=== PATIENT | male | born 1945 | race Caucasian/White ===

== ENCOUNTER 2017-08-13 16:16 | Inpatient (IN) | payer MEDICARE, OTHER ==
[2017-08-13] MEDS ORDERED: FEVERALL 650 MG ONE (16:24)
[2017-08-13] MEDS ORDERED: Sodium Chloride 0.9% 1000 ML 1,000 ML IV STA (16:24)
[2017-08-13] MEDS ORDERED: FEVERALL 650 MG PR STA (16:24)
[2017-08-13] MEDS ORDERED: ROCEPHIN 1 Gm-D5w 50 ml Bag** 1 G/50 ML IVPB IV STA (16:25)
[2017-08-13] MEDS ORDERED: Sodium Chloride 0.9% 1000 ML 1,000 ML ONE (16:31)
--- NOTE | 2017-08-13 16:33 | ERPHSYRPT ---
- History of Present Illness Time Seen by Provider: 08/13/17 16:23 Source: patient, EMS Physician History: CC: confusion Hx: 72 y/o patient of Dr Murillo with hx of frequent falls, parkinsons. Confusion today. Shaking chills. Sent to ER from home per EMS. Denies pain. Some cough. Not known to have fever. He has chronic incontinence. No headache or head injury. No neck or back pain. He has general weakness and fatigue. Fever Severity: moderate Allergies/Adverse Reactions: No Known Drug Allergies Allergy (Verified 12/28/14 18:08) Home Medications: Carbidopa/Levodopa [Sinemet 25-250 mg Tablet] 1 each PO QID 08/13/17 [History] Ergocalciferol (Vitamin D2) [Vitamin D2] 50,000 unit PO UD 08/13/17 [History] Furosemide 40 mg [Lasix 40 MG] 40 mg PO BID 08/13/17 [History] Nebivolol HCl [Bystolic] 10 mg PO DAILY 08/13/17 [History] Ramipril [Altace] 10 mg PO DAILY 08/13/17 [History] Ropinirole HCl [Ropinirole ER] 6 mg PO QID 08/13/17 [History] Solifenacin Succinate [Vesicare] 5 mg PO DAILY 08/13/17 [History] Hx Tetanus, Diphtheria Vaccination/Date Given: Yes Hx Influenza Vaccination/Date Given: Yes Hx Pneumococcal Vaccination/Date Given: Yes - Review of Systems Constitutional: Chills, Fatigue, Malaise, Weakness, No Fever Eyes: No Symptoms Respiratory: Cough Cardiac: No Chest Pain Abdominal/Gastrointestinal: No Abdominal Pain, No Nausea, No Vomiting, No Diarrhea Genitourinary Symptoms: No Dysuria Musculoskeletal: No Back Pain, No Neck Pain, No Injury Neurological: No Focal Weakness, No Headache All Other Systems: Reviewed and Negative - Past Medical History Pertinent Past Medical History: Yes Neurological History: Peripheral Neuropathy, Other (Parkinson's) ENT History: No Pertinent History Cardiac History: Hypertension Respiratory History: Sleep Apnea Endocrine Medical History: Diabetes Type II Musculoskeletal History: Rheumatoid Arthritis, Other GI Medical History: No Pertinent History History: No Pertinent History Psycho-Social History: Depression Male Reproductive Disorders: Prostate Problems Other Medical History: PARKINSONS - Past Surgical History Past Surgical History: Yes Neuro Surgical History: No Pertinent History Cardiac: No Pertinent History, Cardiac Catheterization Respiratory: No Pertinent History Gastrointestinal: Cholecystectomy, Hernia Repair Musculoskeletal: Joint Replacement, Orthopedic Surgery Other Surgical History: ABDON KNEE REPLACEMENT - Social History Smoking Status: Never smoker Exposure to second hand smoke: No Drug Use: none Patient Lives Alone: No Significant Family History: no pertinent family hx - Nursing Vital Signs Nursing Vital Signs: Initial Vital Signs Temperature 103.4 F 08/13/17 16:17 Pulse Rate 90 08/13/17 16:17 Respiratory Rate 18 08/13/17 16:17 Blood Pressure 136/69 08/13/17 16:17 O2 Sat by Pulse Oximetry 92 L 08/13/17 16:17 Pain Scale Pain Intensity 0 - Physical Exam General Appearance: alert Eye Exam: PERRL/EOMI ENT Exam: normal ENT inspection (but dry mucous membranes) Neck Exam: supple Respiratory Exam: no respiratory distress, decreased breath sounds Cardiovascular/Chest Exam: regular rate/rhythm Gastrointestinal/Abdominal Exam: soft, non tender, no distention Male Genitalia: other (some redness to scrotum from diaper), No testicular tenderness Neurologic Exam: alert, cooperative, No motor deficits Skin Exam: dry, other (hot skin) - Course Nursing assessment & vital signs reviewed: Yes EKG Interpreted by Me: RATE (88), Sinus Rhythm, LAFB, Right Bundle Branch Block , Non-specific ST Changes - Radiology Exams cxr X-ray Interpretation: Reviewed by me (bibasilar infiltrates, CM) Ordered Tests: Active Orders 24 hr Category Date Time Status Data Center Technician STAT Care 08/13/17 16:24 Active Clean Catch Urine Specimen STAT Care 08/13/17 16:24 Active EKG-ER Only STAT Care 08/13/17 16:24 Active Pulse Oximetry (ED) STAT Care 08/13/17 16:24 Active Saline Lock STAT Care 08/13/17 16:24 Active CHEST 1 VIEW (PORTABLE) Stat Exams 08/13/17 16:24 Taken BLOOD CULTURE Stat Lab 08/13/17 17:25 Received CBC W DIFF Stat Lab 08/13/17 16:30 Completed CMP Stat Lab 08/13/17 16:30 Completed CULTURE,URINE Stat Lab 08/13/17 16:24 Ordered Lactic Acid Stat Lab 08/13/17 16:30 Results Manual Differential NC Stat Lab 08/13/17 16:30 Completed PROTIME WITH INR Stat Lab 08/13/17 16:30 Completed PTT Stat Lab 08/13/17 16:30 Completed UA W/ MICROSCOPIC Stat Lab 08/13/17 16:24 Completed Medication Summary Generic Name Dose Route Start Last Admin Trade Name Frida PRN Reason Stop Dose Admin Azithromycin 500 mg in 250 mls @ 250 mls/hr 08/13/17 17:08 Zithromax 500 Mg/ 250 Ml Nacl Premix IV 08/13/17 18:07 STAT STA Discontinued Medications Generic Name Dose Route Start Last Admin Trade Name Frida PRN Reason Stop Dose Admin Acetaminophen 975 mg 08/13/17 16:24 08/13/17 16:30 Feverall 650 Mg WV 08/13/17 16:25 975 mg STAT STA Administration Acetaminophen Confirm 08/13/17 16:24 Feverall 650 Mg Administered 08/13/17 16:25 Dose 1,300 mg .ROUTE .STK-MED ONE Sodium Chloride 1,000 mls @ 999 mls/hr 08/13/17 16:24 08/13/17 16:30 Sodium Chloride 0.9% 1000 Ml IV 08/13/17 17:24 999 mls/hr .Q1H1M STA Administration Ceftriaxone Sodium/Dextrose 1 g in 50 mls @ 100 mls/hr 08/13/17 16:25 16:48 Rocephin 1 Gm-D5w 50 Ml Bag IV 08/13/17 16:54 100 mls/hr STAT STA Administration Sodium Chloride Confirm 08/13/17 16:31 Sodium Chloride 0.9% 1000 Ml Administered 08/13/17 16:32 Dose 1,000 mls @ ud .ROUTE .STK-MED ONE Ceftriaxone Sodium/Dextrose Confirm 08/13/17 16:46 Rocephin 1 Gm-D5w 50 Ml Bag Administered 08/13/17 16:47 Dose 1 g in 50 mls @ ud IV .STK-MED ONE Lab/Rad Data: Laboratory Result Diagrams 08/13/17 16:30 08/13/17 16:30 Laboratory Results 08/13/17 08/13/17 08/13/17 Range/Units 16:30 16:30 16:30 WBC 17.5 H (4.0-10.5) K/mm3 RBC 5.07 (4.1-5.6) M/mm3 Hgb 15.3 (12.5-18.0) gm/dl Hct 46.2 (42-50) % MCV 91.1 (78-100) fl MCH 30.2 (26-32) pg MCHC 33.1 (32-36) g/dl RDW 14.5 H (11.5-14.0) % Plt Count 168 (150-450) K/mm3 MPV 11.4 H (6-9.5) fl INR 1.18 (0.8-3.0) APTT 33.2 (24.1-36.1) SECONDS Sodium 138 (136-145) mEq/L Potassium 4.0 (3.5-5.1) mEq/L Chloride 100 (98-107) mEq/L Carbon Dioxide 27.4 (21-32) mEq/L Anion Gap 14.5 (5-15) MEQ/L BUN 19 (9-20) mg/dL Creatinine 1.31 H (0.55-1.30) mg/dl Estimated GFR 57 ML/MIN Glucose 215 H (70-110) MG/DL Lactic Acid (0.4-2.0) Calcium 9.2 (8.5-10.1) mg/dL Total Bilirubin 0.80 (0.2-1.0) mg/dL AST 17 (15-37) U/L ALT 10 L (12-78) U/L Alkaline Phosphatase 132 H (46-116) U/L Serum Total Protein 7.5 (6.4-8.2) gm/dL Albumin 3.6 (3.4-5.0) g/dL Ur Collection Type Urine Color (YELLOW) Urine Appearance (CLEAR) Urine pH (5-6) Ur Specific [place] (1.005-1.025) Urine Protein (Negative) Urine Ketones (NEGATIVE) Urine Blood (0-5) Haseeb/ul Urine Nitrite (NEGATIVE) Urine Bilirubin (NEGATIVE) Urine Urobilinogen (0-1) mg/dL Ur Leukocyte Esterase (NEGATIVE) Urine Microscopic RBC (0-2) /HPF Urine Microscopic WBC (0-5) /HPF Ur Epithelial Cells (FEW) /HPF Urine Bacteria (NEGATIVE) /HPF Hyaline Casts (0-2) /LPF Urine Glucose (NEGATIVE) mg/dL Specimen Received 08/13/17 08/13/17 Range/Units 16:30 16:24 WBC (4.0-10.5) K/mm3 RBC (4.1-5.6) M/mm3 Hgb (12.5-18.0) gm/dl Hct (42-50) % MCV (78-100) fl MCH (26-32) pg MCHC (32-36) g/dl RDW (11.5-14.0) % Plt Count (150-450) K/mm3 MPV (6-9.5) fl INR (0.8-3.0) APTT (24.1-36.1) SECONDS Sodium (136-145) mEq/L Potassium (3.5-5.1) mEq/L Chloride (98-107) mEq/L Carbon Dioxide (21-32) mEq/L Anion Gap (5-15) MEQ/L BUN (9-20) mg/dL Creatinine (0.55-1.30) mg/dl Estimated GFR ML/MIN Glucose (70-110) MG/DL Lactic Acid 2.9 H (0.4-2.0) Calcium (8.5-10.1) mg/dL Total Bilirubin (0.2-1.0) mg/dL AST (15-37) U/L ALT (12-78) U/L Alkaline Phosphatase (46-116) U/L Serum Total Protein (6.4-8.2) gm/dL Albumin (3.4-5.0) g/dL Ur Collection Type CLEAN CATCH Urine Color YELLOW (YELLOW) Urine Appearance CLEAR (CLEAR) Urine pH 5.0 (5-6) Ur Specific [place] 1.015 (1.005-1.025) Urine Protein TRACE (Negative) Urine Ketones NEGATIVE (NEGATIVE) Urine Blood 50 (0-5) Haseeb/ul Urine Nitrite NEGATIVE (NEGATIVE) Urine Bilirubin NEGATIVE (NEGATIVE) Urine Urobilinogen NORMAL (0-1) mg/dL Ur Leukocyte Esterase TRACE (NEGATIVE) Urine Microscopic RBC 0-2 (0-2) /HPF Urine Microscopic WBC 2-5 (0-5) /HPF Ur Epithelial Cells RARE (FEW) /HPF Urine Bacteria RARE (NEGATIVE) /HPF Hyaline Casts 0-2 (0-2) /LPF Urine Glucose 250 (NEGATIVE) mg/dL Specimen Received 08/13/17 1624 - Progress Progress Note: 08/13/17 16:32 103 fever. Sepsis workup in progress. 08/13/17 17:33 The patient is stable. He appears to have pneumonia/sepsis aggravating his parkinsons. Flu pending. Called Dr Reagan Murillo and will admit to [facility]. Counseled pt/family regarding: lab results, diagnosis, need for follow-up, rad results - Departure Time of Disposition: 17:34 Departure Disposition: In-patient Admission Clinical Impression: Parkinsons, Sepsis, Pneumonia Condition: Fair Critical Care Time: No Referrals: TIMUR MURILLO [Primary Care Provider] -
[2017-08-13 16:35] LABS: Lactic Acid 2.9 (0.4-2.0)
[2017-08-13 16:44] LABS: Mean Cell Volume 91.1 fl (78-100); Mean Corpuscular Hemoglobin 30.2 pg (26-32); Mean Platelet Volume 11.4 fl (6-9.5); Platelet Count 168 K/mm3 (150-450); Red Blood Count 5.07 M/mm3 (4.1-5.6); Red Cell Distribution Width 14.5 % (11.5-14.0); White Blood Count 17.5 K/mm3 (4.0-10.5)
[2017-08-13] MEDS ORDERED: ROCEPHIN 1 Gm-D5w 50 ml Bag** 1 G/50 ML IVPB IV ONE (16:46)
[2017-08-13 16:50] LABS: Bilirubin NEGATIVE (NEGATIVE); Blood 50 Ery/ul (0-5); Collection Type CLEAN CATCH; Glucose 250 mg/dL (NEGATIVE); Leukocyte Esterase TRACE (NEGATIVE)
[2017-08-13 16:51] LABS: COMPLETE URINE MICROSCOPIC? YES
[2017-08-13 16:52] LABS: Bacteria RARE /HPF (NEGATIVE); Epithelial Cells RARE /HPF (FEW); Hyaline Casts 0-2 /LPF (0-2)
[2017-08-13 16:57] LABS: INR 1.18 (0.8-3.0); PROTIME 13.1 SECONDS (8.83-12.87)
[2017-08-13 16:59] LABS: PTT 33.2 SECONDS (24.1-36.1)
[2017-08-13] MEDS ORDERED: Zithromax 500 MG/ 250 ML NaCl Premix 500 MG/250 ML IVPB IV STA (17:08)
[2017-08-13 17:09] LABS: ALBUMIN 3.6 g/dL (3.4-5.0); ANION GAP 14.5 MEQ/L (5-15); BILIRUBIN,TOTAL 0.8 mg/dL (0.2-1.0); Carbon Dioxide 27.4 mEq/L (21-32); Total Protein 7.5 gm/dL (6.4-8.2)
[2017-08-13] MEDS ORDERED: Zithromax 500 MG/ 250 ML NaCl Premix 500 MG/250 ML IVPB IV ONE (17:33)
[2017-08-13] MEDS ORDERED: TYLENOL 325 MG PO PRN (17:58)
--- NOTE | 2017-08-13 19:25 | XRAY ---
Indication: Possible sepsis. Comparison: December 28, 2014. Portable chest now demonstrates subtle bibasilar haziness, infiltrates versus atelectasis. Remaining heart and lungs unremarkable. Bony thorax intact.
[2017-08-13] MEDS: Sodium Chloride 0.9% 1000 ML 1,000 ML IV SCH (19:50)
[2017-08-13 21:46] LABS: Platelet Estimate NORMAL (NORMAL); Total Cells Counted 100
[2017-08-13] MEDS ORDERED: REQUIP 2MG TAB ONE (23:17)
[2017-08-13] MEDS ORDERED: Sinemet 25/100 MG ONE (23:17)
[2017-08-13] MEDS: REQUIP 2MG TAB PO SCH (23:41)
[2017-08-13] MEDS: Sinemet 25/250 MG PO SCH (23:42)
[2017-08-14 05:47] LABS: BASOPHIL % 0.2 % (0.0-0.4); Eosinophil % 1.2 % (0.00-5.0); Lymphocytes % 10.1 % (24.0-44.0); Mean Cell Volume 93.2 fl (78-100); Mean Platelet Volume 11.5 fl (6-9.5); Monocytes % 4.5 % (0.0-12.0); Platelet Count 155 K/mm3 (150-450); Red Cell Distribution Width 14.7 % (11.5-14.0); White Blood Count 10.2 K/mm3 (4.0-10.5)
[2017-08-14] MEDS: Sodium Chloride 0.9% 1000 ML 1,000 ML IV SCH ×2 (05:53→15:26)
[2017-08-14 06:06] LABS: ANION GAP 9.2 MEQ/L (5-15); BLOOD UREA NITROGEN 17 mg/dL (9-20); CHLORIDE 107 mEq/L (98-107); Carbon Dioxide 28.8 mEq/L (21-32); Glucose 110 MG/DL (70-110); Potassium 3.5 mEq/L (3.5-5.1); SODIUM 142 mEq/L (136-145)
[2017-08-14] MEDS ORDERED: Requip 0.5 MG PO SCH (10:00)
[2017-08-14] MEDS: REQUIP 2MG TAB PO SCH ×4 (10:18→22:24)
[2017-08-14] MEDS: Zithromax 500 MG/ 250 ML NaCl Premix 500 MG/250 ML IVPB IV SCH (10:18)
[2017-08-14] MEDS: ROCEPHIN 1 Gm-D5w 50 ml Bag** 1 G/50 ML IVPB IV SCH (10:19)
[2017-08-14] MEDS: Sinemet 25/250 MG PO SCH ×4 (10:19→22:24)
[2017-08-14] MEDS ORDERED: MEDICATION INTERVENTION MC PRN (15:14)
[2017-08-14] MEDS ORDERED: VITAMIN D2 PO SCH (15:15)
[2017-08-14] MEDS: Altace 5 MG PO SCH (15:45)
[2017-08-14] MEDS: Bystolic 5 MG PO SCH (15:45)
--- NOTE | 2017-08-14 17:20 | XRAY ---
Indication: Weakness. Multiple contiguous axial images obtained through the head without contrast. Comparison: December 16, 2014. Again normal appearing brain parenchyma, ventricles, and bony calvarium. Visualized paranasal sinuses and mastoid air cells are clear. Impression: Stable normal CT head without contrast exam. Comment: Preliminary interpretation was made by [facility]. No discrepancy. CTDI 57.98
--- NOTE | 2017-08-14 17:22 | XRAY ---
Indication: Left shoulder pain. Comparison: None 3 views of the left shoulder demonstrates mild AC degenerative arthropathy and tiny medial humeral head spurring. No other bony, articular, or soft tissue abnormalities.
[2017-08-14] MEDS: Lasix 40 MG PO SCH (17:40)
[2017-08-14] MEDS: NovoLOG Insulin SQ PRN ×2 (17:41→22:25)
[2017-08-14] MEDS: Ditropan 5 MG PO SCH (22:24)
[2017-08-15] MEDS: Sodium Chloride 0.9% 1000 ML 1,000 ML IV SCH ×3 (01:16→23:29)
[2017-08-15] MEDS ORDERED: DUONEB 0.5-3 MG/3 ml Neb IH ONE (02:40)
[2017-08-15 06:03] LABS: BASOPHIL % 0.1 % (0.0-0.4); Eosinophil % 1.9 % (0.00-5.0); Granulocytes % 73.3 % (36.0-66.0); Lymphocytes % 16.4 % (24.0-44.0); Mean Cell Volume 94.3 fl (78-100); Mean Corpuscular Hemoglobin 30.1 pg (26-32); Mean Platelet Volume 11.4 fl (6-9.5); Monocytes % 8.3 % (0.0-12.0); Platelet Count 158 K/mm3 (150-450); Red Blood Count 4.22 M/mm3 (4.1-5.6); Red Cell Distribution Width 14.5 % (11.5-14.0); White Blood Count 7.4 K/mm3 (4.0-10.5)
[2017-08-15 06:58] LABS: ANION GAP 11.2 MEQ/L (5-15); BLOOD UREA NITROGEN 11 mg/dL (9-20); CHLORIDE 104 mEq/L (98-107); Carbon Dioxide 28.4 mEq/L (21-32); Glucose 192 MG/DL (70-110); Potassium 4.1 mEq/L (3.5-5.1); SODIUM 140 mEq/L (136-145)
--- NOTE | 2017-08-15 09:57 | HP ---
HISTORY OF PRESENT ILLNESS: Melvin Carrillo is a 72 year old male with past medical history of hypertension, congestive heart failure, Parkinson's disease, rheumatoid arthritis, chronic incontinence, depression, peripheral neuropathy and sleep apnea. He presented to the emergency room yesterday with symptoms of increasing generalized weakness, frequent falls. The patient was reportedly confused yesterday and was having shaking chills. There was no reported history of fever. No reported history of head, neck or back injury. As per patient he had not been eating well. Upon initial evaluation in the emergency room he was noted to be alert with blood pressure of 136/69, heart rate 90, respiratory rate 18, temperature 103.4F. Oxygen saturation 92%. Work up was notable for white blood cell count 17.5. Creatinine 1.31. Lactic acid was 2.9. Urinary tract infection. Bibasilar infiltrate on chest x-ray. He was treated with Zithromax 500 mg IV x1, Tylenol 975 mg x1, normal saline 1 liter x1, Rocephin 1 gm IV x1. Subsequently he was admitted to the medical floor for further monitoring and management. Since admission he has been continued on IV fluids, broad spectrum IV antibiotics. At the time of this evaluation he is alert, awake, complains of fatigue, generalized weakness. Complains of left shoulder pain from fall. PAST MEDICAL HISTORY: As noted above. PAST SURGICAL HISTORY: Cardiac catheterization, cholecystectomy, hernia repair, bilateral knee replacement, orthopedic surgery. ALLERGIES: NKDA. MEDICATIONS: Reviewed. FAMILY HISTORY: Noncontributory. SOCIAL HISTORY: The patient has no history of smoking. REVIEW OF SYSTEMS: Denies headache or dizziness. Complains of generalized weakness. Denies fever. Complaints of fatigue. Prior history of recurrent falls. Denies loss of consciousness. Denies chest pain. Complains of occasional shortness of breath, complains of dry cough. Denies abdominal pain, nausea or vomiting. Denies constipation or diarrhea. History of chronic incontinence. PHYSICAL EXAMINATION: An elderly male lying comfortably in bed, not in acute distress. VITAL SIGNS: Blood pressure 97/53, heart rate 56, respiratory rate 15, temperature 97.7F. Oxygen saturation 97% on 3 liters. HEENT: Pallor is present. No icterus is noted. NECK: No JVD is present. CVS: S1, S2 present. RESPIRATORY: Breath sounds are bilaterally diminished and clear to auscultation. ABDOMEN: Obese, soft, nontender. NEURO: He is alert, oriented x3. Evaluation of motor strength in bilateral upper and lower extremities reveals grossly intact motor strength. EXTREMITIES: Revealed edema on right ankle, right foot area (chronic per patient). Left lower extremity revealed no edema. LABORATORY DATA AND TESTS: Labs from 08/13/2017 were noted. Today's labs show remarkable CBC. BMP is unremarkable. Hemoglobin A1C 9.5. Repeat lactic acid 1.5. Yesterday's labs were also notable for alkaline phosphatase 132. Flu A/B and respiratory syncytial virus were negative. Chest x-ray as noted. EKG showed sinus rhythm, right bundle branch block, nonspecific ST-T changes. ASSESSMENT: A 72 year old male with impression: 1) Generalized weakness. 2) Pneumonia. 3) Recurrent falls. 4) Urinary tract infection. 5) History of Parkinson's disease. 6) Hypertension/congestive heart failure. 7) Respiratory distress, clinically resolved. PLAN: Continue broad spectrum IV antibiotics. Continue IV fluids. Continue to follow CBC and electrolytes. Continue to follow chest x-ray. Will obtain BMP. PT and OT evaluation. The plan was discussed with the patient. He seems to be in understanding and agreement. Discussed with the patient's nurse.
[2017-08-15] MEDS ORDERED: NON-FORMULARY ITEM (Nebivolol Hcl [Bystolic] 10 MG) PO SCH (10:00)
[2017-08-15] MEDS ORDERED: NON-FORMULARY ITEM (Ramipril [Altace] 10 MG) PO SCH (10:00)
[2017-08-15] MEDS ORDERED: NON-FORMULARY ITEM (Solifenacin Succinate [Vesicare] 5 MG) PO SCH (10:00)
[2017-08-15] MEDS: REQUIP 2MG TAB PO SCH ×4 (10:15→22:23)
[2017-08-15] MEDS: Altace 5 MG PO SCH (10:15)
[2017-08-15] MEDS: Zithromax 500 MG/ 250 ML NaCl Premix 500 MG/250 ML IVPB IV SCH (10:15)
[2017-08-15] MEDS: Sinemet 25/250 MG PO SCH ×4 (10:15→22:24)
[2017-08-15] MEDS: ROCEPHIN 1 Gm-D5w 50 ml Bag** 1 G/50 ML IVPB IV SCH (10:15)
[2017-08-15] MEDS: Bystolic 5 MG PO SCH (10:16)
[2017-08-15] MEDS: Lasix 40 MG PO SCH ×2 (10:16→16:47)
[2017-08-15] MEDS: Ditropan 5 MG PO SCH ×2 (10:16→22:23)
[2017-08-15] MEDS: Robitussin 100 MG/5 ML PO PRN (10:19)
[2017-08-15] MEDS: NovoLOG Insulin SQ PRN ×3 (12:17→22:25)
--- NOTE | 2017-08-15 15:53 | PROG NOTE ---
DATE: 08/15/2017 Chart is reviewed and events noted. The patient has been more confused at the time of this evaluation. He is alert, awake, complains of feeling fatigued. Denies increased shortness of breath, denies pain. He appears comfortable. PHYSICAL EXAMINATION: VITAL SIGNS: Blood pressure 115/78, heart rate 57, respiratory rate 20, temperature 98.4F. Oxygen saturation 99% on room air. HEENT: No pallor or icterus is present. NECK: No JVD is present. CVS: S1, S2 present. RESPIRATORY: Breath sounds are bilaterally diminished, bilateral rhonchi present. ABDOMEN: Obese, soft, nontender. NEURO: He is alert, answers simple questions, oriented to self, place and year. He follows simple commands. EXTREMITIES: Trace edema right ankle/right foot. LABORATORY DATA AND TESTS: Labs from today show unremarkable CBC. BMP notable for glucose of 192. Head CT from yesterday had shown no acute changes. Left shoulder x-ray showed no acute degenerative changes. No acute abnormalities. Blood cultures from 08/13/2017 had revealed negative x2. Urine culture showed less than 10,000 normal elliot. Medications were reviewed. ASSESSMENT: A 72 year old man with impression: 1) Generalized weakness. 2) Confusion, mild. 3) Urinary tract infection, mild. 4) History of recurrent fall. 5) Pneumonia. 6) Parkinson's disease. 7) History of hypertension/congestive heart failure. PLAN: Continue to monitor neurological status, continue broad spectrum IV antibiotics and continue to follow CBC and electrolytes. Fall precautions. The plan was discussed with the patient who seems to be in understanding and agreement. Discussed with the patient's nurse, Emily.
[2017-08-15] MEDS: ENOXAPARIN SODIUM SQ SCH (16:47)
[2017-08-16] MEDS: REQUIP 2MG TAB PO SCH ×2 (07:43→12:31)
[2017-08-16] MEDS: Bystolic 5 MG PO SCH (07:44)
[2017-08-16] MEDS: Lasix 40 MG PO SCH (07:44)
[2017-08-16] MEDS: Ditropan 5 MG PO SCH (07:44)
[2017-08-16] MEDS: Altace 5 MG PO SCH (07:44)
[2017-08-16] MEDS: ENOXAPARIN SODIUM SQ SCH (07:44)
[2017-08-16] MEDS: ROCEPHIN 1 Gm-D5w 50 ml Bag** 1 G/50 ML IVPB IV SCH (07:45)
[2017-08-16] MEDS: Sinemet 25/250 MG PO SCH ×2 (07:45→12:31)
[2017-08-16] MEDS: Robitussin 100 MG/5 ML PO PRN (07:46)
[2017-08-16] MEDS: Zithromax 500 MG/ 250 ML NaCl Premix 500 MG/250 ML IVPB IV SCH (09:04)
[2017-08-16] MEDS ORDERED: Lasix 20 MG/2 ML IV ONE (10:00)
--- NOTE | 2017-08-16 10:17 | XRAY ---
Indication: Follow-up pneumonia. Comparison: August 13, 2017. PA/lateral chest demonstrates worsening bilateral lower lobe infiltrates/atelectasis again without consolidation or large effusion. Heart is not enlarged.
[2017-08-16] MEDS: NovoLOG Insulin SQ PRN (11:32)
[2017-08-16] MEDS ORDERED: NON-FORMULARY ITEM SQ SCH ×2 (12:00→22:00)
[2017-08-16] MEDS: xanAX 0.5 MG PO SCH ×2 (14:54→15:07)
[2017-08-16 15:42] VITALS: BP 143/81; PULSE 80; O2SAT 90
[2017-08-16] MEDS ORDERED: NEURONTIN 300 MG PO SCH (22:00)
[2017-08-16] MEDS ORDERED: Vitamin B-6 (Pyridoxine) 100 MG PO SCH (22:00)
[2017-08-17] MEDS ORDERED: NON-FORMULARY ITEM SQ SCH (08:00)
--- NOTE | 2017-08-17 09:38 | DS ---
DISCHARGE DIAGNOSES: 1) GENERALIZED WEAKNESS, CLINICALLY IMPROVED. 2) URINARY TRACT INFECTION. 3) PNEUMONIA. 4) CONFUSION, RESOLVED. 5) PARKINSON'S DISEASE. 6) HYPERTENSION/CONGESTIVE HEART FAILURE. 7) DIABETES MELLITUS, SUBOPTIMALLY CONTROLLED. HOSPITAL COURSE: Melvin Carrillo is a 72 year-old male with past medical history of hypertension, congestive heart failure, Parkinson's disease, diabetes mellitus and obesity. He was admitted through the emergency room on 08/13/2017 with generalized weakness and recurrent falls. Please refer to my history and physical for details. Initial work up was notable for urinary tract infection and pneumonia. The patient was placed on cautious IV hydration, broad spectrum IV antibiotics. During his further course he did have mild confusion. CT scan of the head had revealed no acute changes. Also he had complained of some left shoulder pain from recent fall and left shoulder showed no acute changes. He was placed on neural checks. Eventually his confusion had resolved. Subsequent course was notable for elevated Accu-Chek reading for which he was treated with sliding scale insulin. His hemoglobin A1C was 9.8. Also the patient's routine insulin had not been resumed at the time of initial admission but was restarted after verifying the dose. The rest of his course was essentially more or less unremarkable. He improved clinically. At the time of evaluation this afternoon, he was alert, awake and comfortable. He stated overall he felt well. He had been ambulating to the bathroom without difficulty. Appears comfortable and was wishing to go home. PHYSICAL EXAMINATION: VITAL SIGNS: Blood pressure 120/58, heart rate 88, respiratory rate 18, temperature 97.4F. HEENT: No pallor or icterus is noted. NECK: No JVD is present. CVS: S1, S2 present. RESPIRATORY: Breath sounds are bilaterally diminished but clear to auscultation. ABDOMEN: Obese, soft, nontender. NEURO: He is alert, oriented x3. EXTREMITIES: Trace edema on right ankle/right foot chronic. Left lower extremity revealed no edema. LABORATORY DATA AND TESTS: Labs from today were noted. Chest x-ray noted. Medications were reviewed. ASSESSMENT: As outlined in discharge diagnoses. PLAN: A patient with multiple medical problems was admitted with generalized weakness due to pneumonia. He underwent work up and treatment as noted. He improved clinically. He remained hemodynamically stable. Additional work up for confusion was essentially unremarkable and his confusion had resolved. His chest x-ray from today did show mild worsening of congestive changes possible pneumonia/infiltrates. However, he remained afebrile with normal white blood cell count and remained hemodynamically stable. Also his BNP was somewhat mildly elevated. He was treated with additional dose of Lasix. As noted earlier after verifying dose the patient was resumed on his routine dosing of insulin and hypoglycemic agents were continued. His Accu-Chek's will continue to be monitored closely. He was also evaluated by PT. Please refer to their notes for details. The rest of his course was essentially more or less unremarkable. He otherwise improved clinically. He overall felt better and was wishing to go home. He ambulated with stable oxygen saturation. He was discharged home in stable condition. Please refer to discharge medication list from 08/16/2017 for details of medications on discharge. The patient was placed on a seven day course of Levaquin at the time of discharge. He was advised to continue to monitor his Accu-Chek's and blood pressure closely and call if any abnormal readings were noted. He was advised to start discharge medications as directed. I have advised the patient to obtain CMP, CBC and chest x-ray after completion of his antibiotics. I have advised the patient to follow up with me in the office in one week. I have advised him to return to the emergency room [facility] if any new signs and symptoms or reappearance of previous signs and symptoms are noted. Please refer to patient's chart, labs, diagnostic work up results and consult notes for details. Please refer to discharge medication list from 08/16/2017 for details of medications on discharge. The patient's clinical condition, work-up results and plan of management including plan after discharge were discussed at length with patient. He seems to be in understanding and agreement. Discussed with lining caser, Stephanie Singh.
== END 2017-08-16 16:00 | disposition home or self-care (01) | DRG 947 ==
LOC: ED 16:16 → MED SURG 17:50
PROVIDERS: ADMIT General Practice; ATTEND General Practice
DX: R53.1 Weakness (principal); J18.9 Pneumonia, unspecified organism; N39.0 Urinary tract infection, site not specified; R41.0 Disorientation, unspecified; G20 Parkinson's disease; I11.0 Hypertensive heart disease with heart failure; I50.9 Heart failure, unspecified; E11.9 Type 2 diabetes mellitus without complications; E66.9 Obesity, unspecified; M06.9 Rheumatoid arthritis, unspecified; F32.9 Major depressive disorder, single episode, unspecified; G62.9 Polyneuropathy, unspecified; G47.30 Sleep apnea, unspecified; R29.6 Repeated falls; M25.512 Pain in left shoulder
CPT/HCPCS: 36415; 70450; 71010; 71020; 73030; 80048; 80053; 81000; 82962; 83036; 83605; 83880; 85025; 85610; 85730; 87040; 87086; 87631; 93005; 93041; 94640; 94660; 94760; 96360; 96365; 96367; 99285; J0456; J0696; J1650; J1940; A9270-GY

== ENCOUNTER 2017-08-23 19:16 | Inpatient (IN) | payer MEDICARE, OTHER ==
[2017-08-23] MEDS ORDERED: Zosyn 3.375GM/100 Ml D5W 3.375 GM/100 ML IVPB IV STA (19:35)
[2017-08-23] MEDS ORDERED: FEVERALL 650 MG PR ONE (19:35)
--- NOTE | 2017-08-23 19:39 | ERPHSYRPT ---
- History of Present Illness Time Seen by Provider: 08/23/17 19:29 Source: patient, EMS Patient Subjective Stated Complaint: per ems, pt has had fever, lsthargy, and confusion at home. Triage Nursing Assessment: pt alert and oriented, brendas betina approp. pt arrive per ambulance and transfer to [facility] with assist of 3. respirations tachy, nonlabored. pt's extremities shaking. occasional cough noted, nonproductive. yellowing bruise noted to lt upper arm. scab to forehead pt states from biopsy done. 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 Admitted for UTI and pneumonia 3 weeks ago and took last dose of levaquin today. He has fever, chills, general weakness. No cough. Polyuria. No abd pain. No V/D. Fell 3 weeks ago with bruise to left arm. Sugars have been well. Symptoms moderately severe. Timing/Duration: today Severity: moderate, severe Allergies/Adverse Reactions: No Known Drug Allergies Allergy (Verified 08/23/17 19:35) Home Medications: Carbidopa/Levodopa [Sinemet 25-250 mg Tablet] 1 each PO QID 08/13/17 [History] Furosemide 40 mg [Lasix 40 MG] 40 mg PO BID 08/13/17 [History] Nebivolol HCl [Bystolic] 10 mg PO DAILY 08/13/17 [History] Ramipril [Altace] 10 mg PO DAILY 08/13/17 [History] Ropinirole HCl [Ropinirole ER] 6 mg PO QID 08/13/17 [History] Insulin Lispro Protamin/Lispro [Humalog Mix 50-50 Kwikpen] 22 unit SQ BREAKFAST 08/16/17 [History] Insulin Lispro Protamin/Lispro [Humalog Mix 50-50 Kwikpen] 27 unit SQ HS [History] Insulin Lispro Protamin/Lispro [Humalog Mix 50-50 Kwikpen] 27 unit SQ LUNCH [History] Vit B6/Me-Thfolate/Me-B12/Ala [Podiapn Capsule] 1 each PO BID 08/16/17 [History] Hx Tetanus, Diphtheria Vaccination/Date Given: Yes Hx Influenza Vaccination/Date Given: Yes Hx Pneumococcal Vaccination/Date Given: Yes Immunizations Up to Date: Yes - Review of Systems Constitutional: Fever, Chills, Fatigue, Malaise, Weakness Eyes: No Symptoms Ears, Nose, & Throat: No Symptoms Respiratory: No Cough, No Dyspnea Cardiac: No Chest Pain Abdominal/Gastrointestinal: No Abdominal Pain, No Nausea, No Vomiting, No Diarrhea Genitourinary Symptoms: Frequency, No Dysuria, No Hematuria, No Flank Pain Musculoskeletal: No Back Pain Skin: No Rash Neurological: No Headache All Other Systems: Reviewed and Negative - Past Medical History Pertinent Past Medical History: Yes Neurological History: Peripheral Neuropathy, Other ENT History: No Pertinent History Cardiac History: Hypertension Respiratory History: Pneumonia, Sleep Apnea Endocrine Medical History: Diabetes Type II Musculoskeletal History: Rheumatoid Arthritis, Other GI Medical History: No Pertinent History History: No Pertinent History Psycho-Social History: Depression Male Reproductive Disorders: Prostate Problems Other Medical History: PARKINSONS - Past Surgical History Past Surgical History: Yes Neuro Surgical History: No Pertinent History Cardiac: No Pertinent History, Cardiac Catheterization Respiratory: No Pertinent History Gastrointestinal: Cholecystectomy, Hernia Repair Musculoskeletal: Joint Replacement, Orthopedic Surgery Other Surgical History: ABDON KNEE REPLACEMENT - Social History Smoking Status: Never smoker Exposure to second hand smoke: No Drug Use: none Patient Lives Alone: No (lives at home with ) Significant Family History: no pertinent family hx - Nursing Vital Signs Nursing Vital Signs: Initial Vital Signs Temperature 101.4 F 08/23/17 19:19 Pulse Rate 104 H 08/23/17 19:19 Respiratory Rate 42 H 08/23/17 19:19 Blood Pressure 149/86 08/23/17 19:19 O2 Sat by Pulse Oximetry 94 L 08/23/17 19:19 Pain Scale Pain Intensity 4 - Physical Exam General Appearance: alert Eye Exam: PERRL/EOMI Ears, Nose, Throat Exam: normal ENT inspection, moist mucous membranes Neck Exam: normal inspection, non-tender, supple Respiratory Exam: normal breath sounds, lungs clear Cardiovascular Exam: regular rate/rhythm Gastrointestinal/Abdomen Exam: soft, No tenderness, No distention Male Genitalia Exam: normal genitalia Extremity Exam: normal inspection, normal range of motion Neurologic Exam: alert, oriented x 3, cooperative, sensation nml, No motor deficits Skin Exam: warm, dry, No rash SpO2 Interpretation: normal SpO2: 94 Oxygen Delivery: Nasal Cannula - Course Nursing assessment & vital signs reviewed: Yes EKG Interpreted by Me: RATE (104), Sinus Tach, Right Bundle Branch Block, Other (artifact obscures) - Radiology Exams cxr X-ray Interpretation: Interpreted by me (residual RLL infiltrate, no failure) Ordered Tests: Active Orders 24 hr Category Date Time Status [employer]ute Worker STAT Care 08/23/17 19:29 Active Clean Catch Urine Specimen STAT Care 08/23/17 19:29 Active EKG-ER Only STAT Care 08/23/17 19:29 Active IV Insertion STAT Care 08/23/17 19:29 Active IV Insertion-2nd Peripheral STAT Care 08/23/17 19:30 Active Pulse Oximetry (ED) STAT Care 08/23/17 19:29 Active Rectal Temperature STAT Care 08/23/17 19:30 Active CHEST 1 VIEW (PORTABLE) Stat Exams 08/23/17 19:30 Taken BLOOD CULTURE Stat Lab 08/23/17 19:45 Received CBC W DIFF Stat Lab 08/23/17 19:45 Completed CMP Stat Lab 08/23/17 19:45 Completed CULTURE,URINE Stat Lab 08/23/17 19:55 Received Lactic Acid Stat Lab 08/23/17 20:10 Results Manual Differential NC Stat Lab 08/23/17 19:45 Completed NT PRO BNP Stat Lab 08/23/17 19:45 Completed PROTIME WITH INR Stat Lab 08/23/17 19:45 Completed PTT Stat Lab 08/23/17 19:45 Completed UA W/ MICROSCOPIC Stat Lab 08/23/17 19:55 Completed VENOUS BLOOD GAS Stat Lab 08/23/17 20:10 Completed Medication Summary Generic Name Dose Route Start Last Admin Trade Name Freq PRN Reason Stop Dose Admin Sodium Chloride 1,000 mls @ 100 mls/hr 08/23/17 19:45 08/23/17 19:56 Sodium Chloride 0.9% 1000 Ml IV 09/22/17 19:44 100 mls/hr .Q10H NANCY Administration Discontinued Medications Generic Name Dose Route Start Last Admin Trade Name Freq PRN Reason Stop Dose Admin Acetaminophen 975 mg 08/23/17 19:35 08/23/17 19:55 Feverall 650 Mg NM 08/23/17 19:36 975 mg STAT ONE Administration Acetaminophen Confirm 08/23/17 19:46 Feverall 650 Mg Administered 08/23/17 19:47 Dose 1,300 mg .ROUTE .STK-RetiDiag ONE Piperacillin Sod/Tazobactam Sod 3.375 gm in 100 mls @ 200 mls/hr 08/23/17 19: 35 08/23/17 19:54 Zosyn 3.375gm/100 Ml D5w IV 08/23/17 20:04 200 mls/hr STAT STA Administration Piperacillin Sod/Tazobactam Sod Confirm 08/23/17 19:47 Zosyn 3.375gm/100 Ml D5w Administered 08/23/17 19:48 Dose 3.375 gm in 100 mls @ ud IV .[facility] Lab/Rad Data: Laboratory Result Diagrams 08/23/17 19:45 08/23/17 19:45 Laboratory Results 08/23/17 08/23/17 08/23/17 Range/Units 20:10 20:10 19:55 WBC (4.0-10.5) K/mm3 RBC (4.1-5.6) M/mm3 Hgb (12.5-18.0) gm/dl Hct (42-50) % MCV (78-100) fl MCH (26-32) pg MCHC (32-36) g/dl RDW (11.5-14.0) % Plt Count (150-450) K/mm3 MPV (6-9.5) fl INR (0.8-3.0) APTT (24.1-36.1) SECONDS VBG pH 7.43 H (7.32-7.42) VBG pCO2 at Pat Temp 47 (42-55) mm/Hg VBG pO2 at Pat Temp 28 (25-40) mm/Hg VBG HCO3 31.2 H* (22-28) meq/L VBG O2 Sat (Jenna) 65.1 L (95-100) VBG Base Excess 5.7 H (-2.0-2.0) VBG Hemoglobin 16.2 VBG Carboxyhemoglobin 2.3 (0.0-6.9) % T HGB POC Potassium 4.2 (3.5-5.1) Sodium (136-145) mEq/L Potassium (3.5-5.1) mEq/L Chloride (98-107) mEq/L Carbon Dioxide (21-32) mEq/L Anion Gap (5-15) MEQ/L BUN (9-20) mg/dL Creatinine (0.55-1.30) mg/dl Estimated GFR ML/MIN Glucose (70-110) MG/DL Lactic Acid 2.4 H (0.4-2.0) Calcium (8.5-10.1) mg/dL Total Bilirubin (0.2-1.0) mg/dL AST (15-37) U/L ALT (12-78) U/L Alkaline Phosphatase (46-116) U/L NT-Pro-B Natriuret Pep (0-125) pg/ml Serum Total Protein (6.4-8.2) gm/dL Albumin (3.4-5.0) g/dL Ur Collection Type CCMS Urine Color YELLOW (YELLOW) Urine Appearance CLEAR (CLEAR) Urine pH 5.0 (5-6) Ur Specific [place] 1.020 (1.005-1.025) Urine Protein NEGATIVE (Negative) Urine Ketones NEGATIVE (NEGATIVE) Urine Blood TRACE NON-HEM (0-5) Haseeb/ul Urine Nitrite NEGATIVE (NEGATIVE) Urine Bilirubin NEGATIVE (NEGATIVE) Urine Urobilinogen NORMAL (0-1) mg/dL Ur Leukocyte Esterase TRACE (NEGATIVE) Urine Microscopic RBC 0-2 (0-2) /HPF Urine Microscopic WBC 2-5 (0-5) /HPF Ur Epithelial Cells RARE (FEW) /HPF Urine Bacteria RARE (NEGATIVE) /HPF Urine Mucus SLIGHT (NEGATIVE) /HPF Urine Yeast RARE (NEGATIVE) /HPF Urine Glucose 50 (NEGATIVE) mg/dL Influenza Type A Ag (NEGATIVE) Influenza Type B Ag (NEGATIVE) RSV (PCR) (Negative) Specimen Received 08-23-17 [facility] 08/23/17 08/23/17 08/23/17 Range/Units 19:45 19:45 19:45 WBC (4.0-10.5) K/mm3 RBC (4.1-5.6) M/mm3 Hgb (12.5-18.0) gm/dl Hct (42-50) % MCV (78-100) fl MCH (26-32) pg MCHC (32-36) g/dl RDW (11.5-14.0) % Plt Count (150-450) K/mm3 MPV (6-9.5) fl INR 1.12 (0.8-3.0) APTT 28.9 (24.1-36.1) SECONDS VBG pH (7.32-7.42) VBG pCO2 at Pat Temp (42-55) mm/Hg VBG pO2 at Pat Temp (25-40) mm/Hg VBG HCO3 (22-28) meq/L VBG O2 Sat (Jenna) (95-100) VBG Base Excess (-2.0-2.0) VBG Hemoglobin VBG Carboxyhemoglobin (0.0-6.9) % T HGB POC Potassium (3.5-5.1) Sodium (136-145) mEq/L Potassium (3.5-5.1) mEq/L Chloride (98-107) mEq/L Carbon Dioxide (21-32) mEq/L Anion Gap (5-15) MEQ/L BUN (9-20) mg/dL Creatinine (0.55-1.30) mg/dl Estimated GFR ML/MIN Glucose (70-110) MG/DL Lactic Acid (0.4-2.0) Calcium (8.5-10.1) mg/dL Total Bilirubin (0.2-1.0) mg/dL AST (15-37) U/L ALT (12-78) U/L Alkaline Phosphatase (46-116) U/L NT-Pro-B Natriuret Pep 404 H (0-125) pg/ml Serum Total Protein (6.4-8.2) gm/dL Albumin (3.4-5.0) g/dL Ur Collection Type Urine Color (YELLOW) Urine Appearance (CLEAR) Urine pH (5-6) Ur Specific [place] (1.005-1.025) Urine Protein (Negative) Urine Ketones (NEGATIVE) Urine Blood (0-5) Haseeb/ul Urine Nitrite (NEGATIVE) Urine Bilirubin (NEGATIVE) Urine Urobilinogen (0-1) mg/dL Ur Leukocyte Esterase (NEGATIVE) Urine Microscopic RBC (0-2) /HPF Urine Microscopic WBC (0-5) /HPF Ur Epithelial Cells (FEW) /HPF Urine Bacteria (NEGATIVE) /HPF Urine Mucus (NEGATIVE) /HPF Urine Yeast (NEGATIVE) /HPF Urine Glucose (NEGATIVE) mg/dL Influenza Type A Ag NEGATIVE (NEGATIVE) Influenza Type B Ag NEGATIVE (NEGATIVE) RSV (PCR) NEGATIVE (Negative) Specimen Received 11/28/17 11/28/17 Range/Units 19:45 19:45 WBC 25.6 H* (4.0-10.5) K/mm3 RBC 5.14 (4.1-5.6) M/mm3 Hgb 15.2 (12.5-18.0) gm/dl Hct 46.3 (42-50) % MCV 90.1 (78-100) fl MCH 29.6 (26-32) pg MCHC 32.8 (32-36) g/dl RDW 14.3 H (11.5-14.0) % Plt Count 158 (150-450) K/mm3 MPV 11.0 H (6-9.5) fl INR (0.8-3.0) APTT (24.1-36.1) SECONDS VBG pH (7.32-7.42) VBG pCO2 at Pat Temp (42-55) mm/Hg VBG pO2 at Pat Temp (25-40) mm/Hg VBG HCO3 (22-28) meq/L VBG O2 Sat (Jenna) (95-100) VBG Base Excess (-2.0-2.0) VBG Hemoglobin VBG Carboxyhemoglobin (0.0-6.9) % T HGB POC Potassium (3.5-5.1) Sodium 133 L (136-145) mEq/L Potassium 3.7 (3.5-5.1) mEq/L Chloride 97 L (98-107) mEq/L Carbon Dioxide 27.5 (21-32) mEq/L Anion Gap 12.6 (5-15) MEQ/L BUN 15 (9-20) mg/dL Creatinine 1.17 (0.55-1.30) mg/dl Estimated GFR > 60 ML/MIN Glucose 259 H (70-110) MG/DL Lactic Acid (0.4-2.0) Calcium 9.0 (8.5-10.1) mg/dL Total Bilirubin 0.90 (0.2-1.0) mg/dL AST 9 L (15-37) U/L ALT 10 L (12-78) U/L Alkaline Phosphatase 142 H (46-116) U/L NT-Pro-B Natriuret Pep (0-125) pg/ml Serum Total Protein 7.2 (6.4-8.2) gm/dL Albumin 3.4 (3.4-5.0) g/dL Ur Collection Type Urine Color (YELLOW) Urine Appearance (CLEAR) Urine pH (5-6) Ur Specific [place] (1.005-1.025) Urine Protein (Negative) Urine Ketones (NEGATIVE) Urine Blood (0-5) Haseeb/ul Urine Nitrite (NEGATIVE) Urine Bilirubin (NEGATIVE) Urine Urobilinogen (0-1) mg/dL Ur Leukocyte Esterase (NEGATIVE) Urine Microscopic RBC (0-2) /HPF Urine Microscopic WBC (0-5) /HPF Ur Epithelial Cells (FEW) /HPF Urine Bacteria (NEGATIVE) /HPF Urine Mucus (NEGATIVE) /HPF Urine Yeast (NEGATIVE) /HPF Urine Glucose (NEGATIVE) mg/dL Influenza Type A Ag (NEGATIVE) Influenza Type B Ag (NEGATIVE) RSV (PCR) (Negative) Specimen Received - Progress Progress Note: 08/23/17 21:36 BP stable. He has sepsis. Source uncertain. Cultures sent. Called Dr Reagan Murillo who will admit to [facility]. Discussed with .: Shania Murillo Will see patient in: hospital (full admit) Counseled pt/family regarding: lab results, diagnosis, need for follow-up, rad results - Departure Time of Disposition: 21:37 Departure Disposition: In-patient Admission Clinical Impression: Sepsis Condition: Fair Critical Care Time: No Referrals: TIMUR MURILLO [Primary Care Provider] -
[2017-08-23] MEDS ORDERED: Sodium Chloride 0.9% 1000 ML 1,000 ML IV SCH (19:45)
[2017-08-23] MEDS ORDERED: FEVERALL 650 MG ONE (19:46)
[2017-08-23] MEDS ORDERED: Sodium Chloride 0.9% 1000 ML 1,000 ML ONE (19:46)
[2017-08-23] MEDS ORDERED: Zosyn 3.375GM/100 Ml D5W 3.375 GM/100 ML IVPB IV ONE (19:47)
[2017-08-23 20:02] LABS: Mean Cell Volume 90.1 fl (78-100); Mean Corpuscular Hemoglobin 29.6 pg (26-32); Platelet Count 158 K/mm3 (150-450); Red Blood Count 5.14 M/mm3 (4.1-5.6); Red Cell Distribution Width 14.3 % (11.5-14.0)
[2017-08-23 20:17] LABS: INR 1.12 (0.8-3.0); PROTIME 12.5 SECONDS (8.83-12.87)
[2017-08-23 20:20] LABS: PTT 28.9 SECONDS (24.1-36.1)
[2017-08-23 20:21] LABS: Lactic Acid 2.4 (0.4-2.0)
[2017-08-23 20:21] LABS: White Blood Count 25.6 K/mm3 (4.0-10.5)
[2017-08-23 20:21] LABS: Bilirubin NEGATIVE (NEGATIVE); Blood TRACE NON-HEM Ery/ul (0-5); COMPLETE URINE MICROSCOPIC? YES; Collection Type CCMS; Glucose 50 mg/dL (NEGATIVE); Leukocyte Esterase TRACE (NEGATIVE)
[2017-08-23 20:22] LABS: Bacteria RARE /HPF (NEGATIVE); Epithelial Cells RARE /HPF (FEW); Mucus SLIGHT /HPF (NEGATIVE); Yeast RARE /HPF (NEGATIVE)
[2017-08-23 20:23] LABS: VBG BASE EXCESS 5.7 (-2.0-2.0); VBG CARBOXYHEMOGLOBIN 2.3 % T HGB (0.0-6.9); VBG HCO3- 31.2 meq/L (22-28); VBG HEMOGLOBIN 16.2; VBG O2 SATURATION 65.1 (95-100); VBG POTASSIUM 4.2 (3.5-5.1); VBG pH 7.43 (7.32-7.42)
[2017-08-23 20:28] LABS: ALBUMIN 3.4 g/dL (3.4-5.0); ALKALINE PHOSPHATASE 142 U/L (46-116); ANION GAP 12.6 MEQ/L (5-15); BLOOD UREA NITROGEN 15 mg/dL (9-20); CHLORIDE 97 mEq/L (98-107); Carbon Dioxide 27.5 mEq/L (21-32); Glucose 259 MG/DL (70-110); Potassium 3.7 mEq/L (3.5-5.1); SGOT/AST 9 U/L (15-37); SGPT/ALT 10 U/L (12-78); SODIUM 133 mEq/L (136-145); Total Protein 7.2 gm/dL (6.4-8.2)
[2017-08-23 22:22] LABS: Platelet Estimate DECREASED (NORMAL); Total Cells Counted 100
[2017-08-23] MEDS ORDERED: TYLENOL 325 MG PO PRN (22:31)
[2017-08-24 01:02] LABS: Lactic Acid 2.6 (0.4-2.0)
[2017-08-24] MEDS ORDERED: Sodium Chloride 0.9% 1000 ML 1,000 ML IV STA ×2 (01:21→01:25)
[2017-08-24] MEDS: Zosyn 3.375GM/100 Ml D5W 3.375 GM/100 ML IVPB IV SCH ×4 (02:37→17:29)
[2017-08-24 06:25] LABS: Mean Corpuscular Hemoglobin 29.7 pg (26-32); Mean Platelet Volume 11.3 fl (6-9.5); Platelet Count 167 K/mm3 (150-450); Red Blood Count 4.61 M/mm3 (4.1-5.6); Red Cell Distribution Width 14.5 % (11.5-14.0); White Blood Count 23.7 K/mm3 (4.0-10.5)
[2017-08-24 06:38] LABS: ALBUMIN 2.7 g/dL (3.4-5.0); ALKALINE PHOSPHATASE 106 U/L (46-116); BLOOD UREA NITROGEN 14 mg/dL (9-20); CHLORIDE 103 mEq/L (98-107); Carbon Dioxide 28.8 mEq/L (21-32); Glucose 223 MG/DL (70-110); Potassium 3.8 mEq/L (3.5-5.1); SGOT/AST 11 U/L (15-37); SGPT/ALT 19 U/L (12-78); SODIUM 140 mEq/L (136-145); Total Protein 6.3 gm/dL (6.4-8.2)
[2017-08-24 07:09] LABS: BAND 5 % (0.0-2.0); Total Cells Counted 100
[2017-08-24 07:10] LABS: Platelet Estimate NORMAL (NORMAL)
[2017-08-24] MEDS ORDERED: MEDICATION INTERVENTION MC PRN (07:26)
[2017-08-24] MEDS ORDERED: VIT B6 PO SCH (07:30)
[2017-08-24] MEDS ORDERED: B12 PO SCH (07:30)
[2017-08-24] MEDS ORDERED: THFOLATE PO SCH (07:30)
[2017-08-24] MEDS ORDERED: ALA PO SCH (07:30)
[2017-08-24] MEDS ORDERED: [UNRECOGNIZED DRUG - OTHER] SQ SCH ×3 (08:00→22:00)
[2017-08-24] MEDS ORDERED: INSULIN LISPRO PROTAMINE SQ SCH ×3 (08:00→22:00)
--- NOTE | 2017-08-24 09:26 | XRAY ---
Indication: Fever. Possible sepsis. Comparison: August 16, 2017. Portable chest demonstrates moderate clearing of the previous bilateral infiltrates/atelectasis with minimal bibasilar residual. Heart is not enlarged. No new cardiopulmonary abnormalities.
[2017-08-24] MEDS: Lasix 40 MG PO SCH ×2 (09:52→17:30)
[2017-08-24] MEDS: REQUIP 2MG TAB PO SCH ×4 (09:52→22:25)
[2017-08-24] MEDS: Sinemet 25/250 MG PO SCH ×4 (09:52→22:25)
[2017-08-24] MEDS: Altace 5 MG PO SCH (09:52)
[2017-08-24] MEDS: Sodium Chloride 0.9% 1000 ML 1,000 ML IV SCH (09:56)
[2017-08-24] MEDS ORDERED: NON-FORMULARY ITEM (Ramipril [Altace] 10 MG) PO SCH (10:00)
[2017-08-24] MEDS ORDERED: ROPINIROLE HCL 6 MG PO SCH (10:00)
[2017-08-24] MEDS: Novolin N SQ SCH ×2 (12:40→22:25)
[2017-08-24] MEDS: NovoLOG Insulin SQ SCH ×2 (12:41→22:25)
[2017-08-24] MEDS: NovoLOG Insulin SQ PRN (12:41)
[2017-08-24] MEDS: ENOXAPARIN SODIUM SQ SCH (12:41)
--- NOTE | 2017-08-24 16:01 | HP ---
HISTORY OF PRESENT ILLNESS: Mr. Carrillo is a 72 y/o male with past medical history of hypertension, coronary artery disease, diabetes mellitus, and Parkinson's disease. He was recently admitted for generalized weakness, recurrent fall, and was diagnosed to have pneumonia. After undergoing work-up and treatment, he improved clinically and was discharged home in stable condition. He presented to Emergency Room yesterday evening with symptoms of fever and lethargy. Patient was also noted to be confused requiring help for transfers. Patient was noted to be shaking and tachypneic. Had complained of occasional cough. Upon initial evaluation in Emergency Room, patient was noted to be alert and oriented X 3. Initial vitals in Emergency Room were BP 149/86, heart rate 104, respiratory rate 42, temperature 101.4. Work-up was notable for lactic acid of 2.4. Also, CBC with WBC of 25.6. Patient was treated with NS 1 liter IV X 1, Tylenol 975 mg PO X 1, Zosyn 3.375 Gm IV X 1. Subsequently, he was admitted to medical floor for further monitoring and management. Since admission, his course was essentially unremarkable. At the time of this evaluation, he is alert, awake, and comfortable. Stated his shortness of breath had improved some. Complained of fatigue. Complained of generalized weakness. PAST MEDICAL HISTORY: As noted above. PAST SURGICAL HISTORY: Cardiac catheterization, cholecystectomy, hernia repair, bilateral knee replacement. FAMILY HISTORY: Noncontributory. SOCIAL HISTORY: Patient lives at home. No history of smoking or history of exposure to 2nd hand smoke. ALLERGIES: NKDA. CURRENT MEDICATIONS: Current medications were reviewed. REVIEW OF SYSTEMS: Denies headache or dizziness. Complains of fatigue and generalized weakness. History of confusion which has resolved. History of lethargy which has resolved. Complains of fever. Denied chest pain. Complains of shortness of breath (mild). Complains of cough. Denies abdominal pain, nausea, or vomiting. Denies constipation or diarrhea. Denies urinary complaints. PHYSICAL EXAMINATION: Elderly male lying comfortably in bed. Not in acute distress. VITAL SIGNS: BP 149/86, heart rate 88, respiratory 18, temperature 98.6. HEENT: Normocephalic, pallor present. No icterus noted. NECK: No JVD present. CVS: S1 and S2 present. RESPIRATORY: Breath sounds bilaterally diminished and clear to auscultation anteriorly. ABDOMEN: Obese, soft, nontender. NEURO: He is alert and awake. Answers simple questions. Evaluation of motor strength in bilateral upper and lower extremities was somewhat limited due to patient stating that he feels very fatigued. However, it revealed 4+/5 motor strength in bilateral upper and lower extremities. EXTREMITIES: Revealed edema on the right ankle and right foot (chronic). Left lower extremity revealed no edema. LABORATORY DATA: Today's labs were notable for CMP with glucose 223, BUN 14, creatinine 1.11, and bilirubin 1.10. Labs from 08/23/17 were reviewed. Also, his UA was notable for presence of trace blood, glucose, 0-2 RBC, 2-5 WBC, rare bacteria, rare epithelial cells. NT Pro BNP was 404. Flu A/B and respiratory syncytial virus were negative. A follow-up lactic acid was minimally elevated. EKG on admission showed rate of 104 beats/minute, sinus tachycardia, RBBB, presence of artifact. Chest x-ray showed residual right lower lobe infiltrate, no failure. ASSESSMENT AND PLAN: 72 y/o male with impression: 1. SEPSIS. 2. PNEUMONIA. 3. GENERALIZED WEAKNESS. 4. QUESTIONABLE URINARY TRACT INFECTION. 5. HISTORY OF HYPERTENSION. 6. HISTORY OF DIABETES MELLITUS. PLAN: 1. Patient is admitted for further monitoring and management. 2. Will continue cautious IV fluids, broad spectrum IV antibiotics. 3. Follow-up CBC, electrolytes, and cultures. 4. Fall precautions. Plan was discussed with patient. He seems to be in understanding and agreement.
[2017-08-25] MEDS: Sodium Chloride 0.9% 1000 ML 1,000 ML IV SCH ×2 (00:08→13:47)
[2017-08-25] MEDS: Zosyn 3.375GM/100 Ml D5W 3.375 GM/100 ML IVPB IV SCH ×5 (00:08→23:29)
[2017-08-25 05:42] LABS: Mean Cell Volume 93.2 fl (78-100); Mean Corpuscular Hemoglobin 29.8 pg (26-32); Platelet Count 161 K/mm3 (150-450); Red Blood Count 4.39 M/mm3 (4.1-5.6); Red Cell Distribution Width 14.4 % (11.5-14.0); White Blood Count 11.5 K/mm3 (4.0-10.5)
[2017-08-25 06:18] LABS: ANION GAP 8.9 MEQ/L (5-15); BLOOD UREA NITROGEN 14 mg/dL (9-20); CHLORIDE 103 mEq/L (98-107); Carbon Dioxide 31.7 mEq/L (21-32); Glucose 82 MG/DL (70-110); Potassium 3.2 mEq/L (3.5-5.1); SODIUM 140 mEq/L (136-145)
[2017-08-25] MEDS: Novolin N SQ SCH ×2 (07:42→12:36)
[2017-08-25] MEDS: NovoLOG Insulin SQ SCH ×2 (07:43→12:36)
[2017-08-25] MEDS: REQUIP 2MG TAB PO SCH ×4 (09:19→21:45)
[2017-08-25] MEDS: Altace 5 MG PO SCH (09:19)
[2017-08-25] MEDS: Sinemet 25/250 MG PO SCH ×4 (09:20→21:45)
[2017-08-25] MEDS: Lasix 40 MG PO SCH ×2 (09:20→17:12)
[2017-08-25] MEDS: ENOXAPARIN SODIUM SQ SCH (09:20)
[2017-08-25] MEDS: NYSTOP POWDER 15 GM TOP SCH ×2 (17:13→21:51)
[2017-08-25] MEDS: POTASSIUM CHLORIDE 20 mEq IN WATER 100ML 20 MEQ/100 ML BAG IV SCH ×2 (20:39→22:43)
[2017-08-25] MEDS: NovoLOG Insulin SQ PRN (22:55)
[2017-08-26] MEDS: Zosyn 3.375GM/100 Ml D5W 3.375 GM/100 ML IVPB IV SCH ×2 (05:11→12:40)
[2017-08-26 05:45] LABS: BASOPHIL % 0.1 % (0.0-0.4); Eosinophil % 2.6 % (0.00-5.0); Granulocytes % 72.5 % (36.0-66.0); Lymphocytes % 18.9 % (24.0-44.0); Mean Cell Volume 92.3 fl (78-100); Mean Corpuscular Hemoglobin 29.5 pg (26-32); Mean Platelet Volume 11.7 fl (6-9.5); Monocytes % 5.9 % (0.0-12.0); Platelet Count 174 K/mm3 (150-450); Red Blood Count 4.78 M/mm3 (4.1-5.6); Red Cell Distribution Width 14.2 % (11.5-14.0); White Blood Count 7.6 K/mm3 (4.0-10.5)
[2017-08-26 06:08] LABS: BLOOD UREA NITROGEN 11 mg/dL (9-20); CHLORIDE 100 mEq/L (98-107); Carbon Dioxide 31.3 mEq/L (21-32); Glucose 190 MG/DL (70-110); Potassium 3.5 mEq/L (3.5-5.1); SODIUM 138 mEq/L (136-145)
--- NOTE | 2017-08-26 08:46 | PROG NOTE ---
DATE: 08/25/2017 Chart is reviewed and events noted. At the time of evaluation this afternoon the patient was alert, awake and comfortable. He said his shortness of breath was doing better. He ambulated some. He denied pain. PHYSICAL EXAMINATION: VITAL SIGNS: Blood pressure 122/85, heart rate 63, respiratory rate 18, temperature 98.7F. Oxygen saturation 94%. HEENT: Pallor is present. No icterus is noted. NECK: No JVD is present. CVS: S1, S2 present. RESPIRATORY: Breath sounds are diminished. ABDOMEN: Obese, soft, nontender. NEURO: He is alert, answers simple questions. EXTREMITIES: Right ankle/right foot edema. No edema on left lower extremity noted. Healing ecchymosis noted in upper part of left arm (from recent fall per patient). LABORATORY DATA AND TESTS: Labs from today showed CBC with white blood cell 11.5, hemoglobin 13.1, hematocrit 40.9, PLT 161,000. BMP was notable for potassium 3.2, BUN 14, creatinine 1.04. Blood cultures from 08/23/2017 had revealed no growth. Urine cultures from 08/23/2017 showed gram positive organism. Medications were reviewed. ASSESSMENT: A 72 year old male with impression: 1) Sepsis, clinically resolved. 2) Pneumonia. 3) Generalized weakness, improving. 4) Urinary tract infection. 5) Hypertension. 6) Diabetes mellitus type 2. 7) Hypokalemia. PLAN: Continue broad spectrum IV antibiotics. Continue to follow CBC, electrolytes and replacement of potassium. The patient's Accu-Chek's were done earlier today. His routine dosing of insulin had to be held today. I will discontinue his 50/50 at this time, will continue sliding scale coverage. Continue PT/OT as tolerated. Likely discharge in the next one to two days if he continues to improve. The plan was discussed with the patient. The patient's clinical condition, work-up results and plan of management as outlined were discussed with the patient. He seems to be in understanding and agreement. Discussed with patient's nurse, Emily.
--- NOTE | 2017-08-26 09:35 | XRAY ---
Indication: Follow-up pneumonia. Comparison: August 15, 2017. PA/lateral chest demonstrates stable minimal left base infiltrate/atelectasis and interval right lung clearing. Heart is not enlarged. No new cardiopulmonary abnormalities.
[2017-08-26] MEDS: Lasix 40 MG PO SCH (10:05)
[2017-08-26] MEDS: NYSTOP POWDER 15 GM TOP SCH (10:05)
[2017-08-26] MEDS: ENOXAPARIN SODIUM SQ SCH (10:05)
[2017-08-26] MEDS: Altace 5 MG PO SCH (10:05)
[2017-08-26] MEDS: REQUIP 2MG TAB PO SCH ×3 (10:05→16:43)
[2017-08-26] MEDS: Sinemet 25/250 MG PO SCH ×2 (10:05→12:40)
[2017-08-26] MEDS: NovoLOG Insulin SQ PRN ×2 (11:44→16:45)
[2017-08-26 12:13] VITALS: O2SAT 97
[2017-08-26 16:25] VITALS: BP 122/73; PULSE 80
[2017-08-26] MEDS ORDERED: Macrobid 100MG Capsule PO SCH (17:00)
[2017-08-27] MEDS ORDERED: Levofloxacin 250MG Tablet PO SCH (10:00)
--- NOTE | 2017-08-30 13:28 | DS ---
DISCHARGE DIAGNOSES: 1) SEPSIS, CLINICALLY RESOLVED. 2) PNEUMONIA. 3) GENERALIZED WEAKNESS, IMPROVED. 4) URINARY TRACT INFECTION. 5) HYPERTENSION. 6) DIABETES MELLITUS. 7) HYPOKALEMIA STATUS POST TREATMENT. HOSPITAL COURSE: Melvin Carrillo is a 72 year-old male with past medical history of diabetes mellitus, hypertension, obesity, Parkinson's disease. He had recently been admitted with symptoms of generalized weakness, recurrent falls and was diagnosed to have pneumonia and after undergoing work up and treatment was discharged home in stable condition. Eventually he was admitted through the emergency room on 08/22/2017 again with symptoms of fever and lethargy. Also he was noted to be confused, needing help for transfers. Initial work up was notable for elevated lactic acid, white blood cell count 25.6. UA showed presence of urinary tract infection. Pneumonia, flu A-B and respiratory syncytial virus were negative. Follow up lactic acid was minimally elevated. EKG showed tachycardia at 104 beats/minute, right bundle branch block. Chest x-ray showed right lower lobe infiltrate. No failure. He was placed on IV fluids, broad spectrum IV antibiotic and was admitted to medical floor for further monitoring and management. During his further course his symptoms of lethargy and confusion had resolved. Subsequent labs did show improvement in white blood cell count, stable hemoglobin and hematocrit. His Accu-Chek's are somewhat borderline and his regular dose of insulin had to be held. Subsequently his blood cultures from 08/23/2017 had revealed negative x2. Urine culture from 08/23/2017 grew E. faecalis. His antibiotics were adjusted to that. The rest of his course was essentially more or less unremarkable. He improved clinically, remained hemodynamically stable. At the time of evaluation this afternoon he was alert, awake, comfortable and reported he was feeling well. He had ambulated without any difficulty. He was tolerating diet. He overall felt much better and was wishing to go home. He appeared comfortable. PHYSICAL EXAMINATION: VITAL SIGNS: Blood pressure 126/70, heart rate 68, respiratory rate 20, temperature 97.8F. HEENT: No pallor or icterus is noted. NECK: No JVD is present. CVS: S1, S2 present. RESPIRATORY: Breath sounds are bilaterally diminished. ABDOMEN: Obese, soft, nontender. NEURO: He is alert, oriented x3. EXTREMITIES: No edema on left lower extremity. Right ankle/right foot revealed edema chronic. LABORATORY DATA AND TESTS: Labs from today showed unremarkable CBC. Today's BMP was unremarkable. Medications were reviewed. ASSESSMENT: As outlined in discharge diagnosis. PLAN: A patient with multiple medical problems was admitted with confusion, lethargy was diagnosed with pneumonia, urinary tract infection. Initial course was notable for sepsis which eventually resolved. The patient was treated with IV fluids, broad spectrum IV antibiotics. He improved clinically, remained hemodynamically stable. As noted earlier he ambulated with stable oxygen saturations. He has been overall feeling well and tolerating diet. His antibiotics were adjusted based on cultures. He was discharged home in stable condition. Please refer to discharge medication list from 08/26/2017 for details of medications on discharge. I have advised the patient to start discharge prescriptions as directed. Also he is advised to continue to monitor his Accu-Chek's closely. The patient's insulin had to be held at times due to his Accu-Chek's being borderline and he was treated with sliding scale insulin coverage. At the time of discharge the patient was instructed to restart his insulin at a much lower dose of 10 units with meals. He was advised to hold a dose of insulin if Accu-Chek was less than 120 or any signs or symptoms of hypoglycemia were noted (dose was discussed with the patient). The patient was advised to continue to monitor Accu-Chek and blood pressure closely. I advised him to also obtain CMP and CBC in one week. Compliance with diet and medications was stressed. He was also advised to follow up in the office in one week. A follow up chest x-ray and urine cultures will be obtained after completion of his antibiotic treatment. The patient was advised to return to the Emergency Room [facility] if any new signs and symptoms or reappearance of previous signs and symptoms are noted. The patient's clinical condition, work-up results and plan of management after discharge were discussed with him. He seems to be in understanding and agreement. Discussed with patient's nurse, Emily. Please refer to the patient's chart, labs, diagnostic work up results and consult notes for details.
== END 2017-08-26 16:54 | disposition home or self-care (01) | DRG 871 ==
LOC: ED 19:16 → MED SURG 22:12
PROVIDERS: ADMIT General Practice; ATTEND General Practice
DX: A41.9 Sepsis, unspecified organism (principal); J18.9 Pneumonia, unspecified organism; N39.0 Urinary tract infection, site not specified; R53.1 Weakness; I10 Essential (primary) hypertension; E11.9 Type 2 diabetes mellitus without complications; I25.10 Atherosclerotic heart disease of native coronary artery without angina pectoris; E87.6 Hypokalemia; G20 Parkinson's disease; G62.9 Polyneuropathy, unspecified; Z79.899 Other long term (current) drug therapy
CPT/HCPCS: 36415; 71010; 71020; 80048; 80053; 81000; 82805; 82962; 83605; 83880; 84132; 84134; 85025; 85027; 85610; 85730; 87040; 87077; 87086; 87186; 87631; 93005; 93041; 94660; 94760; 96360; 96374; 99285; J1650; J2543; J3480; A9270-GY

== ENCOUNTER 2017-11-14 16:29 | Observation (INO) | payer MEDICARE, OTHER ==
--- NOTE | 2017-11-14 17:30 | ERPHSYRPT ---
- History of Present Illness Time Seen by Provider: 11/14/17 17:18 Source: patient Physician History: CC: high blood sugar Hx: 72 y/o patient with hx of Parkinson disease and DM. He is a pt of Dr Pinto. He has general weakness and fatigue for 2 days. Sugar [address] Peterson told to send him to the hospital. No chest pain. No headache. No focal weakness. No abd pain. Polyuria. No fever or chills. Sugar now better. No fall or injury. Allergies/Adverse Reactions: No Known Drug Allergies Allergy (Verified 08/23/17 19:35) Home Medications: Carbidopa/Levodopa [Sinemet 25-250 mg Tablet] 1 each PO QID 08/13/17 [History] Furosemide 40 mg [Lasix 40 MG] 40 mg PO BID 08/13/17 [History] Nebivolol HCl [Bystolic] 10 mg PO DAILY 08/13/17 [History] Ramipril [Altace] 10 mg PO DAILY 08/13/17 [History] Ropinirole HCl [Ropinirole ER] 6 mg PO QID 08/13/17 [History] Vit B6/Me-Thfolate/Me-B12/Ala [Podiapn Capsule] 1 each PO 2XW 08/16/17 [History] Hx Tetanus, Diphtheria Vaccination/Date Given: Yes Hx Influenza Vaccination/Date Given: Yes Hx Pneumococcal Vaccination/Date Given: Yes - Review of Systems Constitutional: Fatigue, Malaise, Weakness (general), No Fever, No Chills Eyes: No Symptoms Ears, Nose, & Throat: No Symptoms Respiratory: No Cough, No Dyspnea Cardiac: No Chest Pain Abdominal/Gastrointestinal: No Abdominal Pain, No Nausea, No Vomiting, No Diarrhea Genitourinary Symptoms: No Dysuria Skin: No Rash Neurological: No Focal Weakness, No Headache, No Parasthesia All Other Systems: Reviewed and Negative - Past Medical History Pertinent Past Medical History: Yes Neurological History: Peripheral Neuropathy, Other ENT History: No Pertinent History Cardiac History: Hypertension Respiratory History: Pneumonia, Sleep Apnea Endocrine Medical History: Diabetes Type II Musculoskeletal History: Rheumatoid Arthritis, Other GI Medical History: No Pertinent History History: No Pertinent History Psycho-Social History: Depression Male Reproductive Disorders: Prostate Problems, Scrotal Mass Other Medical History: PARKINSONS - Past Surgical History Past Surgical History: Yes Neuro Surgical History: No Pertinent History Cardiac: No Pertinent History, Cardiac Catheterization Respiratory: No Pertinent History Gastrointestinal: Cholecystectomy, Hernia Repair Musculoskeletal: Joint Replacement, Orthopedic Surgery Other Surgical History: ABDON KNEE REPLACEMENT - Social History Smoking Status: Never smoker Exposure to second hand smoke: No Drug Use: none Patient Lives Alone: No (lives at home with ) Significant Family History: no pertinent family hx - Nursing Vital Signs Nursing Vital Signs: Initial Vital Signs Pulse Rate 76 11/14/17 17:15 Respiratory Rate 16 11/14/17 17:15 Blood Pressure 172/98 11/14/17 17:15 O2 Sat by Pulse Oximetry 96 11/14/17 17:15 Pain Scale Pain Intensity 2 - Physical Exam General Appearance: alert Eye Exam: PERRL/EOMI Ears, Nose, Throat Exam: moist mucous membranes Neck Exam: normal inspection, non-tender, supple Respiratory Exam: normal breath sounds Cardiovascular Exam: regular rate/rhythm Gastrointestinal/Abdomen Exam: soft, No tenderness, No distention, No mass, No guarding Male Genitalia Exam: normal genitalia Back Exam: normal inspection, No CVA tenderness Extremity Exam: pedal edema (worse on right- pt states swollen for 15 years) Neurologic Exam: alert, oriented x 3, cooperative, sensation nml, No motor deficits Skin Exam: warm, dry, No rash - Course Nursing assessment & vital signs reviewed: Yes - Radiology Exams cxr X-ray Interpretation: Reviewed by me, Negative Ordered Tests: Active Orders 24 hr Category Date Time Status Clean Catch Urine Specimen STAT Care 11/14/17 17:25 Active EKG-ER Only STAT Care 11/14/17 17:25 Active IV Insertion STAT Care 11/14/17 17:25 Active CHEST 1 VIEW (PORTABLE) Stat Exams 11/14/17 17:39 Taken CBC W DIFF Stat Lab 11/14/17 17:46 Completed CMP Stat Lab 11/14/17 17:46 Completed Lactic Acid Stat Lab 11/14/17 17:40 Completed TROPONIN Q3H Lab 11/14/17 17:46 Completed TROPONIN Q3H Lab 11/14/17 20:30 Ordered TROPONIN Q3H Lab 11/14/17 23:30 Ordered TROPONIN Q3H Lab 11/15/17 02:30 Ordered TROPONIN Q3H Lab 11/15/17 05:30 Ordered UA W/RFX UR CULTURE Stat Lab 11/14/17 18:05 Completed VENOUS BLOOD GAS Stat Lab 11/14/17 17:40 Completed Lab/Rad Data: Laboratory Result Diagrams 11/14/17 17:46 11/14/17 17:46 Laboratory Results 11/14/17 11/14/17 11/14/17 Range/Units 18:05 17:46 17:46 WBC (4.0-10.5) K/mm3 RBC (4.1-5.6) M/mm3 Hgb (12.5-18.0) gm/dl Hct (42-50) % MCV (78-100) fl MCH (26-32) pg MCHC (32-36) g/dl RDW (11.5-14.0) % Plt Count (150-450) K/mm3 MPV (6-9.5) fl Gran % (36.0-66.0) % Lymphocytes % (24.0-44.0) % Monocytes % (0.0-12.0) % Eosinophils % (0.00-5.0) % Basophils % (0.0-0.4) % Basophils # (0-0.4) VBG pH (7.32-7.42) VBG pCO2 at Pat Temp (42-55) mm/Hg VBG pO2 at Pat Temp (25-40) mm/Hg VBG HCO3 (22-28) meq/L VBG O2 Sat (Jenna) (95-100) VBG Base Excess (-2.0-2.0) VBG Hemoglobin VBG Carboxyhemoglobin (0.0-6.9) % T HGB POC Potassium (3.5-5.1) Sodium 138 (136-145) mEq/L Potassium 3.9 (3.5-5.1) mEq/L Chloride 100 (98-107) mEq/L Carbon Dioxide 30.7 (21-32) mEq/L Anion Gap 10.7 (5-15) MEQ/L BUN 12 (9-20) mg/dL Creatinine 1.06 (0.55-1.30) mg/dl Estimated GFR > 60 ML/MIN Glucose 229 H (70-110) MG/DL Lactic Acid (0.4-2.0) Calcium 9.0 (8.5-10.1) mg/dL Total Bilirubin 0.60 (0.2-1.0) mg/dL AST 12 L (15-37) U/L ALT 21 (12-78) U/L Alkaline Phosphatase 180 H (46-116) U/L Troponin I < 0.017 (0.000-0.056) ng/ml Serum Total Protein 7.5 (6.4-8.2) gm/dL Albumin 3.6 (3.4-5.0) g/dL Ur Collection Type CCMS Urine Color YELLOW (YELLOW) Urine Appearance CLEAR (CLEAR) Urine pH 7.0 (5-6) Ur Specific Jenera 1.010 (1.005-1.025) Urine Protein NEGATIVE (Negative) Urine Ketones NEGATIVE (NEGATIVE) Urine Blood NEGATIVE (0-5) Haseeb/ul Urine Nitrite NEGATIVE (NEGATIVE) Urine Bilirubin NEGATIVE (NEGATIVE) Urine Urobilinogen NORMAL (0-1) mg/dL Ur Leukocyte Esterase NEGATIVE (NEGATIVE) Urine Culture Reflexed NO (NO) Urine Glucose 500 (NEGATIVE) mg/dL Specimen Received 11-14-17 1820 11/14/17 11/14/17 11/14/17 Range/Units 17:46 17:40 17:40 WBC 6.2 (4.0-10.5) K/mm3 RBC 5.15 (4.1-5.6) M/mm3 Hgb 15.6 (12.5-18.0) gm/dl Hct 46.6 (42-50) % MCV 90.5 (78-100) fl MCH 30.3 (26-32) pg MCHC 33.5 (32-36) g/dl RDW 14.2 H (11.5-14.0) % Plt Count 144 L (150-450) K/mm3 MPV 11.5 H (6-9.5) fl Gran % 73.6 H (36.0-66.0) % Lymphocytes % 14.9 L (24.0-44.0) % Monocytes % 9.1 (0.0-12.0) % Eosinophils % 1.9 (0.00-5.0) % Basophils % 0.5 (0.0-0.4) % Basophils # 0.03 (0-0.4) VBG pH 7.42 (7.32-7.42) VBG pCO2 at Pat Temp 49 (42-55) mm/Hg VBG pO2 at Pat Temp 38 (25-40) mm/Hg VBG HCO3 31.8 H* (22-28) meq/L VBG O2 Sat (Jenna) 81.0 L (95-100) VBG Base Excess 5.9 H (-2.0-2.0) VBG Hemoglobin 16.3 VBG Carboxyhemoglobin 2.4 (0.0-6.9) % T HGB POC Potassium 3.9 (3.5-5.1) Sodium (136-145) mEq/L Potassium (3.5-5.1) mEq/L Chloride (98-107) mEq/L Carbon Dioxide (21-32) mEq/L Anion Gap (5-15) MEQ/L BUN (9-20) mg/dL Creatinine (0.55-1.30) mg/dl Estimated GFR ML/MIN Glucose (70-110) MG/DL Lactic Acid 1.6 (0.4-2.0) Calcium (8.5-10.1) mg/dL Total Bilirubin (0.2-1.0) mg/dL AST (15-37) U/L ALT (12-78) U/L Alkaline Phosphatase (46-116) U/L Troponin I (0.000-0.056) ng/ml Serum Total Protein (6.4-8.2) gm/dL Albumin (3.4-5.0) g/dL Ur Collection Type Urine Color (YELLOW) Urine Appearance (CLEAR) Urine pH (5-6) Ur Specific Jenera (1.005-1.025) Urine Protein (Negative) Urine Ketones (NEGATIVE) Urine Blood (0-5) Haseeb/ul Urine Nitrite (NEGATIVE) Urine Bilirubin (NEGATIVE) Urine Urobilinogen (0-1) mg/dL Ur Leukocyte Esterase (NEGATIVE) Urine Culture Reflexed (NO) Urine Glucose (NEGATIVE) mg/dL Specimen Received - Progress Progress Note: 11/14/17 19:26 Pt stable here. Parkinson flare with increased weakness. and medic report he has been falling a lot and the ambulance picks him up off the floor. Sugar better. No focal source of infection. He has had PT as HHC in the past. Called Dr pinto who advised obs. Discussed with : Yocasta Will see patient in: hospital (observation) Counseled pt/family regarding: lab results, diagnosis, need for follow-up, rad results - Departure Time of Disposition: 19:27 Departure Disposition: Observation Clinical Impression: Frequent falls, Parkinsons, Hyperglycemia due to type 2 diabetes mellitus Condition: Fair Critical Care Time: No Referrals: FIDEL PETERSON MD [Primary Care Provider] -
[2017-11-14 17:43] LABS: VBG BASE EXCESS 5.9 (-2.0-2.0); VBG CARBOXYHEMOGLOBIN 2.4 % T HGB (0.0-6.9); VBG HCO3- 31.8 meq/L (22-28); VBG HEMOGLOBIN 16.3; VBG POTASSIUM 3.9 (3.5-5.1); VBG pH 7.42 (7.32-7.42)
[2017-11-14 17:50] LABS: BASOPHIL % 0.5 % (0.0-0.4); Basophil (Absolute #) 0.03 (0-0.4); Eosinophil % 1.9 % (0.00-5.0); Eosinophil (Absolute #) 0.12 (0-0.5); Granulocyte Absolute (ANC) 4.58 (1.4-6.9); Granulocytes % 73.6 % (36.0-66.0); Hematocrit 46.6 % (42-50); Hemoglobin 15.6 gm/dl (12.5-18.0); Lymphocyte (Absolute #) 0.93 (1.0-4.6); Lymphocytes % 14.9 % (24.0-44.0); Mean Cell Volume 90.5 fl (78-100); Mean Corpuscular Hemoglobin 30.3 pg (26-32); Mean Corpuscular Hgb Concent. 33.5 g/dl (32-36); Mean Platelet Volume 11.5 fl (6-9.5); Monocyte (Absolute #) 0.57 (0.0-1.3); Monocytes % 9.1 % (0.0-12.0); Platelet Count 144 K/mm3 (150-450); Red Blood Count 5.15 M/mm3 (4.1-5.6); Red Cell Distribution Width 14.2 % (11.5-14.0); White Blood Count 6.2 K/mm3 (4.0-10.5)
[2017-11-14 18:15] LABS: ALBUMIN 3.6 g/dL (3.4-5.0); ALKALINE PHOSPHATASE 180 U/L (46-116); ANION GAP 10.7 MEQ/L (5-15); BLOOD UREA NITROGEN 12 mg/dL (9-20); CHLORIDE 100 mEq/L (98-107); Carbon Dioxide 30.7 mEq/L (21-32); Creatinine 1 1.06 mg/dl (0.55-1.30); EST GLOMERULAR FILTRATION RATE > 60 ML/MIN; Glucose 229 MG/DL (70-110); Potassium 3.9 mEq/L (3.5-5.1); SGOT/AST 12 U/L (15-37); SGPT/ALT 21 U/L (12-78); SODIUM 138 mEq/L (136-145); Total Protein 7.5 gm/dL (6.4-8.2)
[2017-11-14 18:20] LABS: Appearance CLEAR (CLEAR); Bilirubin NEGATIVE (NEGATIVE); Blood NEGATIVE Ery/ul (0-5); Glucose 500 mg/dL (NEGATIVE); Ketones NEGATIVE (NEGATIVE); Leukocyte Esterase NEGATIVE (NEGATIVE); Nitrite NEGATIVE (NEGATIVE); Protein,Urine Dip NEGATIVE (Negative); Urobilinogen NORMAL mg/dL (0-1)
[2017-11-14] MEDS ORDERED: TYLENOL 325 MG PO PRN (20:19)
[2017-11-14] MEDS: NovoLOG Insulin SQ PRN (23:24)
[2017-11-15] MEDS ORDERED: Sinemet 25/250 MG PO ONE (00:48)
[2017-11-15] MEDS ORDERED: Altace 5 MG PO ONE (00:49)
[2017-11-15] MEDS ORDERED: REQUIP 2MG TAB PO ONE (00:51)
--- NOTE | 2017-11-15 08:37 | XRAY ---
Indication: Weakness. Comparison: August 26, 2017. Portable chest is clear today. Heart and mediastinal structures within normal limits. Bony thorax intact again with mild degenerative changes. Impression: Nonacute chest.
[2017-11-15] MEDS ORDERED: Sodium Chloride 0.9% 10 ML FLUSH Syringe IV PRN (09:08)
[2017-11-15] MEDS ORDERED: xanAX 0.5 MG PO PRN (10:57)
[2017-11-15] MEDS ORDERED: MEDICATION INTERVENTION MC SCH (11:15)
[2017-11-15] MEDS: Ditropan 5 MG PO SCH ×2 (11:20→21:44)
[2017-11-15] MEDS: REQUIP 2MG TAB PO SCH ×3 (11:20→21:42)
[2017-11-15] MEDS: Lasix 40 MG PO SCH (11:20)
[2017-11-15] MEDS: Bystolic 5 MG PO SCH (11:20)
[2017-11-15] MEDS: INSULIN LISPRO PROTAMIN SQ SCH ×2 (11:22→16:39)
[2017-11-15] MEDS: LISPRO SQ SCH ×2 (11:22→16:39)
[2017-11-15] MEDS ORDERED: LISPRO SQ SCH (11:30)
[2017-11-15] MEDS ORDERED: INSULIN LISPRO PROTAMIN SQ SCH (11:30)
[2017-11-15] MEDS: Sinemet 25/250 MG PO SCH ×3 (14:01→21:43)
[2017-11-15] MEDS: Sodium Chloride 0.9% 10 ML FLUSH Syringe IV SCH ×2 (14:09→21:45)
[2017-11-15] MEDS ORDERED: ROPINIROLE HCL 6 MG PO SCH (15:00)
[2017-11-15] MEDS: NovoLOG Insulin SQ PRN (16:40)
[2017-11-15] MEDS ORDERED: GLYCOPYRROLATE IH SCH (22:00)
[2017-11-15] MEDS ORDERED: Zestril 20 MG PO SCH (22:00)
[2017-11-15] MEDS ORDERED: FORMOTEROL FUM IH SCH (22:00)
[2017-11-16] MEDS: Sodium Chloride 0.9% 10 ML FLUSH Syringe IV SCH (05:40)
[2017-11-16] MEDS: INSULIN LISPRO PROTAMIN SQ SCH ×2 (08:00→11:39)
[2017-11-16] MEDS: LISPRO SQ SCH ×2 (08:00→11:39)
[2017-11-16] MEDS: Lasix 40 MG PO SCH (09:05)
[2017-11-16] MEDS: Ditropan 5 MG PO SCH (09:05)
[2017-11-16] MEDS: Bystolic 5 MG PO SCH (09:05)
[2017-11-16] MEDS: Sinemet 25/250 MG PO SCH ×2 (09:09→13:37)
[2017-11-16] MEDS: REQUIP 2MG TAB PO SCH (09:09)
[2017-11-16] MEDS ORDERED: NON-FORMULARY ITEM (Nebivolol Hcl [Bystolic] 10 MG) PO SCH (10:00)
[2017-11-16] MEDS: NovoLOG Insulin SQ PRN (11:39)
[2017-11-16 11:42] VITALS: BP 115/68; PULSE 81; O2SAT 96
--- NOTE | 2017-11-16 12:16 | PCM.SSS ---
History of Present Illness - Chief Complaint Chief Complaint: low sugar and weakness for 1-2 days History of Present Illness: is a 72 year old male. with hx of Parkinson disease and DM. He has general weakness and fatigue for 2 days. Sugar [address] Peterson told to send him to the hospital. No chest pain. No headache. No focal weakness. No abd pain. Polyuria. No fever or chills. Sugar now better. No fall or injury. - Review of Systems Constitutional: No Fever, No Chills Eyes: No Symptoms Ears, Nose, & Throat: No Symptoms Respiratory: No Cough, No Short Of Breath Cardiac: No Chest Pain, No Edema, No Syncope Abdominal/Gastrointestinal: No Abdominal Pain, No Nausea, No Vomiting, No Diarrhea Genitourinary Symptoms: No Dysuria Musculoskeletal: No Back Pain, No Neck Pain Skin: No Rash Neurological: No Dizziness, No Focal Weakness, No Sensory Changes Psychological: No Symptoms Endocrine: No Symptoms Hematologic/Lymphatic: No Symptoms Immunological/Allergic: No Symptoms Medications & Allergies Home Medications: Home Medication List Carbidopa/Levodopa [Sinemet 25-250 mg Tablet] 1 each PO QID 08/13/17 [History Confirmed 11/14/17] Furosemide 40 mg [Lasix 40 MG] 40 mg PO DAILY 08/13/17 [History Confirmed 11/15/17] Nebivolol HCl [Bystolic] 10 mg PO DAILY 08/13/17 [History Confirmed 11/14/17] Ropinirole HCl [Ropinirole ER] 6 mg PO TID 08/13/17 [History Confirmed 11/15/17] Alprazolam [Xanax 0.5 mg] 0.5 mg PO Q8H PRN 11/14/17 [History Confirmed 11/15/17 ] Ergocalciferol (Vitamin D2) [Vitamin D2] 50,000 unit PO WEEKLY 11/14/17 [ History Confirmed 11/14/17] Insulin Lispro Protamin/Lispro [Humalog Mix 50-50 Kwikpen] 30 unit SQ TIDAC [History Confirmed 11/15/17] Solifenacin Succinate [Vesicare] 5 mg PO DAILY 11/14/17 [History Confirmed 11/14] Glycopyrrolate/Formoterol Fum [Bevespi Aerosphere Inhaler] 2 puffs IH BID [History Confirmed 11/15/17] Lisinopril 20 mg [Zestril 20 MG] 40 mg PO QHS 11/15/17 [History Confirmed 11/15/17] Allergies/Adverse Reactions: Allergies Allergy/AdvReac Type Severity Reaction Status Date / Time No Known Drug Allergies Allergy Verified 08/23/17 19:35 - Past Medical History Past Medical History: Yes Neurological History: Peripheral Neuropathy, Other ENT History: No Pertinent History Cardiac History: Hypertension Respiratory History: Pneumonia, Sleep Apnea Endocrine Medical History: Diabetes Type II Musculoskelatal History: Rheumatoid Arthritis, Other GI Medical History: No Pertinent History History: No Pertinent History Pyscho-Social History: Depression Male Reproductive Disorders: Prostate Problems, Scrotal Mass Comment: PARKINSONS - Past Surgical History Past Surgical History: Yes Neuro Surgical History: No Pertinent History Cardiac History: No Pertinent History, Cardiac Catheterization Respiratory Surgery: No Pertinent History GI Surgical History: Cholecystectomy, Hernia Repair Musculskeletal Surgical Hx: Joint Replacement, Orthopedic Surgery Other Surgical History: ABDON KNEE REPLACEMENT - Social History Smoking Status: Never smoker Exposure to second hand smoke: No Alcohol: None Drug Use: none Significant Family History: no pertinent family hx - Physical Exam Vital Signs: Vital Signs - 24 hr Temp Pulse Resp BP Pulse Ox 11/16/17 11:41 97.9 F 81 20 115/68 96 11/16/17 07:53 97.7 F 84 18 119/74 95 11/16/17 04:22 98.1 F 60 24 101/66 96 11/16/17 00:05 97.7 F 62 21 112/62 93 L 11/15/17 20:00 98.2 F 62 18 110/86 94 L 11/15/17 15:55 97.6 F 67 18 107/59 94 L General Appearance: no apparent distress, alert Neurologic Exam: alert, oriented x 3, cooperative, normal mood/affect, nml cerebellar function, nml station & gait, sensation nml, No motor deficits Eye Exam: PERRL/EOMI, eyes nml inspection Ears, Nose, Throat Exam: normal ENT inspection, TMs normal, pharynx normal, moist mucous membranes Neck Exam: normal inspection, non-tender, supple, full range of motion Respiratory Exam: normal breath sounds, lungs clear, No respiratory distress Cardiovascular Exam: regular rate/rhythm, normal heart sounds, normal peripheral pulses Gastrointestinal/Abdomen Exam: soft, normal bowel sounds, No tenderness, No mass Back Exam: normal inspection, normal range of motion, No CVA tenderness, No vertebral tenderness Extremity Exam: normal inspection, normal range of motion, pelvis stable Skin Exam: normal color, warm, dry, No rash Lymphatic Exam: No adenopathy Results - Labs Lab/Micro Results: Accuchecks Date 11/15/17 Time 22:12 Accucheck Value: 172 Accucheck Value: 194 Accucheck Value: 103 Accucheck Value: 226 Accuchecks Date 11/15/17 Time 22:12 Accucheck Value: 172 Accucheck Value: 194 Accucheck Value: 103 Accucheck Value: 226 Assessment/Plan (1) Parkinsons Status: Acute Code(s): G20 - PARKINSON'S DISEASE (2) Frequent falls Status: Suspected Code(s): R29.6 - REPEATED FALLS (3) Hyperglycemia due to type 2 diabetes mellitus Status: Chronic Qualifiers: Diabetes mellitus 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 Qualified Code(s): E11.65 - Type 2 diabetes mellitus with hyperglycemia Code(s): E11.65 - TYPE 2 DIABETES MELLITUS WITH HYPERGLYCEMIA Hospital Summary - Hospital Course Hospital Course: Chief Complaint Diagnosis Parkinsons Disease and Hyperglycemia Allergies Allergy/AdvReac Type Severity Reaction Status Date / Time No Known Drug Allergies Allergy Verified 08/23/17 19:35 Vital Signs (Last 24 hours) Temp Pulse Resp BP Pulse Ox 11/16/17 11:41 97.9 F 81 20 115/68 96 11/16/17 07:53 97.7 F 84 18 119/74 95 11/16/17 04:22 98.1 F 60 24 101/66 96 11/16/17 00:05 97.7 F 62 21 112/62 93 L 11/15/17 20:00 98.2 F 62 18 110/86 94 L 11/15/17 15:55 97.6 F 67 18 107/59 94 L Home Medications Medication Instructions Recorded Confirmed Last Taken Type Alprazolam [Xanax 0.5 mg] 0.5 mg PO Q8H PRN 11/14/17 11/15/17 11/13/17 History Ergocalciferol (Vitamin D2) 50,000 unit PO WEEKLY 11/14/17 11/14/17 11/10/17 History [Vitamin D2] Insulin Lispro Protamin/Lispro 30 unit SQ TIDAC 11/14/17 11/15/17 11/13/17 History [Humalog Mix 50-50 Kwikpen] Solifenacin Succinate [Vesicare] 5 mg PO DAILY 11/14/17 11/14/17 11/13/17 History Glycopyrrolate/Formoterol Fum 2 puffs IH BID 11/15/17 11/15/17 Unknown History [Bevespi Aerosphere Inhaler] Lisinopril 20 mg [Zestril 20 40 mg PO QHS 11/15/17 11/15/17 11/14/17 History MG] Current Medications Generic Name Dose Route Start Last Admin Trade Name Freq PRN Reason Stop Dose Admin Acetaminophen 650 mg 11/14/17 20:19 11/15/17 08:08 Tylenol 325 Mg PO 12/14/17 20:18 650 mg Q4H PRN PRN Administration PAIN AND/OR FEVER Alprazolam 0.5 mg 11/15/17 10:57 Xanax 0.5 Mg PO 12/15/17 10:56 Q8H/PRN PRN ANXIETY Carbidopa/Levodopa 1 tab 11/15/17 13:00 11/16/17 09:09 Sinemet 25/250 Mg PO 12/15/17 12:59 1 tab QID NANCY Administration Ergocalciferol 50,000 unit 11/17/17 10:00 Vitamin D2 PO 12/17/17 09:59 WEEKLY NANCY Furosemide 40 mg 11/15/17 11:00 11/16/17 09:05 Lasix 40 Mg PO 12/15/17 10:59 40 mg DAILY NANCY Administration Insulin Aspart 0 unit 11/14/17 20:19 11/16/17 11:39 Novolog Insulin SQ 12/14/17 20:18 3 unit UD PRN Administration HYPERGLYCEMIA Lisinopril 40 mg 11/15/17 22:00 11/15/17 21:43 Zestril 20 Mg PO 12/15/17 21:59 40 mg QHS NANCY Administration Nebivolol 10 mg 11/15/17 11:00 11/16/17 09:05 Bystolic 5 Mg PO 12/15/17 10:59 10 mg DAILY NANCY Administration Humalog 50/50 30 unit 11/15/17 11:30 11/16/17 11:39 Insulin SQ 12/15/17 11:29 30 unit AC NANCY Administration Oxybutynin Chloride 5 mg 11/15/17 11:00 11/16/17 09:05 Ditropan 5 Mg PO 12/15/17 10:59 5 mg BID NANCY Administration Ropinirole HCl 6 mg 11/15/17 11:00 11/16/17 09:09 Requip 2mg Tab PO 12/15/17 10:59 6 mg TID NANCY Administration Sodium Chloride 10 ml 11/15/17 14:00 11/16/17 05:40 Sodium Chloride 0.9% 10 Ml Flush Syringe IV 12/15/17 13:59 10 ml Q8HT NANCY Administration Sodium Chloride 10 ml 11/15/17 09:08 Sodium Chloride 0.9% 10 Ml Flush Syringe IV 12/15/17 09:07 PRN PRN FLUSH Discontinued Medications Generic Name Dose Route Start Last Admin Trade Name Freq PRN Reason Stop Dose Admin Carbidopa/Levodopa 1 tab 11/15/17 00:48 11/15/17 00:59 Sinemet 25/250 Mg PO 11/15/17 00:49 1 tab ONCE ONE Administration Ramipril 10 mg 11/15/17 00:49 11/15/17 00:59 Altace 5 Mg PO 11/15/17 00:50 10 mg ONCE ONE Administration Ropinirole HCl 6 mg 11/15/17 00:51 11/15/17 00:58 Requip 2mg Tab PO 11/15/17 00:52 6 mg ONCE ONE Administration Intake & Output (Last 24 hours) 11/14/17 11/15/17 11/16/17 11/17/17 11:59 11:59 11:59 11:59 Intake Total 480 1160 Output Total 800 400 Balance -320 760 Weight 110 kg Orders (Last 24 hours) Category Date Time Status Discharge Routine Discharge 11/16/17 Ordered Carbidopa/Levodopa 25/250 mg [Sinemet 25/250 MG] Med 11/15/17 13:00 Active 1 tab PO QID Ergocalciferol (Vitamin D2) [Vitamin D2] Med 11/17/17 10:00 Active 50,000 unit PO WEEKLY Insulin Lispro Protamin/Lispro [Humalog Mix 50-50 Med 11/15/17 11:30 Active Kwikpen] 30 unit SQ AC Lisinopril 20 mg [Zestril 20 MG] Med 11/15/17 22:00 Active 40 mg PO QHS NaCl 0.9% 10 ML FLUSH [Sodium Chloride 0.9% 10 ML FLUSH Med 11/15/17 14:00 Active Syringe] 10 ml IV Q8HT Patient Care Notes (Last 24 hours) 11/15/17 15:46 Respiratory Note by Torrie Caldwell PHARMACY INTERVENTION WAS PLACED FOR BEVESPI AEROSPHERE. PT STATED HE DOESN'T TAKE AT HOME. PHARMACY AND NURSE BOTH NOTIFIED. Initialized on 11/15/17 15:46 - END OF NOTE - Vitals & Intake/Output Vital Signs: Vital Signs Temperature 97.9 F 11/16/17 11:41 Pulse Rate 81 11/16/17 11:41 Respiratory Rate 11/16/17 11:41 Blood Pressure 115/68 11/16/17 11:41 O2 Sat by Pulse Oximetry 96 11/16/17 11:41 Intake & Output: Intake & Output 11/14/17 11/15/17 11/16/17 11/17/17 11:59 11:59 11:59 11:59 Intake Total 480 1160 Output Total 800 400 Balance -320 760 Weight 110 kg - Lab Result Diagrams: 11/14/17 17:46 11/14/17 17:46 Lab Results-Last 24 Hrs: Accuchecks Date 11/15/17 Time 22:12 Accucheck Value: 172 Accucheck Value: 194 Accucheck Value: 103 Accucheck Value: 226 Micro Results-Entire Visit: Accuchecks Date 11/15/17 Time 22:12 Accucheck Value: 172 Accucheck Value: 194 Accucheck Value: 103 Accucheck Value: 226 - Procedures and Test Procedures and Tests throughout Hospitalization: Therapy Orders & Screens 11/14/17 22:18 OT Screen per Nursing Assess ONCE Comment: Protocol Order Physician Instructions: Greater than 3 points order OT Admission Screening Reason For Exam: Triggered on Admission Diagnosis: Parkinsons Disease and Hyperglycemia Open Wound/Cellutlitis/Pressure Ulcers: No Acute Fx/ORIF/Change in wt bearing status: No Severe MUSCULOSKELETAL pain: No ADL Dysfunction: Yes Acute CVA w/Hemiparesis/Hemiplegia: No Decreased Functional Mobility/Strength: Yes Sprain/Strain: No Acute Post-op Mobility Dysfunction: No Total Points: 4 PT Screen per Nursing Assess ONCE Comment: Protocol Order Physician Instructions: Greater than 3 points order PT Admission Screenin Reason For Exam: Triggered on Admission Diagnosis: Parkinsons Disease and Hyperglycemia Open Wound/Cellutlitis/Pressure Ulcers: No Acute Fx/ORIF/Change in wt bearing status: No Severe MUSCULOSKELETAL pain: No ADL Dysfunction: Yes Acute CVA w/Hemiparesis/Hemiplegia: No Decreased Functional Mobility/Strength: Yes Sprain/Strain: No Acute Post-op Mobility Dysfunction: No Total Points: 4 - Discharge Discharge Date: 11/16/17 Disposition: HOME HEALTH SERVICE Condition: Stable Prescriptions: Continue Furosemide 40 mg [Lasix 40 MG] 40 mg PO DAILY Carbidopa/Levodopa [Sinemet 25-250 mg Tablet] 1 each PO QID Nebivolol HCl [Bystolic] 10 mg PO DAILY Ropinirole HCl [Ropinirole ER] 6 mg PO TID Ergocalciferol (Vitamin D2) [Vitamin D2] 50,000 unit PO WEEKLY Insulin Lispro Protamin/Lispro [Humalog Mix 50-50 Kwikpen] 30 unit SQ TIDAC Solifenacin Succinate [Vesicare] 5 mg PO DAILY Alprazolam [Xanax 0.5 mg] 0.5 mg PO Q8H PRN PRN Reason: Anxiety Lisinopril 20 mg [Zestril 20 MG] 40 mg PO QHS Glycopyrrolate/Formoterol Fum [Bevespi Aerosphere Inhaler] 2 puffs IH BID Instructions: Preventing Falls in the Older Adult, Parkinson Disease (DC) Additional Instructions: [facility] WILL CALL YOU TO ARRANGE YOUR FIRST VISIT. YOU MAY REACH THEM AT ext [phone]. Keep scheduled appt with at [facility] on 11/22/17@ 2:00pm Follow up with: FIDEL PETERSON MD [Primary Care Provider] - 11/22/17 2:00 pm Forms: Discharge Instructions
[2017-11-17] MEDS ORDERED: VITAMIN D2 PO SCH (10:00)
== END 2017-11-16 14:45 | disposition home health service (06) ==
LOC: ED 16:29 → MED SURG 20:16
PROVIDERS: ADMIT General Practice; ATTEND General Practice
DX: G20 Parkinson's disease (principal); R29.6 Repeated falls; E11.65 Type 2 diabetes mellitus with hyperglycemia; Z79.4 Long term (current) use of insulin; Z79.899 Other long term (current) drug therapy; G62.9 Polyneuropathy, unspecified; G47.30 Sleep apnea, unspecified; M06.9 Rheumatoid arthritis, unspecified; F32.9 Major depressive disorder, single episode, unspecified
CPT/HCPCS: 36000; 36415; 71045; 80053; 81002; 82805; 82962; 83036; 83605; 84484; 85025; 93005; 99285; G0378; 97110-GP; A9270-GY

== ENCOUNTER 2018-02-26 16:20 | Observation (INO) | payer MEDICARE, OTHER ==
--- NOTE | 2018-02-26 16:48 | ERPHSYRPT ---
- History of Present Illness Time Seen by Provider: 02/26/18 16:35 Source: patient Exam Limitations: no limitations Physician History: 72-year-old white male with history of peripheral neuropathy C, high blood pressure, pneumonia, sleep apnea, diabetes, rheumatoid arthritis Arrives with complaints of swelling of his bilateral legs right greater than left symptoms for over 10 years but worse for the past month he states that he' s been having pain in the right foot going on for 3 weeks Family states that the left leg was erythematous earlier He denies chest pain he denies shortness of breath he denies nausea or vomiting past medical history includes COPD, peripheral neuropathy, high blood pressure, pneumonia, sleep apnea, diabetes type 2, rheumatoid arthritis, depression, prostate problems, scrotal mass, Parkinson's Past surgical history includes cardiac catheter, cholecystectomy, hernia repair , orthopedic surgery, bilateral knee replacement Social history patient denies tobacco or illicit drug use he states he has a beer about once every 6 months Timing/Duration: other (chronic leg swelling worse for the past month) Modifying Factors: Improves With: nothing Associated Symptoms: weakness (Patient has felt weak lately), No nausea, No vomiting, No abdominal pain, No shortness of breath, No heartburn, No diaphoresis, No cough, No chills, No chest pain, No fever, No headaches, No loss of appetite, No malaise, No syncope, No seizure Allergies/Adverse Reactions: No Known Drug Allergies Allergy (Verified 02/26/18 16:31) Home Medications: Carbidopa/Levodopa [Sinemet 25-250 mg Tablet] 1 tab PO QID 08/13/17 [History] Furosemide 40 mg [Lasix 40 MG] 40 mg PO BID 08/13/17 [History] Nebivolol HCl [Bystolic] 10 mg PO DAILY 08/13/17 [History] Ergocalciferol (Vitamin D2) [Vitamin D2] 50,000 unit PO UD 11/14/17 [History] Insulin Lispro Protamin/Lispro [Humalog Mix 50-50 Kwikpen] 37 unit SQ TIDAC [History] Solifenacin Succinate [Vesicare] 5 mg PO DAILY 11/14/17 [History] Apomorphine HCl [Apokyn] 6 mg SQ UD 02/26/18 [History] Ramipril 5 mg [Altace 5 MG] 10 mg PO BID 02/26/18 [History] Ropinirole 2Mg [Requip 2Mg Tab] 6 mg PO QID 02/27/18 [History] Hx Tetanus, Diphtheria Vaccination/Date Given: Yes Hx Influenza Vaccination/Date Given: Yes Hx Pneumococcal Vaccination/Date Given: Yes - Review of Systems Constitutional: Fatigue, Weakness, No Fever, No Chills, No Lethargy, No Malaise , No Night Sweats, No Weight Loss Eyes: No Symptoms Ears, Nose, & Throat: No Symptoms Respiratory: No Cough, No Dyspnea Cardiac: No Chest Pain, No Edema, No Syncope Abdominal/Gastrointestinal: No Abdominal Pain, No Nausea, No Vomiting, No Diarrhea Genitourinary Symptoms: No Dysuria Musculoskeletal: Other (bilateral leg swelling chronic worse for the past month , pain in right foot for 3 weeks) Skin: Other (chronic lower extremity swelling, family states left leg was erythematous earlier) Neurological: No Dizziness, No Focal Weakness, No Sensory Changes Psychological: No Symptoms Endocrine: No Symptoms All Other Systems: Reviewed and Negative - Past Medical History Pertinent Past Medical History: Yes Neurological History: Peripheral Neuropathy, Other ENT History: No Pertinent History Cardiac History: Hypertension Respiratory History: Pneumonia, Sleep Apnea Endocrine Medical History: Diabetes Type II Musculoskeletal History: Rheumatoid Arthritis, Other GI Medical History: No Pertinent History History: No Pertinent History Psycho-Social History: Depression Male Reproductive Disorders: Prostate Problems, Scrotal Mass Other Medical History: PARKINSONS - Past Surgical History Past Surgical History: Yes Neuro Surgical History: No Pertinent History Cardiac: No Pertinent History, Cardiac Catheterization Respiratory: No Pertinent History Gastrointestinal: Cholecystectomy, Hernia Repair Musculoskeletal: Joint Replacement, Orthopedic Surgery Other Surgical History: ABDON KNEE REPLACEMENT - Social History Smoking Status: Never smoker Exposure to second hand smoke: No Drug Use: none Patient Lives Alone: No (lives at home with ) Significant Family History: no pertinent family hx - Nursing Vital Signs Nursing Vital Signs: Initial Vital Signs Temperature 98.3 F 02/26/18 16:27 Pulse Rate 75 02/26/18 16:27 Respiratory Rate 18 02/26/18 16:27 Blood Pressure 177/96 02/26/18 16:27 O2 Sat by Pulse Oximetry 96 02/26/18 16:27 Pain Scale Pain Intensity 4 - Physical Exam Eye Exam: PERRL/EOMI, eyes nml inspection Ears, Nose, Throat Exam: normal ENT inspection, TMs normal, pharynx normal, moist mucous membranes Neck Exam: normal inspection, non-tender, supple, full range of motion Respiratory Exam: normal breath sounds, lungs clear, No respiratory distress Cardiovascular Exam: regular rate/rhythm, normal heart sounds, normal peripheral pulses Gastrointestinal/Abdomen Exam: soft, normal bowel sounds, No tenderness, No mass Back Exam: normal inspection, normal range of motion, No CVA tenderness, No vertebral tenderness Extremity Exam: pedal edema (3+ pedal edema bilaterally) Neurologic Exam: alert, oriented x 3, cooperative, 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 as tested, normal mood/affect, nml cerebellar function, nml station & gait, sensation nml, other (patient with chronic fine tremor), No motor deficits Skin Exam: normal color, warm, dry, No rash Lymphatic Exam: No adenopathy SpO2 Interpretation: normal - Course Nursing assessment & vital signs reviewed: Yes EKG Interpreted by Me: RATE (73 bpm), Sinus Rhythm, Left [place] Deviation, Other ( EKG:sinus rhythm 73 bpm left axis deviation no acute ST or T wave changes compared to December 16, 2014) - Radiology Exams Chest X-ray Interpretation: Interpreted by me (no acute disease process) - Radiology Ultrasound Exam Venous Lower Extremity Ultrasound: Other (discussed with electronic technician: bilateral venous Doppler: Right leg no DVT, left leg thrombus in femoral vein) Ordered Tests: Medication Summary Discontinued Medications Generic Name Dose Route Start Last Admin Trade Name Freq PRN Reason Stop Dose Admin Acetaminophen 325 mg 02/27/18 00:47 02/27/18 02:06 Tylenol 325 Mg PO 03/29/18 00:46 325 mg Q6H PRN Administration PAIN, FEVER, HEADACHE Acetaminophen 325 mg 02/27/18 06:45 Tylenol 325 Mg PO 03/29/18 00:46 Q6H PRN PRN PAIN, FEVER, HEADACHE Apixaban 10 mg 02/26/18 19:27 02/26/18 19:53 Eliquis 5 Mg Tablet PO 02/26/18 19:28 10 mg 1XONLY STA Administration Apixaban 2.5 mg 02/27/18 10:00 02/27/18 09:45 Eliquis 2.5 Mg Tablet PO 03/29/18 09:59 2.5 mg BID NANCY Administration Carbidopa/Levodopa 1 tab 02/26/18 22:45 02/26/18 22:47 Sinemet 25/250 Mg PO 02/26/18 22:46 1 tab ONCE ONE Administration Carbidopa/Levodopa 1 tab 02/27/18 11:30 02/27/18 12:09 Sinemet 25/250 Mg PO 03/29/18 11:29 Not Given QID NANCY Carbidopa/Levodopa 1 tab 02/27/18 16:00 Sinemet 25/250 Mg PO 03/29/18 15:59 0600,1100,1600,2300 NANCY Ergocalciferol 50,000 unit 02/27/18 11:30 02/27/18 12:09 Vitamin D2 PO 03/29/18 11:29 Not Given Q7D NANCY Ergocalciferol 50,000 unit 02/27/18 11:30 02/27/18 11:56 Vitamin D2 PO 03/29/18 11:29 50,000 unit MoTh@1000 NANCY Administration Furosemide 40 mg 02/26/18 19:26 02/26/18 19:43 Lasix 40 Mg/4 Ml IV 02/26/18 19:27 40 mg STAT ONE Administration Furosemide Confirm 02/26/18 19:39 Lasix 40 Mg/4 Ml Administered 02/26/18 19:40 Dose 40 mg .ROUTE .STK-MED ONE Furosemide 40 mg 02/26/18 20:33 02/26/18 22:45 Lasix 40 Mg/4 Ml IV 03/28/18 20:32 Not Given Q12H NANCY Furosemide 40 mg 02/27/18 08:00 02/27/18 07:31 Lasix 40 Mg/4 Ml IV 03/29/18 07:59 40 mg Q12H NANCY Administration Furosemide 40 mg 02/27/18 22:00 Lasix 40 Mg PO 03/29/18 21:59 BID NANCY Insulin Aspart 0 unit 02/26/18 20:33 Novolog Insulin SQ 03/28/18 20:32 UD PRN HYPERGLYCEMIA Insulin Aspart 9 unit 02/26/18 23:00 02/26/18 23:10 Novolog Insulin SQ 02/26/18 23:01 9 unit ONCE ONE Administration Insulin Aspart 19 unit 02/27/18 12:00 02/27/18 12:00 Novolog Insulin SQ 03/29/18 11:59 10 unit TIDAC NANCY Administration Insulin Human NPH 9 unit 02/26/18 23:00 02/26/18 23:10 Novolin N SQ 02/26/18 23:01 9 unit ONCE ONE Administration Insulin Human NPH 18 unit 02/27/18 12:00 02/27/18 12:00 Novolin N SQ 03/29/18 11:59 9 unit TIDAC NANCY Administration Nebivolol 10 mg 02/27/18 11:30 02/27/18 11:55 Bystolic 5 Mg PO 03/29/18 11:29 10 mg DAILY NANCY Administration Oxybutynin Chloride 5 mg 02/27/18 11:30 02/27/18 11:55 Ditropan 5 Mg PO 03/29/18 11:29 5 mg BID NANCY Administration Patient Own Med ( 0 each 02/27/18 11:59 Apokyn Injection) SQ 03/29/18 11:58 .PRN 4-5 TIMES DAILY PRN FOR PRAKINSON "LOCKING" Ramipril 10 mg 02/27/18 11:30 02/27/18 11:56 Altace 5 Mg PO 03/29/18 11:29 10 mg BID NANCY Administration Ropinirole HCl 6 mg 02/26/18 22:45 02/26/18 22:47 Requip 2mg Tab PO 02/26/18 22:46 6 mg ONCE ONE Administration Ropinirole HCl 6 mg 02/27/18 11:45 02/27/18 11:55 Requip 2mg Tab PO 03/29/18 11:44 6 mg 0600,1100,1600,2300 NANCY Administration Tramadol HCl Confirm 02/27/18 00:46 Ultram 50 Mg Administered 02/27/18 00:47 Dose 50 mg .ROUTE .STK-MED ONE Tramadol HCl 50 mg 02/27/18 00:46 02/27/18 00:49 Ultram 50 Mg PO 03/29/18 00:45 50 mg Q6H PRN PRN Administration PAIN Lab/Rad Data: Laboratory Result Diagrams 02/26/18 17:18 02/26/18 17:18 Laboratory Results 02/26/18 02/26/18 02/26/18 Range/Units 18:00 17:18 17:18 WBC (4.0-10.5) K/mm3 RBC (4.1-5.6) M/mm3 Hgb (12.5-18.0) gm/dl Hct (42-50) % MCV (78-100) fl MCH (26-32) pg MCHC (32-36) g/dl RDW (11.5-14.0) % Plt Count (150-450) K/mm3 MPV (6-9.5) fl Gran % (36.0-66.0) % Eos # (Auto) (0-0.5) Absolute Lymphs (auto) (1.0-4.6) Absolute Monos (auto) (0.0-1.3) Lymphocytes % (24.0-44.0) % Monocytes % (0.0-12.0) % Eosinophils % (0.00-5.0) % Basophils % (0.0-0.4) % Absolute Granulocytes (1.4-6.9) Basophils # (0-0.4) PT 11.4 (8.83-12.87) SECONDS INR 0.98 (0.8-3.0) APTT 34.2 (24.1-36.1) SECONDS D-Dimer 297 (215-500) ng/mL Sodium 139 (137-145) mmol/L Potassium 3.9 (3.5-5.1) mmol/L Chloride 104 (98-107) mmol/L Carbon Dioxide 30 (22-30) mmol/L Anion Gap 8.8 (5-15) MEQ/L BUN 19 (9-20) mg/dL Creatinine 0.75 (0.66-1.25) mg/dL Estimated GFR > 60.0 ML/MIN Glucose 249 H (74-106) mg/dL Calcium 9.0 (8.4-10.2) mg/dL Total Bilirubin 0.40 (0.2-1.3) mg/dL AST 16 L (17-59) U/L ALT 17 (0-50) U/L Alkaline Phosphatase 149 H (38-126) U/L NT-Pro-B Natriuret Pep 90.6 (0-900) pg/mL Serum Total Protein 6.8 (6.3-8.2) g/dL Albumin 3.8 (3.5-5.0) g/dL Prealbumin 18.96 (17.6-36.0) mg/dL 02/26/18 Range/Units 17:18 WBC 5.9 (4.0-10.5) K/mm3 RBC 4.64 (4.1-5.6) M/mm3 Hgb 14.7 (12.5-18.0) gm/dl Hct 43.3 (42-50) % MCV 93.3 (78-100) fl MCH 31.7 (26-32) pg MCHC 33.9 (32-36) g/dl RDW 14.1 H (11.5-14.0) % Plt Count 150 (150-450) K/mm3 MPV 10.6 H (6-9.5) fl Gran % 68.1 H (36.0-66.0) % Eos # (Auto) 0.15 (0-0.5) Absolute Lymphs (auto) 1.21 (1.0-4.6) Absolute Monos (auto) 0.49 (0.0-1.3) Lymphocytes % 20.6 L (24.0-44.0) % Monocytes % 8.4 (0.0-12.0) % Eosinophils % 2.6 (0.00-5.0) % Basophils % 0.3 (0.0-0.4) % Absolute Granulocytes 3.99 (1.4-6.9) Basophils # 0.02 (0-0.4) PT (8.83-12.87) SECONDS INR (0.8-3.0) APTT (24.1-36.1) SECONDS D-Dimer (215-500) ng/mL Sodium (137-145) mmol/L Potassium (3.5-5.1) mmol/L Chloride (98-107) mmol/L Carbon Dioxide (22-30) mmol/L Anion Gap (5-15) MEQ/L BUN (9-20) mg/dL Creatinine (0.66-1.25) mg/dL Estimated GFR ML/MIN Glucose (74-106) mg/dL Calcium (8.4-10.2) mg/dL Total Bilirubin (0.2-1.3) mg/dL AST (17-59) U/L ALT (0-50) U/L Alkaline Phosphatase (38-126) U/L NT-Pro-B Natriuret Pep (0-900) pg/mL Serum Total Protein (6.3-8.2) g/dL Albumin (3.5-5.0) g/dL Prealbumin (17.6-36.0) mg/dL - Progress Progress: improved Progress Note: 02/26/18 19:21 72-year-old white male with history of chronic lower extremity edema arrives with complaint of worsening lower extremity edema for one month also with pain in bilateral legs right greater than left. Family thought that the patient's left leg was erythematous earlier. On physical examination patient does have markedly 3+ edema to bilateral lower extremities. Patient's labs Showed a white count of 5.9 hemoglobin 14 7 hematocrit 43.3 platelets were 150 patient's d-dimer was not elevated it was 297 patient's chemistry essentially normal with the exception of a glucose of 249 AST of 16 and alkaline phosphatase of 149 BUN and creatinine were 19 and 0.75 respectively patient's chest x-ray no acute disease process noted EKG showed sinus rhythm 73 bpm left axis deviation no acute ST or T wave changes are noted Bilateral venous Doppler of the lower extremities are remarkable for DVT of the left femoral vein Patient is not complaining of shortness of breath he had been complaining of weakness. I've discussed the patient's case with Dr. Rust the patient's family doctor. He requested that the patient be given elequis 10 mg tablet tonight and then 2.5 mg orally twice a day. Also will place patient on Lasix 40 mg twice a day will give first dose in the emergency room Diagnosis bilateral lower extremity edema. , Bilateral lower extremity pain. DVT left lower extremity. - Departure Time of Disposition: 19:26 Departure Disposition: Observation Clinical Impression: Localized swelling of both lower legs, Weakness Deep vein thrombosis (DVT) of left lower extremity Qualifiers: Affected thrombotic vein of extremity: femoral Chronicity: acute Qualified Code (s): I82.412 - Acute embolism and thrombosis of left femoral vein Condition: Stable Critical Care Time: No
[2018-02-26 17:24] LABS: BASOPHIL % 0.3 % (0.0-0.4); Basophil (Absolute #) 0.02 (0-0.4); Eosinophil % 2.6 % (0.00-5.0); Eosinophil (Absolute #) 0.15 (0-0.5); Granulocyte Absolute (ANC) 3.99 (1.4-6.9); Granulocytes % 68.1 % (36.0-66.0); Hematocrit 43.3 % (42-50); Hemoglobin 14.7 gm/dl (12.5-18.0); Lymphocyte (Absolute #) 1.21 (1.0-4.6); Lymphocytes % 20.6 % (24.0-44.0); Mean Cell Volume 93.3 fl (78-100); Mean Corpuscular Hemoglobin 31.7 pg (26-32); Mean Corpuscular Hgb Concent. 33.9 g/dl (32-36); Mean Platelet Volume 10.6 fl (6-9.5); Monocyte (Absolute #) 0.49 (0.0-1.3); Monocytes % 8.4 % (0.0-12.0); Platelet Count 150 K/mm3 (150-450); Red Blood Count 4.64 M/mm3 (4.1-5.6); Red Cell Distribution Width 14.1 % (11.5-14.0); White Blood Count 5.9 K/mm3 (4.0-10.5)
[2018-02-26 17:40] LABS: ALBUMIN 3.8 g/dL (3.5-5.0); ALKALINE PHOSPHATASE 149 U/L (38-126); ANION GAP 8.8 MEQ/L (5-15); BLOOD UREA NITROGEN 19 mg/dL (9-20); CHLORIDE 104 mmol/L (98-107); Carbon Dioxide 30 mmol/L (22-30); Creatinine 1 0.75 mg/dL (0.66-1.25); Glucose 249 mg/dL (74-106); Potassium 3.9 mmol/L (3.5-5.1); SGOT/AST 16 U/L (17-59); SGPT/ALT 17 U/L (0-50); SODIUM 139 mmol/L (137-145); Total Protein 6.8 g/dL (6.3-8.2)
[2018-02-26 17:49] LABS: INR 0.98 (0.8-3.0); NT PRO BNP 90.6 pg/mL (0-900)
[2018-02-26 17:51] LABS: PTT 34.2 SECONDS (24.1-36.1)
[2018-02-26] MEDS ORDERED: Lasix 40 MG/4 ML IV ONE (19:26)
[2018-02-26] MEDS ORDERED: ELIQUIS 5 MG TABLET PO STA (19:27)
[2018-02-26] MEDS ORDERED: Lasix 40 MG/4 ML ONE (19:39)
--- NOTE | 2018-02-26 20:07 | XRAY ---
Indication: Bilateral leg swelling. Comparison: November 14, 2017. Portable chest remains clear. Heart is not enlarged for AP portable technique. Bony thorax intact again with mild degenerative changes. Impression: Stable nonacute chest.
[2018-02-26] MEDS ORDERED: Lasix 40 MG/4 ML IV SCH (20:33)
[2018-02-26] MEDS ORDERED: NovoLOG Insulin SQ PRN (20:33)
--- NOTE | 2018-02-26 21:20 | PCM.HP ---
History of Present Illness - Chief Complaint Chief Complaint: left leg pain for 2-3 days History of Present Illness: is a 72 year old male with history of peripheral neuropathy C, high blood pressure, pneumonia, sleep apnea, diabetes, rheumatoid arthritis Arrives with complaints of swelling of his bilateral legs right greater than left symptoms for over 10 years but worse for the past month he states that he' s been having pain in the right foot going on for 3 weeks Family states that the left leg was erythematous earlier He denies chest pain he denies shortness of breath he denies nausea or vomiting past medical history includes COPD, peripheral neuropathy, high blood pressure, pneumonia, sleep apnea, diabetes type 2, rheumatoid arthritis, depression, prostate problems, scrotal mass, Parkinson's - Review of Systems Constitutional: No Fever, No Chills Eyes: No Symptoms Ears, Nose, & Throat: No Symptoms Respiratory: No Cough, No Short Of Breath Cardiac: No Chest Pain, No Edema, No Syncope Abdominal/Gastrointestinal: No Abdominal Pain, No Nausea, No Vomiting, No Diarrhea Genitourinary Symptoms: No Dysuria Musculoskeletal: No Back Pain, No Neck Pain Skin: Cellulitis, No Rash Neurological: No Dizziness, No Focal Weakness, No Sensory Changes Psychological: No Symptoms Endocrine: No Symptoms Hematologic/Lymphatic: No Symptoms Immunological/Allergic: No Symptoms Medications & Allergies Home Medications: Home Medication List Carbidopa/Levodopa [Sinemet 25-250 mg Tablet] 1 tab PO QID 08/13/17 [History Confirmed 02/26/18] Furosemide 40 mg [Lasix 40 MG] 40 mg PO BID 08/13/17 [History Confirmed ] Nebivolol HCl [Bystolic] 10 mg PO DAILY 08/13/17 [History Confirmed 02/26/18] Ropinirole HCl [Ropinirole ER] 6 mg PO QID 08/13/17 [History Confirmed 02/26/18] Ergocalciferol (Vitamin D2) [Vitamin D2] 50,000 unit PO UD 11/14/17 [History Confirmed 02/26/18] Insulin Lispro Protamin/Lispro [Humalog Mix 50-50 Kwikpen] 37 unit SQ TIDAC [History Confirmed 02/26/18] Solifenacin Succinate [Vesicare] 5 mg PO DAILY 11/14/17 [History Confirmed 02/26] Apomorphine HCl [Apokyn] 6 mg SQ UD 02/26/18 [History Confirmed 02/26/18] Ramipril 5 mg [Altace 5 MG] 10 mg PO BID 02/26/18 [History Confirmed 02/26] Allergies/Adverse Reactions: Allergies Allergy/AdvReac Type Severity Reaction Status Date / Time No Known Drug Allergies Allergy Verified 02/26/18 16:31 - Past Medical History Past Medical History: Yes Neurological History: Peripheral Neuropathy, Other ENT History: No Pertinent History Cardiac History: Hypertension Respiratory History: Pneumonia, Sleep Apnea Endocrine Medical History: Diabetes Type II Musculoskelatal History: Rheumatoid Arthritis, Other GI Medical History: No Pertinent History History: No Pertinent History Pyscho-Social History: Depression Male Reproductive Disorders: Prostate Problems, Scrotal Mass Comment: PARKINSONS - Past Surgical History Past Surgical History: Yes Neuro Surgical History: No Pertinent History Cardiac History: No Pertinent History, Cardiac Catheterization Respiratory Surgery: No Pertinent History GI Surgical History: Cholecystectomy, Hernia Repair Musculskeletal Surgical Hx: Joint Replacement, Orthopedic Surgery Other Surgical History: ABDON KNEE REPLACEMENT - Social History Smoking Status: Never smoker Exposure to second hand smoke: No Alcohol: Rarely Drug Use: none Significant Family History: no pertinent family hx - Physical Exam Vital Signs: Vital Signs - 24 hr Temp Pulse Resp BP Pulse Ox 02/26/18 18:46 98.6 F 66 20 136/82 98 02/26/18 17:16 97 02/26/18 16:27 98.3 F 75 18 177/96 96 General Appearance: no apparent distress, alert Neurologic Exam: alert, oriented x 3, cooperative, normal mood/affect, nml cerebellar function, nml station & gait, sensation nml, No motor deficits Eye Exam: PERRL/EOMI, eyes nml inspection Ears, Nose, Throat Exam: normal ENT inspection, TMs normal, pharynx normal, moist mucous membranes Neck Exam: normal inspection, non-tender, supple, full range of motion Respiratory Exam: normal breath sounds, lungs clear, No respiratory distress Cardiovascular Exam: regular rate/rhythm, normal heart sounds, normal peripheral pulses Gastrointestinal/Abdomen Exam: soft, normal bowel sounds, No tenderness, No mass Back Exam: normal inspection, normal range of motion, No CVA tenderness, No vertebral tenderness Extremity Exam: normal inspection, normal range of motion, pelvis stable, jeremie' s sign, inflammation, swelling Skin Exam: normal color, warm, dry, No rash Lymphatic Exam: No adenopathy Assessment/Plan (1) Deep vein thrombosis (DVT) of left lower extremity Current Visit: Yes Status: Acute Qualifiers: Affected thrombotic vein of extremity: femoral Chronicity: acute Qualified Code(s): I82.412 - Acute embolism and thrombosis of left femoral vein Code(s): I82.402 - ACUTE EMBOLISM AND THOMBOS UNSP DEEP VEINS OF L LOW EXTREM (2) Localized swelling of both lower legs Current Visit: Yes Status: Acute Code(s): R22.43 - LOCALIZED SWELLING, MASS AND LUMP, LOWER LIMB, BILATERAL (3) Parkinsons Current Visit: No Status: Acute Code(s): G20 - PARKINSON'S DISEASE (4) Diabetes mellitus Current Visit: No Status: Chronic Qualifiers: Diabetes mellitus type: type 2 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
[2018-02-26] MEDS ORDERED: Sinemet 25/250 MG PO ONE (22:45)
[2018-02-26] MEDS ORDERED: REQUIP 2MG TAB PO ONE (22:45)
[2018-02-26] MEDS ORDERED: Novolin N SQ ONE (23:00)
[2018-02-26] MEDS ORDERED: NovoLOG Insulin SQ ONE (23:00)
[2018-02-27 00:19] LABS: Appearance CLEAR (CLEAR); Bilirubin NEGATIVE (NEGATIVE); Blood 50 Ery/ul (0-5); Glucose 100 mg/dL (NEGATIVE); Ketones NEGATIVE (NEGATIVE); Leukocyte Esterase NEGATIVE (NEGATIVE); Nitrite NEGATIVE (NEGATIVE); Protein,Urine Dip NEGATIVE (Negative); Urobilinogen NORMAL mg/dL (0-1)
[2018-02-27 00:20] LABS: WBC 0-2 /HPF (0-5)
[2018-02-27] MEDS ORDERED: ULTRAM 50 MG ONE (00:46)
[2018-02-27] MEDS ORDERED: ULTRAM 50 MG PO PRN (00:46)
[2018-02-27] MEDS ORDERED: TYLENOL 325 MG PO PRN ×2 (00:47→06:45)
[2018-02-27 05:24] LABS: BASOPHIL % 0.3 % (0.0-0.4); Basophil (Absolute #) 0.02 (0-0.4); Eosinophil % 2.5 % (0.00-5.0); Eosinophil (Absolute #) 0.18 (0-0.5); Granulocyte Absolute (ANC) 5.12 (1.4-6.9); Granulocytes % 72.2 % (36.0-66.0); Hematocrit 44.1 % (42-50); Hemoglobin 14.6 gm/dl (12.5-18.0); Lymphocyte (Absolute #) 1.21 (1.0-4.6); Lymphocytes % 17.1 % (24.0-44.0); Mean Cell Volume 93.4 fl (78-100); Mean Corpuscular Hemoglobin 30.9 pg (26-32); Mean Corpuscular Hgb Concent. 33.1 g/dl (32-36); Mean Platelet Volume 10.7 fl (6-9.5); Monocyte (Absolute #) 0.56 (0.0-1.3); Monocytes % 7.9 % (0.0-12.0); Platelet Count 148 K/mm3 (150-450); Red Blood Count 4.72 M/mm3 (4.1-5.6); Red Cell Distribution Width 14.1 % (11.5-14.0); White Blood Count 7.1 K/mm3 (4.0-10.5)
[2018-02-27 05:49] LABS: ALBUMIN 3.6 g/dL (3.5-5.0); ALKALINE PHOSPHATASE 119 U/L (38-126); ANION GAP 7.4 MEQ/L (5-15); BLOOD UREA NITROGEN 18 mg/dL (9-20); CHLORIDE 102 mmol/L (98-107); Calcium 8.9 mg/dL (8.4-10.2); Carbon Dioxide 33 mmol/L (22-30); Creatinine 1 0.75 mg/dL (0.66-1.25); Glucose 123 mg/dL (74-106); Potassium 3.5 mmol/L (3.5-5.1); SGOT/AST 17 U/L (17-59); SODIUM 139 mmol/L (137-145); Total Protein 6.6 g/dL (6.3-8.2)
[2018-02-27 05:51] LABS: SGPT/ALT < 4 U/L (0-50)
[2018-02-27] MEDS ORDERED: Lasix 40 MG/4 ML IV SCH (08:00)
--- NOTE | 2018-02-27 08:40 | XRAY ---
Indication: Right lateral leg edema. Two-dimensional sonogram and color Doppler imaging of the major venous vessels of the left and right leg was performed. Comparison: None There is nonoccluding thrombus in the proximal left femoral vein. No other thrombus seen in the remaining examined deep venous vessels of the left and right leg including greater saphenous veins. Patent veins demonstrates normal compressibility and normal venous waveforms with and without augmentation. Impression: 1. Nonoccluding DVT in the left femoral vein. 2. Right leg negative for DVT. Comment: Preliminary report was given.
[2018-02-27] MEDS ORDERED: ELIQUIS 2.5 MG TABLET PO SCH (10:00)
[2018-02-27 11:10] VITALS: BP 132/75; PULSE 69; O2SAT 93
[2018-02-27] MEDS ORDERED: [UNRECOGNIZED DRUG - OTHER] SQ SCH (11:30)
[2018-02-27] MEDS ORDERED: Altace 5 MG PO SCH (11:30)
[2018-02-27] MEDS ORDERED: VITAMIN D2 PO SCH ×2 (11:30)
[2018-02-27] MEDS ORDERED: Ditropan 5 MG PO SCH (11:30)
[2018-02-27] MEDS ORDERED: Sinemet 25/250 MG PO SCH ×2 (11:30→16:00)
[2018-02-27] MEDS ORDERED: [UNRECOGNIZED DRUG - OTHER] SQ SCH (11:30)
[2018-02-27] MEDS ORDERED: Bystolic 5 MG PO SCH (11:30)
[2018-02-27] MEDS ORDERED: INSULIN LISPRO PROTAMINE SQ SCH (11:30)
[2018-02-27] MEDS ORDERED: REQUIP 2MG TAB PO SCH (11:45)
[2018-02-27] MEDS ORDERED: PATIENT OWN MEDICATION SQ PRN (11:59)
[2018-02-27] MEDS ORDERED: Novolin N SQ SCH (12:00)
[2018-02-27] MEDS ORDERED: NovoLOG Insulin SQ SCH (12:00)
--- NOTE | 2018-02-27 12:31 | PCM.NOTE ---
Date and Time: 02/27/18 1230 Subjective Assessment: doing better - Review of Systems Constitutional: No Fever, No Chills Eyes: No Symptoms Ears, Nose, & Throat: No Symptoms Respiratory: No Cough, No Short Of Breath Cardiac: No Chest Pain, No Edema, No Syncope Abdominal/Gastrointestinal: No Abdominal Pain, No Nausea, No Vomiting, No Diarrhea Genitourinary Symptoms: No Dysuria Musculoskeletal: No Back Pain, No Neck Pain Skin: No Rash Neurological: No Dizziness, No Focal Weakness, No Sensory Changes Psychological: No Symptoms Endocrine: No Symptoms Hematologic/Lymphatic: No Symptoms Immunological/Allergic: No Symptoms Objective Exam General Appearance: no apparent distress, alert Neurologic Exam: alert, oriented x 3, cooperative, normal mood/affect, nml cerebellar function, sensation nml, No motor deficits Skin Exam: normal color, warm, dry Eye Exam: PERRL, EOMI, eyes nml inspection Ears, Nose, Throat Exam: normal ENT inspection, pharynx normal, moist mucous membranes Neck Exam: normal inspection, non-tender, supple, full range of motion Respiratory Exam: normal breath sounds, lungs clear, No respiratory distress Cardiovascular Exam: regular rate/rhythm, normal heart sounds Gastrointestinal/Abdomen Exam: soft, No tenderness, No mass Extremity Exam: normal inspection, normal range of motion Back Exam: normal inspection, normal range of motion, No CVA tenderness, No vertebral tenderness Male Genitalia Exam: deferred Rectal Exam: deferred OBJECTIVE DATA Vital Signs: Vital Signs - 24 hr Temp Pulse Resp BP Pulse Ox 02/27/18 11:10 97.6 F 69 20 132/75 93 L 02/27/18 07:02 97.6 F 61 20 114/62 99 02/27/18 04:00 97.9 F 70 18 99/55 96 02/27/18 00:00 97.9 F 75 18 133/77 95 02/26/18 23:13 95 02/26/18 21:02 98 F 80 24 138/67 96 02/26/18 18:46 98.6 F 66 20 136/82 98 02/26/18 17:16 97 02/26/18 16:27 98.3 F 75 18 177/96 96 Oxygen-Last 24 hours O2 Percentage 3 Liters = 32% O2 Percentage 2 Liters = 28% Pain Assessment - Last Documented Pain Intensity 0 Pain Scale Used 0-10 Pain Scale Intake and Output: Intake & Output 02/25/18 02/26/18 02/27/18 02/28/18 11:59 11:59 11:59 11:59 Intake Total 1890 Output Total 3800 Balance -1909 Weight 115.5 kg Lab Results: Accuchecks Date 02/26/18 Time 22:00 Accucheck Value: 205 Accucheck Value: 120 Accucheck Value: 240 Lab Results-Last 24 Hours 02/26/18 02/27/18 02/27/18 Range/Units 23:52 05:10 05:10 WBC 7.1 (4.0-10.5) K/mm3 RBC 4.72 (4.1-5.6) M/mm3 Hgb 14.6 (12.5-18.0) gm/dl Hct 44.1 (42-50) % MCV 93.4 (78-100) fl MCH 30.9 (26-32) pg MCHC 33.1 (32-36) g/dl RDW 14.1 H (11.5-14.0) % Plt Count 148 L (150-450) K/mm3 MPV 10.7 H (6-9.5) fl Gran % 72.2 H (36.0-66.0) % Eos # (Auto) 0.18 (0-0.5) Absolute Lymphs (auto) 1.21 (1.0-4.6) Absolute Monos (auto) 0.56 (0.0-1.3) Lymphocytes % 17.1 L (24.0-44.0) % Monocytes % 7.9 (0.0-12.0) % Eosinophils % 2.5 (0.00-5.0) % Basophils % 0.3 (0.0-0.4) % Absolute Granulocytes 5.12 (1.4-6.9) Basophils # 0.02 (0-0.4) Sodium 139 (137-145) mmol/L Potassium 3.5 (3.5-5.1) mmol/L Chloride 102 (98-107) mmol/L Carbon Dioxide 33 H (22-30) mmol/L Anion Gap 7.4 (5-15) MEQ/L BUN 18 (9-20) mg/dL Creatinine 0.75 (0.66-1.25) mg/dL Estimated GFR > 60.0 ML/MIN Glucose 123 H (74-106) mg/dL Calcium 8.9 (8.4-10.2) mg/dL Total Bilirubin 1.00 (0.2-1.3) mg/dL AST 17 (17-59) U/L ALT < 4 (0-50) U/L Alkaline Phosphatase 119 (38-126) U/L Serum Total Protein 6.6 (6.3-8.2) g/dL Albumin 3.6 (3.5-5.0) g/dL Ur Collection Type CATH Urine Color LT.YELLOW (YELLOW) Urine Appearance CLEAR (CLEAR) Urine pH 5.0 (5-6) Ur Specific [place] 1.010 (1.005-1.025) Urine Protein NEGATIVE (Negative) Urine Ketones NEGATIVE (NEGATIVE) Urine Blood 50 (0-5) Haseeb/ul Urine Nitrite NEGATIVE (NEGATIVE) Urine Bilirubin NEGATIVE (NEGATIVE) Urine Urobilinogen NORMAL (0-1) mg/dL Ur Leukocyte Esterase NEGATIVE (NEGATIVE) Urine Microscopic RBC 2-5 (0-2) /HPF Urine Microscopic WBC 0-2 (0-5) /HPF Urine Glucose 100 (NEGATIVE) mg/dL Specimen Received 02/27/18 2300 Multi-Disciplinary Progress Notes: Multi-Disciplinary Progress Notes 02/27/18 10:10 Case Management Note by Ruth Parks DISCHARGE PLAN REVIEWED. NORMALLY LIVES AT HOME WITH , CANNOT DO HIS OWN ADL'S, IS ASSISTED BY . HE HAS A WALKER AND A CANE. IN THE PAST HE HAS HAD PT AND OT AND HELP WITH [facility] SHOW[facility]. PLAN IS TO DETERMINE HHC VS REHAB PLACEMENT. PATIENT WOULD PREFER [facility]. WILL CONTINUE TO MONITOR FOR ALL D/C NEEDS. Initialized on 02/27/18 10:10 - END OF NOTE Assessment/Plan (1) Deep vein thrombosis (DVT) of left lower extremity Current Visit: Yes Status: Acute Onset Date: ~02/26/18 Qualifiers: Affected thrombotic vein of extremity: femoral Chronicity: acute Qualified Code(s): I82.412 - Acute embolism and thrombosis of left femoral vein Code(s): I82.402 - ACUTE EMBOLISM AND THOMBOS UNSP DEEP VEINS OF L LOW EXTREM (2) Localized swelling of both lower legs Current Visit: Yes Status: Acute Onset Date: ~02/26/18 Code(s): R22.43 - LOCALIZED SWELLING, MASS AND LUMP, LOWER LIMB, BILATERAL (3) Parkinsons Current Visit: Yes Status: Chronic Code(s): G20 - PARKINSON'S DISEASE (4) Diabetes mellitus Current Visit: Yes Status: Chronic Qualifiers: Diabetes mellitus type: type 2 Diabetes mellitus manager terminal insulin use: unspecified alf insulin use status Diabetes mellitus complication status : with neurologic complications Diabetes mellitus complication detail: with polyneuropathy Qualified Code(s): E11.42 - Type 2 diabetes mellitus with diabetic polyneuropathy Code(s): E11.9 - TYPE 2 DIABETES MELLITUS WITHOUT COMPLICATIONS
[2018-02-27] MEDS ORDERED: ROPINIROLE HCL 6 MG PO SCH (13:00)
--- NOTE | 2018-02-27 13:08 | PCM.DS ---
Discharge Summary Date of Admission: 02/26/18 20:29 Admitting Physician: FIDEL PETERSON Primary Care Provider: FIDEL PETERSON Allergies Allergies No Known Drug Allergies Allergy (Verified 02/26/18 16:31) Hospital Summary - Hospital Course Hospital Course: Chief Complaint Diagnosis left leg pain for 2-3 days Allergies Allergy/AdvReac Type Severity Reaction Status Date / Time No Known Drug Allergies Allergy Verified 02/26/18 16:31 Vital Signs (Last 24 hours) Temp Pulse Resp BP Pulse Ox 02/27/18 11:10 97.6 F 69 20 132/75 93 L 02/27/18 07:02 97.6 F 61 20 114/62 99 02/27/18 04:00 97.9 F 70 18 99/55 96 02/27/18 00:00 97.9 F 75 18 133/77 95 02/26/18 23:13 95 02/26/18 21:02 98 F 80 24 138/67 96 02/26/18 18:46 98.6 F 66 20 136/82 98 02/26/18 17:16 97 02/26/18 16:27 98.3 F 75 18 177/96 96 Home Medications Medication Instructions Recorded Confirmed Last Taken Type Apomorphine HCl [Apokyn] 6 mg SQ UD 02/26/18 02/26/18 Unknown History Ramipril 5 mg [Altace 5 MG] 10 mg PO BID 02/26/18 02/26/18 02/26/18 History Ropinirole 2Mg [Requip 2Mg 6 mg PO QID 02/27/18 02/27/18 Unknown History Tab] Current Medications Generic Name Dose Route Start Last Admin Trade Name Freq PRN Reason Stop Dose Admin Acetaminophen 325 mg 02/27/18 06:45 Tylenol 325 Mg PO 03/29/18 00:46 Q6H PRN PRN PAIN, FEVER, HEADACHE Apixaban 2.5 mg 02/27/18 10:00 02/27/18 09:45 Eliquis 2.5 Mg Tablet PO 03/29/18 09:59 2.5 mg BID NANCY Administration Carbidopa/Levodopa 1 tab 02/27/18 16:00 Sinemet 25/250 Mg PO 03/29/18 15:59 0600,1100,1600,2300 NANCY Ergocalciferol 50,000 unit 02/27/18 11:30 02/27/18 11:56 Vitamin D2 PO 03/29/18 11:29 50,000 unit MoTh@1000 NANCY Administration Furosemide 40 mg 02/27/18 08:00 02/27/18 07:31 Lasix 40 Mg/4 Ml IV 03/29/18 07:59 40 mg Q12H NANCY Administration Insulin Aspart 0 unit 02/26/18 20:33 Novolog Insulin SQ 03/28/18 20:32 UD PRN HYPERGLYCEMIA Insulin Aspart 19 unit 02/27/18 12:00 02/27/18 12:00 Novolog Insulin SQ 03/29/18 11:59 10 unit TIDAC NANCY Administration Insulin Human NPH 18 unit 02/27/18 12:00 02/27/18 12:00 Novolin N SQ 03/29/18 11:59 9 unit TIDAC NANCY Administration Nebivolol 10 mg 02/27/18 11:30 02/27/18 11:55 Bystolic 5 Mg PO 03/29/18 11:29 10 mg DAILY NANCY Administration Oxybutynin Chloride 5 mg 02/27/18 11:30 02/27/18 11:55 Ditropan 5 Mg PO 03/29/18 11:29 5 mg BID NANCY Administration Patient Own Med ( 0 each 02/27/18 11:59 Apokyn Injection) SQ 03/29/18 11:58 .PRN 4-5 TIMES DAILY PRN FOR PRAKINSON "LOCKING" Ramipril 10 mg 02/27/18 11:30 02/27/18 11:56 Altace 5 Mg PO 03/29/18 11:29 10 mg BID NANCY Administration Ropinirole HCl 6 mg 02/27/18 11:45 02/27/18 11:55 Requip 2mg Tab PO 03/29/18 11:44 6 mg 0600,1100,1600,2300 NANCY Administration Tramadol HCl 50 mg 02/27/18 00:46 02/27/18 00:49 Ultram 50 Mg PO 03/29/18 00:45 50 mg Q6H PRN PRN Administration PAIN Discontinued Medications Generic Name Dose Route Start Last Admin Trade Name Freq PRN Reason Stop Dose Admin Acetaminophen 325 mg 02/27/18 00:47 02/27/18 02:06 Tylenol 325 Mg PO 03/29/18 00:46 325 mg Q6H PRN Administration PAIN, FEVER, HEADACHE Apixaban 10 mg 02/26/18 19:27 02/26/18 19:53 Eliquis 5 Mg Tablet PO 02/26/18 19:28 10 mg 1XONLY STA Administration Carbidopa/Levodopa 1 tab 02/26/18 22:45 02/26/18 22:47 Sinemet 25/250 Mg PO 02/26/18 22:46 1 tab ONCE ONE Administration Carbidopa/Levodopa 1 tab 02/27/18 11:30 02/27/18 12:09 Sinemet 25/250 Mg PO 03/29/18 11:29 Not Given QID NANCY Ergocalciferol 50,000 unit 02/27/18 11:30 02/27/18 12:09 Vitamin D2 PO 03/29/18 11:29 Not Given Q7D NANCY Furosemide 40 mg 02/26/18 19:26 02/26/18 19:43 Lasix 40 Mg/4 Ml IV 02/26/18 19:27 40 mg STAT ONE Administration Furosemide Confirm 02/26/18 19:39 Lasix 40 Mg/4 Ml Administered 02/26/18 19:40 Dose 40 mg .ROUTE .STK-MED ONE Furosemide 40 mg 02/26/18 20:33 02/26/18 22:45 Lasix 40 Mg/4 Ml IV 03/28/18 20:32 Not Given Q12H NANCY Furosemide 40 mg 02/27/18 22:00 Lasix 40 Mg PO 03/29/18 21:59 BID NANCY Insulin Aspart 9 unit 02/26/18 23:00 02/26/18 23:10 Novolog Insulin SQ 02/26/18 23:01 9 unit ONCE ONE Administration Insulin Human NPH 9 unit 02/26/18 23:00 02/26/18 23:10 Novolin N SQ 02/26/18 23:01 9 unit ONCE ONE Administration Ropinirole HCl 6 mg 02/26/18 22:45 02/26/18 22:47 Requip 2mg Tab PO 02/26/18 22:46 6 mg ONCE ONE Administration Tramadol HCl Confirm 02/27/18 00:46 Ultram 50 Mg Administered 02/27/18 00:47 Dose 50 mg .ROUTE .STK-MED ONE Intake & Output (Last 24 hours) 02/25/18 02/26/18 02/27/18 02/28/18 11:59 11:59 11:59 11:59 Intake Total 1890 Output Total 3800 Balance -1910 Weight 115.5 kg Microbiology Results (Last 24 hours) 02/26/18 23:52 Catherized Urine Culture - Preliminary NO GROWTH TO DATE 02/26/18 17:19 Blood Blood Culture Gram Stain - Pending 02/26/18 17:19 Blood Blood Culture - Pending 02/26/18 17:18 Blood Blood Culture Gram Stain - Pending 02/26/18 17:18 Blood Blood Culture - Pending Laboratory Results (Last 24 hours) 02/27/18 02/27/18 02/26/18 05:10 05:10 23:52 WBC 7.1 RBC 4.72 Hgb 14.6 Hct 44.1 MCV 93.4 MCH 30.9 MCHC 33.1 RDW 14.1 H Plt Count 148 L MPV 10.7 H Gran % 72.2 H Eos # (Auto) 0.18 Absolute Lymphs (auto) 1.21 Absolute Monos (auto) 0.56 Lymphocytes % 17.1 L Monocytes % 7.9 Eosinophils % 2.5 Basophils % 0.3 Absolute Granulocytes 5.12 Basophils # 0.02 PT INR APTT D-Dimer Sodium 139 Potassium 3.5 Chloride 102 Carbon Dioxide 33 H Anion Gap 7.4 BUN 18 Creatinine 0.75 Estimated GFR > 60.0 Glucose 123 H Calcium 8.9 Total Bilirubin 1.00 AST 17 ALT < 4 Alkaline Phosphatase 119 NT-Pro-B Natriuret Pep Serum Total Protein 6.6 Albumin 3.6 Prealbumin Ur Collection Type CATH Urine Color LT.YELLOW Urine Appearance CLEAR Urine pH 5.0 Ur Specific [place] 1.010 Urine Protein NEGATIVE Urine Ketones NEGATIVE Urine Blood 50 Urine Nitrite NEGATIVE Urine Bilirubin NEGATIVE Urine Urobilinogen NORMAL Ur Leukocyte Esterase NEGATIVE Urine Microscopic RBC 2-5 Urine Microscopic WBC 0-2 Urine Glucose 100 Specimen Received 02/27/18 2300 02/26/18 02/26/18 02/26/18 18:00 17:18 17:18 WBC RBC Hgb Hct MCV MCH MCHC RDW Plt Count MPV Gran % Eos # (Auto) Absolute Lymphs (auto) Absolute Monos (auto) Lymphocytes % Monocytes % Eosinophils % Basophils % Absolute Granulocytes Basophils # PT 11.4 INR 0.98 APTT 34.2 D-Dimer 297 Sodium 139 Potassium 3.9 Chloride 104 Carbon Dioxide 30 Anion Gap 8.8 BUN 19 Creatinine 0.75 Estimated GFR > 60.0 Glucose 249 H Calcium 9.0 Total Bilirubin 0.40 AST 16 L ALT 17 Alkaline Phosphatase 149 H NT-Pro-B Natriuret Pep 90.6 Serum Total Protein 6.8 Albumin 3.8 Prealbumin 18.96 Ur Collection Type Urine Color Urine Appearance Urine pH Ur Specific [place] Urine Protein Urine Ketones Urine Blood Urine Nitrite Urine Bilirubin Urine Urobilinogen Ur Leukocyte Esterase Urine Microscopic RBC Urine Microscopic WBC Urine Glucose Specimen Received 02/26/18 17:18 WBC 5.9 RBC 4.64 Hgb 14.7 Hct 43.3 MCV 93.3 MCH 31.7 MCHC 33.9 RDW 14.1 H Plt Count 150 MPV 10.6 H Gran % 68.1 H Eos # (Auto) 0.15 Absolute Lymphs (auto) 1.21 Absolute Monos (auto) 0.49 Lymphocytes % 20.6 L Monocytes % 8.4 Eosinophils % 2.6 Basophils % 0.3 Absolute Granulocytes 3.99 Basophils # 0.02 PT INR APTT D-Dimer Sodium Potassium Chloride Carbon Dioxide Anion Gap BUN Creatinine Estimated GFR Glucose Calcium Total Bilirubin AST ALT Alkaline Phosphatase NT-Pro-B Natriuret Pep Serum Total Protein Albumin Prealbumin Ur Collection Type Urine Color Urine Appearance Urine pH Ur Specific [place] Urine Protein Urine Ketones Urine Blood Urine Nitrite Urine Bilirubin Urine Urobilinogen Ur Leukocyte Esterase Urine Microscopic RBC Urine Microscopic WBC Urine Glucose Specimen Received Orders (Last 24 hours) Category Date Time Status Bedrest with BRP/BSC ROUTINE Activity 02/26/18 20:33 Active Up With Assistance ROUTINE Activity 02/26/18 20:33 Active Accucheck ACHS Care 02/26/18 20:33 Active Accucheck STAT Care 02/26/18 18:42 Completed Pilot Plant Operator STAT Care 02/26/18 16:42 Completed Catheter Care Record Q6H Care 02/26/18 22:40 Active Code Status Order Care 02/26/18 20:33 Active EKG-ER Only STAT Care 02/26/18 16:41 Completed Feng [Catheter-Freeman Feng] STAT Care 02/26/18 22:39 Active IV Care Q6H Care 02/26/18 20:33 Active IV Insertion STAT Care 02/26/18 16:41 Completed Nursing [Miscellaneous Nursing Order] ROUTINE Care 02/27/18 00:23 Completed Observation [Place in Observation] Care 02/26/18 20:00 Active Pulse Oximetry (ED) STAT Care 02/26/18 16:41 Completed Weight,Daily 0600 Care 02/26/18 20:33 Active Infection Control Consult Cons 02/26/18 23:46 Active [place] Hand/Discharge Plan Cons 02/26/18 21:38 Active Nutritional Admission Screen once Diet 02/26/18 21:38 Completed CHEST 1 VIEW (PORTABLE) Stat Exams 02/26/18 16:42 Completed VENOUS BILATERAL EXTREMITY [US] Stat Exams 02/26/18 19:26 Completed BLOOD CULTURE Stat Lab 02/26/18 17:19 Received CBC W DIFF AM.LAB Lab 02/27/18 05:10 Completed CBC W DIFF Stat Lab 02/26/18 17:18 Completed CMP AM.LAB Lab 02/27/18 05:10 Completed CMP Stat Lab 02/26/18 17:18 Completed CULTURE,URINE Routine Lab 02/26/18 23:52 Results D-DIMER QUANTITATION Stat Lab 02/26/18 17:18 Completed NT PRO BNP Stat Lab 02/26/18 17:18 Completed PREALBUMIN Routine Lab 02/26/18 18:00 Completed PROTIME WITH INR Stat Lab 02/26/18 17:18 Completed PTT Stat Lab 02/26/18 17:18 Completed UA W/ MICROSCOPIC Routine Lab 02/26/18 23:52 Completed Acetaminophen 325 mg [Tylenol 325 mg] Med 02/27/18 00:47 Discontinued 325 mg PO Q6H PRN Acetaminophen 325 mg [Tylenol 325 mg] Med 02/27/18 06:45 Active 325 mg PO Q6H PRN PRN Apixaban [Eliquis 2.5 mg Tablet] Med 02/27/18 10:00 Active 2.5 mg PO BID Apixaban [Eliquis 5 mg Tablet] Med 02/26/18 19:27 Discontinued 10 mg PO 1XONLY STA Carbidopa/Levodopa 25/250 mg [Sinemet 25/250 MG] Med 02/27/18 16:00 Active 1 tab PO 0600,1100,1600,2300 Carbidopa/Levodopa 25/250 mg [Sinemet 25/250 MG] Med 02/26/18 22:45 Discontinued 1 tab PO ONCE ONE Carbidopa/Levodopa 25/250 mg [Sinemet 25/250 MG] Med 02/27/18 11:30 Discontinued 1 tab PO QID Ergocalciferol (Vitamin D2) [Vitamin D2] Med 02/27/18 11:30 Active 50,000 unit PO MoTh@1000 Ergocalciferol (Vitamin D2) [Vitamin D2] Med 02/27/18 11:30 Discontinued 50,000 unit PO Q7D Furosemide 40 mg [Lasix 40 MG] Med 02/27/18 22:00 Discontinued 40 mg PO BID Furosemide 40 mg/4 ml [Lasix 40 MG/4 ML] Med 02/26/18 19:39 Discontinued 40 mg .ROUTE .STK-MED ONE Furosemide 40 mg/4 ml [Lasix 40 MG/4 ML] Med 02/26/18 20:33 Discontinued 40 mg IV Q12H Furosemide 40 mg/4 ml [Lasix 40 MG/4 ML] Med 02/27/18 08:00 Active 40 mg IV Q12H Furosemide 40 mg/4 ml [Lasix 40 MG/4 ML] Med 02/26/18 19:26 Discontinued 40 mg IV STAT ONE Insulin Aspart [NovoLOG Insulin] Med 02/27/18 12:00 Active 19 unit SQ TIDAC Insulin Aspart [NovoLOG Insulin] Med 02/26/18 23:00 Discontinued 9 unit SQ ONCE ONE Insulin Aspart [NovoLOG Insulin] Med 02/26/18 20:33 Active See Dose Instructions SQ UD PRN Insulin NPH Human Recom [Novolin N] Med 02/27/18 12:00 Active 18 unit SQ TIDAC Insulin NPH Human Recom [Novolin N] Med 02/26/18 23:00 Discontinued 9 unit SQ ONCE ONE Nebivolol HCl 5 MG [Bystolic 5 MG] Med 02/27/18 11:30 Active 10 mg PO DAILY Oxybutynin Chloride 5 mg [Ditropan 5 MG] Med 02/27/18 11:30 Active 5 mg PO BID Patient Own Med [Patient Own Medication] Med 02/27/18 11:59 Active 0 each SQ .PRN 4-5 TIMES DAILY PRN Ramipril 5 mg [Altace 5 MG] Med 02/27/18 11:30 Active 10 mg PO BID Ropinirole 2Mg [Requip 2Mg Tab] Med 02/27/18 11:45 Active 6 mg PO 0600,1100,1600,2300 Ropinirole 2Mg [Requip 2Mg Tab] Med 02/26/18 22:45 Discontinued 6 mg PO ONCE ONE Tramadol HCl 50 mg [Ultram 50 mg] Med 02/27/18 00:46 Discontinued 50 mg .ROUTE .STK-MED ONE Tramadol HCl 50 mg [Ultram 50 mg] Med 02/27/18 00:46 Active 50 mg PO Q6H PRN PRN OT Screen per Nursing Assess OT 02/26/18 21:38 Active PT Screen per Nursing Assess PT 02/26/18 21:38 Completed Oxygen NASAL CANNULA 3 lpm RT 02/26/18 23:13 Active Patient Care Notes (Last 24 hours) 02/27/18 10:10 Case Management Note by Ruth Parks DISCHARGE PLAN REVIEWED. NORMALLY LIVES AT HOME WITH , CANNOT DO HIS OWN ADL'S, IS ASSISTED BY . HE HAS A WALKER AND A CANE. IN THE PAST HE HAS HAD PT AND OT AND HELP [facility]. PLAN IS TO DETERMINE HHC VS REHAB PLACEMENT. PATIENT WOULD PREFER HHC. WILL CONTINUE TO MONITOR FOR ALL D/C NEEDS. Initialized on 02/27/18 10:10 - END OF NOTE 02/26/18 23:00 Nursing Note by Emily Romero states to substitute lispro insulin 50/50. bm states give 1/2 as humalog and 1/2 as novolin n. pt wants 1/2 dose tonight of regular scheduled 37 units. 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 We will continue eliquis - Vitals & Intake/Output Vital Signs: Vital Signs Temperature 97.6 F 02/27/18 11:10 Pulse Rate 69 02/27/18 11:10 Respiratory Rate 20 02/27/18 11:10 Blood Pressure 132/75 02/27/18 11:10 O2 Sat by Pulse Oximetry 93 L 02/27/18 11:10 Oxygen-Last Documented O2 Percentage 3 Liters = 32% Intake & Output: Intake & Output 02/25/18 02/26/18 02/27/18 02/28/18 11:59 11:59 11:59 11:59 Intake Total 1890 Output Total 3800 Balance -1910 Weight 115.5 kg - Lab Result Diagrams: 02/27/18 05:10 02/27/18 05:10 Lab Results-Last 24 Hrs: Accuchecks Date 02/26/18 Time 22:00 Accucheck Value: 205 Accucheck Value: 120 Accucheck Value: 240 Lab Results-Last 24 Hours 02/26/18 02/27/18 02/27/18 Range/Units 23:52 05:10 05:10 WBC 7.1 (4.0-10.5) K/mm3 RBC 4.72 (4.1-5.6) M/mm3 Hgb 14.6 (12.5-18.0) gm/dl Hct 44.1 (42-50) % MCV 93.4 (78-100) fl MCH 30.9 (26-32) pg MCHC 33.1 (32-36) g/dl RDW 14.1 H (11.5-14.0) % Plt Count 148 L (150-450) K/mm3 MPV 10.7 H (6-9.5) fl Gran % 72.2 H (36.0-66.0) % Eos # (Auto) 0.18 (0-0.5) Absolute Lymphs (auto) 1.21 (1.0-4.6) Absolute Monos (auto) 0.56 (0.0-1.3) Lymphocytes % 17.1 L (24.0-44.0) % Monocytes % 7.9 (0.0-12.0) % Eosinophils % 2.5 (0.00-5.0) % Basophils % 0.3 (0.0-0.4) % Absolute Granulocytes 5.12 (1.4-6.9) Basophils # 0.02 (0-0.4) Sodium 139 (137-145) mmol/L Potassium 3.5 (3.5-5.1) mmol/L Chloride 102 (98-107) mmol/L Carbon Dioxide 33 H (22-30) mmol/L Anion Gap 7.4 (5-15) MEQ/L BUN 18 (9-20) mg/dL Creatinine 0.75 (0.66-1.25) mg/dL Estimated GFR > 60.0 ML/MIN Glucose 123 H (74-106) mg/dL Calcium 8.9 (8.4-10.2) mg/dL Total Bilirubin 1.00 (0.2-1.3) mg/dL AST 17 (17-59) U/L ALT < 4 (0-50) U/L Alkaline Phosphatase 119 (38-126) U/L Serum Total Protein 6.6 (6.3-8.2) g/dL Albumin 3.6 (3.5-5.0) g/dL Ur Collection Type CATH Urine Color LT.YELLOW (YELLOW) Urine Appearance CLEAR (CLEAR) Urine pH 5.0 (5-6) Ur Specific [place] 1.010 (1.005-1.025) Urine Protein NEGATIVE (Negative) Urine Ketones NEGATIVE (NEGATIVE) Urine Blood 50 (0-5) [place]/ul Urine Nitrite NEGATIVE (NEGATIVE) Urine Bilirubin NEGATIVE (NEGATIVE) Urine Urobilinogen NORMAL (0-1) mg/dL Ur Leukocyte Esterase NEGATIVE (NEGATIVE) Urine Microscopic RBC 2-5 (0-2) /HPF Urine Microscopic WBC 0-2 (0-5) /HPF Urine Glucose 100 (NEGATIVE) mg/dL Specimen Received 02/27/18 2300 Micro Results-Entire Visit: Microbiology 02/26/18 23:52 Urine Culture - Preliminary Catherized NO GROWTH TO DATE Accuchecks Date 02/26/18 Time 22:00 Accucheck Value: 205 Accucheck Value: 120 Accucheck Value: 240 - Procedures and Test Procedures and Tests throughout Hospitalization: Therapy Orders & Screens 02/26/18 21:38 OT Screen per Nursing Assess Comment: Protocol Order Physician Instructions: Greater than 3 points order OT Admission Screening Reason For Exam: Triggered on Admission Diagnosis: left leg pain for 2-3 days Open Wound/Cellutlitis/Pressure Ulcers: Yes Acute Fx/ORIF/Change in wt bearing status: No Severe MUSCULOSKELETAL pain: Yes ADL Dysfunction: Yes Acute CVA w/Hemiparesis/Hemiplegia: No Decreased Functional Mobility/Strength: Yes Sprain/Strain: No Acute Post-op Mobility Dysfunction: No Total Points: 14 PT Screen per Nursing Assess Comment: Protocol Order Physician Instructions: Greater than 3 points order PT Admission Screenin Reason For Exam: Triggered on Admission Diagnosis: left leg pain for 2-3 days Open Wound/Cellutlitis/Pressure Ulcers: Yes Acute Fx/ORIF/Change in wt bearing status: No Severe MUSCULOSKELETAL pain: Yes ADL Dysfunction: Yes Acute CVA w/Hemiparesis/Hemiplegia: No Decreased Functional Mobility/Strength: Yes Sprain/Strain: No Acute Post-op Mobility Dysfunction: No Total Points: 14 02/26/18 23:13 Oxygen NASAL CANNULA 3 lpm Comment: Diagnosis: left leg pain for 2-3 days Discharge Exam General Appearance: no apparent distress, alert Neurologic Exam: alert, oriented x 3, cooperative, normal mood/affect, nml cerebellar function, sensation nml, No motor deficits Skin Exam: normal color, warm, dry Eye Exam: PERRL, EOMI, eyes nml inspection Ears, Nose, Throat Exam: normal ENT inspection, pharynx normal, moist mucous membranes Neck Exam: normal inspection, non-tender, supple, full range of motion Respiratory Exam: normal breath sounds, lungs clear, No respiratory distress Cardiovascular Exam: regular rate/rhythm, normal heart sounds Gastrointestinal/Abdomen Exam: soft, No tenderness, No mass Extremity Exam: normal inspection, normal range of motion Back Exam: normal inspection, normal range of motion, No CVA tenderness, No vertebral tenderness Male Genitalia Exam: deferred Rectal Exam: deferred Final Diagnosis/Problem List - Final Discharge Diagnosis/Problem (1) Deep vein thrombosis (DVT) of left lower extremity Current Visit: Yes Status: Acute Onset Date: ~02/26/18 Assessment & Plan: Last Vital Signs Temp 97.6 F 02/27/18 11:10 Pulse 69 02/27/18 11:10 Resp 20 02/27/18 11:10 BP 132/75 02/27/18 11:10 Pulse Ox 93 L 02/27/18 11:10 Allergies No Known Drug Allergies Allergy (Verified 02/26/18 16:31) Active Medications Acetaminophen (Tylenol 325 Mg) 325 mg PO Q6H PRN PRN PRN Reason: PAIN, FEVER, HEADACHE Stop: 03/29/18 00:46 Apixaban (Eliquis 2.5 Mg Tablet) 2.5 mg PO BID [facility] Stop: 03/29/18 09:59 Last Admin: 02/27/18 09:45 Dose: 2.5 mg Carbidopa/Levodopa (Sinemet 25/250 Mg) 1 tab PO 0600,1100,1600,2300 [facility] Stop: 03/29/18 15:59 Ergocalciferol (Vitamin D2) 50,000 unit PO MoTh@1000 [facility] Stop: 03/29/18 11:29 Last Admin: 02/27/18 11:56 Dose: 50,000 unit Furosemide (Lasix 40 Mg/4 Ml) 40 mg IV Q12H [facility] Stop: 03/29/18 07:59 Last Admin: 02/27/18 07:31 Dose: 40 mg Insulin Aspart (Novolog Insulin) 0 unit SQ UD PRN PRN Reason: HYPERGLYCEMIA Stop: 03/28/18 20:32 Insulin Aspart (Novolog Insulin) 19 unit SQ TIDAC [facility] Stop: 03/29/18 11:59 Last Admin: 02/27/18 12:00 Dose: 10 unit Insulin Human NPH (Novolin N) 18 unit SQ TIDAC [facility] Stop: 03/29/18 11:59 Last Admin: 02/27/18 12:00 Dose: 9 unit Nebivolol (Bystolic 5 Mg) 10 mg PO DAILY [facility] Stop: 03/29/18 11:29 Last Admin: 02/27/18 11:55 Dose: 10 mg Oxybutynin Chloride (Ditropan 5 Mg) 5 mg PO BID [facility] Stop: 03/29/18 11:29 Last Admin: 02/27/18 11:55 Dose: 5 mg Patient Own Med ( (Apokyn Injection)) 0 each SQ .PRN 4-5 TIMES DAILY PRN PRN Reason: FOR PRAKINSON "LOCKING" Stop: 03/29/18 11:58 Ramipril (Altace 5 Mg) 10 mg PO BID NANCY Stop: 03/29/18 11:29 Last Admin: 02/27/18 11:56 Dose: 10 mg Ropinirole HCl (Requip 2mg Tab) 6 mg PO 0600,1100,1600,2300 NANCY Stop: 03/29/18 11:44 Last Admin: 02/27/18 11:55 Dose: 6 mg Tramadol HCl (Ultram 50 Mg) 50 mg PO Q6H PRN PRN PRN Reason: PAIN Stop: 03/29/18 00:45 Last Admin: 02/27/18 00:49 Dose: 50 mg Intake & Output 02/27/18 02/28/18 11:59 11:59 Intake Total 1890 Output Total 3800 Balance -1910 Weight 115.5 kg Orders 02/26/18 21:38 [place] Hand/Discharge Plan OT Screen per Nursing Assess 02/26/18 22:39 Feng [Catheter-Freeman Feng] STAT 02/26/18 22:40 Catheter Care Record Q6H 02/26/18 23:13 Oxygen NASAL CANNULA 3 lpm 02/26/18 23:46 Infection Control Consult 02/26/18 23:52 CULTURE,URINE Routine 02/27/18 00:46 Tramadol HCl 50 mg [Ultram 50 mg] 50 mg PO Q6H PRN PRN 02/27/18 06:45 Acetaminophen 325 mg [Tylenol 325 mg] 325 mg PO Q6H PRN PRN 02/27/18 11:30 Ergocalciferol (Vitamin D2) [Vitamin D2] 50,000 unit PO MoTh@1000 Nebivolol HCl 5 MG [Bystolic 5 MG] 10 mg PO DAILY Oxybutynin Chloride 5 mg [Ditropan 5 MG] 5 mg PO BID Ramipril 5 mg [Altace 5 MG] 10 mg PO BID 02/27/18 11:45 Ropinirole 2Mg [Requip 2Mg Tab] 6 mg PO 0600,1100,1600,2300 02/27/18 11:59 Patient Own Med [Patient Own Medication] 0 each SQ .PRN 4-5 TIMES DAILY PRN 02/27/18 12:00 Insulin Aspart [NovoLOG Insulin] 19 unit SQ TIDAC Insulin NPH Human Recom [Novolin N] 18 unit SQ TIDAC 02/27/18 16:00 Carbidopa/Levodopa 25/250 mg [Sinemet 25/250 MG] 1 tab PO 0600,1100,1600, 2300 Lab Tests 02/26/18 02/26/18 02/26/18 17:18 17:18 17:18 WBC 5.9 RBC 4.64 Hgb 14.7 Hct 43.3 MCV 93.3 MCH 31.7 MCHC 33.9 RDW 14.1 H Plt Count 150 MPV 10.6 H Gran % 68.1 H Eos # (Auto) 0.15 Absolute Lymphs (auto) 1.21 Absolute Monos (auto) 0.49 Lymphocytes % 20.6 L Monocytes % 8.4 Eosinophils % 2.6 Basophils % 0.3 Absolute Granulocytes 3.99 Basophils # 0.02 PT 11.4 INR 0.98 APTT 34.2 D-Dimer 297 Sodium 139 Potassium 3.9 Chloride 104 Carbon Dioxide 30 Anion Gap 8.8 BUN 19 Creatinine 0.75 Estimated GFR > 60.0 Glucose 249 H Calcium 9.0 Total Bilirubin 0.40 AST 16 L ALT 17 Alkaline Phosphatase 149 H NT-Pro-B Natriuret Pep 90.6 Serum Total Protein 6.8 Albumin 3.8 Prealbumin Ur Collection Type Urine Color Urine Appearance Urine pH Ur Specific [place] Urine Protein Urine Ketones Urine Blood Urine Nitrite Urine Bilirubin Urine Urobilinogen Ur Leukocyte Esterase Urine Microscopic RBC Urine Microscopic WBC Urine Glucose Specimen Received 02/26/18 02/26/18 02/27/18 18:00 23:52 05:10 WBC 7.1 RBC 4.72 Hgb 14.6 Hct 44.1 MCV 93.4 MCH 30.9 MCHC 33.1 RDW 14.1 H Plt Count 148 L MPV 10.7 H Gran % 72.2 H Eos # (Auto) 0.18 Absolute Lymphs (auto) 1.21 Absolute Monos (auto) 0.56 Lymphocytes % 17.1 L Monocytes % 7.9 Eosinophils % 2.5 Basophils % 0.3 Absolute Granulocytes 5.12 Basophils # 0.02 PT INR APTT D-Dimer Sodium Potassium Chloride Carbon Dioxide Anion Gap BUN Creatinine Estimated GFR Glucose Calcium Total Bilirubin AST ALT Alkaline Phosphatase NT-Pro-B Natriuret Pep Serum Total Protein Albumin Prealbumin 18.96 Ur Collection Type CATH Urine Color LT.YELLOW Urine Appearance CLEAR Urine pH 5.0 Ur Specific [place] 1.010 Urine Protein NEGATIVE Urine Ketones NEGATIVE Urine Blood 50 Urine Nitrite NEGATIVE Urine Bilirubin NEGATIVE Urine Urobilinogen NORMAL Ur Leukocyte Esterase NEGATIVE Urine Microscopic RBC 2-5 Urine Microscopic WBC 0-2 Urine Glucose 100 Specimen Received 02/27/18 2300 02/27/18 05:10 WBC RBC Hgb Hct MCV MCH MCHC RDW Plt Count MPV Gran % Eos # (Auto) Absolute Lymphs (auto) Absolute Monos (auto) Lymphocytes % Monocytes % Eosinophils % Basophils % Absolute Granulocytes Basophils # PT INR APTT D-Dimer Sodium 139 Potassium 3.5 Chloride 102 Carbon Dioxide 33 H Anion Gap 7.4 BUN 18 Creatinine 0.75 Estimated GFR > 60.0 Glucose 123 H Calcium 8.9 Total Bilirubin 1.00 AST 17 ALT < 4 Alkaline Phosphatase 119 NT-Pro-B Natriuret Pep Serum Total Protein 6.6 Albumin 3.6 Prealbumin Ur Collection Type Urine Color Urine Appearance Urine pH Ur Specific [place] Urine Protein Urine Ketones Urine Blood Urine Nitrite Urine Bilirubin Urine Urobilinogen Ur Leukocyte Esterase Urine Microscopic RBC Urine Microscopic WBC Urine Glucose Specimen Received Microbiology 02/26/18 23:52 Catherized Urine Culture - Preliminary NO GROWTH TO DATE (2) Localized swelling of both lower legs Current Visit: Yes Status: Acute Onset Date: ~02/26/18 (3) Parkinsons Current Visit: Yes Status: Chronic (4) Diabetes mellitus Current Visit: Yes Status: Chronic - Discharge Discharge Date: 02/27/18 Disposition: Home, Self-Care Condition: Stable Prescriptions: New Apixaban [Eliquis 2.5 mg Tablet] 2.5 mg PO BID #60 tablet Continue Furosemide 40 mg [Lasix 40 MG] 40 mg PO BID Carbidopa/Levodopa [Sinemet 25-250 mg Tablet] 1 tab PO QID Nebivolol HCl [Bystolic] 10 mg PO DAILY Ergocalciferol (Vitamin D2) [Vitamin D2] 50,000 unit PO UD Insulin Lispro Protamin/Lispro [Humalog Mix 50-50 Kwikpen] 37 unit SQ TIDAC Solifenacin Succinate [Vesicare] 5 mg PO DAILY Ramipril 5 mg [Altace 5 MG] 10 mg PO BID Apomorphine HCl [Apokyn] 6 mg SQ UD Ropinirole 2Mg [Requip 2Mg Tab] 6 mg PO QID Follow up with: FIDEL PETERSON MD [Primary Care Provider] - 1 Week
[2018-02-27] MEDS ORDERED: Lasix 40 MG PO SCH (22:00)
[2018-02-28] MEDS ORDERED: NON-FORMULARY ITEM (Nebivolol Hcl [Bystolic] 10 MG) PO SCH (10:00)
== END 2018-02-27 14:45 | disposition home or self-care (01) ==
LOC: ED 16:20 → MED SURG 20:29
PROVIDERS: ADMIT General Practice; ATTEND General Practice
DX: I82.402 Acute embolism and thrombosis of unspecified deep veins of left lower extremity (principal); R22.43 Localized swelling, mass and lump, lower limb, bilateral; G20 Parkinson's disease; E11.42 Type 2 diabetes mellitus with diabetic polyneuropathy; Z79.01 Long term (current) use of anticoagulants; Z79.899 Other long term (current) drug therapy; I10 Essential (primary) hypertension; G62.9 Polyneuropathy, unspecified; G47.30 Sleep apnea, unspecified; M06.9 Rheumatoid arthritis, unspecified; F32.9 Major depressive disorder, single episode, unspecified
CPT/HCPCS: 36000; 36415; 71045; 80053; 81000; 82962; 83880; 84134; 85025; 85379; 85610; 85730; 87040; 87086; 93005; 93041; 93970; 94760; 96374; 99285; G0378; 81002; J1940; A9270-GY

== ENCOUNTER 2018-04-11 17:07 | Inpatient (IN) | payer MEDICARE, OTHER ==
[2018-04-11] MEDS ORDERED: Sodium Chloride 0.9% 1000 ML 1,000 ML IV STA (17:14)
--- NOTE | 2018-04-11 17:22 | ERPHSYRPT ---
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, no emesis, empty Xanax bottle, 0.5mg #60, unresponsive to narcan, no evident trauma (MARIAH BETTENCOURT) Allergies/Adverse Reactions: No Known Drug Allergies Allergy (Verified 02/26/18 16:31) Home Medications: Carbidopa/Levodopa [Sinemet 25-250 mg Tablet] 1 tab PO QID 08/13/17 [History] Furosemide 40 mg [Lasix 40 MG] 40 mg PO BID 08/13/17 [History] Nebivolol HCl [Bystolic] 10 mg PO DAILY 08/13/17 [History] Ergocalciferol (Vitamin D2) [Vitamin D2] 50,000 unit PO UD 11/14/17 [History] Insulin Lispro Protamin/Lispro [Humalog Mix 50-50 Kwikpen] 37 unit SQ TIDAC [History] Solifenacin Succinate [Vesicare] 5 mg PO DAILY 11/14/17 [History] Apomorphine HCl [Apokyn] 6 mg SQ UD 02/26/18 [History] Ramipril 5 mg [Altace 5 MG] 10 mg PO BID 02/26/18 [History] Ropinirole 2Mg [Requip 2Mg Tab] 6 mg PO QID 02/27/18 [History] - Review of Systems Psychological: Other (pt unable to provide ros) <MARIAH BETTENCOURT - Last Filed: 04/11/18 18:41> - Past Medical History Pertinent Past Medical History: Yes Neurological History: Peripheral Neuropathy, Other ENT History: No Pertinent History Cardiac History: Hypertension Respiratory History: Pneumonia, Sleep Apnea Endocrine Medical History: Diabetes Type II Musculoskeletal History: Rheumatoid Arthritis, Other GI Medical History: No Pertinent History History: No Pertinent History Psycho-Social History: Depression Male Reproductive Disorders: Prostate Problems, Scrotal Mass Other Medical History: PARKINSONS - Past Surgical History Past Surgical History: Yes Neuro Surgical History: No Pertinent History Cardiac: No Pertinent History, Cardiac Catheterization Respiratory: No Pertinent History Gastrointestinal: Cholecystectomy, Hernia Repair Musculoskeletal: Joint Replacement, Orthopedic Surgery Other Surgical History: ABDON KNEE REPLACEMENT - Social History Smoking Status: Never smoker Exposure to second hand smoke: No Drug Use: none Patient Lives Alone: No (lives at home with ) Significant Family History: no pertinent family hx <MARIAH BETTENCOURT - Last Filed: 04/11/18 18:41> - Physical Exam General Appearance: lethargy Eye Exam: eyes nml inspection Ears, Nose, Throat Exam: moist mucous membranes, other (no gag reflex) Neck Exam: No meningismus Respiratory Exam: No respiratory distress Cardiovascular Exam: regular rate/rhythm Gastrointestinal/Abdomen Exam: soft, No rebound Back Exam: normal inspection Extremity Exam: swelling Neurologic Exam: No alert Skin Exam: warm, dry <MARIAH BETTENCOURT - Last Filed: 04/11/18 18:41> - Nursing Vital Signs Nursing Vital Signs: Initial Vital Signs Temperature 97 F 04/11/18 17:15 Pulse Rate 66 04/11/18 17:15 Respiratory Rate 16 04/11/18 17:15 Blood Pressure 133/78 04/11/18 17:15 O2 Sat by Pulse Oximetry 99 04/11/18 17:15 - Course Nursing assessment & vital signs reviewed: Yes EKG Interpreted by Me: RATE, Sinus Tanner (59/min), Left Callahan Deviation, NORMAL INTERVALS, Right Bundle Branch Block (incomplete), Non-specific ST Changes - Radiology Exams Chest X-ray Interpretation: Interpreted by me, Other (ET tube in good position) - CT Exams Head CT Interpretation: Negative, Tele-radiologist Report Cervical Spine CT Interpretation: Negative, Tele-radiologist Report, Other (BGTube is coiled up in mouth) <CARLOS ORTIZ - Last Filed: 04/11/18 20:17> Ordered Tests: Active Orders 24 hr Category Date Time Status 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 Care 04/11/18 17:15 Active Catheter-[employer] [facility] STAT Care 04/11/18 17:14 Active EKG-ER Only STAT Care 04/11/18 17:14 Active Gastric Tube Insertion STAT Care 04/11/18 17:14 Active IV Insertion STAT Care 04/11/18 17:14 Active NPO (ED) STAT Care 04/11/18 17:14 Active CERVICAL SPINE WO CONTRAST [CT] Stat Exams 04/11/18 17:29 Taken CHEST 1 VIEW (PORTABLE) Stat Exams 04/11/18 17:15 Taken HEAD WITHOUT CONTRAST [CT] Stat Exams 04/11/18 17:15 Taken ACETAMINOPHEN Stat Lab 04/11/18 17:00 Completed ARTERIAL BLOOD GASES Stat Lab 04/11/18 19:10 Completed CBC W DIFF Stat Lab 04/11/18 17:00 Completed CMP Stat Lab 04/11/18 17:00 Completed ETHYL ALCOHOL Stat Lab 04/11/18 17:00 Completed Lactic Acid Stat Lab 04/11/18 19:10 Completed PROTIME WITH INR Stat Lab 04/11/18 17:00 Completed SALICYLATE Stat Lab 04/11/18 17:00 Completed TROPONIN Q3H Lab 04/11/18 17:00 Completed TROPONIN Q3H Lab 04/11/18 20:30 Ordered TROPONIN Q3H Lab 04/11/18 23:30 Ordered UA W/ MICROSCOPIC Stat Lab 04/11/18 17:00 Completed Urine Triage Profile Stat Lab 04/11/18 17:00 Completed Medication Summary Discontinued Medications Generic Name Dose Route Start Last Admin Trade Name Freq PRN Reason Stop Dose Admin Sodium Chloride 1,000 mls @ 999 mls/hr 04/11/18 17:14 04/11/18 19:16 Sodium Chloride 0.9% 1000 Ml IV 04/11/18 18:14 Infused .Q1H1M STA Infusion Sodium Chloride Confirm 04/11/18 17:32 Sodium Chloride 0.9% 1000 Ml Administered 04/11/18 17:33 Dose 2,000 mls @ ud .ROUTE .STK-MED ONE Lab/Rad Data: Laboratory Result Diagrams 04/11/18 17:00 04/11/18 17:00 Laboratory Results 04/11/18 04/11/18 04/11/18 Range/Units 19:10 17:00 17:00 WBC (4.0-10.5) K/mm3 RBC (4.1-5.6) M/mm3 Hgb (12.5-18.0) gm/dl Hct (42-50) % MCV (78-100) fl MCH (26-32) pg MCHC (32-36) g/dl RDW (11.5-14.0) % Plt Count (150-450) K/mm3 MPV (6-9.5) fl Gran % (36.0-66.0) % Eos # (Auto) (0-0.5) Absolute Lymphs (auto) (1.0-4.6) Absolute Monos (auto) (0.0-1.3) Lymphocytes % (24.0-44.0) % Monocytes % (0.0-12.0) % Eosinophils % (0.00-5.0) % Basophils % (0.0-0.4) % Absolute Granulocytes (1.4-6.9) Basophils # (0-0.4) PT (8.83-12.87) SECONDS INR (0.8-3.0) Puncture Site RIGHT RADIAL pCO2 41 (35-45) mmHg pO2 336 H* (75-100) mmHg Base Excess 3.3 H (-2.0-2.0) O2 Saturation 96.9 (94-100) g/dF ABG pH 7.44 (7.35-7.45) ABG HCO3 27.8 (22-28) ABG O2 Sat (Measured) 99.3 (95-100) % Aly Test YES A-a Gradient 326 a/A Ratio 0.51 Hemoglobin 14.4 Carboxyhemoglobin 1.2 (0.0-6.9) % THgb Methemoglobin 1.2 L (1.4-1.5) % Temperature 37.0 C POC O2 Flow Rate 100 % Tidal Volume 600 cc PEEP 5 cmH2O Sodium (137-145) mmol/L Potassium 3.9 (3.5-5.1) mmol/L Chloride (98-107) mmol/L Carbon Dioxide (22-30) mmol/L Anion Gap (5-15) MEQ/L BUN (9-20) mg/dL Creatinine (0.66-1.25) mg/dL Estimated GFR ML/MIN Glucose (74-106) mg/dL Lactic Acid 1.1 (0.4-2.0) Calcium (8.4-10.2) mg/dL Total Bilirubin (0.2-1.3) mg/dL AST (17-59) U/L ALT (0-50) U/L Alkaline Phosphatase (38-126) U/L Troponin I (0.000-0.034) ng/mL Serum Total Protein (6.3-8.2) g/dL Albumin (3.5-5.0) g/dL Ur Collection Type CLEAN CATCH Urine Color YELLOW (YELLOW) Urine Appearance CLEAR (CLEAR) Urine pH 7.0 (5-6) Ur Specific [place] 1.015 (1.005-1.025) Urine Protein NEGATIVE (Negative) Urine Ketones NEGATIVE (NEGATIVE) Urine Blood TRACE NON-HEM (0-5) Haseeb/ul Urine Nitrite NEGATIVE (NEGATIVE) Urine Bilirubin NEGATIVE (NEGATIVE) Urine Urobilinogen NORMAL (0-1) mg/dL Ur Leukocyte Esterase NEGATIVE (NEGATIVE) Urine Microscopic RBC 2-5 (0-2) /HPF Ur Epithelial Cells RARE (FEW) /HPF Urine Bacteria RARE (NEGATIVE) /HPF Hyaline Casts 0-2 (0-2) /LPF Urine Culture Reflexed NO (NO) Urine Glucose 250 (NEGATIVE) mg/dL Salicylates (2-20) mg/dL Urine Opiates Level NEGATIVE (NEGATIVE) Ur Methadone NEGATIVE (NEGATIVE) Acetaminophen (10-30) ug/ml Urine Barbiturates NEGATIVE (NEGATIVE) Ur Phencyclidine (PCP) NEGATIVE (NEGATIVE) Urine Amphetamine NEGATIVE (NEGATIVE) U Benzodiazepine Level POSITIVE (NEGATIVE) Urine Cocaine NEGATIVE (NEGATIVE) Urine Marijuana (THC) NEGATIVE (NEGATIVE) Ethyl Alcohol (0-10) mg/dL Specimen Received 04/11/18 1700 04/11/18 04/11/18 04/11/18 Range/Units 17:00 17:00 17:00 WBC (4.0-10.5) K/mm3 RBC (4.1-5.6) M/mm3 Hgb (12.5-18.0) gm/dl Hct (42-50) % MCV (78-100) fl MCH (26-32) pg MCHC (32-36) g/dl RDW (11.5-14.0) % Plt Count (150-450) K/mm3 MPV (6-9.5) fl Gran % (36.0-66.0) % Eos # (Auto) (0-0.5) Absolute Lymphs (auto) (1.0-4.6) Absolute Monos (auto) (0.0-1.3) Lymphocytes % (24.0-44.0) % Monocytes % (0.0-12.0) % Eosinophils % (0.00-5.0) % Basophils % (0.0-0.4) % Absolute Granulocytes (1.4-6.9) Basophils # (0-0.4) PT 12.4 (8.83-12.87) SECONDS INR 1.07 (0.8-3.0) Puncture Site pCO2 (35-45) mmHg pO2 (75-100) mmHg Base Excess (-2.0-2.0) O2 Saturation (94-100) g/dF ABG pH (7.35-7.45) ABG HCO3 (22-28) ABG O2 Sat (Measured) (95-100) % Aly Test A-a Gradient a/A Ratio Hemoglobin Carboxyhemoglobin (0.0-6.9) % THgb Methemoglobin (1.4-1.5) % Temperature C POC O2 Flow Rate % Tidal Volume cc PEEP cmH2O Sodium 138 (137-145) mmol/L Potassium 4.1 (3.5-5.1) mmol/L Chloride 101 (98-107) mmol/L Carbon Dioxide 27 (22-30) mmol/L Anion Gap 13.9 (5-15) MEQ/L BUN 15 (9-20) mg/dL Creatinine 0.72 (0.66-1.25) mg/dL Estimated GFR > 60.0 ML/MIN Glucose 203 H (74-106) mg/dL Lactic Acid (0.4-2.0) Calcium 9.2 (8.4-10.2) mg/dL Total Bilirubin 0.90 (0.2-1.3) mg/dL AST 20 (17-59) U/L ALT 16 (0-50) U/L Alkaline Phosphatase 130 H (38-126) U/L Troponin I 0.014 (0.000-0.034) ng/mL Serum Total Protein 7.1 (6.3-8.2) g/dL Albumin 4.1 (3.5-5.0) g/dL Ur Collection Type Urine Color (YELLOW) Urine Appearance (CLEAR) Urine pH (5-6) Ur Specific [place] (1.005-1.025) Urine Protein (Negative) Urine Ketones (NEGATIVE) Urine Blood (0-5) Haseeb/ul Urine Nitrite (NEGATIVE) Urine Bilirubin (NEGATIVE) Urine Urobilinogen (0-1) mg/dL Ur Leukocyte Esterase (NEGATIVE) Urine Microscopic RBC (0-2) /HPF Ur Epithelial Cells (FEW) /HPF Urine Bacteria (NEGATIVE) /HPF Hyaline Casts (0-2) /LPF Urine Culture Reflexed (NO) Urine Glucose (NEGATIVE) mg/dL Salicylates < 1.0 L (2-20) mg/dL Urine Opiates Level (NEGATIVE) Ur Methadone (NEGATIVE) Acetaminophen < 10 L (10-30) ug/ml Urine Barbiturates (NEGATIVE) Ur Phencyclidine (PCP) (NEGATIVE) Urine Amphetamine (NEGATIVE) U Benzodiazepine Level (NEGATIVE) Urine Cocaine (NEGATIVE) Urine Marijuana (THC) (NEGATIVE) Ethyl Alcohol < 10 (0-10) mg/dL Specimen Received 04/11/18 Range/Units 17:00 WBC 5.4 (4.0-10.5) K/mm3 RBC 5.01 (4.1-5.6) M/mm3 Hgb 15.8 (12.5-18.0) gm/dl Hct 45.5 (42-50) % MCV 90.8 (78-100) fl MCH 31.5 (26-32) pg MCHC 34.7 (32-36) g/dl RDW 13.4 (11.5-14.0) % Plt Count 146 L (150-450) K/mm3 MPV 11.9 H (6-9.5) fl Gran % 65.0 (36.0-66.0) % Eos # (Auto) 0.12 (0-0.5) Absolute Lymphs (auto) 1.30 (1.0-4.6) Absolute Monos (auto) 0.44 (0.0-1.3) Lymphocytes % 24.2 (24.0-44.0) % Monocytes % 8.2 (0.0-12.0) % Eosinophils % 2.2 (0.00-5.0) % Basophils % 0.4 (0.0-0.4) % Absolute Granulocytes 3.49 (1.4-6.9) Basophils # 0.02 (0-0.4) PT (8.83-12.87) SECONDS INR (0.8-3.0) Puncture Site pCO2 (35-45) mmHg pO2 (75-100) mmHg Base Excess (-2.0-2.0) O2 Saturation (94-100) g/dF ABG pH (7.35-7.45) ABG HCO3 (22-28) ABG O2 Sat (Measured) (95-100) % Aly Test A-a Gradient a/A Ratio Hemoglobin Carboxyhemoglobin (0.0-6.9) % THgb Methemoglobin (1.4-1.5) % Temperature C POC O2 Flow Rate % Tidal Volume cc PEEP cmH2O Sodium (137-145) mmol/L Potassium (3.5-5.1) mmol/L Chloride (98-107) mmol/L Carbon Dioxide (22-30) mmol/L Anion Gap (5-15) MEQ/L BUN (9-20) mg/dL Creatinine (0.66-1.25) mg/dL Estimated GFR ML/MIN Glucose (74-106) mg/dL Lactic Acid (0.4-2.0) Calcium (8.4-10.2) mg/dL Total Bilirubin (0.2-1.3) mg/dL AST (17-59) U/L ALT (0-50) U/L Alkaline Phosphatase (38-126) U/L Troponin I (0.000-0.034) ng/mL Serum Total Protein (6.3-8.2) g/dL Albumin (3.5-5.0) g/dL Ur Collection Type Urine Color (YELLOW) Urine Appearance (CLEAR) Urine pH (5-6) Ur Specific [place] (1.005-1.025) Urine Protein (Negative) Urine Ketones (NEGATIVE) Urine Blood (0-5) Haseeb/ul Urine Nitrite (NEGATIVE) Urine Bilirubin (NEGATIVE) Urine Urobilinogen (0-1) mg/dL Ur Leukocyte Esterase (NEGATIVE) Urine Microscopic RBC (0-2) /HPF Ur Epithelial Cells (FEW) /HPF Urine Bacteria (NEGATIVE) /HPF Hyaline Casts (0-2) /LPF Urine Culture Reflexed (NO) Urine Glucose (NEGATIVE) mg/dL Salicylates (2-20) mg/dL Urine Opiates Level (NEGATIVE) Ur Methadone (NEGATIVE) Acetaminophen (10-30) ug/ml Urine Barbiturates (NEGATIVE) Ur Phencyclidine (PCP) (NEGATIVE) Urine Amphetamine (NEGATIVE) U Benzodiazepine Level (NEGATIVE) Urine Cocaine (NEGATIVE) Urine Marijuana (THC) (NEGATIVE) Ethyl Alcohol (0-10) mg/dL Specimen Received <MARIAH BETTENCOURT - Last Filed: 04/11/18 18:41> - Progress Progress: improved Discussed with .: Yocasta Will see patient in: hospital (full admit) Counseled pt/family regarding: lab results, diagnosis, need for follow-up, rad results <CARLOS ORTIZ - Last Filed: 04/11/18 20:17> - Progress Progress Note: 04/11/18 17:31 pt intubated by RT 04/11/18 18:[address] Ortiz at 19:00 (MARIAH BETTENCOURT) 04/11/18 20:15 Pt has been stable, intubated, family at bedside, discussed his current condition and findings, called Dr Peterson, informed about this patient's condition, he accepted him to be admitted to ICU, family agreed. (CARLOS ORTIZ ) <AMRIAH BETTENCOURT - Last Filed: 04/11/18 18:41> - Departure Time of Disposition: 20:16 Departure Disposition: In-patient Admission Critical Care Time: Yes Critical Care Time(excluding separately billable procedures): 30-74 minutes <CARLOS ORTIZ - Last Filed: 04/11/18 20:17> - Departure Clinical Impression: Overdose Qualifiers: Encounter type: initial encounter Injury intent: intentional self-harm Qualified Code(s): T50.902A - Poisoning by unspecified drugs, medicaments and biological substances, intentional self-harm, initial encounter Condition: Stable Referrals: FIDEL PETERSON MD [Primary Care Provider] -
[2018-04-11] MEDS ORDERED: Sodium Chloride 0.9% 1000 ML 2,000 ML ONE (17:32)
[2018-04-11 17:39] LABS: BASOPHIL % 0.4 % (0.0-0.4); Basophil (Absolute #) 0.02 (0-0.4); Eosinophil % 2.2 % (0.00-5.0); Eosinophil (Absolute #) 0.12 (0-0.5); Granulocyte Absolute (ANC) 3.49 (1.4-6.9); Hematocrit 45.5 % (42-50); Hemoglobin 15.8 gm/dl (12.5-18.0); Lymphocytes % 24.2 % (24.0-44.0); Mean Cell Volume 90.8 fl (78-100); Mean Corpuscular Hemoglobin 31.5 pg (26-32); Mean Corpuscular Hgb Concent. 34.7 g/dl (32-36); Mean Platelet Volume 11.9 fl (6-9.5); Monocyte (Absolute #) 0.44 (0.0-1.3); Monocytes % 8.2 % (0.0-12.0); Platelet Count 146 K/mm3 (150-450); Red Blood Count 5.01 M/mm3 (4.1-5.6); Red Cell Distribution Width 13.4 % (11.5-14.0); White Blood Count 5.4 K/mm3 (4.0-10.5)
[2018-04-11 17:51] LABS: INR 1.07 (0.8-3.0)
[2018-04-11 17:57] LABS: ACETAMINOPHEN < 10 ug/ml (10-30); ALBUMIN 4.1 g/dL (3.5-5.0); ALKALINE PHOSPHATASE 130 U/L (38-126); ANION GAP 13.9 MEQ/L (5-15); BLOOD UREA NITROGEN 15 mg/dL (9-20); CHLORIDE 101 mmol/L (98-107); Calcium 9.2 mg/dL (8.4-10.2); Carbon Dioxide 27 mmol/L (22-30); Creatinine 1 0.72 mg/dL (0.66-1.25); ETHYL ALCOHOL < 10 mg/dL (0-10); Glucose 203 mg/dL (74-106); Potassium 4.1 mmol/L (3.5-5.1); SALICYLATE < 1.0 mg/dL (2-20); SGOT/AST 20 U/L (17-59); SGPT/ALT 16 U/L (0-50); SODIUM 138 mmol/L (137-145); Total Protein 7.1 g/dL (6.3-8.2)
[2018-04-11 18:43] LABS: Amphetamine,Urine NEGATIVE (NEGATIVE); Barbiturate,Urine NEGATIVE (NEGATIVE); Benzodiazepine,Urine POSITIVE (NEGATIVE); Cocaine,Urine NEGATIVE (NEGATIVE); Methadone,Urine NEGATIVE (NEGATIVE); Opiate,Urine NEGATIVE (NEGATIVE); PCP,Urine NEGATIVE (NEGATIVE); THC,Urine NEGATIVE (NEGATIVE)
[2018-04-11 18:52] LABS: Appearance CLEAR (CLEAR); Bilirubin NEGATIVE (NEGATIVE); Blood TRACE NON-HEM Ery/ul (0-5); Glucose 250 mg/dL (NEGATIVE); Ketones NEGATIVE (NEGATIVE); Leukocyte Esterase NEGATIVE (NEGATIVE); Nitrite NEGATIVE (NEGATIVE); Protein,Urine Dip NEGATIVE (Negative); Specific Gravity 1.015 (1.005-1.025); Urobilinogen NORMAL mg/dL (0-1)
[2018-04-11 18:53] LABS: Bacteria RARE /HPF (NEGATIVE); Epithelial Cells RARE /HPF (FEW); Hyaline Casts 0-2 /LPF (0-2)
[2018-04-11 19:22] LABS: A-aADO2 326; ABG HEMOGLOBIN 14.4; ABG POTASSIUM 3.9 (3.5-5.1); ABG SITE RIGHT RADIAL; ALLEN TEST OK? YES; ARTERIAL BLD GAS O2 SATURATION 99.3 % (95-100); ARTERIAL BLD GAS TIDAL VOLUME 600 cc; ARTERIAL BLOOD GAS BASE EXCESS 3.3 (-2.0-2.0); ARTERIAL BLOOD GAS FIO2 100 %; ARTERIAL BLOOD GAS PCO2 41 mmHg (35-45); ARTERIAL BLOOD GAS PEEP 5 cmH2O; ARTERIAL BLOOD GAS PO2 336 mmHg (75-100); ARTERIAL BLOOD GAS pH 7.44 (7.35-7.45); CARBOXYHEMOGLOBIN 1.2 % THgb (0.0-6.9); HCO3- 27.8 (22-28); HGB O2 SAT 96.9 g/dF (94-100); Lactic Acid 1.1 (0.4-2.0); Methhemoglobin 1.2 % (1.4-1.5); paO2 pAO1 0.51
[2018-04-11] MEDS ORDERED: DUONEB 0.5-3 MG/3 ml Neb IH PRN (20:17)
[2018-04-11] MEDS: PROPOFOL 1000 MG/100 ML IV PRN (21:00)
[2018-04-11] MEDS ORDERED: Morphine PCA 1 MG/ML 30 ML IV ONE (21:35)
[2018-04-11] MEDS ORDERED: Sodium Chloride 0.9% 500 ML 500 ML IV ONE (21:37)
[2018-04-11] MEDS ORDERED: Morphine PCA 1 MG/ML 30 ML IV PRN (22:00)
[2018-04-11] MEDS ORDERED: Lubrifresh P.M. 3.5 gm Ointment ONE (23:09)
[2018-04-11] MEDS ORDERED: ENOXAPARIN SODIUM SQ ONE (23:09)
[2018-04-11] MEDS: Pepcid 20 MG VIAL IV SCH (23:26)
[2018-04-11] MEDS: Lubrifresh P.M. 3.5 gm Ointment OP SCH (23:26)
[2018-04-11] MEDS: Sodium Chloride 0.9% 1000 ML 1,000 ML IV SCH (23:42)
[2018-04-12] MEDS: NovoLOG Insulin SQ PRN ×4 (00:05→20:32)
[2018-04-12] MEDS: PROPOFOL 1000 MG/100 ML IV PRN (04:32)
[2018-04-12 05:40] LABS: A-aADO2 22; ABG HEMOGLOBIN 15.3; ABG POTASSIUM 3.5 (3.5-5.1); ARTERIAL BLD GAS O2 SATURATION 99.1 % (95-100); ARTERIAL BLD GAS TIDAL VOLUME 600 cc; ARTERIAL BLOOD GAS BASE EXCESS 5.1 (-2.0-2.0); ARTERIAL BLOOD GAS FIO2 30 %; ARTERIAL BLOOD GAS PCO2 34 mmHg (35-45); ARTERIAL BLOOD GAS PEEP 5 cmH2O; ARTERIAL BLOOD GAS PO2 149 mmHg (75-100); ARTERIAL BLOOD GAS pH 7.52 (7.35-7.45); CARBOXYHEMOGLOBIN 2.2 % THgb (0.0-6.9); HCO3- 27.8 (22-28); HGB O2 SAT 95.7 g/dF (94-100); Methhemoglobin 1.2 % (1.4-1.5); paO2 pAO1 0.87
[2018-04-12 05:41] LABS: ABG SITE RIGHT RADIAL; ALLEN TEST OK? YES
[2018-04-12 05:47] LABS: BASOPHIL % 0.3 % (0.0-0.4); Basophil (Absolute #) 0.02 (0-0.4); Eosinophil % 1.4 % (0.00-5.0); Granulocyte Absolute (ANC) 5.36 (1.4-6.9); Hematocrit 43.4 % (42-50); Lymphocyte (Absolute #) 1.26 (1.0-4.6); Lymphocytes % 17.4 % (24.0-44.0); Mean Cell Volume 91.2 fl (78-100); Mean Corpuscular Hemoglobin 31.5 pg (26-32); Mean Corpuscular Hgb Concent. 34.6 g/dl (32-36); Mean Platelet Volume 11.7 fl (6-9.5); Monocytes % 6.9 % (0.0-12.0); Platelet Count 131 K/mm3 (150-450); Red Blood Count 4.76 M/mm3 (4.1-5.6); Red Cell Distribution Width 13.5 % (11.5-14.0); White Blood Count 7.2 K/mm3 (4.0-10.5)
[2018-04-12 06:05] LABS: ALBUMIN 3.5 g/dL (3.5-5.0); ALKALINE PHOSPHATASE 112 U/L (38-126); ANION GAP 12.3 MEQ/L (5-15); BLOOD UREA NITROGEN 13 mg/dL (9-20); CHLORIDE 105 mmol/L (98-107); Calcium 8.9 mg/dL (8.4-10.2); Carbon Dioxide 26 mmol/L (22-30); Creatinine 1 0.71 mg/dL (0.66-1.25); Glucose 155 mg/dL (74-106); Potassium 3.6 mmol/L (3.5-5.1); SGOT/AST 84 U/L (17-59); SGPT/ALT 41 U/L (0-50); SODIUM 140 mmol/L (137-145); Total Protein 6.2 g/dL (6.3-8.2)
[2018-04-12] MEDS ORDERED: Propofol 1000 mg/100 ml Bottle 100 ML IV PRN (08:26)
[2018-04-12] MEDS ORDERED: Morphine PCA 1 MG/ML 30 ML IV PRN (08:39)
--- NOTE | 2018-04-12 08:39 | XRAY ---
Indication: Acute mental status change. Found unresponsive. Multiple contiguous axial images obtained through the cervical spine. Sagittal and coronal reformatted images obtained. Comparison: December 28, 2014. Axial images again negative for acute fracture, suspicious bony lesions, or spinal canal stenosis. Stable mild C4-C7 degenerative endplate spurring. Also stable mild multilevel bilateral degenerative facet arthropathy. Sagittal and coronal reformatted images demonstrates normal alignment with again C5-C7 disc space narrowing. No acute compression fracture, subluxation, or jumped facet. Normal-appearing craniocervical junction. New partially visualized endotracheal tube and NG tube. Portion of the NG tube is looped in the oropharynx. CT head reported separately. Impression: 1. Negative for acute fracture/subluxation. 2. Stable multilevel degenerative changes. 3. New NG tube and endotracheal tube in situ. CT DI 65.98
--- NOTE | 2018-04-12 08:40 | XRAY ---
Indication: Acute mental status change. Found unresponsive. Multiple contiguous axial images obtained through the head without contrast. Comparison: August 14, 2017. Again age-appropriate global atrophy. No acute intracranial hemorrhage, abnormal extra-axial fluid collection, or mass effect. Fourth ventricle is midline without hydrocephalus. Reyes-white matter differentiation preserved. Bony calvarium intact. Mild mucosal thickening of both ethmoid sinuses. Partially visualized NG tube in the nasopharynx. Mastoid air cells are clear. Impression: No acute intracranial abnormalities. Mild paranasal sinus disease. CT DI 47.89
[2018-04-12] MEDS ORDERED: MORPHINE SULFATE 2 MG INJ IV PRN (08:41)
--- NOTE | 2018-04-12 08:41 | XRAY ---
Indication: Tube placement. Comparison: February 26, 2018. Portable chest demonstrates new endotracheal tube tip 5 cm above the [place] and new NG tube with the tip in the stomach. Lungs are slightly underinflated with new left base and right infrahilar infiltrate/atelectasis. Also new small left effusion. Heart is not enlarged. Bony thorax intact again with mild degenerative changes. Impression: 1. New endotracheal tube and NG tube in satisfactory position. 2. New left base and right infrahilar infiltrate/atelectasis with left effusion.
--- NOTE | 2018-04-12 08:45 | XRAY ---
Indication: Abnormal breath sounds. Patient on ventilator. Comparison: One day earlier. Portable chest unchanged again demonstrating endotracheal tube/NG tube in situ, right infrahilar/left base infiltrate versus atelectasis, and small left effusion. Heart is not enlarged. No new cardiopulmonary abnormalities. Comment: Preliminary interpretation was made by [facility]. No discrepancy.
[2018-04-12] MEDS ORDERED: ENOXAPARIN SODIUM SQ SCH ×2 (10:00→22:00)
[2018-04-12] MEDS: Pepcid 20 MG VIAL IV SCH ×2 (10:46→21:18)
--- NOTE | 2018-04-12 12:45 | PCM.HP ---
History of Present Illness - Chief Complaint Chief Complaint: patient was found unresponsive, ? xanax overdose History of Present Illness: is a 73 year old male.founfd unresponsive at home - Review of Systems Constitutional: No Fever, No Chills Eyes: No Symptoms Ears, Nose, & Throat: No Symptoms Respiratory: No Cough, No Short Of Breath Cardiac: No Chest Pain, No Edema, No Syncope Abdominal/Gastrointestinal: No Abdominal Pain, No Nausea, No Vomiting, No Diarrhea Genitourinary Symptoms: No Dysuria Musculoskeletal: No Back Pain, No Neck Pain Skin: No Rash Neurological: No Dizziness, No Focal Weakness, No Sensory Changes Psychological: No Symptoms Endocrine: No Symptoms Hematologic/Lymphatic: No Symptoms Immunological/Allergic: No Symptoms Medications & Allergies Home Medications: Home Medication List Carbidopa/Levodopa [Sinemet 25-250 mg Tablet] 1 tab PO QID 08/13/17 [History Confirmed 04/12/18] Furosemide 40 mg [Lasix 40 MG] 40 mg PO BID 08/13/17 [History Confirmed ] Nebivolol HCl [Bystolic] 10 mg PO DAILY 08/13/17 [History Confirmed 04/12/18] Ergocalciferol (Vitamin D2) [Vitamin D2] 50,000 unit PO UD 11/14/17 [History Confirmed 04/12/18] Insulin Lispro Protamin/Lispro [Humalog Mix 50-50 Kwikpen] 37 unit SQ TIDAC [History Confirmed 04/12/18] Solifenacin Succinate [Vesicare] 5 mg PO DAILY 11/14/17 [History Confirmed 04/12] Apomorphine HCl [Apokyn] 0.6 ml SQ UD 02/26/18 [History Confirmed 04/12/18] Ramipril 5 mg [Altace 5 MG] 10 mg PO BID 02/26/18 [History Confirmed 04/12] Apixaban [Eliquis 2.5 mg Tablet] 2.5 mg PO BID #60 tablet 02/27/18 [Rx Confirmed 04/12/18] Alprazolam [Xanax] 0.5 mg PO Q6HPRN PRN 04/12/18 [History Confirmed 04/12/18] Entacapone 200 mg PO QID 04/12/18 [History Confirmed 04/12/18] Nitroglycerin [Nitrostat] 0.4 mg SL UD PRN 04/12/18 [History Confirmed 04/12/18] Pimavanserin Tartrate [Nuplazid] 17 mg PO BID 04/12/18 [History Confirmed ] Ropinirole HCl [Requip] 5 mg PO QID 04/12/18 [History Confirmed 04/12/18] Allergies/Adverse Reactions: Allergies Allergy/AdvReac Type Severity Reaction Status Date / Time No Known Drug Allergies Allergy Verified 04/11/18 23:06 - Past Medical History Past Medical History: Yes Neurological History: Peripheral Neuropathy, Other ENT History: No Pertinent History Cardiac History: Hypertension Respiratory History: Sleep Apnea Endocrine Medical History: Diabetes Type II Musculoskelatal History: Rheumatoid Arthritis, Other GI Medical History: No Pertinent History History: No Pertinent History Pyscho-Social History: Depression Male Reproductive Disorders: Prostate Problems Comment: PARKINSONS - Past Surgical History Past Surgical History: Yes Neuro Surgical History: No Pertinent History Cardiac History: No Pertinent History, Cardiac Catheterization Respiratory Surgery: No Pertinent History GI Surgical History: Cholecystectomy, Hernia Repair Musculskeletal Surgical Hx: Joint Replacement, Orthopedic Surgery Other Surgical History: ADBON KNEE REPLACEMENT - Social History Smoking Status: Never smoker Exposure to second hand smoke: No Alcohol: Rarely Drug Use: none Significant Family History: no pertinent family hx - Physical Exam Vital Signs: Vital Signs - 24 hr Temp Pulse Pulse Resp BP Pulse Ox 04/12/18 12:00 99.3 F 72 72 H 126/74 97 04/12/18 11:51 74 04/12/18 11:00 99.5 F 71 18 136/73 98 04/12/18 10:00 99.3 F 70 16 121/70 94 L 04/12/18 09:00 99.3 F 67 15 115/64 98 04/12/18 08:00 99.1 F 63 14 103/62 100 04/12/18 06:37 99.1 F 64 14 109/69 100 04/12/18 06:00 100 04/12/18 05:44 99.0 F 62 14 123/71 100 04/12/18 04:54 98.8 F 64 14 124/74 100 04/12/18 04:00 98.6 F 61 14 109/73 100 07/18/18 02:57 98.2 F 63 14 119/73 100 /18/18 01:48 100 /18 01:46 98.2 F 65 14 112/69 100 07//18 01:19 98.2 F 63 14 121/74 100 /18 01:03 98.1 F 61 14 123/76 100 //18 00:56 98.1 F 90 14 134/85 100 /18/18 00:43 98.2 F 14 L 14 100 //18 00:30 98.1 F 69 14 147/88 100 07//18 00:15 98.1 F 68 14 147/80 100 /18 00:01 68 04/12/18 00:00 98.1 F 61 14 128/82 100 07//18 23:45 97.9 F 64 14 134/85 100 07//18 23:30 97.9 F 61 14 151/84 100 04/11/18 23:18 100 04/11/18 23:15 98.1 F 59 L 14 135/77 100 07//18 22:45 98.1 F 64 14 122/75 100 07//18 22:30 98.2 F 62 14 122/80 100 //18 22:15 98.2 F 68 14 137/89 100 //18 22:00 98.1 F 71 14 165/101 100 //18 21:00 98.2 F 72 14 174/97 100 04/11/18 20:49 97.5 F 70 14 192/108 100 07//18 20:33 97.3 F 64 14 157/112 100 07/17/18 20:17 98.2 F 63 14 174/97 07/17/18 18:24 67 15 151/96 100 07/17/18 17:15 97 F 67 66 16 133/78 99 Oxygen-Last 24 hours O2 Percentage 3 Liters = 32% O2 Percentage 3 Liters = 32% O2 Percentage 3 Liters = 32% O2 Percentage 3 Liters = 32% O2 Percentage 3 Liters = 32% O2 Percentage 100% O2 Percentage 100% O2 Percentage 100% O2 Percentage 100% O2 Percentage 100% O2 Percentage 100% O2 Percentage 100% O2 Percentage 100% O2 Percentage 100% O2 Percentage 100% O2 Percentage 100% O2 Percentage 100% O2 Percentage 100% O2 Percentage 100% O2 Percentage 100% O2 Percentage 100% O2 Percentage 100% O2 Percentage 100% Oxygen Flowrate (L/min)-RT 30 Oxygen Flowrate (L/min)-RT 30 Oxygen Flowrate (L/min)-RT 30 Oxygen Flowrate (L/min)-RT 30 Oxygen Flowrate (L/min)-RT 30 General Appearance: moderate distress (patient is intubated) Neurologic Exam: alert, oriented x 3, cooperative, normal mood/affect, nml cerebellar function, nml station & gait, sensation nml, No motor deficits Eye Exam: PERRL/EOMI, eyes nml inspection Ears, Nose, Throat Exam: normal ENT inspection, TMs normal, pharynx normal, moist mucous membranes Neck Exam: normal inspection, non-tender, supple, full range of motion Respiratory Exam: normal breath sounds, lungs clear, No respiratory distress Cardiovascular Exam: regular rate/rhythm, normal heart sounds, normal peripheral pulses Gastrointestinal/Abdomen Exam: soft, normal bowel sounds, No tenderness, No mass Back Exam: normal inspection, normal range of motion, No CVA tenderness, No vertebral tenderness Extremity Exam: normal inspection, normal range of motion, pelvis stable Skin Exam: normal color, warm, dry, No rash Lymphatic Exam: No adenopathy Results - Labs Lab/Micro Results: Accuchecks Date 04/12/18 Date 04/12/18 Date 04/12/18 Date 04/12/18 Date 04/11/18 Time 11:28 Time 08:36 Time 04:00 Time 00:03 Time 22:20 Accucheck Value: 151 Accucheck Value: 128 Accucheck Value: 168 Accucheck Value: 190 Accucheck Value: 207 Lab Results-Last 24 Hours 04/11/18 04/11/18 04/11/18 Range/Units 00:05 17:00 17:00 WBC 5.4 (4.0-10.5) K/mm3 RBC 5.01 (4.1-5.6) M/mm3 Hgb 15.8 (12.5-18.0) gm/dl Hct 45.5 (42-50) % MCV 90.8 (78-100) fl MCH 31.5 (26-32) pg MCHC 34.7 (32-36) g/dl RDW 13.4 (11.5-14.0) % Plt Count 146 L (150-450) K/mm3 MPV 11.9 H (6-9.5) fl Gran % 65.0 (36.0-66.0) % Eos # (Auto) 0.12 (0-0.5) Absolute Lymphs (auto) 1.30 (1.0-4.6) Absolute Monos (auto) 0.44 (0.0-1.3) Lymphocytes % 24.2 (24.0-44.0) % Monocytes % 8.2 (0.0-12.0) % Eosinophils % 2.2 (0.00-5.0) % Basophils % 0.4 (0.0-0.4) % Absolute Granulocytes 3.49 (1.4-6.9) Basophils # 0.02 (0-0.4) PT (8.83-12.87) SECONDS INR (0.8-3.0) Puncture Site pCO2 (35-45) mmHg pO2 (75-100) mmHg Base Excess (-2.0-2.0) O2 Saturation (94-100) g/dF ABG pH (7.35-7.45) ABG HCO3 (22-28) ABG O2 Sat (Measured) (95-100) % Aly Test A-a Gradient a/A Ratio Hemoglobin Carboxyhemoglobin (0.0-6.9) % THgb Methemoglobin (1.4-1.5) % Temperature C POC O2 Flow Rate % Tidal Volume cc PEEP cmH2O Sodium 138 (137-145) mmol/L Potassium 4.1 (3.5-5.1) mmol/L Chloride 101 (98-107) mmol/L Carbon Dioxide 27 (22-30) mmol/L Anion Gap 13.9 (5-15) MEQ/L BUN 15 (9-20) mg/dL Creatinine 0.72 (0.66-1.25) mg/dL Estimated GFR > 60.0 ML/MIN Glucose 203 H (74-106) mg/dL Lactic Acid (0.4-2.0) Calcium 9.2 (8.4-10.2) mg/dL Total Bilirubin 0.90 (0.2-1.3) mg/dL AST 20 (17-59) U/L ALT 16 (0-50) U/L Alkaline Phosphatase 130 H (38-126) U/L Troponin I < 0.012 (0.000-0.034) ng/mL Serum Total Protein 7.1 (6.3-8.2) g/dL Albumin 4.1 (3.5-5.0) g/dL Prealbumin (17.6-36.0) mg/dL Ur Collection Type Urine Color (YELLOW) Urine Appearance (CLEAR) Urine pH (5-6) Ur Specific [place] (1.005-1.025) Urine Protein (Negative) Urine Ketones (NEGATIVE) Urine Blood (0-5) Haseeb/ul Urine Nitrite (NEGATIVE) Urine Bilirubin (NEGATIVE) Urine Urobilinogen (0-1) mg/dL Ur Leukocyte Esterase (NEGATIVE) Urine Microscopic RBC (0-2) /HPF Ur Epithelial Cells (FEW) /HPF Urine Bacteria (NEGATIVE) /HPF Hyaline Casts (0-2) /LPF Urine Culture Reflexed (NO) Urine Glucose (NEGATIVE) mg/dL Salicylates < 1.0 L (2-20) mg/dL Urine Opiates Level (NEGATIVE) Ur Methadone (NEGATIVE) Acetaminophen < 10 L (10-30) ug/ml Urine Barbiturates (NEGATIVE) Ur Phencyclidine (PCP) (NEGATIVE) Urine Amphetamine (NEGATIVE) U Benzodiazepine Level (NEGATIVE) Urine Cocaine (NEGATIVE) Urine Marijuana (THC) (NEGATIVE) Ethyl Alcohol < 10 (0-10) mg/dL Specimen Received 04/11/18 04/11/18 04/11/18 Range/Units 17:00 17:00 17:00 WBC (4.0-10.5) K/mm3 RBC (4.1-5.6) M/mm3 Hgb (12.5-18.0) gm/dl Hct (42-50) % MCV (78-100) fl MCH (26-32) pg MCHC (32-36) g/dl RDW (11.5-14.0) % Plt Count (150-450) K/mm3 MPV (6-9.5) fl Gran % (36.0-66.0) % Eos # (Auto) (0-0.5) Absolute Lymphs (auto) (1.0-4.6) Absolute Monos (auto) (0.0-1.3) Lymphocytes % (24.0-44.0) % Monocytes % (0.0-12.0) % Eosinophils % (0.00-5.0) % Basophils % (0.0-0.4) % Absolute Granulocytes (1.4-6.9) Basophils # (0-0.4) PT 12.4 (8.83-12.87) SECONDS INR 1.07 (0.8-3.0) Puncture Site pCO2 (35-45) mmHg pO2 (75-100) mmHg Base Excess (-2.0-2.0) O2 Saturation (94-100) g/dF ABG pH (7.35-7.45) ABG HCO3 (22-28) ABG O2 Sat (Measured) (95-100) % Aly Test A-a Gradient a/A Ratio Hemoglobin Carboxyhemoglobin (0.0-6.9) % THgb Methemoglobin (1.4-1.5) % Temperature C POC O2 Flow Rate % Tidal Volume cc PEEP cmH2O Sodium (137-145) mmol/L Potassium (3.5-5.1) mmol/L Chloride (98-107) mmol/L Carbon Dioxide (22-30) mmol/L Anion Gap (5-15) MEQ/L BUN (9-20) mg/dL Creatinine (0.66-1.25) mg/dL Estimated GFR ML/MIN Glucose (74-106) mg/dL Lactic Acid (0.4-2.0) Calcium (8.4-10.2) mg/dL Total Bilirubin (0.2-1.3) mg/dL AST (17-59) U/L ALT (0-50) U/L Alkaline Phosphatase (38-126) U/L Troponin I 0.014 (0.000-0.034) ng/mL Serum Total Protein (6.3-8.2) g/dL Albumin (3.5-5.0) g/dL Prealbumin (17.6-36.0) mg/dL Ur Collection Type CLEAN CATCH Urine Color YELLOW (YELLOW) Urine Appearance CLEAR (CLEAR) Urine pH 7.0 (5-6) Ur Specific [place] 1.015 (1.005-1.025) Urine Protein NEGATIVE (Negative) Urine Ketones NEGATIVE (NEGATIVE) Urine Blood TRACE NON-HEM (0-5) Haseeb/ul Urine Nitrite NEGATIVE (NEGATIVE) Urine Bilirubin NEGATIVE (NEGATIVE) Urine Urobilinogen NORMAL (0-1) mg/dL Ur Leukocyte Esterase NEGATIVE (NEGATIVE) Urine Microscopic RBC 2-5 (0-2) /HPF Ur Epithelial Cells RARE (FEW) /HPF Urine Bacteria RARE (NEGATIVE) /HPF Hyaline Casts 0-2 (0-2) /LPF Urine Culture Reflexed NO (NO) Urine Glucose 250 (NEGATIVE) mg/dL Salicylates (2-20) mg/dL Urine Opiates Level (NEGATIVE) Ur Methadone (NEGATIVE) Acetaminophen (10-30) ug/ml Urine Barbiturates (NEGATIVE) Ur Phencyclidine (PCP) (NEGATIVE) Urine Amphetamine (NEGATIVE) U Benzodiazepine Level (NEGATIVE) Urine Cocaine (NEGATIVE) Urine Marijuana (THC) (NEGATIVE) Ethyl Alcohol (0-10) mg/dL Specimen Received 04/11/18 1700 04/11/18 04/11/18 04/11/18 Range/Units 17:00 19:10 20:58 WBC (4.0-10.5) K/mm3 RBC (4.1-5.6) M/mm3 Hgb (12.5-18.0) gm/dl Hct (42-50) % MCV (78-100) fl MCH (26-32) pg MCHC (32-36) g/dl RDW (11.5-14.0) % Plt Count (150-450) K/mm3 MPV (6-9.5) fl Gran % (36.0-66.0) % Eos # (Auto) (0-0.5) Absolute Lymphs (auto) (1.0-4.6) Absolute Monos (auto) (0.0-1.3) Lymphocytes % (24.0-44.0) % Monocytes % (0.0-12.0) % Eosinophils % (0.00-5.0) % Basophils % (0.0-0.4) % Absolute Granulocytes (1.4-6.9) Basophils # (0-0.4) PT (8.83-12.87) SECONDS INR (0.8-3.0) Puncture Site RIGHT RADIAL pCO2 41 (35-45) mmHg pO2 336 H* (75-100) mmHg Base Excess 3.3 H (-2.0-2.0) O2 Saturation 96.9 (94-100) g/dF ABG pH 7.44 (7.35-7.45) ABG HCO3 27.8 (22-28) ABG O2 Sat (Measured) 99.3 (95-100) % Aly Test YES A-a Gradient 326 a/A Ratio 0.51 Hemoglobin 14.4 Carboxyhemoglobin 1.2 (0.0-6.9) % THgb Methemoglobin 1.2 L (1.4-1.5) % Temperature 37.0 C POC O2 Flow Rate 100 % Tidal Volume 600 cc PEEP 5 cmH2O Sodium (137-145) mmol/L Potassium 3.9 (3.5-5.1) mmol/L Chloride (98-107) mmol/L Carbon Dioxide (22-30) mmol/L Anion Gap (5-15) MEQ/L BUN (9-20) mg/dL Creatinine (0.66-1.25) mg/dL Estimated GFR ML/MIN Glucose (74-106) mg/dL Lactic Acid 1.1 (0.4-2.0) Calcium (8.4-10.2) mg/dL Total Bilirubin (0.2-1.3) mg/dL AST (17-59) U/L ALT (0-50) U/L Alkaline Phosphatase (38-126) U/L Troponin I < 0.012 (0.000-0.034) ng/mL Serum Total Protein (6.3-8.2) g/dL Albumin (3.5-5.0) g/dL Prealbumin (17.6-36.0) mg/dL Ur Collection Type Urine Color (YELLOW) Urine Appearance (CLEAR) Urine pH (5-6) Ur Specific [place] (1.005-1.025) Urine Protein (Negative) Urine Ketones (NEGATIVE) Urine Blood (0-5) Haseeb/ul Urine Nitrite (NEGATIVE) Urine Bilirubin (NEGATIVE) Urine Urobilinogen (0-1) mg/dL Ur Leukocyte Esterase (NEGATIVE) Urine Microscopic RBC (0-2) /HPF Ur Epithelial Cells (FEW) /HPF Urine Bacteria (NEGATIVE) /HPF Hyaline Casts (0-2) /LPF Urine Culture Reflexed (NO) Urine Glucose (NEGATIVE) mg/dL Salicylates (2-20) mg/dL Urine Opiates Level NEGATIVE (NEGATIVE) Ur Methadone NEGATIVE (NEGATIVE) Acetaminophen (10-30) ug/ml Urine Barbiturates NEGATIVE (NEGATIVE) Ur Phencyclidine (PCP) NEGATIVE (NEGATIVE) Urine Amphetamine NEGATIVE (NEGATIVE) U Benzodiazepine Level POSITIVE (NEGATIVE) Urine Cocaine NEGATIVE (NEGATIVE) Urine Marijuana (THC) NEGATIVE (NEGATIVE) Ethyl Alcohol (0-10) mg/dL Specimen Received 04/12/18 04/12/18 04/12/18 Range/Units 05:30 05:40 05:40 WBC 7.2 (4.0-10.5) K/mm3 RBC 4.76 (4.1-5.6) M/mm3 Hgb 15.0 (12.5-18.0) gm/dl Hct 43.4 (42-50) % MCV 91.2 (78-100) fl MCH 31.5 (26-32) pg MCHC 34.6 (32-36) g/dl RDW 13.5 (11.5-14.0) % Plt Count 131 L (150-450) K/mm3 MPV 11.7 H (6-9.5) fl Gran % 74.0 H (36.0-66.0) % Eos # (Auto) 0.10 (0-0.5) Absolute Lymphs (auto) 1.26 (1.0-4.6) Absolute Monos (auto) 0.50 (0.0-1.3) Lymphocytes % 17.4 L (24.0-44.0) % Monocytes % 6.9 (0.0-12.0) % Eosinophils % 1.4 (0.00-5.0) % Basophils % 0.3 (0.0-0.4) % Absolute Granulocytes 5.36 (1.4-6.9) Basophils # 0.02 (0-0.4) PT (8.83-12.87) SECONDS INR (0.8-3.0) Puncture Site RIGHT RADIAL pCO2 34 L (35-45) mmHg pO2 149 H* (75-100) mmHg Base Excess 5.1 H (-2.0-2.0) O2 Saturation 95.7 (94-100) g/dF ABG pH 7.52 H (7.35-7.45) ABG HCO3 27.8 (22-28) ABG O2 Sat (Measured) 99.1 (95-100) % Aly Test YES A-a Gradient 22 a/A Ratio 0.87 Hemoglobin 15.3 Carboxyhemoglobin 2.2 (0.0-6.9) % THgb Methemoglobin 1.2 L (1.4-1.5) % Temperature 37.0 C POC O2 Flow Rate 30 % Tidal Volume 600 cc PEEP 5 cmH2O Sodium 140 (137-145) mmol/L Potassium 3.5 3.6 (3.5-5.1) mmol/L Chloride 105 (98-107) mmol/L Carbon Dioxide 26 (22-30) mmol/L Anion Gap 12.3 (5-15) MEQ/L BUN 13 (9-20) mg/dL Creatinine 0.71 (0.66-1.25) mg/dL Estimated GFR > 60.0 ML/MIN Glucose 155 H (74-106) mg/dL Lactic Acid (0.4-2.0) Calcium 8.9 (8.4-10.2) mg/dL Total Bilirubin 1.10 (0.2-1.3) mg/dL AST 84 H (17-59) U/L ALT 41 (0-50) U/L Alkaline Phosphatase 112 (38-126) U/L Troponin I (0.000-0.034) ng/mL Serum Total Protein 6.2 L (6.3-8.2) g/dL Albumin 3.5 (3.5-5.0) g/dL Prealbumin (17.6-36.0) mg/dL Ur Collection Type Urine Color (YELLOW) Urine Appearance (CLEAR) Urine pH (5-6) Ur Specific [place] (1.005-1.025) Urine Protein (Negative) Urine Ketones (NEGATIVE) Urine Blood (0-5) Haseeb/ul Urine Nitrite (NEGATIVE) Urine Bilirubin (NEGATIVE) Urine Urobilinogen (0-1) mg/dL Ur Leukocyte Esterase (NEGATIVE) Urine Microscopic RBC (0-2) /HPF Ur Epithelial Cells (FEW) /HPF Urine Bacteria (NEGATIVE) /HPF Hyaline Casts (0-2) /LPF Urine Culture Reflexed (NO) Urine Glucose (NEGATIVE) mg/dL Salicylates (2-20) mg/dL Urine Opiates Level (NEGATIVE) Ur Methadone (NEGATIVE) Acetaminophen (10-30) ug/ml Urine Barbiturates (NEGATIVE) Ur Phencyclidine (PCP) (NEGATIVE) Urine Amphetamine (NEGATIVE) U Benzodiazepine Level (NEGATIVE) Urine Cocaine (NEGATIVE) Urine Marijuana (THC) (NEGATIVE) Ethyl Alcohol (0-10) mg/dL Specimen Received 04/12/18 Range/Units 05:40 WBC (4.0-10.5) K/mm3 RBC (4.1-5.6) M/mm3 Hgb (12.5-18.0) gm/dl Hct (42-50) % MCV (78-100) fl MCH (26-32) pg MCHC (32-36) g/dl RDW (11.5-14.0) % Plt Count (150-450) K/mm3 MPV (6-9.5) fl Gran % (36.0-66.0) % Eos # (Auto) (0-0.5) Absolute Lymphs (auto) (1.0-4.6) Absolute Monos (auto) (0.0-1.3) Lymphocytes % (24.0-44.0) % Monocytes % (0.0-12.0) % Eosinophils % (0.00-5.0) % Basophils % (0.0-0.4) % Absolute Granulocytes (1.4-6.9) Basophils # (0-0.4) PT (8.83-12.87) SECONDS INR (0.8-3.0) Puncture Site pCO2 (35-45) mmHg pO2 (75-100) mmHg Base Excess (-2.0-2.0) O2 Saturation (94-100) g/dF ABG pH (7.35-7.45) ABG HCO3 (22-28) ABG O2 Sat (Measured) (95-100) % Aly Test A-a Gradient a/A Ratio Hemoglobin Carboxyhemoglobin (0.0-6.9) % THgb Methemoglobin (1.4-1.5) % Temperature C POC O2 Flow Rate % Tidal Volume cc PEEP cmH2O Sodium (137-145) mmol/L Potassium (3.5-5.1) mmol/L Chloride (98-107) mmol/L Carbon Dioxide (22-30) mmol/L Anion Gap (5-15) MEQ/L BUN (9-20) mg/dL Creatinine (0.66-1.25) mg/dL Estimated GFR ML/MIN Glucose (74-106) mg/dL Lactic Acid (0.4-2.0) Calcium (8.4-10.2) mg/dL Total Bilirubin (0.2-1.3) mg/dL AST (17-59) U/L ALT (0-50) U/L Alkaline Phosphatase (38-126) U/L Troponin I (0.000-0.034) ng/mL Serum Total Protein (6.3-8.2) g/dL Albumin (3.5-5.0) g/dL Prealbumin 19.11 (17.6-36.0) mg/dL Ur Collection Type Urine Color (YELLOW) Urine Appearance (CLEAR) Urine pH (5-6) Ur Specific [place] (1.005-1.025) Urine Protein (Negative) Urine Ketones (NEGATIVE) Urine Blood (0-5) Haseeb/ul Urine Nitrite (NEGATIVE) Urine Bilirubin (NEGATIVE) Urine Urobilinogen (0-1) mg/dL Ur Leukocyte Esterase (NEGATIVE) Urine Microscopic RBC (0-2) /HPF Ur Epithelial Cells (FEW) /HPF Urine Bacteria (NEGATIVE) /HPF Hyaline Casts (0-2) /LPF Urine Culture Reflexed (NO) Urine Glucose (NEGATIVE) mg/dL Salicylates (2-20) mg/dL Urine Opiates Level (NEGATIVE) Ur Methadone (NEGATIVE) Acetaminophen (10-30) ug/ml Urine Barbiturates (NEGATIVE) Ur Phencyclidine (PCP) (NEGATIVE) Urine Amphetamine (NEGATIVE) U Benzodiazepine Level (NEGATIVE) Urine Cocaine (NEGATIVE) Urine Marijuana (THC) (NEGATIVE) Ethyl Alcohol (0-10) mg/dL Specimen Received Accuchecks Date 04/12/18 Date 04/12/18 Date 04/12/18 Date 04/12/18 Date 04/11/18 Time 11:28 Time 08:36 Time 04:00 Time 00:03 Time 22:20 Accucheck Value: 151 Accucheck Value: 128 Accucheck Value: 168 Accucheck Value: 190 Accucheck Value: 207 - Radiology Impressions Radiology Exams & Impressions: Radiology Procedures Category Date Time Status CERVICAL SPINE WO CONTRAST [CT] Stat Exams 04/11/18 17:29 Completed CHEST 1 VIEW (PORTABLE) DAILY Exams 04/12/18 06:00 Completed CHEST 1 VIEW (PORTABLE) DAILY Exams 04/13/18 06:00 Ordered CHEST 1 VIEW (PORTABLE) Stat Exams 04/11/18 17:15 Completed HEAD WITHOUT CONTRAST [CT] Stat Exams 04/11/18 17:15 Completed - Other Procedures and Tests Respiratory Therapy 04/11/18 22:12 Ventilator Management Q4H neb [Respiratory Nebulizer] PRN 04/11/18 23:18 Ambu Bagging PRN Assessment/Plan (1) Acute respiratory failure Current Visit: Yes Status: Acute Qualifiers: Respiratory failure complication: unspecified whether with hypoxia or hypercapnia Qualified Code(s): J96.00 - Acute respiratory failure, unspecified whether with hypoxia or hypercapnia Assessment & Plan: Chief Complaint Diagnosis Overdose Allergies Allergy/AdvReac Type Severity Reaction Status Date / Time No Known Drug Allergies Allergy Verified 04/11/18 23:06 Vital Signs (Last 24 hours) Temp Pulse Pulse Resp BP Pulse Ox 04/12/18 12:00 99.3 F 72 72 H 126/74 97 04/12/18 11:51 74 04/12/18 11:00 99.5 F 71 18 136/73 98 04/12/18 10:00 99.3 F 70 16 121/70 94 L 04/12/18 09:00 99.3 F 67 15 115/64 98 04/12/18 08:00 99.1 F 63 14 103/62 100 04/12/18 06:37 99.1 F 64 14 109/69 100 04/12/18 06:00 100 04/12/18 05:44 99.0 F 62 14 123/71 100 04/12/18 04:54 98.8 F 64 14 124/74 100 04/12/18 04:00 98.6 F 61 14 109/73 100 04/12/18 02:57 98.2 F 63 14 119/73 100 04/12/18 01:48 100 04/12/18 01:46 98.2 F 65 14 112/69 100 04/12/18 01:19 98.2 F 63 14 121/74 100 04/12/18 01:03 98.1 F 61 14 123/76 100 04/12/18 00:56 98.1 F 90 14 134/85 100 04/12/18 00:43 98.2 F 14 L 14 100 04/12/18 00:30 98.1 F 69 14 147/88 100 04/12/18 00:15 98.1 F 68 14 147/80 100 04/12/18 00:01 68 04/12/18 00:00 98.1 F 61 14 128/82 100 04/11/18 23:45 97.9 F 64 14 134/85 100 04/11/18 23:30 97.9 F 61 14 151/84 100 04/11/18 23:18 100 04/11/18 23:15 98.1 F 59 L 14 135/77 100 04/11/18 22:45 98.1 F 64 14 122/75 100 04/11/18 22:30 98.2 F 62 14 122/80 100 04/11/18 22:15 98.2 F 68 14 137/89 100 04/11/18 22:00 98.1 F 71 14 165/101 100 04/11/18 21:00 98.2 F 72 14 174/97 100 04/11/18 20:49 97.5 F 70 14 192/108 100 04/11/18 20:33 97.3 F 64 14 157/112 100 04/11/18 20:17 98.2 F 63 14 174/97 04/11/18 18:24 67 15 151/96 100 04/11/18 17:15 97 F 67 66 16 133/78 99 Home Medications Medication Instructions Recorded Confirmed Last Taken Type Alprazolam [Xanax] 0.5 mg PO Q6HPRN PRN 04/12/18 04/12/18 04/11/18 History Entacapone 200 mg PO QID 04/12/18 04/12/18 Unknown History Nitroglycerin [Nitrostat] 0.4 mg SL UD PRN 04/12/18 04/12/18 Unknown History Pimavanserin Tartrate [Nuplazid] 17 mg PO BID 04/12/18 04/12/18 Unknown History Ropinirole HCl [Requip] 5 mg PO QID 04/12/18 04/12/18 Unknown History Current Medications Generic Name Dose Route Start Last Admin Trade Name Freq PRN Reason Stop Dose Admin Albuterol/Ipratropium 3 ml 04/11/18 20:17 Duoneb 0.5-3 Mg/3 Ml Neb IH 05/11/18 20:16 Q4HPRN PRN SHORTNESS OF BREATH/WHEEZING Artificial Tears 0.5 gm 04/11/18 23:15 04/11/18 23:26 Lubrifresh P.M. 3.5 Gm Ointment OP 05/11/18 23:14 0.5 gm Q12H NANCY Administration Enoxaparin Sodium 40 mg 04/12/18 22:00 Enoxaparin Sodium SQ 05/12/18 21:59 Q24H22 NANCY Famotidine 20 mg 04/11/18 22:00 04/12/18 10:46 Pepcid 20 Mg Vial IV 05/11/18 21:59 20 mg Q12HT NANCY Administration Sodium Chloride 1,000 mls @ 30 mls/hr 04/11/18 20:30 04/11/18 23:42 Sodium Chloride 0.9% 1000 Ml IV 05/11/18 20:29 100 mls/hr .Q24H NANCY Administration Propofol 100 mls @ 3.336 mls/hr 04/12/18 08:26 Propofol 1000 Mg/100 Ml Bottle IV 05/12/18 08:25 .Q24H PRN SEDATION Protocol 5 MCG/KG/MIN Insulin Aspart 0 unit 04/11/18 20:17 04/12/18 11:27 Novolog Insulin SQ 05/11/18 20:16 3 unit UD PRN Administration HYPERGLYCEMIA Morphine Sulfate 30 mg 04/12/18 08:39 [employer] Serviceperson 1 Mg/Ml 30 Ml IV 04/17/18 08:38 PRN PRN PAIN Morphine Sulfate 2 - 5 mg 04/12/18 08:41 Morphine Sulfate 2 Mg Inj IV 04/17/18 08:40 [id number] PRN PAIN NOT CONTROLLED BY INFUS Discontinued Medications Generic Name Dose Route Start Last Admin Trade Name Freq PRN Reason Stop Dose Admin Artificial Tears Confirm 04/11/18 23:09 Lubrifresh P.M. 3.5 Gm Ointment Administered 04/11/18 23:10 Dose 3.5 gm .ROUTE .STK-MED ONE Enoxaparin Sodium Confirm 04/11/18 23:09 Enoxaparin Sodium Administered 04/11/18 23:10 Dose 40 mg SQ .STK-MED ONE Enoxaparin Sodium 40 mg 04/12/18 10:00 04/11/18 23:26 Enoxaparin Sodium SQ 05/12/18 09:59 40 mg DAILY NANCY Administration Sodium Chloride 1,000 mls @ 999 mls/hr 04/11/18 17:14 04/11/18 19:16 Sodium Chloride 0.9% 1000 Ml IV 04/11/18 18:14 Infused .Q1H1M STA Infusion Sodium Chloride Confirm 04/11/18 17:32 Sodium Chloride 0.9% 1000 Ml Administered 04/11/18 17:33 Dose 2,000 mls @ ud .ROUTE .STK-MED ONE Sodium Chloride Confirm 04/11/18 21:37 Sodium Chloride 0.9% 500 Ml Administered 04/11/18 21:38 Dose 500 mls @ ud IV .STK-MED ONE Propofol 1,000 mg in 100 mls @ 0 mls/hr 04/11/18 23:44 04/12/18 04:32 Propofol 1000 Mg/100 Ml Bottle IV 05/11/18 23:43 6.7 mls/hr .Q0M PRN Administration mechanically ventilated Titrate Morphine Sulfate Confirm 04/11/18 21:35 [employer] Serviceperson 1 Mg/Ml 30 Ml Administered 04/11/18 21:36 Dose 30 mg IV .STK-MED ONE Morphine Sulfate 30 mg 04/11/18 22:00 04/11/18 22:00 [employer] Serviceperson 1 Mg/Ml 30 Ml IV 04/16/18 21:59 30 mg PRN PRN Administration PAIN Intake & Output (Last 24 hours) 04/10/18 04/11/18 04/12/18 04/13/18 11:59 11:59 11:59 11:59 Intake Total 453 Output Total 1960 Balance -1507 Weight 111.2 kg Microbiology Results (Last 24 hours) 04/12/18 00:00 Catherized Urine Culture - Pending Laboratory Results (Last 24 hours) 04/12/18 04/12/18 04/12/18 05:40 05:40 05:40 WBC 7.2 RBC 4.76 Hgb 15.0 Hct 43.4 MCV 91.2 MCH 31.5 MCHC 34.6 RDW 13.5 Plt Count 131 L MPV 11.7 H Gran % 74.0 H Eos # (Auto) 0.10 Absolute Lymphs (auto) 1.26 Absolute Monos (auto) 0.50 Lymphocytes % 17.4 L Monocytes % 6.9 Eosinophils % 1.4 Basophils % 0.3 Absolute Granulocytes 5.36 Basophils # 0.02 PT INR Puncture Site pCO2 pO2 Base Excess O2 Saturation ABG pH ABG HCO3 ABG O2 Sat (Measured) Aly Test A-a Gradient a/A Ratio Hemoglobin Carboxyhemoglobin Methemoglobin Temperature POC O2 Flow Rate Tidal Volume PEEP Sodium 140 Potassium 3.6 Chloride 105 Carbon Dioxide 26 Anion Gap 12.3 BUN 13 Creatinine 0.71 Estimated GFR > 60.0 Glucose 155 H Lactic Acid Calcium 8.9 Total Bilirubin 1.10 AST 84 H ALT 41 Alkaline Phosphatase 112 Troponin I Serum Total Protein 6.2 L Albumin 3.5 Prealbumin 19.11 Ur Collection Type Urine Color Urine Appearance Urine pH Ur Specific [place] Urine Protein Urine Ketones Urine Blood Urine Nitrite Urine Bilirubin Urine Urobilinogen Ur Leukocyte Esterase Urine Microscopic RBC Ur Epithelial Cells Urine Bacteria Hyaline Casts Urine Culture Reflexed Urine Glucose Salicylates Urine Opiates Level Ur Methadone Acetaminophen Urine Barbiturates Ur Phencyclidine (PCP) Urine Amphetamine U Benzodiazepine Level Urine Cocaine Urine Marijuana (THC) Ethyl Alcohol Specimen Received 04/12/18 04/11/18 04/11/18 05:30 20:58 19:10 WBC RBC Hgb Hct MCV MCH MCHC RDW Plt Count MPV Gran % Eos # (Auto) Absolute Lymphs (auto) Absolute Monos (auto) Lymphocytes % Monocytes % Eosinophils % Basophils % Absolute Granulocytes Basophils # PT INR Puncture Site RIGHT RADIAL RIGHT RADIAL pCO2 34 L 41 pO2 149 H* 336 H* Base Excess 5.1 H 3.3 H O2 Saturation 95.7 96.9 ABG pH 7.52 H 7.44 ABG HCO3 27.8 27.8 ABG O2 Sat (Measured) 99.1 99.3 Aly Test YES YES A-a Gradient 22 326 a/A Ratio 0.87 0.51 Hemoglobin 15.3 14.4 Carboxyhemoglobin 2.2 1.2 Methemoglobin 1.2 L 1.2 L Temperature 37.0 37.0 POC O2 Flow Rate 30 100 Tidal Volume 600 600 PEEP 5 5 Sodium Potassium 3.5 3.9 Chloride Carbon Dioxide Anion Gap BUN Creatinine Estimated GFR Glucose Lactic Acid 1.1 Calcium Total Bilirubin AST ALT Alkaline Phosphatase Troponin I < 0.012 Serum Total Protein Albumin Prealbumin Ur Collection Type Urine Color Urine Appearance Urine pH Ur Specific [place] Urine Protein Urine Ketones Urine Blood Urine Nitrite Urine Bilirubin Urine Urobilinogen Ur Leukocyte Esterase Urine Microscopic RBC Ur Epithelial Cells Urine Bacteria Hyaline Casts Urine Culture Reflexed Urine Glucose Salicylates Urine Opiates Level Ur Methadone Acetaminophen Urine Barbiturates Ur Phencyclidine (PCP) Urine Amphetamine U Benzodiazepine Level Urine Cocaine Urine Marijuana (THC) Ethyl Alcohol Specimen Received 04/11/18 04/11/18 04/11/18 17:00 17:00 17:00 WBC RBC Hgb Hct MCV MCH MCHC RDW Plt Count MPV Gran % Eos # (Auto) Absolute Lymphs (auto) Absolute Monos (auto) Lymphocytes % Monocytes % Eosinophils % Basophils % Absolute Granulocytes Basophils # PT INR Puncture Site pCO2 pO2 Base Excess O2 Saturation ABG pH ABG HCO3 ABG O2 Sat (Measured) Aly Test A-a Gradient a/A Ratio Hemoglobin Carboxyhemoglobin Methemoglobin Temperature POC O2 Flow Rate Tidal Volume PEEP Sodium Potassium Chloride Carbon Dioxide Anion Gap BUN Creatinine Estimated GFR Glucose Lactic Acid Calcium Total Bilirubin AST ALT Alkaline Phosphatase Troponin I 0.014 Serum Total Protein Albumin Prealbumin Ur Collection Type CLEAN CATCH Urine Color YELLOW Urine Appearance CLEAR Urine pH 7.0 Ur Specific [place] 1.015 Urine Protein NEGATIVE Urine Ketones NEGATIVE Urine Blood TRACE NON-HEM Urine Nitrite NEGATIVE Urine Bilirubin NEGATIVE Urine Urobilinogen NORMAL Ur Leukocyte Esterase NEGATIVE Urine Microscopic RBC 2-5 Ur Epithelial Cells RARE Urine Bacteria RARE Hyaline Casts 0-2 Urine Culture Reflexed NO Urine Glucose 250 Salicylates Urine Opiates Level NEGATIVE Ur Methadone NEGATIVE Acetaminophen Urine Barbiturates NEGATIVE Ur Phencyclidine (PCP) NEGATIVE Urine Amphetamine NEGATIVE U Benzodiazepine Level POSITIVE Urine Cocaine NEGATIVE Urine Marijuana (THC) NEGATIVE Ethyl Alcohol Specimen Received 04/11/18 1700 04/11/18 04/11/18 04/11/18 17:00 17:00 17:00 WBC 5.4 RBC 5.01 Hgb 15.8 Hct 45.5 MCV 90.8 MCH 31.5 MCHC 34.7 RDW 13.4 Plt Count 146 L MPV 11.9 H Gran % 65.0 Eos # (Auto) 0.12 Absolute Lymphs (auto) 1.30 Absolute Monos (auto) 0.44 Lymphocytes % 24.2 Monocytes % 8.2 Eosinophils % 2.2 Basophils % 0.4 Absolute Granulocytes 3.49 Basophils # 0.02 PT 12.4 INR 1.07 Puncture Site pCO2 pO2 Base Excess O2 Saturation ABG pH ABG HCO3 ABG O2 Sat (Measured) Aly Test A-a Gradient a/A Ratio Hemoglobin Carboxyhemoglobin Methemoglobin Temperature POC O2 Flow Rate Tidal Volume PEEP Sodium 138 Potassium 4.1 Chloride 101 Carbon Dioxide 27 Anion Gap 13.9 BUN 15 Creatinine 0.72 Estimated GFR > 60.0 Glucose 203 H Lactic Acid Calcium 9.2 Total Bilirubin 0.90 AST 20 ALT 16 Alkaline Phosphatase 130 H Troponin I Serum Total Protein 7.1 Albumin 4.1 Prealbumin Ur Collection Type Urine Color Urine Appearance Urine pH Ur Specific [place] Urine Protein Urine Ketones Urine Blood Urine Nitrite Urine Bilirubin Urine Urobilinogen Ur Leukocyte Esterase Urine Microscopic RBC Ur Epithelial Cells Urine Bacteria Hyaline Casts Urine Culture Reflexed Urine Glucose Salicylates < 1.0 L Urine Opiates Level Ur Methadone Acetaminophen < 10 L Urine Barbiturates Ur Phencyclidine (PCP) Urine Amphetamine U Benzodiazepine Level Urine Cocaine Urine Marijuana (THC) Ethyl Alcohol < 10 Specimen Received 04/11/18 00:05 WBC RBC Hgb Hct MCV MCH MCHC RDW Plt Count MPV Gran % Eos # (Auto) Absolute Lymphs (auto) Absolute Monos (auto) Lymphocytes % Monocytes % Eosinophils % Basophils % Absolute Granulocytes Basophils # PT INR Puncture Site pCO2 pO2 Base Excess O2 Saturation ABG pH ABG HCO3 ABG O2 Sat (Measured) Aly Test A-a Gradient a/A Ratio Hemoglobin Carboxyhemoglobin Methemoglobin Temperature POC O2 Flow Rate Tidal Volume PEEP Sodium Potassium Chloride Carbon Dioxide Anion Gap BUN Creatinine Estimated GFR Glucose Lactic Acid Calcium Total Bilirubin AST ALT Alkaline Phosphatase Troponin I < 0.012 Serum Total Protein Albumin Prealbumin Ur Collection Type Urine Color Urine Appearance Urine pH Ur Specific [place] Urine Protein Urine Ketones Urine Blood Urine Nitrite Urine Bilirubin Urine Urobilinogen Ur Leukocyte Esterase Urine Microscopic RBC Ur Epithelial Cells Urine Bacteria Hyaline Casts Urine Culture Reflexed Urine Glucose Salicylates Urine Opiates Level Ur Methadone Acetaminophen Urine Barbiturates Ur Phencyclidine (PCP) Urine Amphetamine U Benzodiazepine Level Urine Cocaine Urine Marijuana (THC) Ethyl Alcohol Specimen Received Orders (Last 24 hours) Category Date Time Status Bedrest ROUTINE Activity 04/11/18 20:21 Active Turn every 2 hours Q2H Activity 04/11/18 23:15 Active Accucheck Q4H Care 04/11/18 20:17 Active Admit as Inpatient ROUTINE Care 04/11/18 20:17 Active Call Admit Doctor for Orders ON ADMISSION Care 04/11/18 20:19 Active Vamp Throater STAT Care 04/11/18 17:15 Active Catheter-[place] Feng STAT Care 04/11/18 17:14 Active Code Status Order ROUTINE Care 04/11/18 20:17 Active EKG-ER Only STAT Care 04/11/18 17:14 Active Elevate HOB ROUTINE Care 04/11/18 23:20 Active Gastric Tube Insertion STAT Care 04/11/18 17:14 Active IV Care Q1H Care 04/11/18 20:17 Active IV Insertion STAT Care 04/11/18 17:14 Active NG to Suction (Insertion) ROUTINE Care 04/11/18 20:17 Active NPO (ED) STAT Care 04/11/18 17:14 Active Neuro Checks Q4H Care 04/11/18 20:17 Active Oral Care Q2H Care 04/11/18 23:18 Active ROM Exercises Q2H Care 04/11/18 23:15 Active Suction airway PRN Care 04/11/18 23:18 Active Weight,Daily 0600 Care 04/11/18 23:18 Active Consult Pulmonology ROUTINE Cons 04/12/18 12:36 Active NPO Diet 04/11/18 20:21 Active CERVICAL SPINE WO CONTRAST [CT] Stat Exams 04/11/18 17:29 Completed CHEST 1 VIEW (PORTABLE) DAILY Exams 04/12/18 06:00 Completed CHEST 1 VIEW (PORTABLE) DAILY Exams 04/13/18 06:00 Ordered CHEST 1 VIEW (PORTABLE) Stat Exams 04/11/18 17:15 Completed HEAD WITHOUT CONTRAST [CT] Stat Exams 04/11/18 17:15 Completed ACETAMINOPHEN Stat Lab 04/11/18 17:00 Completed ARTERIAL BLOOD GASES DAILY Lab 04/11/18 23:30 Ordered ARTERIAL BLOOD GASES DAILY Lab 04/12/18 05:30 Completed ARTERIAL BLOOD GASES DAILY Lab 04/13/18 23:30 Ordered ARTERIAL BLOOD GASES DAILY Lab 04/14/18 23:30 Ordered ARTERIAL BLOOD GASES DAILY Lab 04/15/18 23:30 Ordered ARTERIAL BLOOD GASES DAILY Lab 04/16/18 23:30 Ordered ARTERIAL BLOOD GASES DAILY Lab 04/17/18 23:30 Ordered ARTERIAL BLOOD GASES Stat Lab 04/11/18 19:10 Completed CBC W DIFF AM.LAB Lab 04/12/18 05:40 Completed CBC W DIFF Stat Lab 04/11/18 17:00 Completed CMP AM.LAB Lab 04/12/18 05:40 Completed CMP Stat Lab 04/11/18 17:00 Completed CULTURE,URINE Urgent Lab 04/12/18 00:00 Received ETHYL ALCOHOL Stat Lab 04/11/18 17:00 Completed Lactic Acid Stat Lab 04/11/18 19:10 Completed PREALBUMIN Routine Lab 04/12/18 05:40 Completed PROTIME WITH INR Stat Lab 04/11/18 17:00 Completed SALICYLATE Stat Lab 04/11/18 17:00 Completed TROPONIN Q3H Lab 04/11/18 17:00 Completed TROPONIN Q3H Lab 04/11/18 20:58 Completed UA W/ MICROSCOPIC Stat Lab 04/11/18 17:00 Completed Urine Triage Profile Stat Lab 04/11/18 17:00 Completed Albuterol/Ipratropium 3ml Neb* [DUONEB 0.5-3 MG/3 ml Med 04/11/18 20:17 Active Neb] 3 ml IH Q4HPRN PRN Enoxaparin Sodium [Enoxaparin Sodium] Med 04/11/18 23:09 Discontinued 40 mg SQ .STK-MED ONE Enoxaparin Sodium [Enoxaparin Sodium] Med 04/12/18 10:00 Discontinued 40 mg SQ DAILY Enoxaparin Sodium [Enoxaparin Sodium] Med 04/12/18 22:00 Active 40 mg SQ Q24H22 Famotidine 20 mg Vial [Pepcid 20 MG VIAL] Med 04/11/18 22:00 Active 20 mg IV Q12HT Insulin Aspart [NovoLOG Insulin] Med 04/11/18 20:17 Active See Dose Instructions SQ UD PRN Lanolin/Min Oil/Petrolat Wht [Lubrifresh P.M. 3.5 gm Med 04/11/18 23:15 Active Ointment] 0.5 gm OP Q12H Lanolin/Min Oil/Petrolat Wht [Lubrifresh P.M. 3.5 gm Med 04/11/18 23:09 Discontinued Ointment] 3.5 gm .ROUTE .STK-MED ONE Morphine Sulfate 2 mg Inj Med 04/12/18 08:41 Active 2 - 5 mg IV [id number] PRN Morphine Sulfate 30 mg/30 ml [Morphine DIRECTOR OF STRATEGIC SOURCING 1 MG/ML 30 Med 04/11/18 21:35 Discontinued ML] 30 mg IV .STK-MED ONE Morphine Sulfate 30 mg/30 ml [Morphine DIRECTOR OF STRATEGIC SOURCING 1 MG/ML 30 Med 04/11/18 22:00 Discontinued ML] 30 mg IV PRN PRN Morphine Sulfate 30 mg/30 ml [Morphine DIRECTOR OF STRATEGIC SOURCING 1 MG/ML 30 Med 04/12/18 08:39 Active ML] 30 mg IV PRN PRN NaCl 0.9% 1000 ml [Sodium Chloride 0.9% 1000 ML] 1,000 Med 04/11/18 20:30 Active ml IV 30 mls/hr NaCl 0.9% 1000 ml [Sodium Chloride 0.9% 1000 ML] 1,000 Med 04/11/18 17:14 Discontinued ml IV 999 mls/hr NaCl 0.9% 1000 ml [Sodium Chloride 0.9% 1000 ML] 2,000 Med 04/11/18 17:32 Discontinued ml .ROUTE UD NaCl 0.9% 500 ml [Sodium Chloride 0.9% 500 ML] 500 ml Med 04/11/18 21:37 Discontinued IV UD Propofol 100Ml [Propofol 1000 mg/100 ml Bottle] Med 04/11/18 23:44 Discontinued 1,000 mg in 100 ml IV Titrate Propofol 100Ml [Propofol 1000 mg/100 ml Bottle] 100 ml Med 04/12/18 08:26 Active IV 5 mcg/kg/min Ambu Bagging PRN RT 04/11/18 23:18 Active Pulse Oximetry CONTINUOS RT 04/11/18 23:18 Active Ventilator Management Q4H RT 04/11/18 22:12 Active neb [Respiratory Nebulizer] PRN RT 04/11/18 22:12 Active Patient Care Notes (Last 24 hours) 04/12/18 09:35 Nursing Note by Carmen Schaeffer [id number] Dr. Rust spoke to on the phone about plan of care. Drug holiday and vent wean ordered. hx of DVT and current treatment discussed no other orders at this time. Initialized on 04/12/18 09:35 - END OF NOTE 04/12/18 01:03 Nursing Note by Emily Romero checked og tube placement using irrigation tray. yankauer suction used x2 for excessive secretions. states this is normal for patient due to his parkinsons disease Initialized on 04/12/18 01:03 - END OF NOTE 07/17/18 18:42 Respiratory Note by Doris Birmingham 1707 The patient arrived per EMS with 100% O2 on. O2 sats 99% HR 68 RR 20 patient is unresponsive at this time. 1721 ER MD ordered pt be intubated. Pt intubated with 7.5 ET tube with the glidescope. Bilat breath sounds heard and no air heard over the stomach. Intubation visualized with the glidescope. ETCO2 qualitative changed to yellow and placed quantitative ETCO2 on pt and ETCO2 is 56. Pt being ambued with 100% O2. Pt taken to CT and patient continues to be bagged with 100% O2 per ambu bag. Once back from CT the patient is placed on the vent with settings of VT 600 RR 14 FiO2 100% +5 PEEP. Initialized on 04/11/18 18:42 - END OF NOTE Code(s): J96.00 - ACUTE RESPIRATORY FAILURE, UNSP W HYPOXIA OR HYPERCAPNIA (2) Overdose Current Visit: Yes Status: Acute Qualifiers: Encounter type: initial encounter Injury intent: intentional self-harm Qualified Code(s): T50.902A - Poisoning by unspecified drugs, medicaments and biological substances, intentional self-harm, initial encounter Code(s): T50.901A - POISONING BY UNSP DRUG/MEDS/BIOL SUBST, ACCIDENTAL, INIT
[2018-04-12] MEDS: Lubrifresh P.M. 3.5 gm Ointment OP SCH ×2 (14:08→21:16)
[2018-04-12 17:07] LABS: A-aADO2 74; ABG HEMOGLOBIN 15.4; ABG POTASSIUM 3.8 (3.5-5.1); ART BLD GAS PRESSURE SUPPORT 6; ARTERIAL BLD GAS O2 SATURATION 98.2 % (95-100); ARTERIAL BLOOD GAS BASE EXCESS 2.9 (-2.0-2.0); ARTERIAL BLOOD GAS FIO2 30 %; ARTERIAL BLOOD GAS PCO2 46 mmHg (35-45); ARTERIAL BLOOD GAS PO2 82 mmHg (75-100); CARBOXYHEMOGLOBIN 1.9 % THgb (0.0-6.9); HCO3- 28.5 (22-28); HGB O2 SAT 95.4 g/dF (94-100); paO2 pAO1 0.53
[2018-04-12 17:08] LABS: ABG SITE RIGHT RADIAL; ALLEN TEST OK? YES
[2018-04-12] MEDS ORDERED: xanAX 0.5 MG PO PRN (17:34)
[2018-04-12] MEDS ORDERED: Nitrostat 0.4 MG Tablet SL PRN (17:34)
[2018-04-12] MEDS ORDERED: [UNRECOGNIZED DRUG - OTHER] SQ SCH (17:45)
[2018-04-12] MEDS ORDERED: PATIENT OWN MEDICATION SQ PRN (17:55)
[2018-04-12] MEDS ORDERED: MEDICATION INTERVENTION MC PRN (17:58)
[2018-04-12] MEDS ORDERED: MEDICATION INTERVENTION MC SCH (18:15)
[2018-04-12] MEDS ORDERED: FEVERALL 650 MG PR PRN (21:06)
[2018-04-12] MEDS: ELIQUIS 2.5 MG TABLET PO SCH (21:15)
[2018-04-12] MEDS: Lasix 40 MG PO SCH (21:15)
[2018-04-12] MEDS: Ditropan 5 MG PO SCH (21:15)
[2018-04-12] MEDS: Sinemet 25/250 MG PO SCH (21:16)
[2018-04-12] MEDS: REQUIP 2MG TAB PO SCH (21:16)
[2018-04-12] MEDS ORDERED: PIMAVANSERIN TARTRATE 17 MG PO SCH (22:00)
[2018-04-12] MEDS ORDERED: ROPINIROLE HCL 5 MG PO SCH (22:00)
[2018-04-12] MEDS ORDERED: ENTACAPONE 200 MG PO SCH (22:00)
[2018-04-12] MEDS ORDERED: ELIQUIS 2.5 MG TABLET PO SCH (22:00)
[2018-04-13] MEDS ORDERED: INSULIN LISPRO PROTAMINE SQ SCH (07:30)
[2018-04-13] MEDS ORDERED: [UNRECOGNIZED DRUG - OTHER] SQ SCH (07:30)
--- NOTE | 2018-04-13 08:05 | CONS ---
CONSULT DATE: 04/12/2018 HISTORY: Melvin Carrillo is a 73 year-old male with history of obstructive sleep apnea known to me from the past but not particularly followed, was brought in after being found unresponsive in his house. Intubated in the emergency room following which he has been admitted to the ICU. I received a call from Dr. Rust requesting consultation for pulmonary management. The patient has been switched to CPAP plus pressure support with ABG's and absolutely acceptable for extubation. According to the , the patient has had moderate to late stages of Parkinson's. He is followed by a neurologist in [place] and his last visit was about two weeks ago when his medications were adjusted. He has functional limitations secondary to Parkinson's disease. The patient has been depressed due to this. In addition, his grandson who lives with them also has had some issues adding to his stress. The reports that in the past she had mentioned that he would probably take his life before his Parkinson's got out of control. The patient has strong family history of depression with two of his uncles committing suicide as well. PAST MEDICAL HISTORY: Positive for history of chronic obstructive pulmonary disease, diabetes mellitus, Parkinson's disease, hypertension, anxiety, depression. He also has history of rheumatoid arthritis. PAST SURGICAL HISTORY: Heart catheterization, appendectomy, cholecystectomy, left wrist surgery, bilateral knee replacements, tonsillectomy, colonoscopy and hernia surgery. PERSONAL AND SOCIAL HISTORY: The patient is a nonsmoker, lives with family. 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 MEDICATIONS: Home and current medications are reviewed. ALLERGIES: NKDA. PHYSICAL EXAMINATION: This is an elderly male who is intubated. The patient is arousable, appears comfortable. Vital signs noted. HEENT: Normocephalic. Pupils are reactive. Oral exam is limited. NECK: Supple. CVS: First and second heart sounds are normal, regular, rhythmic. RESPIRATORY: Shows diminished breath sounds but clear to auscultation. ABDOMEN: Soft. EXTREMITIES: No significant leg edema is noted. LABORATORY DATA AND TESTS: Prealbumin 19.1. Sodium 140, potassium 3.6, chloride 105, bicarb 26. Glucose 165, BUN 13, creatinine 0.7. White blood cell count 7.2, hemoglobin 15, hematocrit 43, PLT 131,000. On CPAP the pH is 7.40, pCO2 46, pO2 82. Troponin I has been negative. Urine tox was positive for benzodiazepine. Chest x-ray is noted. CT cervical spine was negative. CT head also did not show acute abnormality. ASSESSMENT: This is a 73 year old male admitted with: 1) Acute respiratory failure after likely Xanax overdose with positive urine tox positive for benzodiazepines. 2) Underlying obstructive sleep apnea. 3) Progression of Parkinson's disease. 4) Anxiety and depression. 5) Comorbidities listed above. RECOMMENDATIONS: 1) The patient is noted to have good breathing parameters, will extubate to nasal cannula. 2) Being advised sips of water tonight, will hold off on solid in view of Parkinson's disease until tomorrow. 3) [facility] consult for depression in the a.m. 4) I had a long discussion with the patient's . The patient had a few handguns and rifles at home which have been secured by family and have been removed from the house. In addition, I advised to secure knives and other potential weapons as well. The states that she is able to care for the patient for now and would like him to return back home, will have Dr. Rust plan on discharge planning. Thank you for allowing me to participate in the care of Melvin Carrillo.
--- NOTE | 2018-04-13 09:22 | XRAY ---
Indication: Cough. Comparison: One day earlier. Portable chest demonstrates interval extubation and NG tube removal. Remaining chest unchanged again with minimal bibasilar infiltrates/atelectasis and small left effusion. Heart and mediastinal structures within normal limits.
[2018-04-13] MEDS: Pepcid 20 MG VIAL IV SCH ×2 (09:48→21:30)
[2018-04-13] MEDS: Sinemet 25/250 MG PO SCH ×4 (09:54→21:26)
[2018-04-13] MEDS: PATIENT OWN MEDICATION PO SCH (09:54)
[2018-04-13] MEDS: REQUIP 2MG TAB PO SCH ×4 (09:54→21:25)
[2018-04-13] MEDS: Ditropan 5 MG PO SCH ×2 (09:55→21:26)
[2018-04-13] MEDS: Lasix 40 MG PO SCH ×2 (09:55→21:26)
[2018-04-13] MEDS: ELIQUIS 2.5 MG TABLET PO SCH ×2 (09:55→21:26)
[2018-04-13] MEDS: Bystolic 5 MG PO SCH (09:55)
[2018-04-13] MEDS: Altace 5 MG PO SCH (09:55)
[2018-04-13] MEDS ORDERED: ENOXAPARIN SODIUM SQ SCH (10:00)
[2018-04-13] MEDS ORDERED: NON-FORMULARY ITEM (Nebivolol Hcl [Bystolic] 10 MG) PO SCH (10:00)
--- NOTE | 2018-04-13 12:07 | PCM.NOTE ---
Date and Time: 04/13/18 1205 Subjective Assessment: extubated. alert, - Review of Systems Constitutional: Lethargy, No Fever, No Chills Eyes: No Symptoms Ears, Nose, & Throat: No Symptoms Respiratory: No Cough, No Short Of Breath Cardiac: No Chest Pain, No Edema, No Syncope Abdominal/Gastrointestinal: No Abdominal Pain, No Nausea, No Vomiting, No Diarrhea Genitourinary Symptoms: No Dysuria Musculoskeletal: No Back Pain, No Neck Pain Skin: No Rash Neurological: No Dizziness, No Focal Weakness, No Sensory Changes Psychological: No Symptoms Endocrine: No Symptoms Hematologic/Lymphatic: No Symptoms Immunological/Allergic: No Symptoms Objective Exam General Appearance: mild distress, lethargy Neurologic Exam: alert, cooperative, No motor deficits Skin Exam: normal color, warm, dry Eye Exam: PERRL, EOMI, eyes nml inspection Ears, Nose, Throat Exam: normal ENT inspection, pharynx normal, moist mucous membranes Neck Exam: normal inspection, non-tender, supple, full range of motion Respiratory Exam: normal breath sounds, lungs clear, No respiratory distress Cardiovascular Exam: regular rate/rhythm, normal heart sounds Gastrointestinal/Abdomen Exam: soft, No tenderness, No mass Extremity Exam: normal inspection, normal range of motion Back Exam: normal inspection, normal range of motion, No CVA tenderness, No vertebral tenderness Male Genitalia Exam: deferred Rectal Exam: deferred OBJECTIVE DATA Vital Signs: Vital Signs - 24 hr Temp Pulse Resp BP Pulse Ox 04/13/18 10:58 99.3 F 77 27 H 154/84 95 04/13/18 09:57 99.1 F 83 17 136/82 91 L 04/13/18 08:59 99.5 F 72 21 136/82 98 04/13/18 07:59 99.5 F 77 24 129/71 96 04/13/18 07:38 80 20 97 04/13/18 07:28 77 04/13/18 07:00 99.7 F 78 27 H 116/67 97 04/13/18 06:00 99.7 F 73 22 132/68 96 04/13/18 05:00 99.7 F 74 24 132/68 94 L 04/13/18 04:00 99.5 F 76 24 124/72 91 L 04/13/18 03:00 98.5 F 79 20 106/59 94 L 07/19/18 02:00 99.7 F 78 24 119/68 96 07/19/18 01:00 99.9 F 76 22 116/71 96 07/19/18 00:01 88 07/19/18 00:00 99.9 F 85 20 136/78 94 L 07/18/18 23:18 95 07/18/18 23:00 100.2 F 79 24 128/70 94 L 07/18/18 22:00 100.4 F 81 24 132/76 96 07/18/18 21:00 100.6 F 89 20 142/80 97 07/18/18 20:00 100.6 F 92 H 18 145/86 98 07/18/18 19:55 93 H 24 95 07/18/18 19:00 100.4 F 99 H 25 H 155/108 98 07/18/18 18:00 100.4 F 95 H 21 164/92 93 L 07/18/18 17:27 100.2 F 89 16 96 07/18/18 16:59 100.0 F 77 22 143/80 97 07/18/18 16:00 99.7 F 83 23 162/86 97 07/18/18 15:57 85 07/18/18 15:43 99.7 F 74 19 97 07/18/18 15:00 99.7 F 74 19 131/74 97 07/18/18 14:00 99.7 F 74 16 122/78 97 07/18/18 13:00 99.7 F 72 18 120/74 96 Oxygen-Last 24 hours O2 Percentage 4 Liters = 36% O2 Percentage 3 Liters = 32% O2 Percentage 3 Liters = 32% O2 Percentage 3 Liters = 32% O2 Percentage 3 Liters = 32% O2 Percentage 3 Liters = 32% O2 Percentage 3 Liters = 32% O2 Percentage 3 Liters = 32% O2 Percentage 3 Liters = 32% O2 Percentage 3 Liters = 32% O2 Percentage 3 Liters = 32% O2 Percentage 3 Liters = 32% O2 Percentage 3 Liters = 32% O2 Percentage 3 Liters = 32% O2 Percentage 3 Liters = 32% O2 Percentage 3 Liters = 32% O2 Percentage 3 Liters = 32% O2 Percentage 3 Liters = 32% Oxygen Flowrate (L/min)-RT 3 Pain Assessment - Last Documented Pain Intensity 0 Pain Scale Used FLACC Intake and Output: Intake & Output 04/11/18 04/12/18 04/13/18 04/14/18 11:59 11:59 11:59 11:59 Intake Total 453 655 Output Total 9932 1200 Balance -1507 -545 Weight 111.2 kg Lab Results: Accuchecks Date 04/13/18 Date 04/13/18 Date 04/12/18 Date 04/12/18 Date 04/12/18 Time 07:38 Time 16:13 Accucheck Value: 146 Accucheck Value: 138 Accucheck Value: 125 Accucheck Value: 159 Accucheck Value: 128 Lab Results-Last 24 Hours 04/12/18 Range/Units 16:53 Puncture Site RIGHT RADIAL pCO2 46 H (35-45) mmHg pO2 82 (75-100) mmHg Base Excess 2.9 H (-2.0-2.0) O2 Saturation 95.4 (94-100) g/dF ABG pH 7.40 (7.35-7.45) ABG HCO3 28.5 H (22-28) ABG O2 Sat (Measured) 98.2 (95-100) % Aly Test YES A-a Gradient 74 a/A Ratio 0.53 Hemoglobin 15.4 Carboxyhemoglobin 1.9 (0.0-6.9) % THgb Methemoglobin 1.0 L (1.4-1.5) % Potassium 3.8 (3.5-5.1) Temperature 37.0 C POC O2 Flow Rate 30 % Pressure Support 6 Radiology Exams: Radiology Procedures Category Date Time Status CERVICAL SPINE WO CONTRAST [CT] Stat Exams 04/11/18 17:29 Completed CHEST 1 VIEW (PORTABLE) DAILY Exams 04/12/18 06:00 Completed CHEST 1 VIEW (PORTABLE) DAILY Exams 04/13/18 08:20 Completed CHEST 1 VIEW (PORTABLE) Stat Exams 04/11/18 17:15 Completed HEAD WITHOUT CONTRAST [CT] Stat Exams 04/11/18 17:15 Completed Multi-Disciplinary Progress Notes: Multi-Disciplinary Progress Notes 04/12/18 17:25 (created 04/12/18 17:34) Respiratory Note by Doris Birmingham Patient extubated per Dr. Get Buenrostro order and placed on 3lpm O2 per NC. O2 sat 95% HR 91 RR 20. Initialized on 04/12/18 17:34 - END OF NOTE 07/18/18 15:46 Case Management Note by Ruth Parks RN FROM [facility] CALLS TO CHECK ON THEIR PATIENT THAT IS IN ICU. STATES THAT HE JUST HAD A VISIT FROM [facility] ON 04/11/2018 AT 1300 AND GAVE NO INDICATION OF HIS INTENTIONS TO HARM HIMSELF AT THAT TIME. THEY HAD RECENTLY ESTABLISHED THAT [employer] WOULD BE COMING INTO THE HOME. Initialized on 04/12/18 15:46 - END OF NOTE 04/12/18 12:45 (created 04/12/18 12:57) Case Management Note by Stephanie Singh DR. ROUNDED AND EVALUATED, DISCUSSED PLAN OF CARE WITH PT'S . PT'S VERBALIZED UNDERSTANDING, AND ABLE TO REPEAT INFORMATION BACK. ALL QUESTIONS ANSWERED. DR. PETERSON DISCUSSED TREATMENT PLAN WITH PT'S NURSE. NO DC NEEDS IDENTIFIED AT THIS TIME. WILL CONTINUE TO FOLLOW CLOSELY FOR ALL DC NEEDS. Initialized on 04/12/18 12:57 - END OF NOTE Assessment/Plan (1) Acute respiratory failure Current Visit: Yes Status: Acute Qualifiers: Respiratory failure complication: unspecified whether with hypoxia or hypercapnia Qualified Code(s): J96.00 - Acute respiratory failure, unspecified whether with hypoxia or hypercapnia Assessment & Plan: resolved, patient is extubated Code(s): J96.00 - ACUTE RESPIRATORY FAILURE, UNSP W HYPOXIA OR HYPERCAPNIA (2) Overdose Current Visit: Yes Status: Acute Qualifiers: Encounter type: initial encounter Injury intent: intentional self-harm Qualified Code(s): T50.902A - Poisoning by unspecified drugs, medicaments and biological substances, intentional self-harm, initial encounter Code(s): T50.901A - POISONING BY UNSP DRUG/MEDS/BIOL SUBST, ACCIDENTAL, INIT
[2018-04-13 15:01] LABS: Hematocrit 47.9 % (42-50); Hemoglobin 16.2 gm/dl (12.5-18.0); Mean Corpuscular Hemoglobin 31.5 pg (26-32); Mean Corpuscular Hgb Concent. 33.8 g/dl (32-36); Mean Platelet Volume 11.5 fl (6-9.5); Platelet Count 130 K/mm3 (150-450); Red Blood Count 5.15 M/mm3 (4.1-5.6); Red Cell Distribution Width 13.7 % (11.5-14.0); White Blood Count 8.1 K/mm3 (4.0-10.5)
[2018-04-13 15:16] LABS: ALBUMIN 3.9 g/dL (3.5-5.0); ALKALINE PHOSPHATASE 120 U/L (38-126); ANION GAP 13.7 MEQ/L (5-15); BLOOD UREA NITROGEN 13 mg/dL (9-20); CHLORIDE 105 mmol/L (98-107); Calcium 8.9 mg/dL (8.4-10.2); Carbon Dioxide 26 mmol/L (22-30); Creatinine 1 0.87 mg/dL (0.66-1.25); Glucose 149 mg/dL (74-106); Potassium 3.9 mmol/L (3.5-5.1); SGOT/AST 26 U/L (17-59); SGPT/ALT 38 U/L (0-50); SODIUM 141 mmol/L (137-145); Total Protein 6.9 g/dL (6.3-8.2)
[2018-04-13] MEDS: Sodium Chloride 0.9% 1000 ML 1,000 ML IV SCH (16:59)
[2018-04-14 02:05] LABS: 027 TOX PROD PRESUMPTIVE NEGATIVE (NEGATIVE); TOXIGENIC C. DIFF ORG NEGATIVE (NEGATIVE)
[2018-04-14] MEDS: NovoLOG Insulin SQ PRN ×2 (08:11→11:29)
[2018-04-14] MEDS: Bystolic 5 MG PO SCH (08:11)
[2018-04-14] MEDS: PATIENT OWN MEDICATION PO SCH (08:12)
[2018-04-14] MEDS: Pepcid 20 MG VIAL IV SCH (08:12)
[2018-04-14] MEDS: Altace 5 MG PO SCH (08:12)
[2018-04-14] MEDS: Lasix 40 MG PO SCH (08:12)
[2018-04-14] MEDS: Ditropan 5 MG PO SCH (08:15)
[2018-04-14] MEDS: REQUIP 2MG TAB PO SCH ×2 (08:15→12:54)
[2018-04-14] MEDS: ELIQUIS 2.5 MG TABLET PO SCH (08:16)
[2018-04-14] MEDS: Sinemet 25/250 MG PO SCH ×2 (08:16→12:55)
[2018-04-14] MEDS ORDERED: VITAMIN D2 PO SCH (10:00)
[2018-04-14 12:12] VITALS: BP 109/69; PULSE 67; O2SAT 93
[2018-04-14] MEDS ORDERED: TYLENOL 325 MG PO PRN (12:45)
--- NOTE | 2018-04-14 13:24 | PCM.DS ---
Discharge Summary Date of Admission: 04/11/18 20:42 Admitting Physician: FIDEL PETERSON Consults: Consults on Case 04/12/18 12:36 Consult Pulmonology ROUTINE Primary Care Provider: FIDEL PETERSON Allergies Allergies No Known Drug Allergies Allergy (Verified 04/11/18 23:06) Hospital Summary - Hospital Course Hospital Course: Chief Complaint Diagnosis patient was found unresponsive, ? xanax overdose Allergies Allergy/AdvReac Type Severity Reaction Status Date / Time No Known Drug Allergies Allergy Verified 04/11/18 23:06 Vital Signs (Last 24 hours) Temp Pulse Resp BP Pulse Ox 04/14/18 12:06 98.3 F 67 18 109/69 93 L 04/14/18 09:00 98.8 F 71 22 111/55 92 L 04/14/18 08:00 98.8 F 81 19 145/73 95 04/14/18 07:02 69 28 H 97 04/14/18 06:58 99.0 F 71 26 H 114/60 97 04/14/18 06:00 98.8 F 76 32 H 130/78 94 L 04/14/18 05:00 99.0 F 65 24 115/64 94 L 04/14/18 04:00 99.0 F 68 28 H 106/68 96 04/14/18 03:00 98.8 F 84 20 136/70 96 04/14/18 02:00 98.8 F 70 26 H 138/88 95 04/14/18 01:00 99.1 F 70 26 H 122/74 97 04/14/18 00:01 76 04/14/18 00:00 99.5 F 76 26 H 128/75 97 04/13/18 23:00 100.0 F 78 30 H 103/62 96 04/13/18 22:00 99.7 F 83 22 161/97 95 04/13/18 21:00 99.5 F 83 24 129/66 98 04/13/18 20:00 99.1 F 87 20 134/74 98 04/13/18 19:48 84 27 H 97 04/13/18 18:46 99.7 F 82 28 H 128/65 93 L 04/13/18 18:00 99.9 F 82 22 104/69 93 L 04/13/18 17:00 99.9 F 82 33 H 175/89 94 L 07/19/18 16:00 99.7 F 91 H 16 142/98 94 L 04/13/18 15:00 100.0 F 81 29 H 151/87 97 04/13/18 14:00 99.7 F 85 21 162/88 96 Home Medications Medication Instructions Recorded Confirmed Last Taken Type Alprazolam [Xanax] 0.5 mg PO Q6HPRN PRN 04/12/18 04/12/18 04/11/18 History Entacapone 200 mg PO QID 04/12/18 04/12/18 Unknown History Nitroglycerin [Nitrostat] 0.4 mg SL UD PRN 04/12/18 04/12/18 Unknown History Pimavanserin Tartrate [Nuplazid] 17 mg PO BID 04/12/18 04/12/18 Unknown History Ropinirole HCl [Requip] 5 mg PO QID 04/12/18 04/12/18 Unknown History Current Medications Generic Name Dose Route Start Last Admin Trade Name Freq PRN Reason Stop Dose Admin Acetaminophen 650 mg 04/12/18 21:06 04/12/18 21:17 Feverall 650 Mg CA 05/12/18 21:05 650 mg Q4H PRN PRN Administration PAIN AND/OR FEVER Acetaminophen 650 mg 04/14/18 12:45 Tylenol 325 Mg PO 05/14/18 12:44 Q4H PRN PRN PAIN AND/OR FEVER Albuterol/Ipratropium 3 ml 04/11/18 20:17 Duoneb 0.5-3 Mg/3 Ml Neb IH 05/11/18 20:16 Q4HPRN PRN SHORTNESS OF BREATH/WHEEZING Apixaban 2.5 mg 04/12/18 22:00 04/14/18 08:16 Eliquis 2.5 Mg Tablet PO 05/12/18 21:59 2.5 mg BID NANCY Administration Carbidopa/Levodopa 1 tab 04/12/18 22:00 04/14/18 12:55 Sinemet 25/250 Mg PO 05/12/18 21:59 1 tab QID NANCY Administration Ergocalciferol 50,000 unit 04/14/18 10:00 04/14/18 08:11 Vitamin D2 PO 05/14/18 09:59 50,000 unit TuFr NANCY Administration Famotidine 20 mg 04/11/18 22:00 04/14/18 08:12 Pepcid 20 Mg Vial IV 05/11/18 21:59 20 mg Q12HT NANCY Administration Furosemide 40 mg 04/12/18 22:00 04/14/18 08:12 Lasix 40 Mg PO 05/12/18 21:59 40 mg BID NANCY Administration Sodium Chloride 1,000 mls @ 30 mls/hr 04/11/18 20:30 04/13/18 16:59 Sodium Chloride 0.9% 1000 Ml IV 05/11/18 20:29 100 mls/hr .Q24H NANCY Administration Insulin Aspart 0 unit 04/11/18 20:17 04/14/18 11:29 Novolog Insulin SQ 05/11/18 20:16 5 unit UD PRN Administration HYPERGLYCEMIA Miscellaneous Information 0 each 04/12/18 17:58 Medication Intervention 05/12/18 17:57 PRN PRN Miscellaneous Information 0 each 04/12/18 18:15 Medication Intervention 05/12/18 18:14 .RN TO CHECK WITH PT NANCY Nebivolol 10 mg 04/13/18 10:00 04/14/18 08:11 Bystolic 5 Mg PO 05/13/18 09:59 10 mg DAILY NANCY Administration Nitroglycerin 0.4 mg 04/12/18 17:34 Nitrostat 0.4 Mg Tablet SL 05/12/18 17:33 UD PRN CHEST PAIN Oxybutynin Chloride 5 mg 04/12/18 22:00 04/14/18 08:15 Ditropan 5 Mg PO 05/12/18 21:59 5 mg BID NANCY Administration Patient Own Med 0 each 04/12/18 17:55 04/13/18 22:07 Apokyn SQ 05/12/18 17:54 0.6 each PRN PRN Administration Patient Own Med( 0 each 04/13/18 10:00 04/14/18 08:12 Nuplazid) PO 05/13/18 09:59 2 each DAILY NANCY Administration Ramipril 10 mg 04/13/18 10:00 04/14/18 08:12 Altace 5 Mg PO 05/13/18 09:59 10 mg DAILY NANCY Administration Ropinirole HCl 5 mg 04/12/18 22:00 04/14/18 12:54 Requip 2mg Tab PO 05/12/18 21:59 5 mg QID NANCY Administration Discontinued Medications Generic Name Dose Route Start Last Admin Trade Name Freq PRN Reason Stop Dose Admin Alprazolam 0.5 mg 04/12/18 17:34 Xanax 0.5 Mg PO 05/12/18 17:33 Q6HPRN PRN anxiety Artificial Tears Confirm 04/11/18 23:09 Lubrifresh P.M. 3.5 Gm Ointment Administered 04/11/18 23:10 Dose 3.5 gm .ROUTE .STK-MED ONE Artificial Tears 0.5 gm 04/11/18 23:15 04/12/18 21:16 Lubrifresh P.M. 3.5 Gm Ointment OP 05/11/18 23:14 Not Given Q12H NANCY Enoxaparin Sodium Confirm 04/11/18 23:09 Enoxaparin Sodium Administered 04/11/18 23:10 Dose 40 mg SQ .STK-MED ONE Enoxaparin Sodium 40 mg 04/12/18 10:00 04/11/18 23:26 Enoxaparin Sodium SQ 05/12/18 09:59 40 mg DAILY NANCY Administration Enoxaparin Sodium 40 mg 04/12/18 22:00 Enoxaparin Sodium SQ 05/12/18 21:59 Q24H22 NANCY Enoxaparin Sodium 40 mg 04/13/18 10:00 04/13/18 09:48 Enoxaparin Sodium SQ 05/13/18 09:59 40 mg DAILY NANCY Administration Sodium Chloride 1,000 mls @ 999 mls/hr 04/11/18 17:14 04/11/18 19:16 Sodium Chloride 0.9% 1000 Ml IV 04/11/18 18:14 Infused .Q1H1M STA Infusion Sodium Chloride Confirm 04/11/18 17:32 Sodium Chloride 0.9% 1000 Ml Administered 04/11/18 17:33 Dose 2,000 mls @ ud .ROUTE .STK-MED ONE Sodium Chloride Confirm 04/11/18 21:37 Sodium Chloride 0.9% 500 Ml Administered 04/11/18 21:38 Dose 500 mls @ ud IV .STK-MED ONE Propofol 1,000 mg in 100 mls @ 0 mls/hr 04/11/18 23:44 04/12/18 04:32 Propofol 1000 Mg/100 Ml Bottle IV 05/11/18 23:43 6.7 mls/hr .Q0M PRN Administration mechanically ventilated Titrate Propofol 100 mls @ 3.336 mls/hr 04/12/18 08:26 Propofol 1000 Mg/100 Ml Bottle IV 05/12/18 08:25 .Q24H PRN SEDATION Protocol 5 MCG/KG/MIN Morphine Sulfate Confirm 04/11/18 21:35 Morphine Supervisor Money Room 1 Mg/Ml 30 Ml Administered 04/11/18 21:36 Dose 30 mg IV .STK-MED ONE Morphine Sulfate 30 mg 04/11/18 22:00 04/11/18 22:00 Morphine Supervisor Money Room 1 Mg/Ml 30 Ml IV 04/16/18 21:59 30 mg PRN PRN Administration PAIN Morphine Sulfate 30 mg 04/12/18 08:39 Morphine Supervisor Money Room 1 Mg/Ml 30 Ml IV 04/17/18 08:38 PRN PRN PAIN Morphine Sulfate 2 - 5 mg 04/12/18 08:41 Morphine Sulfate 2 Mg Inj IV 04/17/18 08:40 [id number] PRN PAIN NOT CONTROLLED BY INFUS Intake & Output (Last 24 hours) 04/12/18 04/13/18 04/14/18 04/15/18 11:59 11:59 11:59 11:59 Intake Total 453 655 786 Output Total 3352 3863 4859 Balance -1503 -545 -061 Weight 111.2 kg 111.2 kg Microbiology Results (Last 24 hours) 04/12/18 00:00 Catherized Urine Culture - Final NO GROWTH Laboratory Results (Last 24 hours) 04/14/18 04/13/18 04/13/18 00:03 14:53 14:53 WBC 8.1 RBC 5.15 Hgb 16.2 Hct 47.9 MCV 93.0 MCH 31.5 MCHC 33.8 RDW 13.7 Plt Count 130 L MPV 11.5 H Sodium 141 Potassium 3.9 Chloride 105 Carbon Dioxide 26 Anion Gap 13.7 BUN 13 Creatinine 0.87 Estimated GFR > 60.0 Glucose 149 H Calcium 8.9 Total Bilirubin 1.30 AST 26 ALT 38 Alkaline Phosphatase 120 Serum Total Protein 6.9 Albumin 3.9 Stl C. diff Tox B Gene NEGATIVE C.difficile [id number]-[id number] PRESUMPTIVE NEGATIVE Orders (Last 24 hours) Category Date Time Status Discontinue Feng Cath ROUTINE Care 04/14/18 10:03 Completed Honey Thick Liquids Diet 04/13/18 Dinner Active Pureed Diet Diet 04/13/18 Dinner Active CBC Stat Lab 04/13/18 14:53 Completed CDIFF (INHOUSE) [C.Difficile by PCR] Routine Lab 04/14/18 00:03 Completed CMP Stat Lab 04/13/18 14:53 Completed Acetaminophen 325 mg [Tylenol 325 mg] Med 04/14/18 12:45 Active 650 mg PO Q4H PRN PRN Ergocalciferol (Vitamin D2) [Vitamin D2] Med 04/14/18 10:00 Active 50,000 unit PO TuFr Oxygen NASAL CANNULA 4 lpm RT 04/13/18 19:47 Completed Transfer Order Routine Transfer 04/14/18 Completed Patient Care Notes (Last 24 hours) 04/14/18 12:49 Case Management Note by Stephanie Singh [facility] RETURNED CALL. THEY ARE ACCEPTING PT TO THEIR ALLISON LOCATION. C/O DR. YARED CRAWFORD. THE ARE REQUESTING ED PAPERS ON PT. WILL REPORT TO DR. PETERSON. Initialized on 04/14/18 12:49 - END OF NOTE 04/14/18 09:45 (created 04/14/18 10:45) Case Management Note by Stephanie Singh CALL TO NEURO PSYCHE FOR POSSIBLE INPT VISIT. Initialized on 04/14/18 10:45 - END OF NOTE 04/14/18 08:39 Nursing Note by Carmen Schaeffer Pt educated on psych. consult and possible in pt psych. stay. Pt reports remembering what happened leading up to this admission and reports remembering taking 60 Xanax pt denies wanting to harm himself at this time to nurse. Pt signed consent for [facility] consult. [facility] access contacted and notified of 's request for face to face consult, Tori from Access contacted the [place] office and stated someone will be over as soon as they can this AM. Initialized on 04/14/18 08:39 - END OF NOTE 04/14/18 04:21 Nursing Note by Jayshree Sargent O2 decreased to 2L NC at 0400. Sats 96%. Initialized on 04/14/18 04:21 - END OF NOTE 04/13/18 15:09 Nursing Note by Carmen Schaeffer 1700 meds given early in applesauce by ST with evaluation. Pt tolerated pills whole in applesauce. Initialized on 04/13/18 15:09 - END OF NOTE 04/13/18 15:00 (created 04/13/18 15:01) Case Management Note by Stephanie Singh DISCHARGE PLAN REVIEWED WITH PT'S AND DAUGHTER. CURRENTLY AWAIT [facility] CONSULT, PT NOT ALERT ENOUGH TO DO INTERVIEW AT THIS TIME. DAUGHTER VOICES CONCERN, REPORTS THAT SHE WANTS EVERYONE TO KNOW HOW SERIOUS PT WAS, REPORTS THAT THEY HAD FOUND A LOADED SHOTGUN AT HOME, WHICH THEY HAVE SINCE REMOVED. REPORTS THAT SHE KNOWS HE HAS BEEN REALLY UPSET AND STRESSED OVER HER SON, AND THAT THIS WAS INTENTIONAL. REPORTS THAT SHE IS FEARFUL THAT PT WILL TRY AGAIN. DISCUSSED THAT [facility] MIGHT RECOMMEND INPT TREATMENT AT BEHAVIORAL UNIT ONCE MEDICALLY CLEARED, BUT THAT PT WOULD FIRST HAVE TO WAKE UP ENOUGH TO TALK WITH THERAPISTS. AND DAUGHTER BOTH VERBALIZED UNDERSTANDING. DENIES ADDNL NEEDS AT PRESENT. WILL FOLLOW FOR ALL DC NEEDS. Initialized on 04/13/18 15:01 - END OF NOTE - Vitals & Intake/Output Vital Signs: Vital Signs Temperature 98.3 F 04/14/18 12:06 Pulse Rate 67 04/14/18 12:06 Respiratory Rate 18 04/14/18 12:06 Blood Pressure 109/69 04/14/18 12:06 O2 Sat by Pulse Oximetry 93 L 04/14/18 12:06 Oxygen-Last Documented O2 Percentage 2 Liters = 28% Intake & Output: Intake & Output 04/12/18 04/13/18 04/14/18 04/15/18 11:59 11:59 11:59 11:59 Intake Total 877 655 786 Output Total 0945 0774 8408 Balance -1507 -545 -939 Weight 111.2 kg 111.2 kg - Lab Result Diagrams: 04/13/18 14:53 04/13/18 14:53 Lab Results-Last 24 Hrs: Accuchecks Date 04/14/18 Date 04/14/18 Date 04/14/18 Date 04/14/18 Date 04/13/18 Date 04/13/18 Time 11:29 Time 08:06 Accucheck Value: 230 Accucheck Value: 163 Accucheck Value: 186 Accucheck Value: 201 Accucheck Value: 200 Lab Results-Last 24 Hours 04/13/18 04/13/18 04/14/18 Range/Units 14:53 14:53 00:03 WBC 8.1 (4.0-10.5) K/mm3 RBC 5.15 (4.1-5.6) M/mm3 Hgb 16.2 (12.5-18.0) gm/dl Hct 47.9 (42-50) % MCV 93.0 (78-100) fl MCH 31.5 (26-32) pg MCHC 33.8 (32-36) g/dl RDW 13.7 (11.5-14.0) % Plt Count 130 L (150-450) K/mm3 MPV 11.5 H (6-9.5) fl Sodium 141 (137-145) mmol/L Potassium 3.9 (3.5-5.1) mmol/L Chloride 105 (98-107) mmol/L Carbon Dioxide 26 (22-30) mmol/L Anion Gap 13.7 (5-15) MEQ/L BUN 13 (9-20) mg/dL Creatinine 0.87 (0.66-1.25) mg/dL Estimated GFR > 60.0 ML/MIN Glucose 149 H (74-106) mg/dL Calcium 8.9 (8.4-10.2) mg/dL Total Bilirubin 1.30 (0.2-1.3) mg/dL AST 26 (17-59) U/L ALT 38 (0-50) U/L Alkaline Phosphatase 120 (38-126) U/L Serum Total Protein 6.9 (6.3-8.2) g/dL Albumin 3.9 (3.5-5.0) g/dL Stl C. diff Tox B Gene NEGATIVE (NEGATIVE) C.difficile [id number] PRESUMPTIVE NEGATIVE (NEGATIVE) Micro Results-Entire Visit: Microbiology 04/12/18 00:00 Urine Culture - Final Catherized NO GROWTH Accuchecks Date 04/14/18 Date 04/14/18 Date 04/14/18 Date 04/14/18 Date 04/13/18 Date 04/13/18 Time 11:29 Time 08:06 Accucheck Value: 230 Accucheck Value: 163 Accucheck Value: 186 Accucheck Value: 201 Accucheck Value: 200 - Radiology Exams Ordered Rad Exams-Entire Visit: Radiology Procedures Category Date Time Status CHEST 1 VIEW (PORTABLE) DAILY Exams 04/13/18 08:20 Completed - Procedures and Test Procedures and Tests throughout Hospitalization: Therapy Orders & Screens 04/11/18 22:12 Ventilator Management Q4H Comment: Diagnosis: Overdose neb [Respiratory Nebulizer] PRN Comment: DUO Q4PRN Diagnosis: Overdose 04/11/18 23:18 Ambu Bagging PRN Comment: Diagnosis: Overdose 04/12/18 17:15 Extubate Patient OM.NOW Comment: Diagnosis: patient was found unresponsive, ? xanax overdose 04/13/18 08:00 ST Eval & Treat (MD Order) .as ordered Comment: Physician Instructions: Reason For Exam: Evaluate: Yes Treat: Yes Reason for Eval: Hx of parkinsons increased oral secreations Diagnosis: patient was found unresponsive, ? xanax overdose 04/13/18 19:47 Oxygen NASAL CANNULA 4 lpm Comment: Diagnosis: patient was found unresponsive, ? xanax overdose Discharge Exam General Appearance: no apparent distress, alert Neurologic Exam: alert, oriented x 3, cooperative, normal mood/affect, nml cerebellar function, sensation nml, No motor deficits Skin Exam: normal color, warm, dry Eye Exam: PERRL, EOMI, eyes nml inspection Ears, Nose, Throat Exam: normal ENT inspection, pharynx normal, moist mucous membranes Neck Exam: normal inspection, non-tender, supple, full range of motion Respiratory Exam: normal breath sounds, lungs clear, No respiratory distress Cardiovascular Exam: regular rate/rhythm, normal heart sounds Gastrointestinal/Abdomen Exam: soft, No tenderness, No mass Extremity Exam: normal inspection, normal range of motion Back Exam: normal inspection, normal range of motion, No CVA tenderness, No vertebral tenderness Male Genitalia Exam: deferred Rectal Exam: deferred Final Diagnosis/Problem List - Final Discharge Diagnosis/Problem (1) Acute respiratory failure Current Visit: Yes Status: Resolved (2) Overdose Current Visit: Yes Status: Resolved (3) Depression Current Visit: Yes Status: Acute Priority: High - Discharge Discharge Date: 04/14/18 Disposition: XFER OTHER Condition: Stable Prescriptions: Continue Furosemide 40 mg [Lasix 40 MG] 40 mg PO BID Carbidopa/Levodopa [Sinemet 25-250 mg Tablet] 1 tab PO QID Nebivolol HCl [Bystolic] 10 mg PO DAILY Ergocalciferol (Vitamin D2) [Vitamin D2] 50,000 unit PO UD Insulin Lispro Protamin/Lispro [Humalog Mix 50-50 Kwikpen] 37 unit SQ TIDAC Solifenacin Succinate [Vesicare] 5 mg PO DAILY Ramipril 5 mg [Altace 5 MG] 10 mg PO BID Apomorphine HCl [Apokyn] 0.6 ml SQ UD Apixaban [Eliquis 2.5 mg Tablet] 2.5 mg PO BID #60 tablet Ropinirole HCl [Requip] 5 mg PO QID Nitroglycerin [Nitrostat] 0.4 mg SL UD PRN PRN Reason: Chest Pain Entacapone 200 mg PO QID Pimavanserin Tartrate [Nuplazid] 17 mg PO BID Alprazolam [Xanax] 0.5 mg PO Q6HPRN PRN PRN Reason: anxiety Follow up with: FIDEL PETERSON MD [Primary Care Provider] - 1 Week
== END 2018-04-14 14:45 | DRG 189 ==
LOC: ED 17:07 → ICU 20:42
PROVIDERS: ADMIT General Practice; ATTEND General Practice
DX: J96.00 Acute respiratory failure, unspecified whether with hypoxia or hypercapnia (principal); T42.4X1A Poisoning by benzodiazepines, accidental (unintentional), initial encounter; T50.902A Poisoning by unspecified drugs, medicaments and biological substances, intentional self-harm, initial encounter; I10 Essential (primary) hypertension; G47.33 Obstructive sleep apnea (adult) (pediatric); E11.9 Type 2 diabetes mellitus without complications; Z79.4 Long term (current) use of insulin; R13.12 Dysphagia, oropharyngeal phase; F32.9 Major depressive disorder, single episode, unspecified; F41.8 Other specified anxiety disorders; G47.30 Sleep apnea, unspecified; G62.9 Polyneuropathy, unspecified; Z79.01 Long term (current) use of anticoagulants; M06.9 Rheumatoid arthritis, unspecified; G20 Parkinson's disease; Z96.653 Presence of artificial knee joint, bilateral; Z79.899 Other long term (current) drug therapy
CPT/HCPCS: 31500; 36000; 36415; 36600; 51702; 70450; 71045; 72125; 80053; 80307; 81000; 82375; 82803; 83605; 84134; 84484; 85025; 85027; 85610; 87086; 87493; 90791; 92610; 93005; 93041; 94002; 94003; 94770; 94799; 96360; 99285; G0481; J1650; J2270; J2704; Q3014; A9270-GY; G0480

== ENCOUNTER 2018-08-06 12:48 | Emergency (ER) | payer MEDICARE, OTHER ==
--- NOTE | 2018-08-06 13:28 | ERPHSYRPT ---
- History of Present Illness Time Seen by Provider: 08/06/18 13:15 Source: patient Exam Limitations: clinical condition Patient Subjective Stated Complaint: here for high b/s today of 575 at home and took humalog 36 units at home about 45 mins ago Triage Nursing Assessment: pt alert, resp easy, skin w/d.pt states he is more weak than normal,pt has edema to lower legs thst is normal for him Physician History: PATIENT WITH A HISTORY OF TYPE 2 DIABETES, HYPERTENSION, PERIPHERAL NEUROPATHY, SLEEP APNEA AND PARKINSONS COMPLAINS OF AN ELEVATED BLOOD GLUCOSE 575 TODAY. DENIES FEVER, COUGH BUT COMPLAINS OF FREQUENCY AND URGENCY OF URINATION Timing/Duration: today Associated Symptoms: denies symptoms Allergies/Adverse Reactions: No Known Drug Allergies Allergy (Verified 08/06/18 13:06) Home Medications: Carbidopa/Levodopa [Sinemet 25-250 mg Tablet] 1 tab PO QID 08/13/17 [History] Furosemide 40 mg [Lasix 40 MG] 40 mg PO BID 08/13/17 [History] Nebivolol HCl [Bystolic] 10 mg PO DAILY 08/13/17 [History] Ergocalciferol (Vitamin D2) [Vitamin D2] 50,000 unit PO UD 11/14/17 [History] Insulin Lispro Protamin/Lispro [Humalog Mix 50-50 Kwikpen] 37 unit SQ TIDAC [History] Solifenacin Succinate [Vesicare] 5 mg PO DAILY 11/14/17 [History] Apomorphine HCl [Apokyn] 0.6 ml SQ UD 02/26/18 [History] Ramipril 5 mg [Altace 5 MG] 10 mg PO BID 02/26/18 [History] Alprazolam [Xanax] 0.5 mg PO Q6HPRN PRN 04/12/18 [History] Entacapone 200 mg PO QID 04/12/18 [History] Nitroglycerin [Nitrostat] 0.4 mg SL UD PRN 04/12/18 [History] Pimavanserin Tartrate [Nuplazid] 17 mg PO BID 04/12/18 [History] Ropinirole HCl [Requip] 5 mg PO QID 04/12/18 [History] Hx Tetanus, Diphtheria Vaccination/Date Given: Yes Hx Influenza Vaccination/Date Given: No Hx Pneumococcal Vaccination/Date Given: No Immunizations Up to Date: Yes - Review of Systems Constitutional: No Fever, No Chills Eyes: No Symptoms Ears, Nose, & Throat: No Symptoms Respiratory: No Symptoms, No Cough, No Dyspnea Cardiac: No Symptoms, No Chest Pain, No Edema, No Syncope Abdominal/Gastrointestinal: No Symptoms, No Abdominal Pain, No Nausea, No Vomiting, No Diarrhea Genitourinary Symptoms: No Symptoms, No Dysuria Musculoskeletal: No Symptoms, No Back Pain, No Neck Pain Skin: No Rash Neurological: No Dizziness, No Focal Weakness, No Sensory Changes Psychological: No Symptoms Endocrine: No Symptoms All Other Systems: Reviewed and Negative - Past Medical History Pertinent Past Medical History: Yes Neurological History: Peripheral Neuropathy, Other ENT History: No Pertinent History Cardiac History: Hypertension Respiratory History: Sleep Apnea Endocrine Medical History: Diabetes Type II Musculoskeletal History: Rheumatoid Arthritis, Other GI Medical History: No Pertinent History History: No Pertinent History Psycho-Social History: Depression Male Reproductive Disorders: Prostate Problems Other Medical History: PARKINSONS - Past Surgical History Past Surgical History: Yes Neuro Surgical History: No Pertinent History Cardiac: No Pertinent History, Cardiac Catheterization Respiratory: No Pertinent History Gastrointestinal: Cholecystectomy, Hernia Repair Musculoskeletal: Joint Replacement, Orthopedic Surgery Other Surgical History: ABDON KNEE REPLACEMENT - Social History Smoking Status: Never smoker Exposure to second hand smoke: No Drug Use: none Patient Lives Alone: No Significant Family History: no pertinent family hx - Nursing Vital Signs Nursing Vital Signs: Initial Vital Signs Temperature 98.0 F 08/06/18 13:00 Pulse Rate 89 08/06/18 13:00 Respiratory Rate 18 08/06/18 13:00 Blood Pressure 160/103 08/06/18 13:00 O2 Sat by Pulse Oximetry 95 08/06/18 13:00 Pain Scale Pain Intensity 0 - Physical Exam General Appearance: no apparent distress, alert Eye Exam: PERRL/EOMI, eyes nml inspection Ears, Nose, Throat Exam: normal ENT inspection, TMs normal, pharynx normal, moist mucous membranes Neck Exam: normal inspection, non-tender, supple, full range of motion Respiratory Exam: normal breath sounds, lungs clear, No respiratory distress Cardiovascular Exam: regular rate/rhythm, normal heart sounds, normal peripheral pulses Gastrointestinal/Abdomen Exam: soft, normal bowel sounds, No tenderness, No mass Back Exam: normal inspection, normal range of motion, No CVA tenderness, No vertebral tenderness Extremity Exam: normal inspection, normal range of motion, pelvis stable Neurologic Exam: alert, oriented x 3, cooperative, normal mood/affect, nml cerebellar function, nml station & gait, sensation nml, No motor deficits Skin Exam: normal color, warm, dry, No rash Lymphatic Exam: No adenopathy SpO2 Interpretation: normal SpO2: 95 Oxygen Delivery: Room Air Ordered Tests: Active Orders 24 hr Category Date Time Status ACCUCHECK [Accucheck] STAT Care 08/06/18 13:04 Active ACCUCHECK [Accucheck] STAT Care 08/06/18 16:58 Active BMP Stat Lab 08/06/18 13:35 Completed CBC W DIFF Stat Lab 08/06/18 13:35 Completed UA W/RFX UR CULTURE Stat Lab 08/06/18 16:11 Completed Medication Summary Generic Name Dose Route Start Last Admin Trade Name Freq PRN Reason Stop Dose Admin Sodium Chloride 1,000 mls @ 50 mls/hr 08/06/18 13:30 08/06/18 13:51 Sodium Chloride 0.9% 1000 Ml IV 09/05/18 13:29 50 mls/hr .Q20H NANCY Administration Lab/Rad Data: Laboratory Result Diagrams 08/06/18 13:35 08/06/18 13:35 Laboratory Results 08/06/18 08/06/18 08/06/18 Range/Units 16:11 13:35 13:35 WBC 7.1 (4.0-10.5) K/mm3 RBC 5.14 (4.1-5.6) M/mm3 Hgb 16.5 (12.5-18.0) gm/dl Hct 48.8 (42-50) % MCV 94.9 (78-100) fl MCH 32.1 H (26-32) pg MCHC 33.8 (32-36) g/dl RDW 13.8 (11.5-14.0) % Plt Count 151 (150-450) K/mm3 MPV 10.9 H (6-9.5) fl Gran % 74.6 H (36.0-66.0) % Eos # (Auto) 0.05 (0-0.5) Absolute Lymphs (auto) 1.20 (1.0-4.6) Absolute Monos (auto) 0.52 (0.0-1.3) Lymphocytes % 17.0 L (24.0-44.0) % Monocytes % 7.4 (0.0-12.0) % Eosinophils % 0.7 (0.00-5.0) % Basophils % 0.3 (0.0-0.4) % Absolute Granulocytes 5.27 (1.4-6.9) Basophils # 0.02 (0-0.4) Sodium 138 (137-145) mmol/L Potassium 4.4 (3.5-5.1) mmol/L Chloride 102 (98-107) mmol/L Carbon Dioxide 29 (22-30) mmol/L Anion Gap 11.6 (5-15) MEQ/L BUN 20 (9-20) mg/dL Creatinine 0.79 (0.66-1.25) mg/dL Estimated GFR > 60.0 ML/MIN Glucose 262 H (74-106) mg/dL Calcium 9.5 (8.4-10.2) mg/dL Urine Color YELLOW (YELLOW) Urine Appearance CLEAR (CLEAR) Urine pH 7.0 (5-6) Ur Specific [place] 1.021 (1.005-1.025) Urine Protein NEGATIVE (Negative) Urine Ketones NEGATIVE (NEGATIVE) Urine Blood NEGATIVE (0-5) [place]ase[place]/ul Urine Nitrite NEGATIVE (NEGATIVE) Urine Bilirubin NEGATIVE (NEGATIVE) Urine Urobilinogen NORMAL (0-1) mg/dL Ur Leukocyte Esterase NEGATIVE (NEGATIVE) Urine WBC (Auto) NONE SEEN (0-5) /HPF Urine RBC (Auto) NONE SEEN (0-2) /HPF U Epithel Cells (Auto) OCCASIONAL (FEW) /HPF Urine Bacteria (Auto) NONE SEEN (NEGATIVE) /HPF Urine Culture Reflexed NO (NO) Urine Glucose >=500 (NEGATIVE) mg/dL - Progress Progress Note: 08/06/18 17:05 GLUCOSE 262 Counseled pt/family regarding: lab results, diagnosis, need for follow-up - Departure Time of Disposition: 18:45 Departure Disposition: Home Clinical Impression: HYPERGLYCEMIA Condition: Stable Critical Care Time: No Referrals: FIDEL PETERSON MD [Primary Care Provider] - Additional Instructions: CONTINUE ALL CURRENT MEDICATIONS DIRECTED. FOLLOW ACCUCHECKS AFTER MEALS AND AT BEDTIME. CONSULT YOUR PRIMARY CARE PROVIDER IN 4-5 DAYS.
[2018-08-06] MEDS ORDERED: Sodium Chloride 0.9% 1000 ML 1,000 ML IV SCH (13:30)
[2018-08-06 13:40] LABS: BASOPHIL % 0.3 % (0.0-0.4); Basophil (Absolute #) 0.02 (0-0.4); Eosinophil % 0.7 % (0.00-5.0); Eosinophil (Absolute #) 0.05 (0-0.5); Granulocyte Absolute (ANC) 5.27 (1.4-6.9); Granulocytes % 74.6 % (36.0-66.0); Hematocrit 48.8 % (42-50); Hemoglobin 16.5 gm/dl (12.5-18.0); Mean Cell Volume 94.9 fl (78-100); Mean Corpuscular Hemoglobin 32.1 pg (26-32); Mean Corpuscular Hgb Concent. 33.8 g/dl (32-36); Mean Platelet Volume 10.9 fl (6-9.5); Monocyte (Absolute #) 0.52 (0.0-1.3); Monocytes % 7.4 % (0.0-12.0); Platelet Count 151 K/mm3 (150-450); Red Blood Count 5.14 M/mm3 (4.1-5.6); Red Cell Distribution Width 13.8 % (11.5-14.0); White Blood Count 7.1 K/mm3 (4.0-10.5)
[2018-08-06] MEDS ORDERED: Sodium Chloride 0.9% 1000 ML 1,000 ML ONE (13:49)
[2018-08-06 13:53] LABS: ANION GAP 11.6 MEQ/L (5-15); BLOOD UREA NITROGEN 20 mg/dL (9-20); CHLORIDE 102 mmol/L (98-107); Calcium 9.5 mg/dL (8.4-10.2); Carbon Dioxide 29 mmol/L (22-30); Creatinine 1 0.79 mg/dL (0.66-1.25); Glucose 262 mg/dL (74-106); Potassium 4.4 mmol/L (3.5-5.1); SODIUM 138 mmol/L (137-145)
[2018-08-06 16:27] LABS: Appearance CLEAR (CLEAR); Leukocyte Esterase NEGATIVE (NEGATIVE); Nitrite NEGATIVE (NEGATIVE); Protein,Urine Dip NEGATIVE (Negative); Specific Gravity 1.021 (1.005-1.025)
[2018-08-06 16:28] LABS: Bilirubin NEGATIVE (NEGATIVE); Blood NEGATIVE Ery/ul (0-5); Glucose >=500 mg/dL (NEGATIVE); Ketones NEGATIVE (NEGATIVE); Urobilinogen NORMAL mg/dL (0-1)
[2018-08-06 17:07] VITALS: O2SAT 95
[2018-08-06 18:56] VITALS: BP 160/84; PULSE 72
== END 2018-08-06 19:00 | disposition home or self-care (01) ==
LOC: ED 12:48
DX: E11.65 Type 2 diabetes mellitus with hyperglycemia (principal); Z79.899 Other long term (current) drug therapy; I10 Essential (primary) hypertension; G20 Parkinson's disease; Z79.4 Long term (current) use of insulin
CPT/HCPCS: 36000; 36415; 80048; 81001; 82962; 85025; 96360; 96361; 99284

== ENCOUNTER 2018-10-06 14:44 | Emergency (ER) | payer MEDICARE, OTHER ==
[2018-10-06] MEDS ORDERED: ANTIVERT 25 MG PO ONE (15:11)
[2018-10-06] MEDS ORDERED: Sodium Chloride 0.9% 1000 ML 1,000 ML IV STA (15:13)
[2018-10-06] MEDS ORDERED: ANTIVERT 25 MG ONE (15:21)
--- NOTE | 2018-10-06 15:27 | ERPHSYRPT ---
- History of Present Illness Time Seen by Provider: 10/06/18 15:15 Source: patient Exam Limitations: clinical condition Patient Subjective Stated Complaint: states feeling weak x months. states feels weak with exertion. low B/P per home health care Triage Nursing Assessment: alert and slightly drowsy. staes has weakness with exertion. neuro intact. DORANTES. 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 denies bowel problems or urinary problems. states his legs are swollen all of the time. walks with assist. Physician History: PATIENT WITH A HISTORY SLEEP APNEA, HYPERTENSION, PARKINSON'S DISEASE, TYPE 2 DIABETES MELLITUS, PERIPHERAL NEUROPATHY COMPLAINS OF DIZZINESS OVER THE PAST 3 DAYSS ASSOCIATED WITH GENERALIZED WEAKNESS PAST 4-6 MONTHES. PATIENT COMPLAINS OF EXERTIONAL WEAKNESS UPON AMBULATION WITH WALKER ASSISTANCE. PATIENT DENIES BLURRED VISION. SLURRED SPEECH, FOCAL NUMBNESS TINGLING OR WEAKNESS IN EXTREMITIES. DENIES FEVER, CHILLS, COUGHING, DYSPNEA, CHEST PAIN, NAUSEA VOMITING DIARRHEA. Timing/Duration: day(s) Severity: moderate Character of Deficits: other (DIZZINESS) Deficits: decrease ability to walk (CHRONIC WITH WALKER ASSISTANCE) Baseline/Normal Cognition: alert oriented x 3 Current Cognition: alert oriented x 3 Baseline Gait: walks only w/assistance Associated Symptoms: other (DIZZINESS, GENERALIZED WEAKNESS) Allergies/Adverse Reactions: No Known Drug Allergies Allergy (Verified 08/06/18 13:06) Home Medications: Carbidopa/Levodopa [Sinemet 25-250 mg Tablet] 1 tab PO QID 08/13/17 [History] Furosemide 40 mg [Lasix 40 MG] 40 mg PO BID 08/13/17 [History] Nebivolol HCl [Bystolic] 10 mg PO DAILY 08/13/17 [History] Ergocalciferol (Vitamin D2) [Vitamin D2] 50,000 unit PO UD 11/14/17 [History] Insulin Lispro Protamin/Lispro [Humalog Mix 50-50 Kwikpen] 37 unit SQ TIDAC [History] Solifenacin Succinate [Vesicare] 5 mg PO DAILY 11/14/17 [History] Apomorphine HCl [Apokyn] 0.6 ml SQ UD 02/26/18 [History] Ramipril 5 mg [Altace 5 MG] 10 mg PO BID 02/26/18 [History] Alprazolam [Xanax] 0.5 mg PO Q6HPRN PRN 04/12/18 [History] Entacapone 200 mg PO QID 04/12/18 [History] Nitroglycerin [Nitrostat] 0.4 mg SL UD PRN 04/12/18 [History] Pimavanserin Tartrate [Nuplazid] 17 mg PO BID 04/12/18 [History] Ropinirole HCl [Requip] 5 mg PO QID 04/12/18 [History] Hx Tetanus, Diphtheria Vaccination/Date Given: Yes Hx Influenza Vaccination/Date Given: No Hx Pneumococcal Vaccination/Date Given: No Immunizations Up to Date: (unknown) - Review of Systems Constitutional: Weakness, No Fever, No Chills Eyes: No Symptoms Ears, Nose, & Throat: No Symptoms Respiratory: No Symptoms, No Cough, No Dyspnea Cardiac: No Symptoms, No Chest Pain, No Edema, No Syncope Abdominal/Gastrointestinal: No Symptoms, No Abdominal Pain, No Nausea, No Vomiting, No Diarrhea Genitourinary Symptoms: No Symptoms, No Dysuria Musculoskeletal: No Symptoms, No Back Pain, No Neck Pain Skin: No Symptoms, No Rash Neurological: Dizziness, No Focal Weakness, No Sensory Changes Psychological: No Symptoms Endocrine: No Symptoms All Other Systems: Reviewed and Negative - Past Medical History Pertinent Past Medical History: Yes Neurological History: Peripheral Neuropathy, Other ENT History: No Pertinent History Cardiac History: Hypertension Respiratory History: Sleep Apnea Endocrine Medical History: Diabetes Type II Musculoskeletal History: Rheumatoid Arthritis, Other GI Medical History: No Pertinent History History: No Pertinent History Psycho-Social History: Depression Male Reproductive Disorders: Prostate Problems Other Medical History: PARKINSONS - Past Surgical History Past Surgical History: Yes Neuro Surgical History: No Pertinent History Cardiac: No Pertinent History, Cardiac Catheterization Respiratory: No Pertinent History Gastrointestinal: Cholecystectomy, Hernia Repair Musculoskeletal: Joint Replacement, Orthopedic Surgery Other Surgical History: ABDON KNEE REPLACEMENT - Social History Smoking Status: Unknown if ever smoked Exposure to second hand smoke: No Drug Use: none Patient Lives Alone: No Significant Family History: no pertinent family hx - Nursing Vital Signs Nursing Vital Signs: Initial Vital Signs Temperature 97.8 F 10/06/18 14:59 Pulse Rate 61 10/06/18 14:59 Respiratory Rate 16 10/06/18 14:59 Blood Pressure 109/63 10/06/18 14:59 O2 Sat by Pulse Oximetry 96 10/06/18 14:59 Pain Scale Pain Intensity 0 - [place] Coma Scale Best Eye Response ([place]): (4) open spontaneously Best Verbal Response ([place]): (5) oriented Best Motor Response ([place]): (6) obeys commands [place] Total: 15 - Physical Exam General Appearance: no apparent distress, alert Eye Exam: bilateral eye: PERRL, EOMI Ears, Nose, Throat Exam: pharynx normal, moist mucous membranes, other ( WIDESPREAD DENTAL CARIES ERODES INTO GINGIVA) Neck Exam: normal inspection, non-tender, supple Respiratory: normal breath sounds, lungs clear, airway intact, No respiratory distress Cardiovascular: regular rate/rhythm, No edema Gastrointestinal: soft, No tenderness, No distention Back Exam: normal inspection Extremity Exam: normal inspection, No pedal edema Peripheral Pulses: carotid (R): 2+, carotid (L): 2+, femoral (R): 2+, femoral (L ): 2+ 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, 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 hearing, normal speech, tongue midline Coordination/Gait: normal finger to nose, normal gait Motor/Sensory: no motor deficit, no sensory deficit DTR: bicep (R): 2+, bicep (L): 2+, tricep (R): 2+, tricep (L): 2+, knee (R): 2+ , knee (L): 2+, ankle (R): 2+ Skin Exam: normal color, warm, dry, No rash SpO2: 96 Oxygen Delivery: Room Air - Course EKG Interpreted by Me: RATE, Sinus Rhythm, NORMAL AXIS - Radiology Exams Chest X-ray Interpretation: Discussed w/ radiologist (MILD LEFT BASE ATELECTASIS/ INFILTRATE NO CHANGE FROM CHEST XRAY 04/13/2018) - CT Exams Head CT Interpretation: Discussed w/radiologist, No/Intracranial Hemorrhag Ordered Tests: Active Orders 24 hr Category Date Time Status Knockdown Man STAT Care 10/06/18 15:14 Active Clean Catch Urine Specimen STAT Care 10/06/18 15:13 Active EKG-ER Only STAT Care 10/06/18 15:13 Active IV Insertion STAT Care 10/06/18 15:13 Active CHEST 1 VIEW (PORTABLE) Stat Exams 10/06/18 15:14 Completed HEAD WITHOUT CONTRAST [CT] Stat Exams 10/06/18 15:14 Taken CBC W DIFF Stat Lab 10/06/18 16:05 Completed CMP Stat Lab 10/06/18 16:05 Completed MAGNESIUM Stat Lab 10/06/18 16:05 Completed PROTIME WITH INR Stat Lab 10/06/18 16:05 Completed TROPONIN Q3H Lab 10/06/18 16:05 Completed TROPONIN Q3H Lab 10/06/18 18:30 Ordered TROPONIN Q3H Lab 10/06/18 21:30 Ordered TROPONIN Q3H Lab 10/07/18 00:30 Ordered TROPONIN Q3H Lab 10/07/18 03:30 Ordered UA W/RFX UR CULTURE Stat Lab 10/06/18 15:33 Completed Urine Triage Profile Stat Lab 10/06/18 15:33 Completed Medication Summary Discontinued Medications Generic Name Dose Route Start Last Admin Trade Name Freq PRN Reason Stop Dose Admin Sodium Chloride 1,000 mls @ 500 mls/hr 10/06/18 15:13 10/06/18 15:58 Sodium Chloride 0.9% 1000 Ml IV 10/06/18 17:12 500 mls/hr .Q2H STA Administration Meclizine HCl 25 mg 10/06/18 15:11 10/06/18 15:33 Antivert 25 Mg PO 10/06/18 15:12 25 mg STAT ONE Administration Meclizine HCl Confirm 10/06/18 15:21 Antivert 25 Mg Administered 10/06/18 15:22 Dose 25 mg .ROUTE .STK-MED ONE Lab/Rad Data: Laboratory Result Diagrams 10/06/18 16:05 10/06/18 16:05 Laboratory Results 10/06/18 10/06/18 10/06/18 Range/Units 16:05 16:05 16:05 WBC (4.0-10.5) K/mm3 RBC (4.1-5.6) M/mm3 Hgb (12.5-18.0) gm/dl Hct (42-50) % MCV (78-100) fl MCH (26-32) pg MCHC (32-36) g/dl RDW (11.5-14.0) % Plt Count (150-450) K/mm3 MPV (6-9.5) fl Gran % (36.0-66.0) % Eos # (Auto) (0-0.5) Absolute Lymphs (auto) (1.0-4.6) Absolute Monos (auto) (0.0-1.3) Lymphocytes % (24.0-44.0) % Monocytes % (0.0-12.0) % Eosinophils % (0.00-5.0) % Basophils % (0.0-0.4) % Absolute Granulocytes (1.4-6.9) Basophils # (0-0.4) PT 14.1 H (8.83-12.87) SECONDS INR 1.21 (0.8-3.0) Sodium 140 (137-145) mmol/L Potassium 3.8 (3.5-5.1) mmol/L Chloride 104 (98-107) mmol/L Carbon Dioxide 29 (22-30) mmol/L Anion Gap 10.3 (5-15) MEQ/L BUN 23 H (9-20) mg/dL Creatinine 0.98 (0.66-1.25) mg/dL Estimated GFR > 60.0 ML/MIN Glucose 159 H (74-106) mg/dL Calcium 8.7 (8.4-10.2) mg/dL Magnesium 2.1 (1.6-2.3) mg/dL Total Bilirubin 0.70 (0.2-1.3) mg/dL AST 29 (17-59) U/L ALT 12 (0-50) U/L Alkaline Phosphatase 120 (38-126) U/L Troponin I < 0.012 (0.000-0.034) ng/mL Serum Total Protein 6.9 (6.3-8.2) g/dL Albumin 3.9 (3.5-5.0) g/dL Urine Color (YELLOW) Urine Appearance (CLEAR) Urine pH (5-6) Ur Specific [place] (1.005-1.025) Urine Protein (Negative) Urine Ketones (NEGATIVE) Urine Blood (0-5) Haseeb/ul Urine Nitrite (NEGATIVE) Urine Bilirubin (NEGATIVE) Urine Urobilinogen (0-1) mg/dL Ur Leukocyte Esterase (NEGATIVE) Urine WBC (Auto) (0-5) /HPF Urine RBC (Auto) (0-2) /HPF U Hyaline Cast (Auto) (0-2) /LPF U Epithel Cells (Auto) (FEW) /HPF Urine Bacteria (Auto) (NEGATIVE) /HPF Urine Mucus (Auto) (NEGATIVE) /HPF Urine Culture Reflexed (NO) Urine Glucose (NEGATIVE) mg/dL Urine Opiates Level (NEGATIVE) Ur Methadone (NEGATIVE) Urine Barbiturates (NEGATIVE) Ur Phencyclidine (PCP) (NEGATIVE) Urine Amphetamine (NEGATIVE) U Benzodiazepine Level (NEGATIVE) Urine Cocaine (NEGATIVE) Urine Marijuana (THC) (NEGATIVE) 10/06/18 10/06/18 10/06/18 Range/Units 16:05 15:33 15:33 WBC 8.9 (4.0-10.5) K/mm3 RBC 4.43 (4.1-5.6) M/mm3 Hgb 14.3 (12.5-18.0) gm/dl Hct 43.5 (42-50) % MCV 98.2 (78-100) fl MCH 32.3 H (26-32) pg MCHC 32.9 (32-36) g/dl RDW 13.4 (11.5-14.0) % Plt Count 168 (150-450) K/mm3 MPV 11.1 H (6-9.5) fl Gran % 73.2 H (36.0-66.0) % Eos # (Auto) 0.06 (0-0.5) Absolute Lymphs (auto) 1.78 (1.0-4.6) Absolute Monos (auto) 0.53 (0.0-1.3) Lymphocytes % 20.0 L (24.0-44.0) % Monocytes % 5.9 (0.0-12.0) % Eosinophils % 0.7 (0.00-5.0) % Basophils % 0.2 (0.0-0.4) % Absolute Granulocytes 6.53 (1.4-6.9) Basophils # 0.02 (0-0.4) PT (8.83-12.87) SECONDS INR (0.8-3.0) Sodium (137-145) mmol/L Potassium (3.5-5.1) mmol/L Chloride (98-107) mmol/L Carbon Dioxide (22-30) mmol/L Anion Gap (5-15) MEQ/L BUN (9-20) mg/dL Creatinine (0.66-1.25) mg/dL Estimated GFR ML/MIN Glucose (74-106) mg/dL Calcium (8.4-10.2) mg/dL Magnesium (1.6-2.3) mg/dL Total Bilirubin (0.2-1.3) mg/dL AST (17-59) U/L ALT (0-50) U/L Alkaline Phosphatase (38-126) U/L Troponin I (0.000-0.034) ng/mL Serum Total Protein (6.3-8.2) g/dL Albumin (3.5-5.0) g/dL Urine Color YELLOW (YELLOW) Urine Appearance CLEAR (CLEAR) Urine pH 5.0 (5-6) Ur Specific [place] 1.014 (1.005-1.025) Urine Protein NEGATIVE (Negative) Urine Ketones TRACE (NEGATIVE) Urine Blood NEGATIVE (0-5) Haseeb/ul Urine Nitrite NEGATIVE (NEGATIVE) Urine Bilirubin NEGATIVE (NEGATIVE) Urine Urobilinogen NEGATIVE (0-1) mg/dL Ur Leukocyte Esterase NEGATIVE (NEGATIVE) Urine WBC (Auto) NONE SEEN (0-5) /HPF Urine RBC (Auto) NONE SEEN (0-2) /HPF U Hyaline Cast (Auto) 6-10 (0-2) /LPF U Epithel Cells (Auto) NONE (FEW) /HPF Urine Bacteria (Auto) NONE SEEN (NEGATIVE) /HPF Urine Mucus (Auto) SLIGHT (NEGATIVE) /HPF Urine Culture Reflexed NO (NO) Urine Glucose >=500 (NEGATIVE) mg/dL Urine Opiates Level NEGATIVE (NEGATIVE) Ur Methadone NEGATIVE (NEGATIVE) Urine Barbiturates NEGATIVE (NEGATIVE) Ur Phencyclidine (PCP) NEGATIVE (NEGATIVE) Urine Amphetamine NEGATIVE (NEGATIVE) U Benzodiazepine Level NEGATIVE (NEGATIVE) Urine Cocaine NEGATIVE (NEGATIVE) Urine Marijuana (THC) NEGATIVE (NEGATIVE) - Progress Progress: improved Progress Note: 10/06/18 16:54 ADMINISTERED ANTIVERT 25MG ORALLY Counseled pt/family regarding: lab results, diagnosis, need for follow-up, rad results - Departure Time of Disposition: 18:00 Departure Disposition: Home Clinical Impression: ACUTE LABYRINTHITIS Condition: Stable Critical Care Time: No Referrals: [facility] [Primary Care Provider] - Additional Instructions: FOLLOWUP WITH YOUR PRIMARY CARE PROVIDER IN 1 WEEK FOR REVIEW OF YOUR BLOOD PRESSURE MEDICATIONS. ANTIVERT 25MG EVERY 8 HOURS FOR DIZZINESS NEEDED. Prescriptions: Meclizine HCl 25 mg [Antivert 25 mg] 25 mg PO Q8H PRN PRN #20 tablet PRN Reason: Dizziness
[2018-10-06 15:41] LABS: Appearance CLEAR (CLEAR); Bilirubin NEGATIVE (NEGATIVE); Blood NEGATIVE Ery/ul (0-5); Glucose >=500 mg/dL (NEGATIVE); Ketones TRACE (NEGATIVE); Leukocyte Esterase NEGATIVE (NEGATIVE); Mucus SLIGHT /HPF (NEGATIVE); Nitrite NEGATIVE (NEGATIVE); Protein,Urine Dip NEGATIVE (Negative); Specific Gravity 1.014 (1.005-1.025); Urobilinogen NEGATIVE mg/dL (0-1)
[2018-10-06 15:42] LABS: RBC NONE SEEN /HPF (0-2); WBC NONE SEEN /HPF (0-5)
--- NOTE | 2018-10-06 15:42 | XRAY ---
Indication: Syncopal episode. Comparison: April 13, 2018. Portable chest again demonstrates mild left base infiltrate/atelectasis and tiny effusion. Remaining heart, right lung, and bony thorax unremarkable.
[2018-10-06 15:43] LABS: Bacteria NONE SEEN /HPF (NEGATIVE)
[2018-10-06 15:55] LABS: Amphetamine,Urine NEGATIVE (NEGATIVE); Barbiturate,Urine NEGATIVE (NEGATIVE); Benzodiazepine,Urine NEGATIVE (NEGATIVE); Cocaine,Urine NEGATIVE (NEGATIVE); Methadone,Urine NEGATIVE (NEGATIVE); Opiate,Urine NEGATIVE (NEGATIVE); PCP,Urine NEGATIVE (NEGATIVE); THC,Urine NEGATIVE (NEGATIVE)
[2018-10-06 16:16] LABS: BASOPHIL % 0.2 % (0.0-0.4); Basophil (Absolute #) 0.02 (0-0.4); Eosinophil % 0.7 % (0.00-5.0); Eosinophil (Absolute #) 0.06 (0-0.5); Granulocytes % 73.2 % (36.0-66.0); Hematocrit 43.5 % (42-50); Hemoglobin 14.3 gm/dl (12.5-18.0); Lymphocyte (Absolute #) 1.78 (1.0-4.6); Mean Cell Volume 98.2 fl (78-100); Mean Corpuscular Hemoglobin 32.3 pg (26-32); Mean Corpuscular Hgb Concent. 32.9 g/dl (32-36); Mean Platelet Volume 11.1 fl (6-9.5); Monocyte (Absolute #) 0.53 (0.0-1.3); Monocytes % 5.9 % (0.0-12.0); Platelet Count 168 K/mm3 (150-450); Red Blood Count 4.43 M/mm3 (4.1-5.6); Red Cell Distribution Width 13.4 % (11.5-14.0); White Blood Count 8.9 K/mm3 (4.0-10.5)
[2018-10-06 16:27] LABS: INR 1.21 (0.8-3.0); PROTIME 14.1 SECONDS (8.83-12.87)
[2018-10-06 16:33] LABS: ALBUMIN 3.9 g/dL (3.5-5.0); ALKALINE PHOSPHATASE 120 U/L (38-126); ANION GAP 10.3 MEQ/L (5-15); BLOOD UREA NITROGEN 23 mg/dL (9-20); CHLORIDE 104 mmol/L (98-107); Calcium 8.7 mg/dL (8.4-10.2); Carbon Dioxide 29 mmol/L (22-30); Creatinine 1 0.98 mg/dL (0.66-1.25); Glucose 159 mg/dL (74-106); MAGNESIUM 2.1 mg/dL (1.6-2.3); Potassium 3.8 mmol/L (3.5-5.1); SGOT/AST 29 U/L (17-59); SGPT/ALT 12 U/L (0-50); SODIUM 140 mmol/L (137-145); Total Protein 6.9 g/dL (6.3-8.2)
[2018-10-06 16:49] VITALS: BP 104/71; PULSE 60
[2018-10-06 16:59] VITALS: O2SAT 96
--- NOTE | 2018-10-06 21:41 | XRAY ---
Indication: Syncope. Patient states "everything is spinning." Low blood pressure. Multiple contiguous axial images obtained through the head without contrast. Comparison: April 11, 2018. Several images through the base of the brain slightly degraded by motion artifact. Stable age-appropriate global atrophy. No acute intracranial hemorrhage, abnormal extra-axial fluid collection, or mass effect. Fourth ventricle is midline without hydrocephalus. Reyes-white matter differentiation preserved. Bony calvarium intact. Visualized paranasal sinuses and mastoid air cells are clear. Impression: Mild motion artifact. Remaining CT head without contrast exam is negative. CTDI 67.22
== END 2018-10-06 18:11 | disposition home or self-care (01) ==
LOC: ED 14:44
DX: H83.09 Labyrinthitis, unspecified ear (principal); R53.1 Weakness; R42 Dizziness and giddiness; I10 Essential (primary) hypertension; G20 Parkinson's disease; E11.9 Type 2 diabetes mellitus without complications; Z79.899 Other long term (current) drug therapy; Z79.4 Long term (current) use of insulin
CPT/HCPCS: 36415; 70450; 71045; 80053; 80307; 81001; 83735; 84484; 85025; 85610; 93005; 93041; 96360; 99284; A9270-GY

== ENCOUNTER 2018-11-14 17:12 | Observation (INO) | payer MEDICARE, OTHER ==
[2018-11-14] MEDS: Sodium Chloride 0.9% 1000 ML 1,000 ML IV SCH (19:44)
[2018-11-14 20:00] LABS: Hematocrit 41.9 % (42-50); Hemoglobin 13.6 gm/dl (12.5-18.0); Mean Cell Volume 97.7 fl (78-100); Mean Corpuscular Hemoglobin 31.7 pg (26-32); Mean Corpuscular Hgb Concent. 32.5 g/dl (32-36); Mean Platelet Volume 10.5 fl (6-9.5); Platelet Count 165 K/mm3 (150-450); Red Blood Count 4.29 M/mm3 (4.1-5.6); Red Cell Distribution Width 14.1 % (11.5-14.0); White Blood Count 6.7 K/mm3 (4.0-10.5)
[2018-11-14 20:18] LABS: ALBUMIN 3.8 g/dL (3.5-5.0); ALKALINE PHOSPHATASE 118 U/L (38-126); ANION GAP 10.4 MEQ/L (5-15); BLOOD UREA NITROGEN 22 mg/dL (9-20); CHLORIDE 101 mmol/L (98-107); Calcium 8.4 mg/dL (8.4-10.2); Carbon Dioxide 30 mmol/L (22-30); Creatinine 1 1.16 mg/dL (0.66-1.25); Glucose 153 mg/dL (74-106); Potassium 4.1 mmol/L (3.5-5.1); SGOT/AST 19 U/L (17-59); SGPT/ALT 13 U/L (0-50); SODIUM 138 mmol/L (137-145)
[2018-11-14 21:09] LABS: Appearance CLEAR (CLEAR); Bilirubin NEGATIVE (NEGATIVE); Blood NEGATIVE Ery/ul (0-5); Glucose >=500 mg/dL (NEGATIVE); Ketones NEGATIVE (NEGATIVE); Leukocyte Esterase NEGATIVE (NEGATIVE); Nitrite NEGATIVE (NEGATIVE); Protein,Urine Dip NEGATIVE (Negative); Specific Gravity 1.032 (1.005-1.025); Urobilinogen NEGATIVE mg/dL (0-1)
[2018-11-14] MEDS ORDERED: Ditropan 5 MG PO SCH (22:00)
[2018-11-14] MEDS ORDERED: xanAX 0.5 MG PO PRN (22:00)
[2018-11-14] MEDS ORDERED: Requip 0.5 MG PO SCH (22:00)
[2018-11-14] MEDS: ANTIVERT 25 MG PO SCH (23:01)
[2018-11-14] MEDS: Zestril 20 MG PO SCH (23:02)
[2018-11-14] MEDS: Sinemet 25/100 MG PO SCH (23:02)
[2018-11-14] MEDS: NovoLOG Insulin SQ PRN (23:02)
[2018-11-15] MEDS: Sodium Chloride 0.9% 1000 ML 1,000 ML IV SCH ×2 (05:52→16:07)
[2018-11-15] MEDS ORDERED: Nitrostat 0.4 MG Tablet SL PRN (06:58)
[2018-11-15] MEDS ORDERED: NON-FORMULARY ITEM (Cholecalciferol (Vitamin D3) [Vitamin D3] 5,000 UNIT) PO SCH (07:00)
[2018-11-15] MEDS ORDERED: MEDICATION INTERVENTION MC SCH ×3 (07:15)
[2018-11-15] MEDS: Glucophage 500 MG PO SCH (08:05)
--- NOTE | 2018-11-15 09:04 | XRAY ---
Indication: Bronchitis. Comparison: October 06, 2018. AP/lateral chest obtained portable technique unchanged again demonstrating mild left base infiltrate/atelectasis/effusion. Remaining heart and right lung unremarkable.
[2018-11-15] MEDS: ANTIVERT 25 MG PO SCH ×3 (09:31→22:17)
[2018-11-15] MEDS: Lexapro 10 MG PO SCH (09:32)
[2018-11-15] MEDS: Ditropan XL 5 MG PO SCH ×3 (09:32→22:17)
[2018-11-15] MEDS: Sinemet 25/100 MG PO SCH ×4 (09:32→22:17)
[2018-11-15] MEDS: Requip 0.5 MG PO SCH ×4 (09:32→22:17)
[2018-11-15] MEDS: Flomax 0.4 MG PO SCH (09:32)
[2018-11-15] MEDS: Lasix 40 MG PO SCH (09:32)
[2018-11-15] MEDS: ELIQUIS 2.5 MG TABLET PO SCH (09:32)
[2018-11-15] MEDS ORDERED: ENTACAPONE 200 MG PO SCH (10:00)
[2018-11-15] MEDS ORDERED: [UNRECOGNIZED DRUG - OTHER] SQ SCH (10:00)
[2018-11-15] MEDS ORDERED: ENOXAPARIN SODIUM SQ SCH (10:00)
[2018-11-15] MEDS ORDERED: NON-FORMULARY ITEM (Empagliflozin [Jardiance] 10 MG) PO SCH (10:00)
[2018-11-15] MEDS: NovoLOG Insulin SQ PRN ×2 (11:04→16:08)
--- NOTE | 2018-11-15 12:27 | PCM.NOTE ---
Date and Time: 11/15/18 1226 Subjective Assessment: doing ok - Review of Systems Constitutional: No Fever, No Chills Eyes: No Symptoms Ears, Nose, & Throat: No Symptoms Respiratory: No Cough, No Short Of Breath Cardiac: No Chest Pain, No Edema, No Syncope Abdominal/Gastrointestinal: No Abdominal Pain, No Nausea, No Vomiting, No Diarrhea Genitourinary Symptoms: No Dysuria Musculoskeletal: No Back Pain, No Neck Pain Skin: No Rash Neurological: No Dizziness, No Focal Weakness, No Sensory Changes Psychological: No Symptoms Endocrine: No Symptoms Hematologic/Lymphatic: No Symptoms Immunological/Allergic: No Symptoms Objective Exam General Appearance: no apparent distress, alert Neurologic Exam: alert, oriented x 3, cooperative, normal mood/affect, nml cerebellar function, sensation nml, No motor deficits Skin Exam: normal color, warm, dry Eye Exam: PERRL, EOMI, eyes nml inspection Ears, Nose, Throat Exam: normal ENT inspection, pharynx normal, moist mucous membranes Neck Exam: normal inspection, non-tender, supple, full range of motion Respiratory Exam: normal breath sounds, lungs clear, No respiratory distress Cardiovascular Exam: regular rate/rhythm, normal heart sounds Gastrointestinal/Abdomen Exam: soft, No tenderness, No mass Extremity Exam: normal inspection, normal range of motion Back Exam: normal inspection, normal range of motion, No CVA tenderness, No vertebral tenderness Male Genitalia Exam: deferred Rectal Exam: deferred OBJECTIVE DATA Vital Signs: Vital Signs - 24 hr Temp Pulse Resp BP Pulse Ox 11/15/18 11:19 97.9 F 80 20 140/65 95 11/15/18 07:34 98 F 78 20 114/68 96 11/15/18 04:03 98.2 F 60 18 117/65 96 11/14/18 23:53 98.1 F 67 18 119/59 95 11/14/18 18:00 97.7 F 76 18 124/62 97 Pain Assessment - Last Documented Pain Intensity 0 Pain Scale Used [facility] Intake and Output: Intake & Output 11/13/18 11/14/18 11/15/18 11/16/18 11:59 11:59 11:59 11:59 Intake Total 2032 Output Total 750 Balance 1282 Weight 106.3 kg Lab Results: Accuchecks Date 11/15/18 Date 11/15/18 Time 11:02 Time 08:00 Accucheck Value: 220 Accucheck Value: 179 Accucheck Value: 203 Lab Results-Last 24 Hours 11/14/18 11/14/18 11/14/18 Range/Units 19:50 19:50 21:00 WBC 6.7 (4.0-10.5) K/mm3 RBC 4.29 (4.1-5.6) M/mm3 Hgb 13.6 (12.5-18.0) gm/dl Hct 41.9 L (42-50) % MCV 97.7 (78-100) fl MCH 31.7 (26-32) pg MCHC 32.5 (32-36) g/dl RDW 14.1 H (11.5-14.0) % Plt Count 165 (150-450) K/mm3 MPV 10.5 H (6-9.5) fl Sodium 138 (137-145) mmol/L Potassium 4.1 (3.5-5.1) mmol/L Chloride 101 (98-107) mmol/L Carbon Dioxide 30 (22-30) mmol/L Anion Gap 10.4 (5-15) MEQ/L BUN 22 H (9-20) mg/dL Creatinine 1.16 (0.66-1.25) mg/dL Estimated GFR > 60.0 ML/MIN Glucose 153 H (74-106) mg/dL Hemoglobin A1c (4.5-6.0) % Calcium 8.4 (8.4-10.2) mg/dL Total Bilirubin 0.80 (0.2-1.3) mg/dL AST 19 (17-59) U/L ALT 13 (0-50) U/L Alkaline Phosphatase 118 (38-126) U/L Serum Total Protein 7.0 (6.3-8.2) g/dL Albumin 3.8 (3.5-5.0) g/dL Urine Color YELLOW (YELLOW) Urine Appearance CLEAR (CLEAR) Urine pH 5.0 (5-6) Ur Specific [place] 1.032 (1.005-1.025) Urine Protein NEGATIVE (Negative) Urine Ketones NEGATIVE (NEGATIVE) Urine Blood NEGATIVE (0-5) Haseeb/ul Urine Nitrite NEGATIVE (NEGATIVE) Urine Bilirubin NEGATIVE (NEGATIVE) Urine Urobilinogen NEGATIVE (0-1) mg/dL Ur Leukocyte Esterase NEGATIVE (NEGATIVE) Urine WBC (Auto) NONE (0-5) /HPF Urine RBC (Auto) NONE (0-2) /HPF U Epithel Cells (Auto) NONE (FEW) /HPF Urine Bacteria (Auto) NONE (NEGATIVE) /HPF Urine Culture Reflexed NO (NO) Urine Glucose >=500 (NEGATIVE) mg/dL 11/15/18 Range/Units Unknown WBC (4.0-10.5) K/mm3 RBC (4.1-5.6) M/mm3 Hgb (12.5-18.0) gm/dl Hct (42-50) % MCV (78-100) fl MCH (26-32) pg MCHC (32-36) g/dl RDW (11.5-14.0) % Plt Count (150-450) K/mm3 MPV (6-9.5) fl Sodium (137-145) mmol/L Potassium (3.5-5.1) mmol/L Chloride (98-107) mmol/L Carbon Dioxide (22-30) mmol/L Anion Gap (5-15) MEQ/L BUN (9-20) mg/dL Creatinine (0.66-1.25) mg/dL Estimated GFR ML/MIN Glucose (74-106) mg/dL Hemoglobin A1c 7.91 H (4.5-6.0) % Calcium (8.4-10.2) mg/dL Total Bilirubin (0.2-1.3) mg/dL AST (17-59) U/L ALT (0-50) U/L Alkaline Phosphatase (38-126) U/L Serum Total Protein (6.3-8.2) g/dL Albumin (3.5-5.0) g/dL Urine Color (YELLOW) Urine Appearance (CLEAR) Urine pH (5-6) Ur Specific [place] (1.005-1.025) Urine Protein (Negative) Urine Ketones (NEGATIVE) Urine Blood (0-5) Haseeb/ul Urine Nitrite (NEGATIVE) Urine Bilirubin (NEGATIVE) Urine Urobilinogen (0-1) mg/dL Ur Leukocyte Esterase (NEGATIVE) Urine WBC (Auto) (0-5) /HPF Urine RBC (Auto) (0-2) /HPF U Epithel Cells (Auto) (FEW) /HPF Urine Bacteria (Auto) (NEGATIVE) /HPF Urine Culture Reflexed (NO) Urine Glucose (NEGATIVE) mg/dL Radiology Exams: Radiology Procedures Category Date Time Status CHEST 2 VIEWS (PA AND LAT) Routine Exams 11/15/18 08:41 Completed Multi-Disciplinary Progress Notes: Multi-Disciplinary Progress Notes 11/15/18 10:52 Case Management Note by Stephanie Singh ATTEMPTED TO REACH , PRACHI, ALSO APPOINTED LAY CAREGIVER TO DISCUSS DISCHARGE PLANNING AND NEEDS FOR DISCHARGE. MESSAGE NOT LEFT, NO VOICEMAIL SET UP. [phone]. Initialized on 11/15/18 10:52 - END OF NOTE 11/14/18 21:36 Respiratory Note by Amelia Travis 11/14/18 20:38 I NOTICED ON PT'S MEDICAL HISTORY THAT HE HAS A HX OF EVA. UPON ASKING THE PATIENT IF HE WEARS CPAP AT HOME AT NIGHT, HE STATED THAT HE HASN'T FOR ABOUT SIX MONTHS, BUT IS GETTING A NEW CPAP MACHINE TO USE. PT REFUSED A CPAP WHILE HERE, BUT HE VERBALIZED UNDERSTANDING THAT HE COULD CALL AT ANY TIME IF HE CHANGED HIS MIND. Initialized on 11/14/18 21:36 - END OF NOTE Assessment/Plan (1) Hallucination, drug-induced Current Visit: Yes Status: Acute Code(s): F19.951 - OTH PSYCHOACTV SUB USE, UNSP W PSYCH DISORDER W HALLUCIN (2) Weakness Current Visit: No Status: Acute Onset Date: ~02/26/18 Code(s): R53.1 - WEAKNESS (3) Frequent falls Current Visit: No Status: Suspected Onset Date: ~02/26/18 Code(s): R29.6 - REPEATED FALLS
[2018-11-15] MEDS: Zestril 20 MG PO SCH (22:19)
[2018-11-16] MEDS: Sodium Chloride 0.9% 1000 ML 1,000 ML IV SCH (01:17)
[2018-11-16] MEDS: Glucophage 500 MG PO SCH (07:53)
[2018-11-16] MEDS: ANTIVERT 25 MG PO SCH (09:02)
[2018-11-16] MEDS: Flomax 0.4 MG PO SCH (09:02)
[2018-11-16] MEDS: Lasix 40 MG PO SCH (09:02)
[2018-11-16] MEDS: ELIQUIS 2.5 MG TABLET PO SCH (09:02)
[2018-11-16] MEDS: Ditropan XL 5 MG PO SCH (09:02)
[2018-11-16] MEDS: Sinemet 25/100 MG PO SCH ×2 (09:03→12:27)
[2018-11-16] MEDS: Lexapro 10 MG PO SCH (09:03)
[2018-11-16] MEDS: Requip 0.5 MG PO SCH ×2 (09:03→12:28)
[2018-11-16 12:36] VITALS: BP 120/65; PULSE 70; O2SAT 98
[2018-11-19] MEDS ORDERED: VITAMIN D PO SCH (10:00)
== END 2018-11-16 13:30 | disposition home health service (06) ==
LOC: MED SURG 17:12
PROVIDERS: ADMIT General Practice; ATTEND General Practice
DX: R44.3 Hallucinations, unspecified (principal); G20 Parkinson's disease; R53.1 Weakness; R29.6 Repeated falls; I10 Essential (primary) hypertension; E11.9 Type 2 diabetes mellitus without complications; M06.9 Rheumatoid arthritis, unspecified; J44.9 Chronic obstructive pulmonary disease, unspecified; Z79.4 Long term (current) use of insulin; Z79.899 Other long term (current) drug therapy
CPT/HCPCS: 36415; 71046; 80053; 81001; 82962; 83036; 85027; G0378; J1650; A9270-GY

== ENCOUNTER 2018-12-22 09:44 | Inpatient (IN) | payer MEDICARE, OTHER ==
[2018-12-22 10:06] LABS: BASOPHIL % 0.2 % (0.0-0.4); Basophil (Absolute #) 0.02 (0-0.4); Eosinophil % 1.3 % (0.00-5.0); Eosinophil (Absolute #) 0.11 (0-0.5); Granulocyte Absolute (ANC) 6.52 (1.4-6.9); Granulocytes % 78.7 % (36.0-66.0); Hemoglobin 14.2 gm/dl (12.5-18.0); Lymphocyte (Absolute #) 1.02 (1.0-4.6); Lymphocytes % 12.3 % (24.0-44.0); Mean Cell Volume 99.5 fl (78-100); Mean Corpuscular Hemoglobin 32.1 pg (26-32); Mean Corpuscular Hgb Concent. 32.3 g/dl (32-36); Mean Platelet Volume 11.3 fl (6-9.5); Monocyte (Absolute #) 0.62 (0.0-1.3); Monocytes % 7.5 % (0.0-12.0); Platelet Count 146 K/mm3 (150-450); Red Blood Count 4.42 M/mm3 (4.1-5.6); Red Cell Distribution Width 13.8 % (11.5-14.0); White Blood Count 8.3 K/mm3 (4.0-10.5)
[2018-12-22 10:11] LABS: INR 1.14 (0.8-3.0); PROTIME 13.3 SECONDS (8.83-12.87)
[2018-12-22 10:17] LABS: ALBUMIN 3.5 g/dL (3.5-5.0); ALKALINE PHOSPHATASE 113 U/L (38-126); ANION GAP 12.1 MEQ/L (5-15); BLOOD UREA NITROGEN 16 mg/dL (9-20); CHLORIDE 104 mmol/L (98-107); Carbon Dioxide 28 mmol/L (22-30); Glucose 118 mg/dL (74-106); Potassium 4.3 mmol/L (3.5-5.1); SGOT/AST 12 U/L (17-59); SGPT/ALT 6 U/L (0-50); SODIUM 140 mmol/L (137-145); Total Protein 6.7 g/dL (6.3-8.2)
[2018-12-22] MEDS: Sodium Chloride 0.9% 1000 ML 1,000 ML IV SCH (10:19)
[2018-12-22 10:26] LABS: Amphetamine,Urine NEGATIVE (NEGATIVE); Barbiturate,Urine NEGATIVE (NEGATIVE); Benzodiazepine,Urine NEGATIVE (NEGATIVE); Cocaine,Urine NEGATIVE (NEGATIVE); Methadone,Urine NEGATIVE (NEGATIVE); Opiate,Urine POSITIVE (NEGATIVE); PCP,Urine NEGATIVE (NEGATIVE); THC,Urine NEGATIVE (NEGATIVE)
--- NOTE | 2018-12-22 10:59 | XRAY ---
Indication: Cough. Comparison: November 15, 2018. Portable chest unchanged again demonstrating left base mild infiltrate/atelectasis/effusion. Remaining heart and right lung unremarkable. Bony thorax intact.
--- NOTE | 2018-12-22 11:05 | XRAY ---
Indication: Confusion. Frequent falls. Multiple contiguous axial images obtained through the head without contrast. Comparison: October 06, 2018. Stable age-appropriate global atrophy. Again no acute intracranial hemorrhage, abnormal extra-axial fluid collection, or mass effect. Fourth ventricle is midline without hydrocephalus. Reyes-white matter differentiation preserved. Bony calvarium intact. Visualized paranasal sinuses and mastoid air cells are clear. Impression: Stable negative CT head without contrast exam. CT DI 59.85
--- NOTE | 2018-12-22 11:41 | ERPHSYRPT ---
- History of Present Illness Time Seen by Provider: 12/22/18 10:00 Source: patient, family, EMS Patient Subjective Stated Complaint: [facility] NURSE REPORTS PATIENT IS RECOVERING AT HOME FROM RIGHT FOOT SURGERY RECENTLY. HAS HX OF PARKINSONS WITH SOME CONFUSION AND FALLS RECENTLY. IS HOMEBOUND AND HAS NOT BEEN ABLE TO CARE FOR PATIENT ADEQUATELY. [facility] NURSE REPORTS FAMILY DOCTOR WAS NOTIFIED LAST NIGHT AND PATIENT WAS BROUGHT TO ER TODAY TO SEE IF HE COULD BE PLACED IN JAIL FOR FURTHER CARE. Triage Nursing Assessment: TO ROOM PER EMS COT. SKIN W/D, COLOR PALE. RESP EASY. HAS LARGE DRESSING AND POST OP SHOE TO RIGHT FOOT. AT PRESENT TIME PATIENT IS ALERT AND ORIENTED TO TIME, DAY AND PLACE. Physician History: PATIENT WITH A HISTORY PARKINSON'S DISEASE, SLEEP APNEA, TYPE 2 DIABETES, PERIPHERAL NEUROPATHY COMPLAINS OF FREQUENT FALLS OVER THE PAST 8 MONTHS AND OCCASIONAL CONFUSION. PATIENT AMBULATES WITH WALKER ASSISTANCE. DENIES HEAD, NECK, BACK OR HIP INJURIES. DENIES HEADACHE, BLURRED VISION, SLURRED SPEECH, FOCAL NUMBNESS, TINGLING OR WEAKNESS IN EXTREMITIES. PATIENT HAS HAD RECENT RIGHT FOOT SURGERY 2 DAYS AGO. Timing/Duration: week(s) Severity: mild Modifying Factors: Improves With: movement Associated Symptoms: weakness Allergies/Adverse Reactions: No Known Drug Allergies Allergy (Verified 12/22/18 10:11) Home Medications: Furosemide 40 mg [Lasix 40 MG] 40 mg PO DAILY 08/13/17 [History] Insulin Lispro Protamin/Lispro [Humalog Mix 50-50 Kwikpen] 0 unit SQ TIDAC 11/14 [History] Apomorphine HCl [Apokyn] 0.3 ml SQ TID 02/26/18 [History] Alprazolam [Xanax] 0.5 mg PO TIDPRN PRN 04/12/18 [History] Entacapone 200 mg PO QID 04/12/18 [History] Nitroglycerin [Nitrostat] 0.4 mg SL UD PRN 04/12/18 [History] Apixaban [Eliquis 2.5 mg Tablet] 2.5 mg PO DAILY 11/14/18 [History] Carbidopa/Levodopa 25/100 mg [Sinemet 25/100 MG] 1 tab PO QID 11/14/18 [ History] Cholecalciferol (Vitamin D3) [Vitamin D3] 5,000 unit PO WEEKLY 11/14/18 [History ] Empagliflozin [Jardiance] 10 mg PO DAILY 11/14/18 [History] Escitalopram Oxalate 10 mg [Lexapro 10 MG] 10 mg PO DAILY 11/14/18 [History] Lisinopril 20 mg [Zestril 20 MG] 40 mg PO HS 11/14/18 [History] Meclizine HCl 25 mg [Antivert 25 mg] 12.5 mg PO TID 11/14/18 [History] Metformin HCl 500 mg [Glucophage 500 MG] 500 mg PO DAILY 11/14/18 [History ] Oxybutynin Chloride [Ditropan Xl] 5 mg PO TID 11/14/18 [History] Ropinirole HCl 0.5 mg [Requip 0.5 MG] 1 mg PO QID 11/14/18 [History] Tamsulosin HCl 0.4 mg [Flomax 0.4 MG] 0.4 mg PO DAILY 11/14/18 [History] Hydrocodone Bit/Acetaminophen [Hydrocodon-Acetaminoph 7.5-325] 1 each PO Q6HPRN PRN 12/22/18 [History] Hx Tetanus, Diphtheria Vaccination/Date Given: Yes Hx Influenza Vaccination/Date Given: Yes Hx Pneumococcal Vaccination/Date Given: Yes - Review of Systems Constitutional: No Fever, No Chills Eyes: No Symptoms Ears, Nose, & Throat: No Symptoms Respiratory: No Symptoms, No Cough, No Dyspnea Cardiac: No Symptoms, No Chest Pain, No Edema, No Syncope Abdominal/Gastrointestinal: No Symptoms, No Abdominal Pain, No Nausea, No Vomiting, No Diarrhea Genitourinary Symptoms: No Symptoms, No Dysuria Musculoskeletal: No Symptoms, No Back Pain, No Neck Pain Skin: No Symptoms, No Rash Neurological: Other (GENERALIZED WEAKNESS), No Dizziness, No Focal Weakness, No Sensory Changes Psychological: No Symptoms Endocrine: No Symptoms All Other Systems: Reviewed and Negative - Past Medical History Pertinent Past Medical History: Yes Neurological History: Peripheral Neuropathy, Other ENT History: No Pertinent History Cardiac History: Hypertension Respiratory History: Sleep Apnea Endocrine Medical History: Diabetes Type II Musculoskeletal History: Rheumatoid Arthritis, Other GI Medical History: Gallbladder Disease History: No Pertinent History Psycho-Social History: Depression, Other Male Reproductive Disorders: Prostate Problems Other Medical History: PARKINSONS; Intentional xanax overdose 2018; - Past Surgical History Past Surgical History: Yes Neuro Surgical History: No Pertinent History Cardiac: No Pertinent History, Cardiac Catheterization Respiratory: No Pertinent History Gastrointestinal: Cholecystectomy, Hernia Repair Musculoskeletal: Joint Replacement, Orthopedic Surgery Other Surgical History: ABDON KNEE REPLACEMENT; Left wrist hardware, RIGHT GREAT TOE - Social History Smoking Status: Never smoker Exposure to second hand smoke: No Drug Use: none Patient Lives Alone: No Significant Family History: no pertinent family hx - Nursing Vital Signs Nursing Vital Signs: Initial Vital Signs Temperature 97.5 F 12/22/18 09:46 Pulse Rate 53 L 12/22/18 09:46 Respiratory Rate 16 12/22/18 09:46 Blood Pressure 118/70 12/22/18 09:46 O2 Sat by Pulse Oximetry 96 12/22/18 09:46 Pain Scale Pain Intensity 4 - Physical Exam General Appearance: no apparent distress, alert Eye Exam: PERRL/EOMI, eyes nml inspection Ears, Nose, Throat Exam: normal ENT inspection, TMs normal, pharynx normal, moist mucous membranes Neck Exam: normal inspection, non-tender, supple, full range of motion Respiratory Exam: normal breath sounds, lungs clear, No respiratory distress Cardiovascular Exam: regular rate/rhythm, normal heart sounds, normal peripheral pulses Gastrointestinal/Abdomen Exam: soft, normal bowel sounds, No tenderness, No mass Back Exam: normal inspection, normal range of motion, No CVA tenderness, No vertebral tenderness Extremity Exam: normal inspection, normal range of motion, pelvis stable, other (DRESSING OVER RIGHT FOOT UP TO ANKLE) Neurologic Exam: alert, oriented x 3, cooperative, normal mood/affect, nml cerebellar function, nml station & gait, sensation nml, other (ALERT APPROPRIATE ), No motor deficits Skin Exam: normal color, warm, dry, No rash Lymphatic Exam: No adenopathy SpO2 Interpretation: normal SpO2: 95 - Radiology Exams Chest X-ray Interpretation: Discussed w/ radiologist, Negative, No Infiltrates - CT Exams Head CT Interpretation: Discussed w/radiologist, No/Intracranial Hemorrhag Ordered Tests: Active Orders 24 hr Category Date Time Status Up With Assistance ROUTINE Activity 12/22/18 12:00 Active Accucheck ACHS Care 12/22/18 12:00 Active Call Admit Doctor for Orders ON ADMISSION Care 12/22/18 12:00 Active Electrotype Servicer STAT Care 12/22/18 10:00 Active Clean Catch Urine Specimen STAT Care 12/22/18 09:59 Active Code Status Order ROUTINE Care 12/22/18 12:00 Active EKG-ER Only STAT Care 12/22/18 09:59 Active IV Care Q6H Care 12/22/18 12:00 Active IV Insertion STAT Care 12/22/18 09:59 Active Neuro Checks Q4H Care 12/22/18 12:[address] in Observation ROUTINE Care 12/22/18 12:00 Active Vital Signs Q4H Care 12/22/18 12:00 Active 1800 Calorie ADA Diet 12/22/18 Dinner Active CHEST 1 VIEW (PORTABLE) Stat Exams 12/22/18 10:00 Completed HEAD WITHOUT CONTRAST [CT] Stat Exams 12/22/18 10:01 Completed CBC W DIFF Stat Lab 12/22/18 10:02 Completed CMP Stat Lab 12/22/18 10:02 Completed MAG [MAGNESIUM] Stat Lab 12/22/18 10:11 Completed PROTIME WITH INR Stat Lab 12/22/18 10:02 Completed TROPONIN Q3H Lab 12/22/18 10:02 Completed TROPONIN Q3H Lab 12/22/18 13:00 Ordered TROPONIN Q3H Lab 12/22/18 16:00 Ordered TROPONIN Q3H Lab 12/22/18 19:00 Ordered TROPONIN Q3H Lab 12/22/18 22:00 Ordered Urine Triage Profile Stat Lab 12/22/18 10:06 Completed Transfer Order Routine Transfer 12/22/18 Ordered Medication Summary Generic Name Dose Route Start Last Admin Trade Name Freq PRN Reason Stop Dose Admin Acetaminophen 650 mg 12/22/18 12:00 Tylenol 325 Mg PO 01/21/19 11:59 Q4H PRN PRN PAIN AND/OR FEVER Carbidopa/Levodopa 1 tab 12/22/18 13:00 Sinemet 25/100 Mg PO 01/21/19 12:59 QID NANCY Escitalopram Oxalate 10 mg 12/23/18 10:00 Lexapro 10 Mg PO 01/22/19 09:59 QAM NANCY Furosemide 40 mg 12/23/18 10:00 Lasix 40 Mg PO 01/22/19 09:59 DAILY NANCY Sodium Chloride 1,000 mls @ 50 mls/hr 12/22/18 10:00 12/22/18 10:19 Sodium Chloride 0.9% 1000 Ml IV 01/21/19 09:59 50 mls/hr .Q20H NANCY Administration Lisinopril 20 mg 12/23/18 10:00 Zestril 20 Mg PO 01/22/19 09:59 DAILY NANCY Metformin HCl 500 mg 12/23/18 10:00 Glucophage 500 Mg PO 01/22/19 09:59 DAILY NANCY Nitroglycerin 0.4 mg 12/22/18 12:04 Nitro-Dur 0.4 Mg/Hr TD 01/21/19 12:03 Q5MIN PRN MR X 3 PRN CHEST PAIN Ondansetron HCl 4 mg 12/22/18 12:00 Zofran 4 Mg/2 Ml Vial IV 01/21/19 11:59 Q6H PRN PRN NAUSEA/VOMITING Ropinirole HCl 1 mg 12/23/18 10:00 Requip 0.5 Mg PO 01/22/19 09:59 DAILY NANCY Tamsulosin HCl 0.4 mg 12/23/18 10:00 Flomax 0.4 Mg PO 01/22/19 09:59 DAILY [facility] Lab/Rad Data: Laboratory Result Diagrams 12/22/18 10:02 12/22/18 10:02 Laboratory Results 12/22/18 12/22/18 12/22/18 Range/Units 10:11 10:06 10:02 WBC (4.0-10.5) K/mm3 RBC (4.1-5.6) M/mm3 Hgb (12.5-18.0) gm/dl Hct (42-50) % MCV (78-100) fl MCH (26-32) pg MCHC (32-36) g/dl RDW (11.5-14.0) % Plt Count (150-450) K/mm3 MPV (6-9.5) fl Gran % (36.0-66.0) % Eos # (Auto) (0-0.5) Absolute Lymphs (auto) (1.0-4.6) Absolute Monos (auto) (0.0-1.3) Lymphocytes % (24.0-44.0) % Monocytes % (0.0-12.0) % Eosinophils % (0.00-5.0) % Basophils % (0.0-0.4) % Absolute Granulocytes (1.4-6.9) Basophils # (0-0.4) PT (8.83-12.87) SECONDS INR (0.8-3.0) Sodium (137-145) mmol/L Potassium (3.5-5.1) mmol/L Chloride (98-107) mmol/L Carbon Dioxide (22-30) mmol/L Anion Gap (5-15) MEQ/L BUN (9-20) mg/dL Creatinine (0.66-1.25) mg/dL Estimated GFR ML/MIN Glucose (74-106) mg/dL Calcium (8.4-10.2) mg/dL Magnesium 2.1 (1.6-2.3) mg/dL Total Bilirubin (0.2-1.3) mg/dL AST (17-59) U/L ALT (0-50) U/L Alkaline Phosphatase (38-126) U/L Troponin I < 0.012 (0.000-0.034) ng/mL Serum Total Protein (6.3-8.2) g/dL Albumin (3.5-5.0) g/dL Urine Opiates Level POSITIVE (NEGATIVE) Ur Methadone NEGATIVE (NEGATIVE) Urine Barbiturates NEGATIVE (NEGATIVE) Ur Phencyclidine (PCP) NEGATIVE (NEGATIVE) Urine Amphetamine NEGATIVE (NEGATIVE) U Benzodiazepine Level NEGATIVE (NEGATIVE) Urine Cocaine NEGATIVE (NEGATIVE) Urine Marijuana (THC) NEGATIVE (NEGATIVE) 12/22/18 12/22/18 12/22/18 Range/Units 10:02 10:02 10:02 WBC 8.3 (4.0-10.5) K/mm3 RBC 4.42 (4.1-5.6) M/mm3 Hgb 14.2 (12.5-18.0) gm/dl Hct 44.0 (42-50) % MCV 99.5 (78-100) fl MCH 32.1 H (26-32) pg MCHC 32.3 (32-36) g/dl RDW 13.8 (11.5-14.0) % Plt Count 146 L (150-450) K/mm3 MPV 11.3 H (6-9.5) fl Gran % 78.7 H (36.0-66.0) % Eos # (Auto) 0.11 (0-0.5) Absolute Lymphs (auto) 1.02 (1.0-4.6) Absolute Monos (auto) 0.62 (0.0-1.3) Lymphocytes % 12.3 L (24.0-44.0) % Monocytes % 7.5 (0.0-12.0) % Eosinophils % 1.3 (0.00-5.0) % Basophils % 0.2 (0.0-0.4) % Absolute Granulocytes 6.52 (1.4-6.9) Basophils # 0.02 (0-0.4) PT 13.3 H (8.83-12.87) SECONDS INR 1.14 (0.8-3.0) Sodium 140 (137-145) mmol/L Potassium 4.3 (3.5-5.1) mmol/L Chloride 104 (98-107) mmol/L Carbon Dioxide 28 (22-30) mmol/L Anion Gap 12.1 (5-15) MEQ/L BUN 16 (9-20) mg/dL Creatinine 1.00 (0.66-1.25) mg/dL Estimated GFR > 60.0 ML/MIN Glucose 118 H (74-106) mg/dL Calcium 9.0 (8.4-10.2) mg/dL Magnesium (1.6-2.3) mg/dL Total Bilirubin 0.70 (0.2-1.3) mg/dL AST 12 L (17-59) U/L ALT 6 (0-50) U/L Alkaline Phosphatase 113 (38-126) U/L Troponin I (0.000-0.034) ng/mL Serum Total Protein 6.7 (6.3-8.2) g/dL Albumin 3.5 (3.5-5.0) g/dL Urine Opiates Level (NEGATIVE) Ur Methadone (NEGATIVE) Urine Barbiturates (NEGATIVE) Ur Phencyclidine (PCP) (NEGATIVE) Urine Amphetamine (NEGATIVE) U Benzodiazepine Level (NEGATIVE) Urine Cocaine (NEGATIVE) Urine Marijuana (THC) (NEGATIVE) - Progress Progress Note: 12/22/18 11:52 DISCUSSED WITH PATIENT RECENT RIGHT FOOD SURGERY, STATES DRESSING IN NOT TO BE CHANGED IN 1 WEEK. Discussed with : Yocasta (DISCUSSED WITH DR OLEA AT 1130 FOR OBSERVATION) - Departure Departure Disposition: Observation Clinical Impression: GENERALIZED WEAKNESS Condition: Stable Critical Care Time: No Referrals: FIDEL PETERSON MD [Primary Care Provider] - Additional Instructions: DEPARTURE TIME 1210
[2018-12-22] MEDS ORDERED: TYLENOL 325 MG PO PRN (12:00)
[2018-12-22] MEDS ORDERED: Zofran 4 MG/2 ML VIAL IV PRN (12:00)
[2018-12-22] MEDS ORDERED: Nitro-Dur 0.4 MG/HR TD PRN (12:04)
[2018-12-22 13:36] LABS: Appearance CLEAR (CLEAR); Bilirubin NEGATIVE (NEGATIVE); Blood NEGATIVE Ery/ul (0-5); Glucose >=500 mg/dL (NEGATIVE); Hyaline Casts 0-2 /LPF (0-2); Ketones SMALL (NEGATIVE); Leukocyte Esterase NEGATIVE (NEGATIVE); Nitrite NEGATIVE (NEGATIVE); Protein,Urine Dip NEGATIVE (Negative); Specific Gravity 1.023 (1.005-1.025); Urobilinogen NEGATIVE mg/dL (0-1)
[2018-12-22] MEDS: Sinemet 25/100 MG PO SCH ×3 (14:09→21:35)
[2018-12-22] MEDS ORDERED: Nitrostat 0.4 MG Tablet SL PRN (15:53)
[2018-12-22] MEDS ORDERED: NORCO 7.5/325 MG TAB PO PRN (15:53)
[2018-12-22] MEDS ORDERED: xanAX 0.5 MG PO PRN (15:53)
[2018-12-22] MEDS ORDERED: NON-FORMULARY ITEM (Cholecalciferol (Vitamin D3) [Vitamin D3] 5,000 UNIT) PO SCH (16:00)
[2018-12-22] MEDS ORDERED: MEDICATION INTERVENTION MC SCH ×2 (16:30)
[2018-12-22] MEDS ORDERED: ENTACAPONE 200 MG PO SCH (17:00)
[2018-12-22] MEDS: Requip 0.5 MG PO SCH ×2 (17:55→21:35)
[2018-12-22] MEDS: ANTIVERT 25 MG PO SCH (21:32)
[2018-12-22] MEDS: Ditropan XL 5 MG PO SCH (21:33)
[2018-12-22] MEDS: Flomax 0.4 MG PO SCH (21:33)
[2018-12-22] MEDS: PATIENT OWN MEDICATION SQ SCH (21:34)
[2018-12-22] MEDS ORDERED: [UNRECOGNIZED DRUG - OTHER] SQ SCH (22:00)
[2018-12-23] MEDS: Requip 0.5 MG PO SCH ×4 (09:11→21:37)
[2018-12-23] MEDS: ELIQUIS 2.5 MG TABLET PO SCH (09:12)
[2018-12-23] MEDS: Glucophage 500 MG PO SCH (09:12)
[2018-12-23] MEDS: Lexapro 10 MG PO SCH (09:12)
[2018-12-23] MEDS: ANTIVERT 25 MG PO SCH ×3 (09:12→21:35)
[2018-12-23] MEDS: Ditropan XL 5 MG PO SCH ×3 (09:12→21:36)
[2018-12-23] MEDS: Sinemet 25/100 MG PO SCH ×4 (09:13→21:37)
[2018-12-23] MEDS: Lasix 40 MG PO SCH (09:16)
[2018-12-23] MEDS: PATIENT OWN MEDICATION SQ SCH ×3 (09:20→21:36)
[2018-12-23] MEDS ORDERED: NON-FORMULARY ITEM (Empagliflozin [Jardiance] 10 MG) PO SCH (10:00)
[2018-12-23] MEDS ORDERED: Requip 0.5 MG PO SCH (10:00)
[2018-12-23] MEDS ORDERED: Flomax 0.4 MG PO SCH (10:00)
--- NOTE | 2018-12-23 12:14 | PCM.HP ---
History of Present Illness - Chief Complaint Chief Complaint: generalized weakness for few weeks, c/o foot pain History of Present Illness: is a 73 year old male. - Review of Systems Constitutional: No Fever, No Chills Eyes: No Symptoms Ears, Nose, & Throat: No Symptoms Respiratory: No Cough, No Short Of Breath Cardiac: No Chest Pain, No Edema, No Syncope Abdominal/Gastrointestinal: No Abdominal Pain, No Nausea, No Vomiting, No Diarrhea Genitourinary Symptoms: No Dysuria Musculoskeletal: No Back Pain, No Neck Pain Skin: No Rash Neurological: No Dizziness, No Focal Weakness, No Sensory Changes Psychological: No Symptoms Endocrine: No Symptoms Hematologic/Lymphatic: No Symptoms Immunological/Allergic: No Symptoms Medications & Allergies Home Medications: Home Medication List Furosemide 40 mg [Lasix 40 MG] 40 mg PO DAILY 08/13/17 [History Confirmed 12/22/18] Insulin Lispro Protamin/Lispro [Humalog Mix 50-50 Kwikpen] 0 unit SQ TIDAC 11/14 [History Confirmed 12/22/18] Apomorphine HCl [Apokyn] 0.3 ml SQ TID 02/26/18 [History Confirmed 12/22/18] Alprazolam [Xanax] 0.5 mg PO TIDPRN PRN 04/12/18 [History Confirmed 12/22/18] Entacapone 200 mg PO QID 04/12/18 [History Confirmed 12/22/18] Nitroglycerin [Nitrostat] 0.4 mg SL UD PRN 04/12/18 [History Confirmed 12/22/18] Apixaban [Eliquis 2.5 mg Tablet] 2.5 mg PO DAILY 11/14/18 [History Confirmed 12/22/18] Carbidopa/Levodopa 25/100 mg [Sinemet 25/100 MG] 1 tab PO QID 11/14/18 [ History Confirmed 12/22/18] Cholecalciferol (Vitamin D3) [Vitamin D3] 5,000 unit PO WEEKLY 11/14/18 [ History Confirmed 12/22/18] Empagliflozin [Jardiance] 10 mg PO DAILY 11/14/18 [History Confirmed 12/22/18] Escitalopram Oxalate 10 mg [Lexapro 10 MG] 10 mg PO DAILY 11/14/18 [History Confirmed 12/22/18] Lisinopril 20 mg [Zestril 20 MG] 20 mg PO HS 11/14/18 [History Confirmed 12/22/18] Meclizine HCl 25 mg [Antivert 25 mg] 12.5 mg PO TID 11/14/18 [History Confirmed 12/22/18] Metformin HCl 500 mg [Glucophage 500 MG] 500 mg PO DAILY 11/14/18 [ History Confirmed 12/22/18] Oxybutynin Chloride [Ditropan Xl] 5 mg PO TID 11/14/18 [History Confirmed ] Ropinirole HCl 0.5 mg [Requip 0.5 MG] 1 mg PO QID 11/14/18 [History Confirmed 12/22/18] Tamsulosin HCl 0.4 mg [Flomax 0.4 MG] 0.4 mg PO HS 11/14/18 [History Confirmed 12/22/18] Hydrocodone Bit/Acetaminophen [Hydrocodon-Acetaminoph 7.5-325] 1 each PO Q6HPRN PRN 12/22/18 [History Confirmed 12/22/18] Allergies/Adverse Reactions: Allergies Allergy/AdvReac Type Severity Reaction Status Date / Time No Known Drug Allergies Allergy Verified 12/22/18 10:11 - Past Medical History Past Medical History: Yes Neurological History: Peripheral Neuropathy, Other ENT History: No Pertinent History Cardiac History: Hypertension Respiratory History: Sleep Apnea Endocrine Medical History: Diabetes Type II Musculoskelatal History: Rheumatoid Arthritis, Other GI Medical History: Gallbladder Disease History: No Pertinent History Pyscho-Social History: Depression, Other Male Reproductive Disorders: Prostate Problems Comment: PARKINSONS; Intentional xanax overdose 2018; - Past Surgical History Past Surgical History: Yes Neuro Surgical History: No Pertinent History Cardiac History: No Pertinent History, Cardiac Catheterization Respiratory Surgery: No Pertinent History GI Surgical History: Cholecystectomy, Hernia Repair Genitourinary Surgical Hx: No Pertinent History Musculskeletal Surgical Hx: Joint Replacement, Orthopedic Surgery Male Surgical History: No Pertinent History Other Surgical History: ABDON KNEE REPLACEMENT; Left wrist hardware, RIGHT GREAT TOE 12/20/18 - Social History Smoking Status: Never smoker Exposure to second hand smoke: No Alcohol: Rarely Drug Use: none Significant Family History: no pertinent family hx - Physical Exam Vital Signs: Vital Signs - 24 hr Temp Pulse Resp BP Pulse Ox 12/23/18 09:00 98 F 65 20 133/71 96 12/23/18 04:58 97.7 F 72 17 124/84 95 12/23/18 00:14 98.0 F 64 18 136/75 93 L 12/22/18 20:30 98.4 F 150 H 18 155/76 90 L 12/22/18 17:10 97.8 F 75 18 157/79 93 L 12/22/18 16:00 97.8 F 75 18 154/79 93 L 12/22/18 13:21 97.5 F 60 20 158/75 94 L 12/22/18 13:03 97.5 F 60 20 158/75 94 L General Appearance: no apparent distress, alert Neurologic Exam: alert, oriented x 3, cooperative, normal mood/affect, nml cerebellar function, nml station & gait, sensation nml, No motor deficits Eye Exam: PERRL/EOMI, eyes nml inspection Ears, Nose, Throat Exam: normal ENT inspection, TMs normal, pharynx normal, moist mucous membranes Neck Exam: normal inspection, non-tender, supple, full range of motion Respiratory Exam: normal breath sounds, lungs clear, No respiratory distress Cardiovascular Exam: regular rate/rhythm, normal heart sounds, normal peripheral pulses Gastrointestinal/Abdomen Exam: soft, normal bowel sounds, No tenderness, No mass Back Exam: normal inspection, normal range of motion, No CVA tenderness, No vertebral tenderness Extremity Exam: normal inspection, normal range of motion, pelvis stable Skin Exam: normal color, warm, dry, No rash Lymphatic Exam: No adenopathy Results - Labs Lab/Micro Results: Accuchecks Date 12/23/18 Date 12/23/18 Date 12/22/18 Time 11:03 Time 07:53 Time 16:30 Accucheck Value: 177 Accucheck Value: 97 Accucheck Value: 99 Accucheck Value: 139 Lab Results-Last 24 Hours 12/22/18 12/22/18 12/22/18 Range/Units 12:46 13:10 16:00 Troponin I < 0.012 < 0.012 (0.000-0.034) ng/mL Urine Color RAULITO (YELLOW) Urine Appearance CLEAR (CLEAR) Urine pH 5.0 (5-6) Ur Specific [place] 1.023 (1.005-1.025) Urine Protein NEGATIVE (Negative) Urine Ketones SMALL (NEGATIVE) Urine Blood NEGATIVE (0-5) Haseeb/ul Urine Nitrite NEGATIVE (NEGATIVE) Urine Bilirubin NEGATIVE (NEGATIVE) Urine Urobilinogen NEGATIVE (0-1) mg/dL Ur Leukocyte Esterase NEGATIVE (NEGATIVE) Urine WBC (Auto) NONE (0-5) /HPF Urine RBC (Auto) NONE (0-2) /HPF U Hyaline Cast (Auto) 0-2 (0-2) /LPF Urine Culture Reflexed NO (NO) Urine Glucose >=500 (NEGATIVE) mg/dL 12/22/18 12/22/18 Range/Units 19:00 22:08 Troponin I < 0.012 < 0.012 (0.000-0.034) ng/mL Urine Color (YELLOW) Urine Appearance (CLEAR) Urine pH (5-6) Ur Specific [place] (1.005-1.025) Urine Protein (Negative) Urine Ketones (NEGATIVE) Urine Blood (0-5) Haseeb/ul Urine Nitrite (NEGATIVE) Urine Bilirubin (NEGATIVE) Urine Urobilinogen (0-1) mg/dL Ur Leukocyte Esterase (NEGATIVE) Urine WBC (Auto) (0-5) /HPF Urine RBC (Auto) (0-2) /HPF U Hyaline Cast (Auto) (0-2) /LPF Urine Culture Reflexed (NO) Urine Glucose (NEGATIVE) mg/dL Accuchecks Date 12/23/18 Date 12/23/18 Date 12/22/18 Time 11:03 Time 07:53 Time 16:30 Accucheck Value: 177 Accucheck Value: 97 Accucheck Value: 99 Accucheck Value: 139 - Radiology Impressions Radiology Exams & Impressions: Radiology Procedures Category Date Time Status CHEST 1 VIEW (PORTABLE) Stat Exams 12/22/18 10:00 Completed HEAD WITHOUT CONTRAST [CT] Stat Exams 12/22/18 10:01 Completed Assessment/Plan (1) Localized swelling of both lower legs Current Visit: No Status: Acute Onset Date: ~02/26/18 Code(s): R22.43 - LOCALIZED SWELLING, MASS AND LUMP, LOWER LIMB, BILATERAL (2) Deep vein thrombosis (DVT) of left lower extremity Current Visit: No Status: Acute Onset Date: ~02/26/18 Code(s): I82.402 - ACUTE EMBOLISM AND THOMBOS UNSP DEEP VEINS OF L LOW EXTREM (3) Weakness Current Visit: No Status: Acute Onset Date: ~02/26/18 Code(s): R53.1 - WEAKNESS (4) Parkinsons Current Visit: No Status: Chronic Code(s): G20 - PARKINSON'S DISEASE (5) Rheumatoid arthritis Current Visit: No Status: Chronic Code(s): M06.9 - RHEUMATOID ARTHRITIS, UNSPECIFIED
[2018-12-23] MEDS: Sodium Chloride 0.9% 1000 ML 1,000 ML IV SCH (13:29)
[2018-12-23] MEDS: Flomax 0.4 MG PO SCH (21:36)
[2018-12-23] MEDS: Zestril 20 MG PO SCH (21:37)
--- NOTE | 2018-12-24 08:22 | PCM.NOTE ---
Date and Time: 12/24/18820 Subjective Assessment: doing better - Review of Systems Constitutional: No Fever, No Chills Eyes: No Symptoms Ears, Nose, & Throat: No Symptoms Respiratory: No Cough, No Short Of Breath Cardiac: No Chest Pain, No Edema, No Syncope Abdominal/Gastrointestinal: No Abdominal Pain, No Nausea, No Vomiting, No Diarrhea Genitourinary Symptoms: No Dysuria Musculoskeletal: No Back Pain, No Neck Pain Skin: No Rash Neurological: No Dizziness, No Focal Weakness, No Sensory Changes Psychological: No Symptoms Endocrine: No Symptoms Hematologic/Lymphatic: No Symptoms Immunological/Allergic: No Symptoms Objective Exam General Appearance: no apparent distress, alert Neurologic Exam: alert, oriented x 3, cooperative, normal mood/affect, nml cerebellar function, sensation nml, No motor deficits Skin Exam: normal color, warm, dry Eye Exam: PERRL, EOMI, eyes nml inspection Ears, Nose, Throat Exam: normal ENT inspection, pharynx normal, moist mucous membranes Neck Exam: normal inspection, non-tender, supple, full range of motion Respiratory Exam: normal breath sounds, lungs clear, No respiratory distress Cardiovascular Exam: regular rate/rhythm, normal heart sounds Gastrointestinal/Abdomen Exam: soft, No tenderness, No mass Extremity Exam: normal inspection, normal range of motion Back Exam: normal inspection, normal range of motion, No CVA tenderness, No vertebral tenderness Male Genitalia Exam: deferred Rectal Exam: deferred OBJECTIVE DATA Vital Signs: Vital Signs - 24 hr Temp Pulse Resp BP Pulse Ox 12/24/18 07:21 97.6 F 70 20 138/76 96 12/24/18 05:00 97.7 F 63 20 137/86 96 12/23/18 23:52 97.7 F 57 L 16 123/74 93 L 12/23/18 21:00 98.2 F 65 20 128/66 92 L 12/23/18 16:29 97.8 F 74 18 128/70 95 12/23/18 13:08 97.8 F 68 20 134/76 96 12/23/18 09:00 98 F 65 20 133/71 96 Pain Assessment - Last Documented Pain Intensity 2 Pain Scale Used 0-10 Pain Scale Intake and Output: Intake & Output 12/21/18 12/22/18 12/23/18 12/24/18 11:59 11:59 11:59 11:59 Intake Total 1657 2190 Output Total 2024 471 Balance -368 1390 Weight 99.337 kg 101.7 kg Lab Results: Accuchecks Date 12/23/18 Date 12/23/18 Time 17:01 Time 11:03 Accucheck Value: 200 Accucheck Value: 156 Accucheck Value: 177 Radiology Exams: Radiology Procedures Category Date Time Status CHEST 1 VIEW (PORTABLE) Stat Exams 12/22/18 10:00 Completed HEAD WITHOUT CONTRAST [CT] Stat Exams 12/22/18 10:01 Completed Assessment/Plan (1) Weakness Current Visit: No Status: Acute Onset Date: ~02/26/18 Code(s): R53.1 - WEAKNESS (2) Parkinsons Current Visit: No Status: Chronic Code(s): G20 - PARKINSON'S DISEASE (3) Localized swelling of both lower legs Current Visit: No Status: Acute Onset Date: ~02/26/18 Code(s): R22.43 - LOCALIZED SWELLING, MASS AND LUMP, LOWER LIMB, BILATERAL (4) Deep vein thrombosis (DVT) of left lower extremity Current Visit: No Status: Acute Onset Date: ~02/26/18 Code(s): I82.402 - ACUTE EMBOLISM AND THOMBOS UNSP DEEP VEINS OF L LOW EXTREM (5) Rheumatoid arthritis Current Visit: No Status: Chronic Code(s): M06.9 - RHEUMATOID ARTHRITIS, UNSPECIFIED
[2018-12-24] MEDS: Ditropan XL 5 MG PO SCH ×3 (09:41→22:06)
[2018-12-24] MEDS: Lexapro 10 MG PO SCH (09:41)
[2018-12-24] MEDS: Glucophage 500 MG PO SCH (09:41)
[2018-12-24] MEDS: ANTIVERT 25 MG PO SCH ×3 (09:41→22:05)
[2018-12-24] MEDS: Lasix 40 MG PO SCH (09:41)
[2018-12-24] MEDS: Requip 0.5 MG PO SCH ×4 (09:41→22:07)
[2018-12-24] MEDS: ELIQUIS 2.5 MG TABLET PO SCH (09:41)
[2018-12-24] MEDS: Sinemet 25/100 MG PO SCH ×4 (09:42→22:06)
[2018-12-24] MEDS: PATIENT OWN MEDICATION SQ SCH ×3 (09:45→22:11)
[2018-12-24] MEDS: NovoLOG Insulin SQ PRN ×2 (11:31→22:08)
[2018-12-24] MEDS: Flomax 0.4 MG PO SCH (22:07)
[2018-12-24] MEDS: Zestril 20 MG PO SCH (22:07)
[2018-12-25] MEDS: Lasix 40 MG PO SCH (09:45)
[2018-12-25] MEDS: Sinemet 25/100 MG PO SCH ×4 (09:45→21:59)
[2018-12-25] MEDS: Lexapro 10 MG PO SCH (09:45)
[2018-12-25] MEDS: Ditropan XL 5 MG PO SCH ×3 (09:45→21:59)
[2018-12-25] MEDS: Glucophage 500 MG PO SCH (09:45)
[2018-12-25] MEDS: ELIQUIS 2.5 MG TABLET PO SCH (09:45)
[2018-12-25] MEDS: Requip 0.5 MG PO SCH ×4 (09:45→21:59)
[2018-12-25] MEDS: PATIENT OWN MEDICATION SQ SCH ×3 (09:45→21:57)
[2018-12-25] MEDS: ANTIVERT 25 MG PO SCH ×3 (09:45→21:59)
[2018-12-25] MEDS ORDERED: VITAMIN D PO SCH (12:00)
[2018-12-25] MEDS ORDERED: Sodium Chloride 0.9% 1000 ML 1,000 ML ONE (12:12)
--- NOTE | 2018-12-25 12:45 | XRAY ---
Indication: Short of breath. Decreased oxygenation. Comparison: December 22, 2018. Portable chest continues to demonstrate stable left base infiltrate/atelectasis and tiny effusion. Remaining heart and right lung unremarkable.
--- NOTE | 2018-12-25 13:01 | PCM.NOTE ---
Date and Time: 12/25/18 1258 Subjective Assessment: Patient became unresponsive for few seconds, patient has been shaking, BP 68/ 52. - Review of Systems Constitutional: No Fever, No Chills Eyes: No Symptoms Ears, Nose, & Throat: No Symptoms Respiratory: No Cough, No Short Of Breath Cardiac: No Chest Pain, No Edema, No Syncope Abdominal/Gastrointestinal: No Abdominal Pain, No Nausea, No Vomiting, No Diarrhea Genitourinary Symptoms: No Dysuria Musculoskeletal: No Back Pain, No Neck Pain Skin: No Rash Neurological: No Dizziness, No Focal Weakness, No Sensory Changes Psychological: No Symptoms Endocrine: No Symptoms Hematologic/Lymphatic: No Symptoms Immunological/Allergic: No Symptoms Objective Exam General Appearance: no apparent distress, alert Neurologic Exam: alert, oriented x 3, cooperative, normal mood/affect, nml cerebellar function, sensation nml, No motor deficits Skin Exam: normal color, warm, dry Eye Exam: PERRL, EOMI, eyes nml inspection Ears, Nose, Throat Exam: normal ENT inspection, pharynx normal, moist mucous membranes Neck Exam: normal inspection, non-tender, supple, full range of motion Respiratory Exam: normal breath sounds, lungs clear, No respiratory distress Cardiovascular Exam: regular rate/rhythm, normal heart sounds Gastrointestinal/Abdomen Exam: soft, No tenderness, No mass Extremity Exam: normal inspection, normal range of motion Back Exam: normal inspection, normal range of motion, No CVA tenderness, No vertebral tenderness Male Genitalia Exam: deferred Rectal Exam: deferred OBJECTIVE DATA Vital Signs: Vital Signs - 24 hr Temp Pulse Resp BP Pulse Ox 12/25/18 12:25 95 H 20 107/67 94 L 12/25/18 12:13 22 84/48 88 L 12/25/18 12:00 97.7 F 108 H 26 H 64/32 85 L 12/25/18 07:26 72 20 130/70 96 12/25/18 04:00 97.4 F 60 16 125/70 91 L 12/25/18 00:00 97.4 F 60 20 116/65 92 L 12/24/18 21:00 98.8 F 72 20 132/72 91 L 12/24/18 17:05 97.7 F Oxygen-Last 24 hours O2 Percentage 5 Liters = 40% O2 Percentage 4 Liters = 36% Pain Assessment - Last Documented Pain Intensity 0 Pain Scale Used 0-10 Pain Scale Intake and Output: Intake & Output 12/23/18 12/24/18 12/25/18 12/26/18 11:59 11:59 11:59 11:59 Intake Total 1657 2550 1840 Output Total 6 800 2700 Balance -368 1750 -860 Weight 101.7 kg Lab Results: Accuchecks Date 12/24/18 Time 16:30 Accucheck Value: 196 Accucheck Value: 153 Accucheck Value: 132 Lab Results-Last 24 Hours 12/25/18 Range/Units 12:18 Troponin I < 0.012 (0.000-0.034) ng/mL Radiology Exams: Radiology Procedures Category Date Time Status CHEST 1 VIEW (PORTABLE) Stat Exams 12/25/18 12:34 Completed Assessment/Plan (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 Assessment & Plan: doing better Code(s): G90.3 - MULTI-SYSTEM DEGENERATION OF THE AUTONOMIC NERVOUS SYSTEM (2) Weakness Current Visit: No Status: Acute Onset Date: ~02/26/18 Code(s): R53.1 - WEAKNESS (3) Parkinsons Current Visit: No Status: Chronic Code(s): G20 - PARKINSON'S DISEASE (4) Localized swelling of both lower legs Current Visit: No Status: Acute Onset Date: ~02/26/18 Code(s): R22.43 - LOCALIZED SWELLING, MASS AND LUMP, LOWER LIMB, BILATERAL (5) Deep vein thrombosis (DVT) of left lower extremity Current Visit: No Status: Acute Onset Date: ~02/26/18 Code(s): I82.402 - ACUTE EMBOLISM AND THOMBOS UNSP DEEP VEINS OF L LOW EXTREM (6) Rheumatoid arthritis Current Visit: No Status: Chronic Code(s): M06.9 - RHEUMATOID ARTHRITIS, UNSPECIFIED
[2018-12-25] MEDS: NovoLOG Insulin SQ PRN (21:58)
[2018-12-25] MEDS: Flomax 0.4 MG PO SCH (21:59)
[2018-12-25] MEDS: Zestril 20 MG PO SCH (22:00)
[2018-12-26] MEDS: NovoLOG Insulin SQ PRN ×3 (08:23→22:16)
[2018-12-26] MEDS: Requip 0.5 MG PO SCH ×4 (09:39→22:16)
[2018-12-26] MEDS: Lasix 40 MG PO SCH (09:40)
[2018-12-26] MEDS: ELIQUIS 2.5 MG TABLET PO SCH (09:40)
[2018-12-26] MEDS: Glucophage 500 MG PO SCH (09:40)
[2018-12-26] MEDS: ANTIVERT 25 MG PO SCH ×3 (09:40→22:17)
[2018-12-26] MEDS: Sinemet 25/100 MG PO SCH ×4 (09:41→22:17)
[2018-12-26] MEDS: Lexapro 10 MG PO SCH (09:42)
[2018-12-26] MEDS: Ditropan XL 5 MG PO SCH ×3 (09:48→22:17)
[2018-12-26] MEDS: PATIENT OWN MEDICATION SQ SCH ×3 (09:53→22:18)
--- NOTE | 2018-12-26 11:44 | PCM.NOTE ---
Date and Time: 12/26/18 1143 Subjective Assessment: doing ok, Patient has triggered Level 2 evaluation. - Review of Systems Constitutional: No Fever, No Chills Eyes: No Symptoms Ears, Nose, & Throat: No Symptoms Respiratory: No Cough, No Short Of Breath Cardiac: No Chest Pain, No Edema, No Syncope Abdominal/Gastrointestinal: No Abdominal Pain, No Nausea, No Vomiting, No Diarrhea Genitourinary Symptoms: No Dysuria Musculoskeletal: No Back Pain, No Neck Pain Skin: No Rash Neurological: No Dizziness, No Focal Weakness, No Sensory Changes Psychological: No Symptoms Endocrine: No Symptoms Hematologic/Lymphatic: No Symptoms Immunological/Allergic: No Symptoms Objective Exam General Appearance: no apparent distress, alert Neurologic Exam: alert, oriented x 3, cooperative, normal mood/affect, nml cerebellar function, sensation nml, No motor deficits Skin Exam: normal color, warm, dry Eye Exam: PERRL, EOMI, eyes nml inspection Ears, Nose, Throat Exam: normal ENT inspection, pharynx normal, moist mucous membranes Neck Exam: normal inspection, non-tender, supple, full range of motion Respiratory Exam: normal breath sounds, lungs clear, No respiratory distress Cardiovascular Exam: regular rate/rhythm, normal heart sounds Gastrointestinal/Abdomen Exam: soft, No tenderness, No mass Extremity Exam: normal inspection, normal range of motion Back Exam: normal inspection, normal range of motion, No CVA tenderness, No vertebral tenderness Male Genitalia Exam: deferred Rectal Exam: deferred OBJECTIVE DATA Vital Signs: Vital Signs - 24 hr Temp Pulse Resp BP Pulse Ox 12/26/18 07:21 97.9 F 78 20 96 12/26/18 04:00 97.8 F 86 18 113/64 95 12/26/18 00:00 98.5 F 83 21 118/61 95 12/25/18 20:47 97 12/25/18 20:00 98.4 F 90 16 117/73 95 12/25/18 16:06 98.2 F 80 20 126/69 96 12/25/18 12:25 95 H 20 107/67 94 L 12/25/18 12:13 22 84/48 88 L 12/25/18 12:00 97.7 F 108 H 26 H 64/32 85 L Oxygen-Last 24 hours O2 Percentage 4 Liters = 36% O2 Percentage 4 Liters = 36% O2 Percentage 4 Liters = 36% O2 Percentage 4 Liters = 36% O2 Percentage 4 Liters = 36% O2 Percentage 5 Liters = 40% O2 Percentage 4 Liters = 36% Pain Assessment - Last Documented Pain Intensity 0 Pain Scale Used 0-10 Pain Scale Intake and Output: Intake & Output 12/23/18 12/24/18 12/25/18 12/26/18 11:59 11:59 11:59 11:59 Intake Total 1657 2550 1840 1060 Output Total 2025 800 2700 650 Balance -368 1750 -860 410 Weight 101.7 kg Lab Results: Accuchecks Date 12/25/18 Time 21:00 Accucheck Value: 224 Accucheck Value: 221 Lab Results-Last 24 Hours 12/25/18 Range/Units 12:18 Troponin I < 0.012 (0.000-0.034) ng/mL Radiology Exams: Radiology Procedures Category Date Time Status CHEST 1 VIEW (PORTABLE) Stat Exams 12/25/18 12:34 Completed Assessment/Plan (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 Code(s): G90.3 - MULTI-SYSTEM DEGENERATION OF THE AUTONOMIC NERVOUS SYSTEM (2) Weakness Current Visit: No Status: Acute Onset Date: ~02/26/18 Code(s): R53.1 - WEAKNESS (3) Parkinsons Current Visit: No Status: Chronic Code(s): G20 - PARKINSON'S DISEASE (4) Localized swelling of both lower legs Current Visit: No Status: Acute Onset Date: ~02/26/18 Code(s): R22.43 - LOCALIZED SWELLING, MASS AND LUMP, LOWER LIMB, BILATERAL (5) Deep vein thrombosis (DVT) of left lower extremity Current Visit: No Status: Acute Onset Date: ~02/26/18 Code(s): I82.402 - ACUTE EMBOLISM AND THOMBOS UNSP DEEP VEINS OF L LOW EXTREM (6) Rheumatoid arthritis Current Visit: No Status: Chronic Code(s): M06.9 - RHEUMATOID ARTHRITIS, UNSPECIFIED (7) Depression Current Visit: No Status: Acute Qualifiers: Depression Type: other depression Qualified Code(s): F32.89 - Other specified depressive episodes Code(s): F32.9 - MAJOR DEPRESSIVE DISORDER, SINGLE EPISODE, UNSPECIFIED
[2018-12-26] MEDS: Zestril 20 MG PO SCH (22:17)
[2018-12-26] MEDS: Flomax 0.4 MG PO SCH (22:18)
[2018-12-27] MEDS: NYSTOP 30 GM CREAM TOP PRN ×3 (02:37→21:56)
[2018-12-27] MEDS: Sodium Chloride 0.9% 10 ML FLUSH Syringe IV SCH ×3 (04:00→21:54)
[2018-12-27] MEDS: Lexapro 10 MG PO SCH (08:15)
[2018-12-27] MEDS: Requip 0.5 MG PO SCH ×4 (08:15→21:53)
[2018-12-27] MEDS: Glucophage 500 MG PO SCH (08:15)
[2018-12-27] MEDS: ANTIVERT 25 MG PO SCH ×3 (08:15→21:48)
[2018-12-27] MEDS: Sinemet 25/100 MG PO SCH ×4 (08:16→21:53)
[2018-12-27] MEDS: Lasix 40 MG PO SCH (08:16)
[2018-12-27] MEDS: Ditropan XL 5 MG PO SCH ×3 (08:16→21:51)
[2018-12-27] MEDS: ELIQUIS 2.5 MG TABLET PO SCH (08:16)
[2018-12-27] MEDS: PATIENT OWN MEDICATION SQ SCH ×3 (08:18→21:52)
[2018-12-27] MEDS: NovoLOG Insulin SQ PRN ×3 (12:49→21:54)
--- NOTE | 2018-12-27 12:51 | PCM.NOTE ---
Date and Time: 12/27/18 1250 Subjective Assessment: doing ok - Review of Systems Constitutional: No Fever, No Chills Eyes: No Symptoms Ears, Nose, & Throat: No Symptoms Respiratory: No Cough, No Short Of Breath Cardiac: No Chest Pain, No Edema, No Syncope Abdominal/Gastrointestinal: No Abdominal Pain, No Nausea, No Vomiting, No Diarrhea Genitourinary Symptoms: No Dysuria Musculoskeletal: No Back Pain, No Neck Pain Skin: No Rash Neurological: No Dizziness, No Focal Weakness, No Sensory Changes Psychological: No Symptoms Endocrine: No Symptoms Hematologic/Lymphatic: No Symptoms Immunological/Allergic: No Symptoms Objective Exam General Appearance: no apparent distress, alert Neurologic Exam: alert, oriented x 3, cooperative, normal mood/affect, nml cerebellar function, sensation nml, No motor deficits Skin Exam: normal color, warm, dry Eye Exam: PERRL, EOMI, eyes nml inspection Ears, Nose, Throat Exam: normal ENT inspection, pharynx normal, moist mucous membranes Neck Exam: normal inspection, non-tender, supple, full range of motion Respiratory Exam: normal breath sounds, lungs clear, No respiratory distress Cardiovascular Exam: regular rate/rhythm, normal heart sounds Gastrointestinal/Abdomen Exam: soft, No tenderness, No mass Extremity Exam: normal inspection, normal range of motion Back Exam: normal inspection, normal range of motion, No CVA tenderness, No vertebral tenderness Male Genitalia Exam: deferred Rectal Exam: deferred OBJECTIVE DATA Vital Signs: Vital Signs - 24 hr Temp Pulse Resp BP Pulse Ox 12/27/18 12:00 97.8 F 79 16 113/64 90 L 12/27/18 09:50 95 12/27/18 09:37 97 12/27/18 08:00 97.3 F 60 16 94/53 95 12/27/18 07:50 97 12/27/18 04:00 97.6 F 65 18 89/51 95 12/26/18 23:52 98.3 F 69 18 117/62 97 12/26/18 21:13 95 12/26/18 20:00 98.5 F 76 18 99/57 95 12/26/18 16:11 98.1 F 95 H 20 103/61 96 12/26/18 16:09 80 20 97 Oxygen-Last 24 hours O2 Percentage 4 Liters = 36% O2 Percentage 4 Liters = 36% O2 Percentage 4 Liters = 36% O2 Percentage 4 Liters = 36% O2 Percentage 4 Liters = 36% Pain Assessment - Last Documented Pain Intensity 0 Pain Scale Used 0-10 Pain Scale Intake and Output: Intake & Output 12/25/18 12/26/18 12/27/18 12/28/18 11:59 11:59 11:59 11:59 Intake Total 1840 1060 900 Output Total 2700 650 200 300 Balance -860 410 700 -300 Lab Results: Accuchecks Date 12/27/18 Date 12/26/18 Time 07:30 Time 16:30 Accucheck Value: 202 Accucheck Value: 208 Radiology Exams: Radiology Procedures Category Date Time Status CHEST 1 VIEW (PORTABLE) Stat Exams 12/25/18 12:34 Completed Assessment/Plan (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 Assessment & Plan: improved Code(s): G90.3 - MULTI-SYSTEM DEGENERATION OF THE AUTONOMIC NERVOUS SYSTEM (2) Weakness Current Visit: No Status: Acute Onset Date: ~02/26/18 Code(s): R53.1 - WEAKNESS (3) Parkinsons Current Visit: No Status: Chronic Code(s): G20 - PARKINSON'S DISEASE (4) Localized swelling of both lower legs Current Visit: No Status: Acute Onset Date: ~02/26/18 Code(s): R22.43 - LOCALIZED SWELLING, MASS AND LUMP, LOWER LIMB, BILATERAL (5) Deep vein thrombosis (DVT) of left lower extremity Current Visit: No Status: Acute Onset Date: ~02/26/18 Code(s): I82.402 - ACUTE EMBOLISM AND THOMBOS UNSP DEEP VEINS OF L LOW EXTREM (6) Rheumatoid arthritis Current Visit: No Status: Chronic Code(s): M06.9 - RHEUMATOID ARTHRITIS, UNSPECIFIED (7) Depression Current Visit: No Status: Acute Qualifiers: Depression Type: other depression Qualified Code(s): F32.89 - Other specified depressive episodes Code(s): F32.9 - MAJOR DEPRESSIVE DISORDER, SINGLE EPISODE, UNSPECIFIED
[2018-12-27 13:11] LABS: 027 TOX PROD PRESUMPTIVE NEGATIVE (NEGATIVE); TOXIGENIC C. DIFF ORG NEGATIVE (NEGATIVE)
[2018-12-27] MEDS ORDERED: NORCO 7.5/325 MG TAB PO PRN (16:07)
[2018-12-27] MEDS: Flomax 0.4 MG PO SCH (21:50)
[2018-12-27] MEDS: Zestril 20 MG PO SCH (21:51)
[2018-12-28] MEDS: Sodium Chloride 0.9% 10 ML FLUSH Syringe IV SCH ×2 (06:50→14:25)
[2018-12-28 06:58] VITALS: O2SAT 95
[2018-12-28] MEDS: Requip 0.5 MG PO SCH ×2 (10:58→14:20)
[2018-12-28] MEDS: Sinemet 25/100 MG PO SCH ×2 (10:58→14:24)
[2018-12-28] MEDS: Lexapro 10 MG PO SCH (10:59)
[2018-12-28] MEDS: Glucophage 500 MG PO SCH (10:59)
[2018-12-28] MEDS: ANTIVERT 25 MG PO SCH ×2 (10:59→14:22)
[2018-12-28] MEDS: ELIQUIS 2.5 MG TABLET PO SCH (10:59)
[2018-12-28] MEDS: Lasix 40 MG PO SCH (10:59)
[2018-12-28] MEDS: PATIENT OWN MEDICATION SQ SCH ×2 (11:00→14:25)
[2018-12-28] MEDS: Ditropan XL 5 MG PO SCH ×2 (11:02→14:22)
[2018-12-28 12:36] VITALS: BP 96/52; PULSE 68
[2019-01-02] MEDS ORDERED: ENOXAPARIN SODIUM SQ SCH (10:00)
== END 2018-12-28 15:15 | disposition swing bed (61) | DRG 57 ==
LOC: ED 09:44 → MED SURG 12:25 → OBSVTOIN 12-25 11:48
PROVIDERS: ADMIT General Practice; ATTEND General Practice
DX: G90.3 Multi-system degeneration of the autonomic nervous system (principal); I82.402 Acute embolism and thrombosis of unspecified deep veins of left lower extremity; G20 Parkinson's disease; G47.30 Sleep apnea, unspecified; E11.9 Type 2 diabetes mellitus without complications; I10 Essential (primary) hypertension; G62.9 Polyneuropathy, unspecified; R22.43 Localized swelling, mass and lump, lower limb, bilateral; Z91.81 History of falling; F32.9 Major depressive disorder, single episode, unspecified; M06.9 Rheumatoid arthritis, unspecified; R41.0 Disorientation, unspecified; Z98.890 Other specified postprocedural states; Z79.899 Other long term (current) drug therapy
CPT/HCPCS: 36000; 36415; 70450; 71045; 80053; 80307; 81001; 82962; 83735; 84484; 85025; 85610; 87493; 90791; 93005; 93041; 94760; 94762; 96360; 96361; 99285; G0378; Q3014; A9270-GY

== ENCOUNTER 2018-12-28 15:15 | Inpatient (IN) | payer MEDICARE, OTHER ==
[2018-12-28] MEDS ORDERED: Nitrostat 0.4 MG Tablet SL PRN (16:02)
[2018-12-28] MEDS ORDERED: NYSTOP 30 GM CREAM TOP PRN (16:02)
[2018-12-28] MEDS ORDERED: MEDICATION INTERVENTION MC SCH ×2 (16:02)
[2018-12-28] MEDS ORDERED: Zofran 4 MG/2 ML VIAL IV PRN (16:02)
[2018-12-28] MEDS ORDERED: NORCO 7.5/325 MG TAB PO PRN (16:02)
[2018-12-28] MEDS ORDERED: xanAX 0.5 MG PO PRN (16:02)
[2018-12-28] MEDS ORDERED: Nitro-Dur 0.4 MG/HR TD PRN (16:02)
[2018-12-28] MEDS: NovoLOG Insulin SQ PRN ×2 (16:58→21:23)
[2018-12-28] MEDS: Requip 0.5 MG PO SCH ×2 (16:58→21:20)
[2018-12-28] MEDS: Sinemet 25/100 MG PO SCH ×2 (16:59→21:21)
[2018-12-28] MEDS: TYLENOL 325 MG PO PRN (18:18)
[2018-12-28] MEDS: ANTIVERT 25 MG PO SCH (21:19)
[2018-12-28] MEDS: Flomax 0.4 MG PO SCH (21:20)
[2018-12-28] MEDS: Ditropan XL 5 MG PO SCH (21:20)
[2018-12-28] MEDS: Sodium Chloride 0.9% 10 ML FLUSH Syringe IV SCH (21:21)
[2018-12-28] MEDS: Zestril 20 MG PO SCH (21:21)
[2018-12-28] MEDS: PATIENT OWN MEDICATION SQ SCH (21:22)
[2018-12-29] MEDS: TYLENOL 325 MG PO PRN (03:48)
[2018-12-29] MEDS: Sodium Chloride 0.9% 10 ML FLUSH Syringe IV SCH ×3 (07:03→23:00)
[2018-12-29] MEDS: ANTIVERT 25 MG PO SCH ×3 (09:24→22:48)
[2018-12-29] MEDS: ELIQUIS 2.5 MG TABLET PO SCH (09:26)
[2018-12-29] MEDS: Ditropan XL 5 MG PO SCH ×3 (09:26→22:49)
[2018-12-29] MEDS: Lasix 40 MG PO SCH (09:27)
[2018-12-29] MEDS: Glucophage 500 MG PO SCH (09:27)
[2018-12-29] MEDS: Lexapro 10 MG PO SCH (09:27)
[2018-12-29] MEDS: Requip 0.5 MG PO SCH ×4 (09:28→22:47)
[2018-12-29] MEDS: Sinemet 25/100 MG PO SCH ×4 (09:28→22:47)
[2018-12-29] MEDS: PATIENT OWN MEDICATION SQ SCH ×3 (09:36→22:56)
[2018-12-29] MEDS ORDERED: Aplisol ID ONE (10:00)
[2018-12-29] MEDS: NovoLOG Insulin SQ PRN (12:06)
[2018-12-29] MEDS: Zestril 20 MG PO SCH (22:47)
[2018-12-29] MEDS: Flomax 0.4 MG PO SCH (22:48)
[2018-12-30] MEDS: Sodium Chloride 0.9% 10 ML FLUSH Syringe IV SCH ×2 (05:53→17:21)
[2018-12-30] MEDS: Lasix 40 MG PO SCH (09:15)
[2018-12-30] MEDS: ANTIVERT 25 MG PO SCH ×3 (09:15→21:56)
[2018-12-30] MEDS: Sinemet 25/100 MG PO SCH ×4 (09:15→21:56)
[2018-12-30] MEDS: Lexapro 10 MG PO SCH (09:16)
[2018-12-30] MEDS: ELIQUIS 2.5 MG TABLET PO SCH (09:16)
[2018-12-30] MEDS: Ditropan XL 5 MG PO SCH ×3 (09:16→21:56)
[2018-12-30] MEDS: Glucophage 500 MG PO SCH (09:16)
[2018-12-30] MEDS: Requip 0.5 MG PO SCH ×4 (09:16→21:56)
[2018-12-30] MEDS: PATIENT OWN MEDICATION SQ SCH ×3 (09:16→21:57)
[2018-12-30] MEDS: NovoLOG Insulin SQ PRN ×3 (10:35→22:10)
[2018-12-30] MEDS: Zestril 20 MG PO SCH (21:56)
[2018-12-30] MEDS: Flomax 0.4 MG PO SCH (21:57)
[2018-12-31] MEDS: Sodium Chloride 0.9% 10 ML FLUSH Syringe IV SCH ×4 (01:04→21:25)
[2018-12-31] MEDS: Requip 0.5 MG PO SCH ×4 (10:01→21:24)
[2018-12-31] MEDS: Lexapro 10 MG PO SCH (10:01)
[2018-12-31] MEDS: Sinemet 25/100 MG PO SCH ×4 (10:02→21:24)
[2018-12-31] MEDS: ANTIVERT 25 MG PO SCH ×3 (10:02→21:23)
[2018-12-31] MEDS: Ditropan XL 5 MG PO SCH ×3 (10:02→21:24)
[2018-12-31] MEDS: ELIQUIS 2.5 MG TABLET PO SCH (10:02)
[2018-12-31] MEDS: Glucophage 500 MG PO SCH (10:02)
[2018-12-31] MEDS: Lasix 40 MG PO SCH (10:02)
[2018-12-31] MEDS: PATIENT OWN MEDICATION SQ SCH ×3 (10:03→21:25)
[2018-12-31] MEDS: NovoLOG Insulin SQ PRN (12:01)
[2018-12-31] MEDS: Zestril 20 MG PO SCH (21:24)
[2018-12-31] MEDS: Flomax 0.4 MG PO SCH (21:24)
[2019-01-01] MEDS: Ditropan XL 5 MG PO SCH ×3 (09:11→22:48)
[2019-01-01] MEDS: Sinemet 25/100 MG PO SCH ×4 (09:11→22:48)
[2019-01-01] MEDS: IMODIUM 2 MG PO PRN (09:11)
[2019-01-01] MEDS: ELIQUIS 2.5 MG TABLET PO SCH (09:12)
[2019-01-01] MEDS: Lasix 40 MG PO SCH (09:12)
[2019-01-01] MEDS: Lexapro 10 MG PO SCH (09:12)
[2019-01-01] MEDS: Requip 0.5 MG PO SCH ×4 (09:12→22:48)
[2019-01-01] MEDS: ANTIVERT 25 MG PO SCH ×3 (09:12→22:47)
[2019-01-01] MEDS: PATIENT OWN MEDICATION SQ SCH ×3 (09:13→22:51)
[2019-01-01] MEDS: Sodium Chloride 0.9% 10 ML FLUSH Syringe IV SCH ×2 (09:13→14:16)
[2019-01-01] MEDS: Glucophage 500 MG PO SCH (11:02)
[2019-01-01] MEDS ORDERED: VITAMIN D PO SCH (12:00)
[2019-01-01] MEDS: KEFLEX 500 MG PO SCH ×2 (15:27→22:48)
[2019-01-01 21:25] LABS: C. Difficile Organism NEGATIVE (NEGATIVE); Campylobacter NEGATIVE (NEGATIVE); Enteroaggregative E.coli NEGATIVE (NEGATIVE); Salmonella NEGATIVE (NEGATIVE); Shiga-like toxin prod.E.coli NEGATIVE (NEGATIVE); Vibrio NEGATIVE (NEGATIVE)
[2019-01-01 21:26] LABS: Adenovirus F 40/41 NEGATIVE (NEGATIVE); Astrovirus NEGATIVE (NEGATIVE); Cyclospora cayentanensis NEGATIVE (NEGATIVE); Entamoeaba histolytica NEGATIVE (NEGATIVE); Giardia lamblia NEGATIVE (NEGATIVE); Rotavirus A NEGATIVE (NEGATIVE); Sapovirus NEGATIVE (NEGATIVE)
[2019-01-01] MEDS: Zestril 20 MG PO SCH (22:48)
[2019-01-01] MEDS: Flomax 0.4 MG PO SCH (22:48)
[2019-01-02 08:00] VITALS: BP 133/72; PULSE 56; O2SAT 95
[2019-01-02] MEDS: Requip 0.5 MG PO SCH (08:51)
[2019-01-02] MEDS: Lexapro 10 MG PO SCH (08:52)
[2019-01-02] MEDS: Lasix 40 MG PO SCH (08:52)
[2019-01-02] MEDS: IMODIUM 2 MG PO PRN (08:52)
[2019-01-02] MEDS: ELIQUIS 2.5 MG TABLET PO SCH (08:53)
[2019-01-02] MEDS: Ditropan XL 5 MG PO SCH (08:53)
[2019-01-02] MEDS: Glucophage 500 MG PO SCH (08:53)
[2019-01-02] MEDS: ANTIVERT 25 MG PO SCH (08:53)
[2019-01-02] MEDS: KEFLEX 500 MG PO SCH (08:53)
[2019-01-02] MEDS: Sinemet 25/100 MG PO SCH (08:53)
--- NOTE | 2019-01-02 08:53 | PCM.NOTE ---
Date and Time: 01/02/19 0851 Subjective Assessment: doing better - Review of Systems Constitutional: No Fever, No Chills Eyes: No Symptoms Ears, Nose, & Throat: No Symptoms Respiratory: No Cough, No Short Of Breath Cardiac: No Chest Pain, No Edema, No Syncope Abdominal/Gastrointestinal: No Abdominal Pain, No Nausea, No Vomiting, No Diarrhea Genitourinary Symptoms: No Dysuria Musculoskeletal: No Back Pain, No Neck Pain Skin: No Rash Neurological: No Dizziness, No Focal Weakness, No Sensory Changes Psychological: No Symptoms Endocrine: No Symptoms Hematologic/Lymphatic: No Symptoms Immunological/Allergic: No Symptoms Objective Exam General Appearance: no apparent distress, alert Neurologic Exam: alert, oriented x 3, cooperative, normal mood/affect, nml cerebellar function, sensation nml, No motor deficits Skin Exam: normal color, warm, dry Eye Exam: PERRL, EOMI, eyes nml inspection Ears, Nose, Throat Exam: normal ENT inspection, pharynx normal, moist mucous membranes Neck Exam: normal inspection, non-tender, supple, full range of motion Respiratory Exam: normal breath sounds, lungs clear, No respiratory distress Cardiovascular Exam: regular rate/rhythm, normal heart sounds Gastrointestinal/Abdomen Exam: soft, No tenderness, No mass Extremity Exam: normal inspection, normal range of motion Back Exam: normal inspection, normal range of motion, No CVA tenderness, No vertebral tenderness Male Genitalia Exam: deferred Rectal Exam: deferred OBJECTIVE DATA Vital Signs: Vital Signs - 24 hr Temp Pulse Resp BP Pulse Ox 01/02/19 07:59 98.0 F 56 L 18 133/72 95 01/01/19 20:00 97.6 F 81 20 104/57 96 01/01/19 19:41 94 L Oxygen-Last 24 hours O2 Percentage 2 Liters = 28% Pain Assessment - Last Documented Pain Intensity 0 Pain Scale Used 0-10 Pain Scale Intake and Output: Intake & Output 12/30/18 12/31/18 01/01/19 01/02/19 11:59 11:59 11:59 11:59 Intake Total 480 360 480 Output Total 0503 209 725 92 Balance -620 -750 -365 -445 Weight 106.82 kg 96.8 kg Lab Results: Accuchecks Date 01/02/19 Date 01/01/19 Time 07:30 Time 21:00 Accucheck Value: 174 Accucheck Value: 271 Accucheck Value: 168 Lab Results-Last 24 Hours 01/01/19 Range/Units 18:54 Stl C. cayetanensis PCR NEGATIVE (NEGATIVE) Stl Adenov F 40/41 PCR NEGATIVE (NEGATIVE) Stool Astrovirus (PCR) NEGATIVE (NEGATIVE) Stool Cryptosporidium PCR NEGATIVE (NEGATIVE) Stool EPEC (PCR) NEGATIVE (NEGATIVE) Stool EAEC (PCR) NEGATIVE (NEGATIVE) Stl E. histolytica PCR NEGATIVE (NEGATIVE) Stl P. shigelloides PCR NEGATIVE (NEGATIVE) Stool Sapovirus (PCR) NEGATIVE (NEGATIVE) St Y.enterocolitica PCR NEGATIVE (NEGATIVE) Stool Vibrio (PCR) NEGATIVE (NEGATIVE) Stl Vibrio cholerae PCR NEGATIVE (NEGATIVE) Stl Norovirus GI/GII PCR NEGATIVE (NEGATIVE) Campylobacter (PCR) NEGATIVE (NEGATIVE) C. difficile Toxin A&B NEGATIVE (NEGATIVE) Enterotoxigenic E. coli NEGATIVE (NEGATIVE) E.coli Shiga Toxins NEGATIVE (NEGATIVE) Giardia lamblia NEGATIVE (NEGATIVE) Rotavirus A (PCR) NEGATIVE (NEGATIVE) Salmonella (PCR) NEGATIVE (NEGATIVE) Shigella (PCR) NEGATIVE (NEGATIVE) Assessment/Plan (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 Code(s): G90.3 - MULTI-SYSTEM DEGENERATION OF THE AUTONOMIC NERVOUS SYSTEM (2) Parkinsons Current Visit: Yes Status: Chronic Code(s): G20 - PARKINSON'S DISEASE (3) Rheumatoid arthritis Current Visit: Yes Status: Chronic Code(s): M06.9 - RHEUMATOID ARTHRITIS, UNSPECIFIED (4) Frequent falls Current Visit: No Status: Suspected Onset Date: ~02/26/18 Code(s): R29.6 - REPEATED FALLS
[2019-01-02] MEDS: PATIENT OWN MEDICATION SQ SCH (08:57)
[2019-01-02] MEDS ORDERED: ENOXAPARIN SODIUM SQ SCH (10:00)
== END 2019-01-02 11:08 | DRG 57 ==
LOC: MED SURG 15:15
PROVIDERS: ADMIT General Practice; ATTEND General Practice
DX: G90.3 Multi-system degeneration of the autonomic nervous system (principal); R53.1 Weakness; E11.9 Type 2 diabetes mellitus without complications; I10 Essential (primary) hypertension; G20 Parkinson's disease; M06.9 Rheumatoid arthritis, unspecified; R22.43 Localized swelling, mass and lump, lower limb, bilateral; Z79.899 Other long term (current) drug therapy; Z86.718 Personal history of other venous thrombosis and embolism; R29.6 Repeated falls; Z79.01 Long term (current) use of anticoagulants
CPT/HCPCS: 82962; 87507; 94760; A9270-GY

== ENCOUNTER 2019-04-26 09:14 | Observation (INO) | payer MEDICARE, OTHER ==
[2019-04-26] MEDS ORDERED: TYLENOL EXTRA STRENGTH 500 MG PO STA (09:26)
--- NOTE | 2019-04-26 09:31 | ERPHSYRPT ---
- History of Present Illness Time Seen by Provider: 04/26/19 09:29 Source: patient, family Physician History: mild ache positional pain of the left knee for one day, hx of falling, Parkinsons, no fever Allergies/Adverse Reactions: No Known Drug Allergies Allergy (Verified 04/26/19 10:02) Home Medications: Furosemide 40 mg [Lasix 40 MG] 40 mg PO DAILY 08/13/17 [History] Insulin Lispro Protamin/Lispro [Humalog Mix 50-50 Kwikpen] 1 unit SQ TIDAC 11/14 [History] Apomorphine HCl [Apokyn] 0.3 ml SQ TID 02/26/18 [History] Entacapone 200 mg PO QID 04/12/18 [History] Nitroglycerin [Nitrostat] 0.4 mg SL UD PRN 04/12/18 [History] Apixaban [Eliquis 2.5 mg Tablet] 2.5 mg PO DAILY 11/14/18 [History] Carbidopa/Levodopa 25/100 mg [Sinemet 25/100 MG] 1 tab PO QID 11/14/18 [ History] Cholecalciferol (Vitamin D3) [Vitamin D3] 5,000 unit PO WEEKLY 11/14/18 [History ] Escitalopram Oxalate 10 mg [Lexapro 10 MG] 10 mg PO DAILY 11/14/18 [History] Lisinopril 20 mg [Zestril 20 MG] 20 mg PO HS 11/14/18 [History] Meclizine HCl 25 mg [Antivert 25 mg] 12.5 mg PO TID 11/14/18 [History] Metformin HCl 500 mg [Glucophage 500 MG] 500 mg PO DAILY 11/14/18 [History ] Oxybutynin Chloride [Ditropan Xl] 5 mg PO TID 11/14/18 [History] Ropinirole HCl 0.5 mg [Requip 0.5 MG] 1 mg PO QID 11/14/18 [History] Tamsulosin HCl 0.4 mg [Flomax 0.4 MG] 0.4 mg PO HS 11/14/18 [History] Hydrocodone Bit/Acetaminophen [Hydrocodon-Acetaminoph 7.5-325] 1 each PO Q6HPRN PRN 12/22/18 [History] Acetaminophen 325 mg [Tylenol 325 mg] 325 mg PO Q6HPRN PRN 04/26/19 [ History] Canagliflozin [Invokana] 100 mg PO DAILY 04/26/19 [History] Daptomycin [Cubicin] 500 mg IV 04/26/19 [History] Loperamide HCl [Imodium A-D] 2 mg PO Q6H 04/26/19 [History] Quetiapine Fumarate 25 mg [Seroquel 25 MG] 25 mg PO HS 04/26/19 [History] Hx Tetanus, Diphtheria Vaccination/Date Given: Yes Hx Influenza Vaccination/Date Given: Yes Hx Pneumococcal Vaccination/Date Given: Yes - Review of Systems Constitutional: No Fever Eyes: No Vision Changes Ears, Nose, & Throat: No Nose Pain Respiratory: No Dyspnea Cardiac: No Chest Pain Abdominal/Gastrointestinal: No Abdominal Pain Musculoskeletal: No Back Pain Neurological: No Dizziness - Past Medical History Pertinent Past Medical History: Yes Neurological History: Peripheral Neuropathy, Other ENT History: No Pertinent History Cardiac History: Hypertension Respiratory History: Sleep Apnea Endocrine Medical History: Diabetes Type II Musculoskeletal History: Rheumatoid Arthritis, Other GI Medical History: Gallbladder Disease History: No Pertinent History Psycho-Social History: Depression, Other Male Reproductive Disorders: Prostate Problems Other Medical History: PARKINSONS; Intentional xanax overdose 2017;. RIGHT FOOT SURGICAL SITE mrsa, - Past Surgical History Past Surgical History: Yes Neuro Surgical History: No Pertinent History Cardiac: No Pertinent History, Cardiac Catheterization Respiratory: No Pertinent History Gastrointestinal: Cholecystectomy, Hernia Repair Genitourinary: No Pertinent History Musculoskeletal: Joint Replacement, Orthopedic Surgery Male Surgical History: No Pertinent History Other Surgical History: ABDON KNEE REPLACEMENT; Left wrist hardware, RIGHT GREAT TOE 12/20/18. right foot surgery tuesday04/23/19 - Social History Smoking Status: Never smoker Exposure to second hand smoke: No Drug Use: none Patient Lives Alone: No Significant Family History: no pertinent family hx - Nursing Vital Signs Nursing Vital Signs: Initial Vital Signs Temperature 96.3 F 04/26/19 09:28 Pulse Rate 70 04/26/19 09:28 Respiratory Rate 22 04/26/19 09:28 Blood Pressure 105/62 04/26/19 09:28 O2 Sat by Pulse Oximetry 96 04/26/19 09:28 Pain Scale Pain Intensity 7 - Physical Exam General Appearance: no apparent distress Neck Exam: normal inspection Respiratory Exam: normal breath sounds Cardiovascular Exam: regular rate/rhythm Gastrointestinal/Abdomen Exam: soft, No tenderness Back Exam: No vertebral tenderness Extremity Exam: other (tender anterior knee, sen and pulses intact, + varicosities) Neurologic Exam: alert, oriented x 3 Skin Exam: warm, dry - Course Nursing assessment & vital signs reviewed: Yes - Radiology Ultrasound Exam Venous Lower Extremity Ultrasound: discussed w/radiologist, Other (+dvt) Ordered Tests: Active Orders 24 hr Category Date Time Status VENOUS UNILAT/LIMITED EXTREMIT [US] Stat Exams 04/26/19 09:28 Completed CBC W DIFF Stat Lab 04/26/19 11:40 Completed CMP Stat Lab 04/26/19 11:40 Completed PROTIME WITH INR Stat Lab 04/26/19 11:40 Completed PTT Stat Lab 04/26/19 11:40 Completed Transfer Order Routine Transfer 04/26/19 Ordered Medication Summary Discontinued Medications Generic Name Dose Route Start Last Admin Trade Name Freq PRN Reason Stop Dose Admin Acetaminophen 500 mg 04/26/19 09:26 04/26/19 10:41 Tylenol Extra Strength 500 Mg PO 04/26/19 09:27 500 mg STAT STA Administration Acetaminophen Confirm 04/26/19 09:34 Tylenol Extra Strength 500 Mg Administered 04/26/19 09:35 Dose 500 mg .ROUTE .STK-MED ONE Acetaminophen Confirm 04/26/19 10:06 Tylenol Extra Strength 500 Mg Administered 04/26/19 10:07 Dose 500 mg .ROUTE .STK-MED ONE Enoxaparin Sodium 40 mg 04/26/19 11:14 04/26/19 11:29 Enoxaparin Sodium SQ 04/26/19 11:15 40 mg 1XONLY ONE Administration Enoxaparin Sodium Confirm 04/26/19 11:22 Enoxaparin Sodium Administered 04/26/19 11:23 Dose 80 mg SQ .STK-MED ONE Lab/Rad Data: Laboratory Result Diagrams 04/26/19 11:40 04/26/19 11:40 Laboratory Results 04/26/19 04/26/19 04/26/19 Range/Units 11:40 11:40 11:40 WBC 7.5 (4.0-10.5) K/mm3 RBC 4.63 (4.1-5.6) M/mm3 Hgb 14.6 (12.5-18.0) gm/dl Hct 44.2 (42-50) % MCV 95.5 (78-100) fl MCH 31.5 (26-32) pg MCHC 33.0 (32-36) g/dl RDW 14.6 H (11.5-14.0) % Plt Count 141 L (150-450) K/mm3 MPV 11.1 H (6-9.5) fl Gran % 75.8 H (36.0-66.0) % Eos # (Auto) 0.11 (0-0.5) Absolute Lymphs (auto) 1.15 (1.0-4.6) Absolute Monos (auto) 0.55 (0.0-1.3) Lymphocytes % 15.3 L (24.0-44.0) % Monocytes % 7.3 (0.0-12.0) % Eosinophils % 1.5 (0.00-5.0) % Basophils % 0.1 (0.0-0.4) % Absolute Granulocytes 5.71 (1.4-6.9) Basophils # 0.01 (0-0.4) PT 14.4 H (8.83-12.87) SECONDS INR 1.27 (0.8-3.0) APTT 38.5 H (24.1-36.1) SECONDS Sodium 140 (137-145) mmol/L Potassium 3.6 (3.5-5.1) mmol/L Chloride 105 (98-107) mmol/L Carbon Dioxide 30 (22-30) mmol/L Anion Gap 9.0 (5-15) MEQ/L BUN 15 (9-20) mg/dL Creatinine 0.78 (0.66-1.25) mg/dL Estimated GFR > 60.0 ML/MIN Glucose 130 H (74-106) mg/dL Calcium 8.9 (8.4-10.2) mg/dL Total Bilirubin 0.70 (0.2-1.3) mg/dL AST 17 (17-59) U/L ALT 5 (0-50) U/L Alkaline Phosphatase 114 (38-126) U/L Serum Total Protein 7.1 (6.3-8.2) g/dL Albumin 3.9 (3.5-5.0) g/dL - Progress Progress: unchanged Progress Note: 04/26/19 15:03 treatment and disposition d/w Dr Rust Will see patient in: hospital (observation) Counseled pt/family regarding: diagnosis, rad results - Departure Departure Disposition: Observation Clinical Impression: Deep vein thrombosis (DVT) of left lower extremity Qualifiers: Affected thrombotic vein of extremity: unspecified vein of extremity Chronicity : unspecified Qualified Code(s): I82.402 - Acute embolism and thrombosis of unspecified deep veins of left lower extremity Condition: Stable Critical Care Time: No Referrals: YAMILKA HILL [Primary Care Provider] -
[2019-04-26] MEDS ORDERED: TYLENOL EXTRA STRENGTH 500 MG ONE ×2 (09:34→10:06)
--- NOTE | 2019-04-26 10:57 | XRAY ---
Indication: DVT. Left leg pain and swelling. Two-dimensional sonogram and color Doppler imaging of the major venous vessels of the left leg was performed. Comparison: February 26, 2018. There is again nonoccluding thrombus in the proximal femoral vein now seen extending throughout the entire femoral vein. No thrombus in the remaining common femoral, deep femoral, popliteal, and posterior tibial veins all demonstrating normal compressibility. Impression: Worsening nonoccluding DVT throughout the femoral vein.
[2019-04-26] MEDS ORDERED: ENOXAPARIN SODIUM SQ ONE ×2 (11:14→11:22)
[2019-04-26 11:58] LABS: BASOPHIL % 0.1 % (0.0-0.4); Basophil (Absolute #) 0.01 (0-0.4); Eosinophil % 1.5 % (0.00-5.0); Eosinophil (Absolute #) 0.11 (0-0.5); Granulocyte Absolute (ANC) 5.71 (1.4-6.9); Granulocytes % 75.8 % (36.0-66.0); Hematocrit 44.2 % (42-50); Hemoglobin 14.6 gm/dl (12.5-18.0); Lymphocyte (Absolute #) 1.15 (1.0-4.6); Lymphocytes % 15.3 % (24.0-44.0); Mean Cell Volume 95.5 fl (78-100); Mean Corpuscular Hemoglobin 31.5 pg (26-32); Mean Platelet Volume 11.1 fl (6-9.5); Monocyte (Absolute #) 0.55 (0.0-1.3); Monocytes % 7.3 % (0.0-12.0); Platelet Count 141 K/mm3 (150-450); Red Blood Count 4.63 M/mm3 (4.1-5.6); Red Cell Distribution Width 14.6 % (11.5-14.0); White Blood Count 7.5 K/mm3 (4.0-10.5)
[2019-04-26 12:00] LABS: INR 1.27 (0.8-3.0); PROTIME 14.4 SECONDS (8.83-12.87)
[2019-04-26 12:03] LABS: PTT 38.5 SECONDS (24.1-36.1)
[2019-04-26 12:04] LABS: ALBUMIN 3.9 g/dL (3.5-5.0); ALKALINE PHOSPHATASE 114 U/L (38-126); BLOOD UREA NITROGEN 15 mg/dL (9-20); CHLORIDE 105 mmol/L (98-107); Calcium 8.9 mg/dL (8.4-10.2); Carbon Dioxide 30 mmol/L (22-30); Creatinine 1 0.78 mg/dL (0.66-1.25); Glucose 130 mg/dL (74-106); Potassium 3.6 mmol/L (3.5-5.1); SGOT/AST 17 U/L (17-59); SGPT/ALT 5 U/L (0-50); SODIUM 140 mmol/L (137-145); Total Protein 7.1 g/dL (6.3-8.2)
--- NOTE | 2019-04-26 17:21 | PCM.HP ---
History of Present Illness - Chief Complaint Chief Complaint: leg pain for 3-4 days History of Present Illness: is a 74 year old male came to ER with c/o mild ache positional pain of the left knee for one day, hx of falling, Parkinsons, no fever - Review of Systems Constitutional: No Fever, No Chills Eyes: No Symptoms Ears, Nose, & Throat: No Symptoms Respiratory: No Cough, No Short Of Breath Cardiac: No Chest Pain, No Edema, No Syncope Abdominal/Gastrointestinal: No Abdominal Pain, No Nausea, No Vomiting, No Diarrhea Genitourinary Symptoms: No Dysuria Musculoskeletal: Joint Swelling, No Back Pain, No Neck Pain Skin: Cellulitis, No Rash Neurological: No Dizziness, No Focal Weakness, No Sensory Changes Psychological: No Symptoms Endocrine: No Symptoms Hematologic/Lymphatic: No Symptoms Immunological/Allergic: No Symptoms Medications & Allergies Home Medications: Home Medication List Furosemide 40 mg [Lasix 40 MG] 40 mg PO DAILY 08/13/17 [History Confirmed 04/26/19] Insulin Lispro Protamin/Lispro [Humalog Mix 50-50 Kwikpen] 1 unit SQ TIDAC 11/14 [History Confirmed 04/26/19] Apomorphine HCl [Apokyn] 0.3 ml SQ TID 02/26/18 [History Confirmed 04/26/19] Entacapone 200 mg PO QID 04/12/18 [History Confirmed 04/26/19] Nitroglycerin [Nitrostat] 0.4 mg SL UD PRN 04/12/18 [History Confirmed 04/26/19] Apixaban [Eliquis 2.5 mg Tablet] 2.5 mg PO DAILY 11/14/18 [History Confirmed 04/26/19] Carbidopa/Levodopa 25/100 mg [Sinemet 25/100 MG] 1 tab PO QID 11/14/18 [ History Confirmed 04/26/19] Cholecalciferol (Vitamin D3) [Vitamin D3] 5,000 unit PO WEEKLY 11/14/18 [ History Confirmed 04/26/19] Escitalopram Oxalate 10 mg [Lexapro 10 MG] 10 mg PO DAILY 11/14/18 [History Confirmed 04/26/19] Lisinopril 20 mg [Zestril 20 MG] 20 mg PO HS 11/14/18 [History Confirmed 04/26/19] Meclizine HCl 25 mg [Antivert 25 mg] 12.5 mg PO TID 11/14/18 [History Confirmed 04/26/19] Metformin HCl 500 mg [Glucophage 500 MG] 500 mg PO DAILY 11/14/18 [ History Confirmed 04/26/19] Oxybutynin Chloride [Ditropan Xl] 5 mg PO TID 11/14/18 [History Confirmed ] Ropinirole HCl 0.5 mg [Requip 0.5 MG] 1 mg PO QID 11/14/18 [History Confirmed 04/26/19] Tamsulosin HCl 0.4 mg [Flomax 0.4 MG] 0.4 mg PO HS 11/14/18 [History Confirmed 04/26/19] Hydrocodone Bit/Acetaminophen [Hydrocodon-Acetaminoph 7.5-325] 1 each PO Q6HPRN PRN 12/22/18 [History Confirmed 04/26/19] Acetaminophen 325 mg [Tylenol 325 mg] 325 mg PO Q6HPRN PRN 04/26/19 [ History Confirmed 04/26/19] Canagliflozin [Invokana] 100 mg PO DAILY 04/26/19 [History Confirmed 04/26/19] Daptomycin [Cubicin] 500 mg IV DAILY 04/26/19 [History Confirmed 04/26/19] Loperamide HCl [Imodium A-D] 2 mg PO Q6H 04/26/19 [History Confirmed 04/26/19] Quetiapine Fumarate 25 mg [Seroquel 25 MG] 25 mg PO HS 04/26/19 [History Confirmed 04/26/19] Vancomycin HCl in Dextrose 5 % [Vancomycin 1 Gram/250 ml-D5w] 1 gm IV BID [History Confirmed 04/26/19] Allergies/Adverse Reactions: Allergies Allergy/AdvReac Type Severity Reaction Status Date / Time No Known Drug Allergies Allergy Verified 04/26/19 10:02 - Past Medical History Past Medical History: Yes Neurological History: Peripheral Neuropathy, Other ENT History: No Pertinent History Cardiac History: Hypertension, Other Respiratory History: Sleep Apnea Endocrine Medical History: Diabetes Type II Musculoskelatal History: Rheumatoid Arthritis, Other GI Medical History: Gallbladder Disease History: No Pertinent History Pyscho-Social History: Depression, Other Male Reproductive Disorders: Prostate Problems Comment: PARKINSONS; Intentional xanax overdose 2018;. RIGHT FOOT SURGICAL SITE mrsa, heart murmur - Past Surgical History Past Surgical History: Yes Neuro Surgical History: No Pertinent History Cardiac History: No Pertinent History, Cardiac Catheterization Respiratory Surgery: No Pertinent History GI Surgical History: Cholecystectomy, Hernia Repair Genitourinary Surgical Hx: No Pertinent History Musculskeletal Surgical Hx: Joint Replacement, Orthopedic Surgery Male Surgical History: No Pertinent History Other Surgical History: ABDON KNEE REPLACEMENT; Left wrist hardware, RIGHT GREAT TOE 12/20/18. right foot surgery tuesday04/23/19 - Social History Smoking Status: Never smoker Exposure to second hand smoke: No Alcohol: None Drug Use: none Significant Family History: no pertinent family hx - Physical Exam Vital Signs: Vital Signs - 24 hr Temp Pulse Resp BP Pulse Ox 04/26/19 15:50 98.1 F 65 20 115/71 96 04/26/19 15:34 98.1 F 65 20 115/71 96 04/26/19 15:17 60 16 117/67 94 L 04/26/19 11:19 61 20 132/75 96 04/26/19 10:05 105/62 04/26/19 09:28 96.3 F 70 22 105/62 96 General Appearance: no apparent distress, alert Neurologic Exam: alert, oriented x 3, cooperative, normal mood/affect, nml cerebellar function, nml station & gait, sensation nml, No motor deficits Eye Exam: PERRL/EOMI, eyes nml inspection Ears, Nose, Throat Exam: normal ENT inspection, TMs normal, pharynx normal, moist mucous membranes Neck Exam: normal inspection, non-tender, supple, full range of motion Respiratory Exam: normal breath sounds, lungs clear, No respiratory distress Cardiovascular Exam: regular rate/rhythm, normal heart sounds, normal peripheral pulses Gastrointestinal/Abdomen Exam: soft, normal bowel sounds, No tenderness, No mass Back Exam: normal inspection, normal range of motion, No CVA tenderness, No vertebral tenderness Extremity Exam: normal inspection, normal range of motion, pelvis stable Skin Exam: normal color, warm, dry, No rash Lymphatic Exam: No adenopathy Results - Labs Lab/Micro Results: Accuchecks Date 04/26/19 Time 16:00 Accucheck Value: 140 Lab Results-Last 24 Hours 04/26/19 04/26/19 04/26/19 Range/Units 11:40 11:40 11:40 WBC 7.5 (4.0-10.5) K/mm3 RBC 4.63 (4.1-5.6) M/mm3 Hgb 14.6 (12.5-18.0) gm/dl Hct 44.2 (42-50) % MCV 95.5 (78-100) fl MCH 31.5 (26-32) pg MCHC 33.0 (32-36) g/dl RDW 14.6 H (11.5-14.0) % Plt Count 141 L (150-450) K/mm3 MPV 11.1 H (6-9.5) fl Gran % 75.8 H (36.0-66.0) % Eos # (Auto) 0.11 (0-0.5) Absolute Lymphs (auto) 1.15 (1.0-4.6) Absolute Monos (auto) 0.55 (0.0-1.3) Lymphocytes % 15.3 L (24.0-44.0) % Monocytes % 7.3 (0.0-12.0) % Eosinophils % 1.5 (0.00-5.0) % Basophils % 0.1 (0.0-0.4) % Absolute Granulocytes 5.71 (1.4-6.9) Basophils # 0.01 (0-0.4) PT 14.4 H (8.83-12.87) SECONDS INR 1.27 (0.8-3.0) APTT 38.5 H (24.1-36.1) SECONDS Sodium 140 (137-145) mmol/L Potassium 3.6 (3.5-5.1) mmol/L Chloride 105 (98-107) mmol/L Carbon Dioxide 30 (22-30) mmol/L Anion Gap 9.0 (5-15) MEQ/L BUN 15 (9-20) mg/dL Creatinine 0.78 (0.66-1.25) mg/dL Estimated GFR > 60.0 ML/MIN Glucose 130 H (74-106) mg/dL Calcium 8.9 (8.4-10.2) mg/dL Total Bilirubin 0.70 (0.2-1.3) mg/dL AST 17 (17-59) U/L ALT 5 (0-50) U/L Alkaline Phosphatase 114 (38-126) U/L Serum Total Protein 7.1 (6.3-8.2) g/dL Albumin 3.9 (3.5-5.0) g/dL Accuchecks Date 04/26/19 Time 16:00 Accucheck Value: 140 - Radiology Impressions Radiology Exams & Impressions: Radiology Procedures Category Date Time Status VENOUS UNILAT/LIMITED EXTREMIT [US] Stat Exams 04/26/19 09:28 Completed Assessment/Plan (1) Deep vein thrombosis (DVT) of left lower extremity Current Visit: Yes Status: Chronic Onset Date: ~02/26/18 Qualifiers: Affected thrombotic vein of extremity: unspecified vein of extremity Chronicity: unspecified Qualified Code(s): I82.402 - Acute embolism and thrombosis of unspecified deep veins of left lower extremity Code(s): I82.402 - ACUTE EMBOLISM AND THOMBOS UNSP DEEP VEINS OF L LOW EXTREM (2) Localized swelling of both lower legs Current Visit: No Status: Chronic Onset Date: ~02/26/18 Code(s): R22.43 - LOCALIZED SWELLING, MASS AND LUMP, LOWER LIMB, BILATERAL (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
[2019-04-26] MEDS ORDERED: TYLENOL 325 MG PO PRN (19:00)
[2019-04-26] MEDS ORDERED: NORCO 7.5/325 MG TAB PO PRN (19:02)
[2019-04-26] MEDS ORDERED: Nitrostat 0.4 MG Tablet SL PRN (19:09)
[2019-04-26] MEDS ORDERED: IMODIUM 2 MG PO PRN (19:15)
[2019-04-26] MEDS ORDERED: Vancomycin 1GM/ Ns 250ML*** 250 ML IV ONE (20:44)
[2019-04-26] MEDS: Requip 0.5 MG PO SCH (21:40)
[2019-04-26] MEDS: Ditropan XL 5 MG PO SCH (21:41)
[2019-04-26] MEDS: Sinemet 25/100 MG PO SCH (21:41)
[2019-04-26] MEDS: ANTIVERT 25 MG PO SCH (21:42)
[2019-04-26] MEDS ORDERED: Seroquel 25 MG PO SCH (22:00)
[2019-04-26] MEDS ORDERED: Flomax 0.4 MG PO SCH (22:00)
[2019-04-26] MEDS ORDERED: VANCOCIN 1 GM VIAL*** 1 GM in Sodium Chloride 0.9% 250 ML 250 ML IV SCH (22:00)
[2019-04-26] MEDS ORDERED: Zestril 20 MG PO SCH (22:00)
[2019-04-27] MEDS ORDERED: NON-FORMULARY ITEM (Cholecalciferol (Vitamin D3) [Vitamin D3] 5,000 UNIT) PO SCH (07:45)
[2019-04-27] MEDS ORDERED: INSULIN LISPRO PROTAMIN SQ SCH (07:45)
[2019-04-27] MEDS ORDERED: LISPRO SQ SCH (07:45)
[2019-04-27] MEDS ORDERED: Glucophage 500 MG PO SCH (08:00)
[2019-04-27] MEDS ORDERED: MEDICATION INTERVENTION PO SCH ×3 (08:00)
[2019-04-27] MEDS ORDERED: NovoLOG Insulin SQ PRN (08:00)
[2019-04-27] MEDS: ANTIVERT 25 MG PO SCH (09:16)
[2019-04-27] MEDS: Requip 0.5 MG PO SCH ×2 (09:16→13:01)
[2019-04-27] MEDS: Ditropan XL 5 MG PO SCH (09:17)
[2019-04-27] MEDS: Sinemet 25/100 MG PO SCH ×2 (09:20→13:01)
[2019-04-27] MEDS ORDERED: [UNRECOGNIZED DRUG - OTHER] IV SCH (10:00)
[2019-04-27] MEDS ORDERED: [UNRECOGNIZED DRUG - OTHER] SQ SCH (10:00)
[2019-04-27] MEDS ORDERED: ELIQUIS 2.5 MG TABLET PO SCH ×2 (10:00)
[2019-04-27] MEDS ORDERED: Daptomycin 500 MG Injection IV SCH (10:00)
[2019-04-27] MEDS ORDERED: Lasix 40 MG PO SCH (10:00)
[2019-04-27] MEDS ORDERED: DAPTOMYCIN IV SCH (10:00)
[2019-04-27] MEDS ORDERED: VANCOMYCIN HCL IN DEXTROSE IV SCH (10:00)
[2019-04-27] MEDS ORDERED: Lexapro 10 MG PO SCH (10:00)
[2019-04-27] MEDS ORDERED: SODIUM CHLORIDE FLUSH IV SCH (10:00)
[2019-04-27] MEDS ORDERED: ENTACAPONE 200 MG PO SCH (10:00)
[2019-04-27] MEDS ORDERED: NON-FORMULARY ITEM (Canagliflozin [Invokana] 100 MG) PO SCH (10:00)
[2019-04-27 12:09] VITALS: BP 111/62; PULSE 59; O2SAT 95
[2019-05-03] MEDS ORDERED: VITAMIN D PO SCH (10:00)
== END 2019-04-27 13:25 | disposition home or self-care (01) ==
LOC: ED 09:14 → MED SURG 15:28
PROVIDERS: ADMIT General Practice; ATTEND General Practice
DX: I82.412 Acute embolism and thrombosis of left femoral vein (principal); E11.9 Type 2 diabetes mellitus without complications; G90.3 Multi-system degeneration of the autonomic nervous system; R22.43 Localized swelling, mass and lump, lower limb, bilateral; M06.9 Rheumatoid arthritis, unspecified; I10 Essential (primary) hypertension; G20 Parkinson's disease; Z79.899 Other long term (current) drug therapy
CPT/HCPCS: 36415; 80053; 82962; 85025; 85610; 85730; 93971; 96372; 99285; G0378; J0878; J1642; J1650; J3370; A9270-GY